=== PATIENT | female | born 1970 | race Native Hawaiian/Other Pacific Islander ===

== ENCOUNTER → 2020-08-22 11:04 | Outpatient (BNVA) | payer OTHER, SELFPAY | PROVIDERS: PCP Internal Medicine; Referring Provider Internal Medicine; Visit Provider Orthopaedic Surgery | DX: M79.673 Pain in unspecified foot (principal) | CPT/HCPCS: 99212 ==

== ENCOUNTER 2020-09-15 09:04 | Outpatient (REF) | payer OTHER, SELFPAY ==
--- NOTE | 2020-09-15 09:08 | EMG_ITS ---
Right median and ulnar motor and sensory studies were performed. Right radial sensory studies were performed and paraspinal muscles were tested. IMPRESSION: Mild right median neuropathy across carpal tunnel. MD SEEMA Triplett/ALFONSO / [id number]
== END 2020-09-15 09:05 | disposition home or self-care (01) ==
LOC: HO.NEURO 09:04
PROVIDERS: Visit Provider Internal Medicine
DX: R20.0 Anesthesia of skin (principal)
CPT/HCPCS: 95860; 95886; 95909; 95910

== ENCOUNTER → 2020-11-11 10:20 | Outpatient (BNV) | payer OTHER, SELFPAY | PROVIDERS: PCP Internal Medicine; Visit Provider Internal Medicine Medical Oncology | DX: D64.9 Anemia, unspecified (principal) | CPT/HCPCS: 99213; 99214 ==

== ENCOUNTER → 2021-02-09 10:16 | Outpatient (BNVA) | payer OTHER, SELFPAY | PROVIDERS: PCP Internal Medicine; Referring Provider Internal Medicine; Visit Provider Internal Medicine Cardiovascular Disease | DX: R06.02 Shortness of breath (principal); I25.10 Atherosclerotic heart disease of native coronary artery without angina pectoris; I10 Essential (primary) hypertension; E78.2 Mixed hyperlipidemia | CPT/HCPCS: 93005; 99212 ==

== ENCOUNTER → 2021-02-20 10:32 | Outpatient (REF) | payer OTHER, SELFPAY ==
--- NOTE | 2021-02-20 10:35 | CA_ITS ---
Transthoracic Echocardiogram Patient (Last, First, Middle): Barbara Murillo, Gender: Female Date of : 1970 Age: 51 Procedure Date: 02/20/2021 Procedure Type: Transthoracic Echocardiogram Location: OP Height: 154.94 cm Weight: 83.01 kg BSA: 1.82 m2 Heart Rate: bpm BP: 112 / 54 mmHg Sawmill Hand: BRITTNEE Kinney MD: Deshawn Aaron MD Shut Off Worker: Deshawn Aaron MD Symptoms: R06.02 - Shortness of breath Study Quality: Good ECG Rhythm: Sinus Conclusions: - 1. Low normal LV systolic function with normal filling pattern with wall motion abnormality in RCA territory 2. Normal cardiac valvular Doppler 3. Normal RV systolic pressure 4. No pericardial effusion Findings Left Ventricle Normal left ventricular cavity size. There is normal left ventricular wall thickness. The left ventricular systolic function is low normal. The visually estimated ejection fraction is between 50-55%. There is evidence of regional wall motion abnormalities. Spectral Doppler is indicative of a normal filling pattern. Wall Motion Rest Echo Findings The inferoseptal wall and mid inferior segment are hypokinetic. The basal inferior segment is akinetic. All other scored wall segments showed normal motion. Right Ventricle Normal right ventricular cavity size and systolic function. Atria The left atrium is likely dilated. There is no evidence of interatrial shunt. The right atrium is normal in size. Aortic Valve Normal aortic valve structure and function. There is no aortic valve stenosis. There is no aortic valve regurgitation. Mitral Valve There is mild anterior mitral leaflet thickening. There is mild mitral annular calcification. There is no mitral valve regurgitation. There is no mitral valve stenosis. Pulmonic Valve The pulmonic valve was not well visualized. Tricuspid Valve Likely normal tricuspid valve structure and function. There is trace tricuspid valve regurgitation. The right ventricular systolic pressure is normal. Normal right atrial pressure. There is no evidence of pulmonary hypertension. Great Vessels All visible segments of the aorta are normal in size. The pulmonary artery was not well visualized. Venous The inferior vena cava is normal in size and collapses greater than 50% with inspiration. Pericardium/Pleural There is no evidence of pericardial effusion. Prior Study Comparison Changes noted compared to prior study dated: 02/17/2020. LV systolic function is reduced Measurements 2D Linear Measurements RVIDd: 2.93 RVIDd Index: 1.61 IVSd: 1.05 0.6-0.9/0.6-1.0 cm LVIDd: 4.80 3.9-5.3/4.2-5.9 cm LVIDd Index: 2.64 2.4-3.2/2.2-3.1 cm/m2 LVIDs: 3.57 2.0-3.6 cm LVPWd: 1.20 0.7-1.1 cm Ao Root: 2.60 2.1-3.5 cm LA Diam: 3.70 2.7-3.8/3.0-4.0 cm LAIDs Index: 2.03 1.5-2.3 cm/m2 LV Mass: 249.40 67-162/88-224 g LV Mass Index: 137.03 43-95/49-115 g/m2 LVOT Diam: 2.00 3.0+(-)1.3 cm 2D Systolic Function EF 4C: 51.30 >55% EF 2C: 44.90 >55% EF BiP: 49.40 >55% Mitral Valve MV Pk E: 0.74 MV PK A: 0.49 MV Decel Time: 160.00 E/A: 1.50 E'Lateral: 7.62 E'Medial: 8.16 E/E' Med: 9.00 E/E' Lat: 9.70 Aortic Valve AoV Pk Iker: 1.54 AoV Mn Iker: 1.02 AoV VTI: 0.31 AoV Pk Grad: 9.00 Aov Mn Grad: 5.00 MELANI Cont.VTI: 1.89 LVOT LVOT Pk Iker: 0.94 LVOT Mn Iker: 0.71 LVOT VTI: 0.19 LVOT Pk Grad: 4.00 LVOT Mn Grad: 2.00 LVOT Diam: 2.00 LVOT Area: 3.14 Diastolic Function MV Pk E: 0.74 MV Pk A: 0.49 E/A: 1.50 E'Medial: 8.16 E/E' Med: 9.00 E' Laterial: 7.62 E/E' Lat: 9.70 Tricuspid Valve TR Pk Iker: 1.94 TR Pk Grad: 15.00 RA Press: 3.00 RVSP: 18.00 Great Vessels Aorta Ao Root-2D: 2.60 2.0-3.7 cm Ao Asc: 2.90 2.1-3.4 cm Ao Arch: 2.90 Updated in Other Vendor System with Status of Final Deshawn Aaron MD electronically signed on 02/20/2021 4:06:17 PM with status of Final
== END ==
LOC: HO.CARD 10:32
PROVIDERS: PCP Internal Medicine; Visit Provider Internal Medicine Cardiovascular Disease
DX: R06.02 Shortness of breath (principal)
CPT/HCPCS: 93306

== ENCOUNTER 2021-03-03 13:57 | Outpatient (REF) | payer OTHER, SELFPAY ==
[2021-03-04 12:47] LABS: BV Int Neg Control Negative (Negative); BV Int Pos Control Positive (Positive)
== END 2021-03-03 13:58 | disposition home or self-care (01) ==
LOC: HO.LAB 13:57
PROVIDERS: Visit Provider Obstetrics & Gynecology
DX: Z01.419 Encounter for gynecological examination (general) (routine) without abnormal findings (principal); L29.2 Pruritus vulvae
CPT/HCPCS: 87480; 87510; 87660

== ENCOUNTER → 2021-03-14 10:10 | Outpatient (REF) | payer OTHER, SELFPAY ==
--- NOTE | ~2021-03-14 | NM_ITS ---
Lexiscan Myocardial perfusion study Indication: Chest pain, shortness of breath, assess for coronary disease and ischemia Technique: The patient was brought in for a Lexiscan perfusion study on 03/13/2021 and was injected 0.4 mg of Lexiscan intravenously. Within a minute of this injection 30 mCi of sestamibi was given intravenously. Images were obtained using the SPECT gamma camera interlaced with the gating device. Images were obtained in supine position. Resting perfusion study was performed on 03/14/2021. Patient was administered 30 mCi of sestamibi intravenously at rest. Images were then obtained in supine position. Total DLP 132mGy-cm. Images were processed with the software and compared side to side in short axis, horizontal long axis and vertical long axis views. Findings: Raw acquisition was reviewed. The stress perfusion study showed moderate to severely diminished tracer uptake along most of the anterior wall; basal septum. With CT attenuation correction, there is partial improvement. Hence some of this could be from soft tissue attenuation. The gated study shows normal LV systolic function with calculated LVEF of 55%. LV cavity is normal in size. The gated study shows normal wall thickening and contraction of segments. Resting study shows no significant perfusion abnormality. With CT attenuation correction, there is slightly reduced uptake towards the apex and immediate adjacent areas. Gating at rest reveals normal wall motion with ejection fraction at 50%. The findings are consistent with reversible defect along most of the anterior wall and the basal septum with partial improvement with CT attenuation correction. NM/NM adelso perf SPECT rest & str Impression: 1. Myocardial perfusion imaging study shows ischemia with components of soft tissue attenuation in the LAD territory. 2. Gated LVEF is 55% during stress and 50% during rest. 3. Transient ischemic dilatation not present. EKG component of the test reported separately.
--- NOTE | 2021-03-14 10:14 | CA_ITS ---
Acquisition Time: 2021-03-14 10:21:00 Total Exercise Time: 00:02:00 Test Indications: CHEST PAIN, SOB Medications: Protocol: LEXISCAN Max HR: 093 BPM 55% of Pred: 168 BPM Max BP: 116/060 mmHG Max Work Load: 1.0 METS Pharmacological stress test with lexiscan injection, while sitting and kicking her legs, without anginal symptoms, without arrythmia, with normotensive response to injection, with nondiagnostic EKG for ischemia. In recovery she reported lightheadedness, chest tightness that was treated with Aminophylline 75mg IVP and 6oz caffinated soda with resolution of symptoms. Nuclear images pending. Test reviewed with Dr Aaron. Referred By: Deshawn Aaron Overread By: TERENCE TALAMANTES
== END ==
LOC: HO.CARD 10:10
PROVIDERS: PCP Internal Medicine; Visit Provider Internal Medicine Cardiovascular Disease
DX: R06.02 Shortness of breath (principal)
CPT/HCPCS: 78452; 93017; A9500; J0280; J2785

== ENCOUNTER → 2021-03-22 10:52 | Outpatient (BNVA) | payer OTHER, SELFPAY | PROVIDERS: PCP Internal Medicine; Visit Provider Internal Medicine Cardiovascular Disease | DX: R06.02 Shortness of breath (principal); I25.10 Atherosclerotic heart disease of native coronary artery without angina pectoris | CPT/HCPCS: Q3014 ==

== ENCOUNTER 2021-04-03 09:55 | Outpatient (REF) | payer OTHER, SELFPAY ==
[2021-04-03 10:51] LABS: MANUAL DIFF FLAG NO
[2021-04-03 11:13] LABS: Basophils Percent Auto 0.5 % (0-2); Eosinophils Absolute Auto 0.3 X10*3/uL (0.0-0.4); Eosinophils Percent Auto 4.9 % (0-4); Hematocrit 38.6 % (37-47); Hemoglobin 11.7 g/dl (12.0-16.0); Imm Gran Abs Auto 0.01 X10*3/uL (0.00-0.03); Imm Gran Pct Auto 0.2 % (0.0-0.4); Lymphocytes Absolute Auto 1.8 X10*3/uL (1.2-4.9); Lymphocytes Percent Auto 31.5 % (20-40); Mean Corpuscular HGB Conc 30.3 g/dl (31.0-35.0); Mean Corpuscular Hemoglobin 25.9 pg (27.0-33.0); Mean Corpuscular Volume 85.4 fL (80-98); Mean Platelet Volume 10.1 fL (9.4-12.3); Monocytes Absolute Auto 0.5 X10*3/uL (0.1-1.2); Monocytes Percent Auto 8.3 % (2-11); Neutrophils Percent Auto 54.6 % (45-73); Platelet Count 272 X10*3/uL (160-400); Red Blood Count 4.52 X10*6/uL (4.20-5.50); Red Cell Distribution Width 14.6 % (11.0-16.0); White Blood Count 5.6 X10*3/uL (4.8-10.8)
[2021-04-03 11:22] LABS: Prothrombin Time 11.1 SEC (9.9-13.0)
[2021-04-03 11:23] LABS: Alanine Aminotransferase 22 U/L (0-31); Alkaline Phosphatase 120 U/L (39-117); Anion Gap 10 (12-20); Aspartate Amino Transferase 19 U/L (5-31); Bilirubin Total 0.5 mg/dL (0.0-1.0); Blood Urea Nitrogen 14 mg/dL (9-16); Calcium 9.2 mg/dL (8.4-10.2); Carbon Dioxide 26 mmol/L (22-29); Chloride 108 mmol/L (96-108); Cholesterol 160 mg/dL; Estimated Glomerular Filt Rate > 60; Glucose Fasting 145 mg/dL (60-99); HDL Cholesterol 47 mg/dL; LDL Cholesterol Calculated 52 mg/dl; Potassium 4.4 mmol/L (3.3-5.1); Sodium 140 mmol/L (135-145); Total Protein 7.3 g/dL (6.5-8.0); Triglycerides 305 mg/dL
[2021-04-03 11:51] LABS: Folate 18.7 ng/mL (> or = 4.0); Vitamin B12 747 pg/mL (200-900)
[2021-04-07 13:11] LABS: Vitamin D 25-OH, D2 <4 ng/mL; Vitamin D 25-OH, D3 29 ng/mL; Vitamin D 25-OH, Total 29 ng/mL (30-100)
== END 2021-04-03 09:56 | disposition home or self-care (01) ==
LOC: HO.LAB 09:55
PROVIDERS: Absent Provider Internal Medicine; PCP Internal Medicine; Visit Provider Internal Medicine Cardiovascular Disease
DX: I10 Essential (primary) hypertension (principal); D51.0 Vitamin B12 deficiency anemia due to intrinsic factor deficiency; D50.9 Iron deficiency anemia, unspecified; R53.83 Other fatigue; I25.10 Atherosclerotic heart disease of native coronary artery without angina pectoris; R06.02 Shortness of breath
CPT/HCPCS: 36415; 80048; 80053; 80061; 82306; 82607; 82746; 85025; 85610

== ENCOUNTER → 2021-04-20 12:55 | Outpatient (BNVA) | payer OTHER, SELFPAY | PROVIDERS: PCP Internal Medicine; Referring Provider Internal Medicine; Visit Provider Nurse Practitioner Family | DX: I25.10 Atherosclerotic heart disease of native coronary artery without angina pectoris (principal); I10 Essential (primary) hypertension; E78.5 Hyperlipidemia, unspecified; R06.02 Shortness of breath; Z98.890 Other specified postprocedural states | CPT/HCPCS: 99212 ==

== ENCOUNTER 2021-05-25 12:42 | Outpatient (REF) | payer OTHER, SELFPAY ==
--- NOTE | ~2021-05-25 | MM_ITS ---
EXAMINATION: MM SCREENING DIGITAL BREAST TOMOSYNTHESIS, BILATERAL CLINICAL INFORMATION: Screening. Asymptomatic. Family history breast cancer, sister. The lifetime risk of breast cancer based on the Tyrer-Cuzick Model is 20.4%. COMPARISON: Mammography: 01/05/2019, 12/26/2017, 08/26/2017 TECHNIQUE: Digital breast tomosynthesis is performed in both the craniocaudal and mediolateral oblique views along with computer-aided detection (CAD). Synthesized 2D images are generated from the tomosynthesis. FINDINGS: There are scattered areas of fibroglandular density (ACR BI-RADS breast composition Category b). Parenchymal pattern is similar to prior study. Small nodular density posterior upper outer right breast is stable. There is no developing density or interval architectural abnormality. No abnormal calcifications. The axilla and skin contours are unremarkable. MM/MM tomosynthesis screening BI IMPRESSION: No significant changes from prior exam. ASSESSMENT: BI-RADS 2: Benign RECOMMENDATION: 1. Routine annual mammography screening. 2.. The lifetime risk of breast cancer based on the Tyrer-Cuzick Model is 20.4%. Additional annual adjunct screening with breast MRI may be of benefit in women with a risk score of 20% or greater. This patient's information was entered into a reminder system with a target due date for their next mammogram.
== END 2021-05-25 12:43 | disposition home or self-care (01) ==
LOC: HO.MAMMO 12:42
PROVIDERS: PCP Internal Medicine; Visit Provider Obstetrics & Gynecology
DX: Z12.31 Encounter for screening mammogram for malignant neoplasm of breast (principal)
CPT/HCPCS: 77063; 77067

== ENCOUNTER 2021-05-30 12:48 | Outpatient (REF) | payer OTHER, SELFPAY | END 2021-05-30 12:49 | disposition home or self-care (01) | LOC: HO.LAB 12:48 | PROVIDERS: PCP Internal Medicine; Visit Provider Obstetrics & Gynecology | DX: N76.6 Ulceration of vulva (principal); Z91.89 Other specified personal risk factors, not elsewhere classified | CPT/HCPCS: 87255; 99212 ==

== ENCOUNTER 2021-06-19 12:20 | Outpatient (REF) | payer OTHER, SELFPAY ==
[2021-06-19 12:44] LABS: MANUAL DIFF FLAG NO
[2021-06-19 13:23] LABS: Basophils Percent Auto 0.6 % (0-2); Eosinophils Absolute Auto 0.2 X10*3/uL (0.0-0.4); Eosinophils Percent Auto 4.4 % (0-4); Hematocrit 37.4 % (37-47); Hemoglobin 11.8 g/dl (12.0-16.0); Imm Gran Abs Auto 0.01 X10*3/uL (0.00-0.03); Imm Gran Pct Auto 0.2 % (0.0-0.4); Lymphocytes Absolute Auto 2.4 X10*3/uL (1.2-4.9); Lymphocytes Percent Auto 45.5 % (20-40); Mean Corpuscular HGB Conc 31.6 g/dl (31.0-35.0); Mean Corpuscular Hemoglobin 26.4 pg (27.0-33.0); Mean Corpuscular Volume 83.7 fL (80-98); Mean Platelet Volume 9.9 fL (9.4-12.3); Monocytes Absolute Auto 0.4 X10*3/uL (0.1-1.2); Neutrophils Absolute Auto 2.2 X10*3/uL (2.0-8.3); Neutrophils Percent Auto 42.3 % (45-73); Platelet Count 279 X10*3/uL (160-400); Red Blood Count 4.47 X10*6/uL (4.20-5.50); Red Cell Distribution Width 14.8 % (11.0-16.0); White Blood Count 5.3 X10*3/uL (4.8-10.8)
[2021-06-19 13:48] LABS: Alanine Aminotransferase 21 U/L (0-31); Albumin Level 4.2 g/dL (3.5-5.0); Alkaline Phosphatase 143 U/L (39-117); Anion Gap 11 (12-20); Aspartate Amino Transferase 18 U/L (5-31); Bilirubin Total 0.3 mg/dL (0.0-1.0); Blood Urea Nitrogen 12 mg/dL (9-16); Calcium 9.1 mg/dL (8.4-10.2); Carbon Dioxide 25 mmol/L (22-29); Chloride 110 mmol/L (96-108); Cholesterol 162 mg/dL; Estimated Glomerular Filt Rate > 60; Glucose Fasting 104 mg/dL (60-99); HDL Cholesterol 48 mg/dL; Iron 66 mcg/dL (30-160); LDL Cholesterol Calculated 61 mg/dl; Percent Iron Saturation 17 % (15-50); Potassium 4.4 mmol/L (3.3-5.1); Sodium 142 mmol/L (135-145); Total Iron Binding Capacity 382 mcg/dL (228-428); Total Protein 7.5 g/dL (6.5-8.0); Triglycerides 267 mg/dL; Unsaturated Iron Binding 316 ug/dL
[2021-06-19 14:08] LABS: Ferritin 10 ng/mL (10-250)
[2021-06-19 14:15] LABS: Folate 17.9 ng/mL (> or = 4.0); Vitamin B12 631 pg/mL (200-900)
[2021-06-19 14:49] LABS: Creatinine Urine 68.71 mg/dL; Microalbumin Urine < 5.0 mg/L
[2021-06-23 14:25] LABS: Vitamin D 25-OH, D2 <4 ng/mL; Vitamin D 25-OH, D3 32 ng/mL; Vitamin D 25-OH, Total 32 ng/mL (30-100)
== END 2021-06-19 12:21 | disposition home or self-care (01) ==
LOC: HO.LAB 12:20
PROVIDERS: Internal Medicine Medical Oncology; PCP Internal Medicine; Visit Provider Internal Medicine
DX: D50.9 Iron deficiency anemia, unspecified (principal); E78.5 Hyperlipidemia, unspecified; I10 Essential (primary) hypertension; G43.909 Migraine, unspecified, not intractable, without status migrainosus; D51.0 Vitamin B12 deficiency anemia due to intrinsic factor deficiency; E55.9 Vitamin D deficiency, unspecified; E11.9 Type 2 diabetes mellitus without complications
CPT/HCPCS: 36415; 80053; 80061; 82043; 82306; 82607; 82728; 82746; 83540; 85025; 85027

== ENCOUNTER 2021-06-20 09:41 | Outpatient (REF) | payer OTHER, SELFPAY ==
--- NOTE | ~2021-06-20 | MR_ITS ---
EXAMINATION: MR BREAST WITHOUT AND WITH CONTRAST, BILATERAL CLINICAL INFORMATION: High-risk screening, family history of breast cancer (sister at age 58) COMPARISON: Bilateral mammogram 05/25/2021 TECHNIQUE: Imaging was performed with a dedicated breast coil. Prior to the administration of contrast, bilateral axial T1 and bilateral axial T2 weighted sequences were obtained. After the uneventful administration of?8.5 mL of Gadavist, dynamic contrast-enhanced VIBRANT series through the breasts in the axial plane were performed. Subtracted images were performed and reviewed. A delayed sagittal sequence through both breasts was acquired. Additionally, CAD post-processing, including maximum intensity projections, 3-D reconstructions and kinetic analysis, were performed an independent workstation and reviewed by the interpreting radiologist is a portion of this exam. FINDINGS: The patient's fibroglandular tissue demonstrates minimal background enhancement. LEFT BREAST: No suspicious masslike or non-masslike enhancement. No abnormal skin thickening or nipple retraction. No abnormal architectural distortion. Review of the T2 weighted images demonstrates no fibrocystic changes or dilated ducts. Review of kinetic images reveals no additional findings. RIGHT BREAST: No suspicious masslike or non-masslike enhancement. No abnormal skin thickening or nipple retraction. No abnormal architectural distortion. Review of the T2 weighted images demonstrates no fibrocystic changes or dilated ducts. Review of kinetic images reveals no additional findings. There is no suspicious internal mammary chain or axillary adenopathy. Limited views of the chest and abdomen are unremarkable. MR/MR breast BI wo/w con IMPRESSION: No MR specific evidence of malignancy. ASSESSMENT: LEFT BREAST: BI-RADS 1-Negative RIGHT BREAST: BI-RADS 1-Negative RECOMMENDATIONS: Recommend yearly screening mammogram in May 2022 and repeat MRI as clinically indicated.
== END 2021-06-20 09:42 | disposition home or self-care (01) ==
LOC: HO.MRI 09:41
PROVIDERS: PCP Internal Medicine; Visit Provider Obstetrics & Gynecology
DX: Z12.39 Encounter for other screening for malignant neoplasm of breast (principal); Z91.89 Other specified personal risk factors, not elsewhere classified; Z80.3 Family history of malignant neoplasm of breast
CPT/HCPCS: 77049; A9585

== ENCOUNTER 2021-06-21 10:51 | Outpatient (REF) | payer OTHER, SELFPAY | END 2021-06-21 10:52 | disposition home or self-care (01) | LOC: HO.LAB 10:51 | PROVIDERS: PCP Internal Medicine; Visit Provider Obstetrics & Gynecology | DX: N76.6 Ulceration of vulva (principal) | CPT/HCPCS: 56605; 88305; 88312; 99212 ==

== ENCOUNTER 2021-07-17 08:17 | Outpatient (REF) | payer OTHER, SELFPAY | END 2021-07-17 08:18 | disposition home or self-care (01) | LOC: HO.HOSX 08:17 | PROVIDERS: Visit Provider Orthopaedic Surgery | DX: Z13.89 Encounter for screening for other disorder (principal) ==

== ENCOUNTER 2021-07-17 11:07 | Outpatient (REF) | payer OTHER, SELFPAY | END 2021-07-17 11:08 | disposition home or self-care (01) | LOC: HO.LAB 11:07 | PROVIDERS: Visit Provider Internal Medicine | DX: Z20.822 Contact with and (suspected) exposure to COVID-19 (principal) | CPT/HCPCS: C9803; U0003; U0005 ==

== ENCOUNTER → 2021-07-19 10:39 | Outpatient (BNVA) | payer OTHER, SELFPAY | PROVIDERS: Visit Provider Obstetrics & Gynecology | DX: N76.6 Ulceration of vulva (principal) | CPT/HCPCS: 99212 ==

== ENCOUNTER 2021-08-01 08:57 | Outpatient (REF) | payer OTHER, SELFPAY ==
--- NOTE | ~2021-08-01 | XR_ITS ---
EXAMINATION: XR HAND, LEFT CLINICAL INFORMATION: Pain in left hand. COMPARISON: None TECHNIQUE: PA, lateral, and oblique views of the left hand. FINDINGS: The bones and soft tissues are normal. No fracture. Alignment is anatomic. Joint spaces are maintained. No erosions or soft tissue calcifications. XR/XR hand LT min 3V IMPRESSION: Normal left hand.
== END 2021-08-01 08:58 | disposition home or self-care (01) ==
LOC: HO.HOSX 08:57
PROVIDERS: Visit Provider Orthopaedic Surgery
DX: M65.312 Trigger thumb, left thumb (principal); M79.642 Pain in left hand; R20.0 Anesthesia of skin; R20.2 Paresthesia of skin
CPT/HCPCS: 73130; 99202

== ENCOUNTER 2021-08-24 07:47 | Day surgery (SDC) | payer OTHER, SELFPAY ==
[2021-08-24 08:10] VITALS: PULSE 83; RESP 16; TEMP 37.2; O2SAT 96; BMI 33.5
[2021-08-24 09:50] VITALS: BP 128/68; PULSE 82; RESP 18; TEMP 37.4; O2SAT 97
--- NOTE | 2021-08-24 10:13 | MHC.SHP ---
Pre-Procedural Eval Section A Date of Service: 08/24/21 The patient is an INPATIENT: No Changes since office visit: No Cold of Flu in the past 2 weeks, No New Medical Problems, No Changes in Medication and No Patient answered all questions The History & Physical has been completed within 30 days and I have reviewed it.: Yes Section B Chief Complaint: trigger thumb Allergies: Allergies Allergy/AdvReac Type Severity Reaction Status Date / Time apple [APPLES] Allergy Intermediate TONGUE Verified 06/07/21 08:27 SWELLS AND TURNS PURPLE shellfish derived Allergy Intermediate LOBSTER- Verified 06/07/21 08:27 UNKNOWN coconut [COCONUT] Allergy Mild NAUSEA AND Verified 06/07/21 08:27 STOMACH SWELLS Plan I have reviewed the history and physical and performed a pertinent physical examination on my patient. No changes have occurred unless specified.
--- NOTE | 2021-08-24 10:13 | W.PM.OPN ---
Operative Note Operative Note Date of Service: 08/24/21 Narrative: Operative Note Preop diagnosis: 1. left thumb Trigger finger Postop diagnosis: 1. left thumb Trigger finger Procedure: 1. left thumb A1 ishan release Surgeon: Amina Tidwell MD Anesthesia: local block using 1% lidocaine with epinephrine Findings: No locking or catching after A1 ishan release EBL: Less than 5 mL Tourniquet time: None Specimens: None Complications: None Disposition: Brought to recovery room in stable condition Plan: Follow-up for 7-10 days for wound check and suture removal Indications: The patient is 51 years old, with a left thumb trigger finger that has been unresponsive to nonoperative management. The risks and benefits of operative treatment including but not limited to risk of damage to blood vessels, nerves, tendons, infection, persistent pain, persistent symptoms, recurrence or possible need for additional surgery were discussed with the patient and the patient wishes to proceed with surgery. Procedure: Once consent was obtained a local block was performed in the preop area using a combination of 1% lidocaine with epinephrine. The patient was then brought back to the operating suite and placed on the operative table in supine position. A tourniquet was applied to the proximal aspect of the left upper extremity and the limb was prepped and draped in a standard surgical fashion. Once assured that we had a good block, a 1.5 cm oblique incision was made centered over the A1 ishan of the left thumb . The incision was made through the skin to the subcutaneous tissues using a #15 blade. Careful dissection was made down to the level of the A1 ishan using tenotomy scissors, with care being taken to protect the nearby neurovascular structures. A longitudinal incision was made in the A1 ishan 1st using a #15 blade, then using tenotomy scissors under direct visualization. The A1 ishan was noted to be thickened. Following our A1 ishan release, we no longer saw any locking or catching of the digit with flexion and extension. Once satisfied with our A1 ishan release the wound was copiously irrigated with normal saline and hemostasis was obtained with a brief period of local pressure. The skin edges were reapproximated with some 5.0 nylon suture material and a sterile dressing was applied. The patient appears to have tolerated the procedure well and with no complications. All digits were well vascularized at the conclusion of the case.
== END 2021-08-24 10:19 | disposition home or self-care (01) ==
PROVIDERS: PCP Internal Medicine; Visit Provider Orthopaedic Surgery
PROC: (CPT 26055; principal; 2021-08-24 09:10)
DX: M65.312 Trigger thumb, left thumb (principal); M79.642 Pain in left hand; M25.522 Pain in left elbow; R20.0 Anesthesia of skin; I25.10 Atherosclerotic heart disease of native coronary artery without angina pectoris; Z98.61 Coronary angioplasty status; I10 Essential (primary) hypertension; E11.9 Type 2 diabetes mellitus without complications; Z79.82 Long term (current) use of aspirin; Z87.891 Personal history of nicotine dependence
CPT/HCPCS: 26055

== ENCOUNTER → 2021-09-05 12:50 | Outpatient (BNVA) | payer OTHER, SELFPAY | PROVIDERS: PCP Internal Medicine; Visit Provider Orthopaedic Surgery | DX: M65.312 Trigger thumb, left thumb (principal); R20.0 Anesthesia of skin; R20.2 Paresthesia of skin | CPT/HCPCS: 99212 ==

== ENCOUNTER 2021-09-13 10:09 | Outpatient (REF) | payer OTHER, SELFPAY ==
--- NOTE | 2021-09-13 10:11 | EMG_ITS ---
This is a 51-year-old woman with a long history of bilateral hand numbness. PHYSICAL EXAMINATION: On examination, she is alert and oriented with normal intellectual functions. Her cranial nerves II through XII are normal. Muscle tone and strength are normal in all 4 extremities. No Tinel or Phalen sign. IMPRESSION: Carpal tunnel syndrome. Nerve conduction EMG study: Early carpal tunnel syndrome bilaterally. Normal EMG of the left C5-T1 innervated muscles. MD ADRIAN Cohen/ALFONSO / [id number]
== END 2021-09-13 10:10 | disposition home or self-care (01) ==
LOC: HO.NEURO 10:09
PROVIDERS: Visit Provider Orthopaedic Surgery
DX: R20.0 Anesthesia of skin (principal); R20.2 Paresthesia of skin; D50.9 Iron deficiency anemia, unspecified
CPT/HCPCS: 95885; 95913

== ENCOUNTER → 2021-10-17 09:36 | Outpatient (BNVA) | payer OTHER, SELFPAY | PROVIDERS: PCP Internal Medicine; Visit Provider Orthopaedic Surgery | DX: Z47.89 Encounter for other orthopedic aftercare (principal); G56.03 Carpal tunnel syndrome, bilateral upper limbs | CPT/HCPCS: Q3014 ==

== ENCOUNTER → 2021-10-31 13:30 | Outpatient (BNVA) | payer OTHER, SELFPAY | PROVIDERS: PCP Internal Medicine; Referring Provider Internal Medicine; Visit Provider Internal Medicine Cardiovascular Disease | DX: I25.118 Atherosclerotic heart disease of native coronary artery with other forms of angina pectoris (principal); I10 Essential (primary) hypertension; Z79.899 Other long term (current) drug therapy | CPT/HCPCS: 99212 ==

== ENCOUNTER 2021-12-14 06:23 | Day surgery (SDC) | payer OTHER, SELFPAY ==
[2021-12-14 07:01] VITALS: BP 113/64; PULSE 69; RESP 17; TEMP 36.2; O2SAT 96; BMI 36.3
[2021-12-14 07:59] VITALS: BMI 36.3
--- NOTE | 2021-12-14 08:29 | MHC.SHP ---
Pre-Procedural Eval Section A Date of Service: 12/14/21 The patient is an INPATIENT: No Changes since office visit: No Cold of Flu in the past 2 weeks, No New Medical Problems, No Changes in Medication and No Patient answered all questions The History & Physical has been completed within 30 days and I have reviewed it.: Yes Section B Chief Complaint: carpal tunnel Allergies: Allergies Allergy/AdvReac Type Severity Reaction Status Date / Time apple [APPLES] Allergy Intermediate TONGUE Verified 10/24/21 14:24 SWELLS AND TURNS PURPLE shellfish derived Allergy Intermediate LOBSTER- Verified 10/24/21 14:24 UNKNOWN coconut [COCONUT] Allergy Mild NAUSEA AND Verified 10/24/21 14:24 STOMACH SWELLS Plan I have reviewed the history and physical and performed a pertinent physical examination on my patient. No changes have occurred unless specified.
--- NOTE | 2021-12-14 08:29 | W.PM.OPN ---
Operative Note Operative Note Date of Service: 12/14/21 Narrative: Preop diagnosis: 1. Left Carpal tunnel syndrome Postop diagnosis: same Procedure: 1. Left Carpal tunnel release Surgeon: Amina Tidwell MD Anesthesia: local block using 1% lidocaine with epinephrine Findings: Thickened transverse carpal ligament. The motor branch of the median nerve was noted to be coming through the transverse carpal ligament and then over the top of the ligament heading towards the thenar mass. It was protected during the case. EBL: Less than 5 mL Specimens: None Complications: None Disposition: Brought to recovery room in stable condition Plan: Follow-up for 10-14 days for wound check and suture removal Indications: The patient is 51 years old, with left carpal tunnel syndrome that has been unresponsive to nonoperative management. The risks and benefits of operative treatment including but not limited to risk of damage to blood vessels, nerves, tendons, infection, persistent pain, persistent symptoms, or possible need for additional surgery were discussed with the patient and the patient wishes to proceed with surgery. Procedure: Once consent was obtained a local block was performed using a combination of 1% lidocaine with epinephrine. The patient was then brought back to the operating suite and placed on the operative table in supine position. A tourniquet was applied to the proximal aspect of the left upper extremity and the limb was prepped and draped in a standard surgical fashion. Once assured that we had a good block, a 1.5 cm longitudinal incision was made centered over the carpal tunnel. The incision was made through the skin to the subcutaneous tissues using a #15 blade. Dissection was made down to the level of the transverse carpal ligament with care being taken to protect the palmar cutaneous nerve. Once the transverse carpal ligament was clearly visualized, a longitudinal incision was made in the transverse carpal ligament 1st using a #15 blade, then using tenotomy scissors under direct visualization. The motor branch of the median nerve was noted to pass through the transverse carpal ligament and then lie on top of the ligament as it headed radially towards the thenar mass. It was carefully protected as we incised the transverse carpal ligament in this area. Once satisfied with our carpal tunnel release the wound was copiously irrigated with normal saline and hemostasis was obtained with a brief period of local pressure. The skin edges were reapproximated with some 5.0 nylon suture material and a sterile dressing was applied. The patient appears to have tolerated the procedure well and with no complications. All digits were well vascularized at the conclusion of the case.
[2021-12-14 09:06] VITALS: BP 114/65; PULSE 71; RESP 18; TEMP 36.6; O2SAT 97
== END 2021-12-14 09:10 | disposition home or self-care (01) ==
PROVIDERS: PCP Internal Medicine; Visit Provider Orthopaedic Surgery
PROC: (CPT 64721; principal; 2021-12-14 08:10)
DX: G56.02 Carpal tunnel syndrome, left upper limb (principal); I10 Essential (primary) hypertension; I25.118 Atherosclerotic heart disease of native coronary artery with other forms of angina pectoris; Z98.61 Coronary angioplasty status; E78.5 Hyperlipidemia, unspecified; E11.9 Type 2 diabetes mellitus without complications; D50.9 Iron deficiency anemia, unspecified; F33.2 Major depressive disorder, recurrent severe without psychotic features; Z79.899 Other long term (current) drug therapy; Z79.82 Long term (current) use of aspirin; Z87.891 Personal history of nicotine dependence
CPT/HCPCS: 64721; J0171

== ENCOUNTER → 2021-12-27 09:56 | Outpatient (BNVA) | payer OTHER, SELFPAY | PROVIDERS: Visit Provider Orthopaedic Surgery | DX: Z47.89 Encounter for other orthopedic aftercare (principal); G56.01 Carpal tunnel syndrome, right upper limb; Z48.811 Encounter for surgical aftercare following surgery on the nervous system | CPT/HCPCS: 99212 ==

== ENCOUNTER 2022-01-11 09:27 | Outpatient (REF) | payer OTHER, SELFPAY ==
--- NOTE | ~2022-01-11 | XR_ITS ---
EXAMINATION: XR CHEST CLINICAL INFORMATION: Cough. COMPARISON: Chest 01/26/2020 TECHNIQUE: 2 views of the chest were obtained. FINDINGS: No significant abnormality is noted involving the heart, lungs, mediastinum, bony thorax or soft tissues. XR/XR chest 2V IMPRESSION: Unremarkable chest exam.
--- NOTE | 2022-01-11 09:35 | ECG_ITS ---
Test Reason : CHEST PAIN Blood Pressure : / mmHG Vent. Rate : 076 BPM Atrial Rate : 076 BPM P-R Int : 134 ms QRS Dur : 086 ms QT Int : 400 ms P-R-T Axes : 057 000 -06 degrees QTc Int : 450 ms Normal sinus rhythm Nonspecific ST and T wave abnormality Abnormal ECG When compared with ECG of 27-OCT-2018 12:49, Nonspecific T wave abnormality has replaced inverted T waves in Anterior leads Referred By: Jairo Morales Electronically Signed By:RANDY AKHTAR
[2022-01-11 10:23] LABS: Influenza A PCR NEGATIVE (Negative); Influenza B PCR NEGATIVE (Negative); Resp Syncy Virus RNA Qual PCR NEGATIVE (Negative); SARS COV2 PCR INHOUSE NEGATIVE (Negative)
== END 2022-01-11 09:28 | disposition home or self-care (01) ==
LOC: HO.XRAY 09:27
PROVIDERS: PCP Internal Medicine; Visit Provider Nurse Practitioner Family
DX: Z20.822 Contact with and (suspected) exposure to COVID-19 (principal); R07.89 Other chest pain; R09.89 Other specified symptoms and signs involving the circulatory and respiratory systems; R05.8 Other specified cough; R07.9 Chest pain, unspecified
CPT/HCPCS: 0241U; 71046; 93005

== ENCOUNTER → 2022-04-04 13:48 | Outpatient (BNVA) | payer OTHER, SELFPAY | PROVIDERS: PCP Internal Medicine; Visit Provider Advanced Practice Midwife | DX: R51.9 Headache, unspecified (principal); Z91.89 Other specified personal risk factors, not elsewhere classified | CPT/HCPCS: 99212 ==

== ENCOUNTER 2022-04-18 09:36 | Outpatient (REF) | payer OTHER, SELFPAY ==
[2022-04-18 09:46] LABS: MANUAL DIFF FLAG NO
[2022-04-18 10:15] LABS: Basophils Percent Auto 0.6 % (0-2); Eosinophils Absolute Auto 0.3 X10*3/uL (0.0-0.4); Hematocrit 40.5 % (37.0-47.0); Hemoglobin 12.6 g/dl (12.0-16.0); Imm Gran Abs Auto 0.01 X10*3/uL (0.00-0.03); Imm Gran Pct Auto 0.1 % (0.0-0.4); Lymphocytes Absolute Auto 2.5 X10*3/uL (1.2-4.9); Lymphocytes Percent Auto 34.8 % (20-40); Mean Corpuscular HGB Conc 31.1 g/dl (31.0-35.0); Mean Corpuscular Hemoglobin 26.7 pg (27.0-33.0); Mean Corpuscular Volume 85.8 fL (80.0-98.0); Mean Platelet Volume 10.3 fL (9.4-12.3); Monocytes Absolute Auto 0.6 X10*3/uL (0.1-1.2); Monocytes Percent Auto 8.7 % (2-11); Neutrophils Absolute Auto 3.7 x10*3/uL (2.0-8.3); Neutrophils Percent Auto 51.8 % (45-73); Platelet Count 306 X10*3/uL (160-400); Red Blood Count 4.72 X10*6/uL (4.20-5.50); White Blood Count 7.2 X10*3/uL (4.8-10.8)
[2022-04-18 11:22] LABS: Folate 15.2 ng/mL (> or = 4.0); Vitamin B12 718 pg/mL (200-900)
[2022-04-18 14:09] LABS: Alanine Aminotransferase 19 U/L (0-31); Albumin Level 4.3 g/dL (3.5-5.0); Alkaline Phosphatase 134 U/L (39-117); Anion Gap 14 (12-20); Aspartate Amino Transferase 19 U/L (5-31); Bilirubin Total 0.5 mg/dL (0.0-1.0); Blood Urea Nitrogen 16 mg/dL (9-16); Calcium 9.1 mg/dL (8.4-10.2); Carbon Dioxide 24 mmol/L (22-29); Chloride 110 mmol/L (96-108); Cholesterol 155 mg/dL; Estimated Glomerular Filt Rate 51; Glucose Fasting 111 mg/dL (60-99); HDL Cholesterol 48 mg/dL; Iron 63 mcg/dL (30-160); LDL Cholesterol Calculated 61 mg/dl; Percent Iron Saturation 17 % (15-50); Potassium 4.7 mmol/L (3.3-5.1); Sodium 143 mmol/L (135-145); Total Iron Binding Capacity 381 mcg/dL (228-428); Total Protein 7.7 g/dL (6.5-8.0); Triglycerides 233 mg/dL; Unsaturated Iron Binding 318 ug/dL
== END 2022-04-18 09:37 | disposition home or self-care (01) ==
LOC: HO.LAB 09:36
PROVIDERS: PCP Internal Medicine; Visit Provider Internal Medicine
DX: D64.9 Anemia, unspecified (principal); D51.0 Vitamin B12 deficiency anemia due to intrinsic factor deficiency; E78.2 Mixed hyperlipidemia
CPT/HCPCS: 36415; 80053; 80061; 82607; 82746; 83540; 85025

== ENCOUNTER 2022-04-19 08:50 | Outpatient (REF) | payer OTHER, SELFPAY ==
[2022-04-19 09:21] LABS: COVID-19 Test Negative (Negative); IDNOW Serial# 16C4AD1C
== END 2022-04-19 08:51 | disposition home or self-care (01) ==
LOC: HO.LAB 08:50
PROVIDERS: Visit Provider Internal Medicine
DX: Z20.822 Contact with and (suspected) exposure to COVID-19 (principal)
CPT/HCPCS: 87635; C9803

== ENCOUNTER 2022-04-19 12:48 | Outpatient (REF) | payer OTHER, SELFPAY ==
--- NOTE | ~2022-04-19 | MM_ITS ---
EXAMINATION: MM DIAGNOSTIC DIGITAL BREAST TOMOSYNTHESIS, BILATERAL US DIAGNOSTIC ULTRASOUND BREAST, RIGHT CLINICAL INFORMATION: Recent palpable fullness noted by patient right axilla. Airway history breast cancer, sister. The lifetime risk of breast cancer based on the Tyrer-Cuzick Model is 13%. COMPARISON: Mammography: 05/25/2021, 01/05/2019, 12/26/2017; bilateral breast MRI 06/20/2021. TECHNIQUE: Digital breast tomosynthesis is performed in both the craniocaudal and mediolateral oblique views along with computer-aided detection (CAD). Synthesized 2D images are generated from the tomosynthesis. Additional exaggerated right CC and left MLO views are provided. Ultrasound right upper outer breast and axillary is performed targeted to the areas of recent clinical concern. Grayscale imaging and color Doppler are performed without and with harmonics. FINDINGS: There are scattered areas of fibroglandular density (ACR BI-RADS breast composition Category b). Parenchymal pattern is similar to prior exams and there is no developing density or interval mass or architectural abnormality. The axilla are unremarkable. No adenopathy. There is no skin thickening or coarsening of the James's ligaments. No significant changes from prior studies. Ultrasound demonstrates no cystic or solid mass or architectural abnormality. No lymphadenopathy. No skin thickening or edema tracking in soft tissue planes. Results are discussed with the patient at time of visit. MM/MM tomosynthesis diagnostic BI IMPRESSION: -No mammographic evidence of malignancy or inflammatory changes. -Unremarkable right breast and axillary ultrasound. ASSESSMENT: BI-RADS 1: Negative RECOMMENDATION: 1. Patient should be managed based on the clinical impression. If clinically indicated, further evaluation may be considered with surgical consult. Decision to proceed with biopsy should be based on clinical grounds and degree of clinical concern. 2. Otherwise, routine annual screening mammography. This patient's information was entered into a reminder system with a target due date for their next mammogram.
== END 2022-04-19 12:49 | disposition home or self-care (01) ==
LOC: HO.MAMMO 12:48
PROVIDERS: PCP Internal Medicine; Visit Provider Internal Medicine
DX: N63.31 Unspecified lump in axillary tail of the right breast (principal)
CPT/HCPCS: 76642; 77062; 77066

== ENCOUNTER 2022-04-20 12:51 | Emergency (ER) | payer OTHER, SELFPAY ==
--- NOTE | 2022-04-20 | ECG_ITS ---
Test Reason : sob Blood Pressure : / mmHG Vent. Rate : 092 BPM Atrial Rate : 092 BPM P-R Int : 142 ms QRS Dur : 080 ms QT Int : 382 ms P-R-T Axes : 047 -14 -33 degrees QTc Int : 472 ms Normal sinus rhythm Nonspecific ST and T wave abnormality Prolonged QT Abnormal ECG When compared with ECG of 11-JAN-2022 09:37, Nonspecific T wave abnormality, worse in Inferior leads Referred By: Generic ED Physician Electronically Signed By:JULTIO IBRAHIM MD
--- NOTE | ~2022-04-20 | XR_ITS ---
EXAMINATION: XR CHEST CLINICAL INFORMATION: Productive cough, wheezing. COMPARISON: 01/11/2022 chest radiographs. TECHNIQUE: 2 views of the chest were obtained. FINDINGS: No significant abnormality is noted involving the heart, lungs, mediastinum, bony thorax or soft tissues. XR/XR chest 2V IMPRESSION: No acute cardiopulmonary process.
[2022-04-20 12:55] VITALS: BP 137/96; PULSE 109; RESP 18; TEMP 36.6; O2SAT 97; BMI 32.6
[2022-04-20 13:26] LABS: COVID-19 Test Negative (Negative)
--- NOTE | 2022-04-20 13:45 | ED_ITS ---
HPI - Asthma General Chief Complaint: Upper Respiratory Symptoms Stated Complaint: SOB/chest tightness Time Seen by Provider: 04/20/22 13:14 Source: patient Mode of arrival: ambulatory Limitations: language barrier (Botswanan-speaking) History of Present Illness HPI Narrative: 52-year-old female with a past medical history of asthma currently using albuterol inhaler, diabetes, hypertension, hyperlipidemia, coronary artery disease, anemia, migraine headaches, GERD, depression with anxiety who is presenting to the ED with complaints of generalized fatigue, malaise, body aches, productive cough, chest tightness, wheezing, shortness of breath and rib cage pain for the past few days worse today. Reports that she had some vomiting yesterday. She was seen at drive-through and had a COVID test which was negative. She went home and has been using her albuterol inhaler although no symptomatic relief. She denies any measured fevers, dizziness, headaches, neck pain/stiffness, trouble swallowing, dyspnea exertion, orthopnea, palpitations, chest pain, paresthesias, jaw pain, nausea/vomiting, diarrhea, abdominal pain, lower extremity edema or calf tenderness, recent travel or sick contacts that she is aware of or any other symptoms complaints or concerns at this time. MD complaint: asthma attack , shortness of breath and wheezing Onset (ago): day(s) (Past few days worse today) Severity: moderate and worse than usual Context: none known Associated symptoms: productive cough Treatments Prior to Arrival: inhaled bronchodilator Related Data Current Asthma Therapy: inhaled bronchodilator Home Medications Medication Instructions Recorded Confirmed bupropion HCl 150 mg 24 hr tablet, 150 mg PO QAM 06/21/20 04/04/22 extended release ferrous sulfate 325 mg (65 mg 325 mg PO BID 06/21/20 04/04/22 iron) tablet fluoxetine 40 mg capsule 40 mg PO DAILY 06/21/20 04/04/22 lorazepam 0.5 mg tablet 0.5 mg PO BID 06/21/20 04/04/22 pantoprazole 40 mg tablet,delayed 40 mg PO DAILY 06/21/20 04/04/22 release hearing aid accessory #8 ea 06/29/20 04/04/22 fluoxetine 20 mg capsule 20 mg PO DAILY 04/20/21 04/04/22 melatonin 5 mg tablet 5 mg PO BEDTIME PRN Insomnia 08/05/21 07/20/22 amitriptyline 25 mg tablet 25 mg PO BEDTIME 10/31/21 04/04/22 buspirone 5 mg tablet 5 mg PO DAILY 10/31/21 04/04/22 topiramate 50 mg tablet 50 mg PO BID 01/11/22 04/04/22 mecobalamin (vitamin B12) 10,000 mcg IM 04/04/22 04/04/22 mcg solution for injection Previous Rx's Medication Instructions Recorded docusate sodium 100 mg capsule 100 mg PO BID 30 days #60 caps 06/29/20 (DOK) nitroglycerin 0.4 mg sublingual 0.4 mg sublingual Q5M PRN Chest 06/29/20 tablet Pain 30 days #30 tabs ascorbic acid (vitamin C) 500 mg 500 mg PO BID 90 days #180 tabs 11/10/20 tablet (Vitamin C) adult diapers pull-up #50 ea 12/26/20 icosapent ethyl 1 gram capsule 2 g PO BID 30 days #120 caps 02/09/21 (Vascepa) blood sugar diagnostic (FreeStyle #100 ea 06/07/21 Test strips) blood-glucose meter (FreeStyle #1 ea 06/07/21 Lite Meter kit) lancets 28 gauge (FreeStyle #100 ea 06/07/21 Lancets) metoprolol tartrate 50 mg tablet 50 mg PO BID 90 days #180 tabs 06/28/21 atorvastatin 80 mg tablet 80 mg PO DAILY 90 days #90 tabs 08/24/21 aspirin 81 mg tablet,delayed 81 mg PO DAILY 90 days #90 tabs 08/27/21 release ezetimibe 10 mg tablet (Zetia) 10 mg PO DAILY #90 tabs 11/13/21 amlodipine 5 mg tablet 5 mg PO DAILY #90 tabs 11/20/21 albuterol sulfate 90 mcg/actuation 2 puff PO Q6H PRN for wheezing 03/08/22 aerosol inhaler #8.5 grams albuterol sulfate 0.63 mg/3 mL 0.63 mg (3 mL) inhalation QID PRN 04/20/22 solution for nebulization shortness of breath or wheezing #75 mL albuterol sulfate 90 mcg/actuation 1 inh inhalation QID PRN shortness 04/20/22 aerosol inhaler of breath or wheezing #8.5 grams azithromycin 250 mg tablet See Rx Instructions PO .COMPLEX #6 04/20/22 tabs codeine 10 mg-guaifenesin 100 mg/5 5 ml PO Q6H PRN cold symptoms #120 04/20/22 mL oral liquid (Guaifenesin AC) mL prednisone 20 mg tablet 40 mg PO DAILY rash 5 days #10 tabs 04/20/22 Allergies Allergy/AdvReac Type Severity Reaction Status Date / Time apple [APPLES] Allergy Intermediate TONGUE Verified 04/20/22 12:54 SWELLS AND TURNS PURPLE shellfish derived Allergy Intermediate LOBSTER- Verified 04/20/22 12:54 UNKNOWN coconut [COCONUT] Allergy Mild NAUSEA AND Verified 04/20/22 12:54 STOMACH SWELLS Review of Systems Review of Systems: Constitutional : denies med noncompliance, no history of PE or DVT, denies recent travel, No Fever, + Chills ENT/Mouth : No Hoarseness, No sore throat, No Rhinorrhea, No Nasal congestion, No Sinus Pressure, No Ear Pain, No stridor, Eyes: No Redness, No Discharge, No Vision Changes Cardiovascular : No Chest Pain, + SOB, No Dyspnea on Exertion, No Edema, no pleurisy, Respiratory : + Cough, + wheezing/chest tightness, + Sputum, no stridor, no hemoptysis, Gastrointestinal : No Nausea, No Vomiting, No Diarrhea, No abdominal Pain Genitourinary : No Dysuria, No Hematuria Musculoskeletal : No joint pain/swelling, + Myalgias Extremities: no extremity swelling /pain Skin : No rash, no itching, no swelling Neuro : No Weakness, No Numbness, No Headache, No Dizziness, No Paresthesias Psych : No anxiety, depression Heme/Lymph: No Bruising, No Bleeding Endocrine : No Polyuria, No Polydipsia Yes all other systems are reviewed and are negative [facility] Past Medical History Attestation statement: The following information was validated with the patient. Source: old records reviewed and nursing notes reviewed Medical History CAD (coronary artery disease) Chest pain Constipation Depression with anxiety Diabetes mellitus Essential hypertension GERD (gastroesophageal reflux disease) Iron deficiency anemia Leg numbness Lichen sclerosus Memory loss Migraines Mixed hyperlipidemia Pernicious anemia Severe major depression without psychotic features Skin lesion Tiredness Urge urinary incontinence Surgical History History of carpal tunnel surgery of left wrist History of hysteroscopy History of skin cancer History of surgery History of tubal ligation Stented coronary artery Family History Family History Father Hypertension Mother Diabetes Stroke Sister Bone cancer Son Christine syndrome Daughter No problems noted. Brother No problems noted. Brother No problems noted. Sister Breast cancer Social History Social History Household Members: Children Housing: Apartment Are you a primary healthcare architect to a significant other at home: No Do you presently have visiting nurse or other home services: No Alcohol intake: current Alcohol intake frequency: holidays/special occasions only Alcohol type: wine Patient Tobacco Use Status: Former Tobacco user Tobacco use type: Cigarette e-Cigarette/Vaping Use: Never Used Second Hand Smoke Exposure: No Advance Directives: No Advance Directives Information Provided: No service: No Current occupational status: unemployed Cognitive needs: No Hearing needs: No Vision needs: Yes Physical Exam Vital Signs: Vital Signs: Last Vital Signs Temp 97.9 F 04/20/22 12:55 Pulse 80 04/20/22 14:06 Resp 14 04/20/22 14:06 BP 137/96 H 04/20/22 12:55 Pulse Ox 97 04/20/22 12:55 O2 Del Method 04/20/22 12:55 BMI result Body Mass Index 32.6 vital signs have been reviewed Blood pressure normal. Heart rate normal. Respiration normal. Oxygen saturation normal. Appearance: Alert. Oriented X3. In mild respiratory distress no other acute distress noted. Head: Normal external exam. Normocephalic. Atraumatic. Eyes: PERRLA. EOMI. Conjunctiva and sclera normal. Eyelids normal. ENT: EAC normal. TM's Normal. Pharynx normal. Uvula midline. Moist mucous membranes. No trismus noted. No drooling noted. No muffled voice noted. No stridor noted. Patient tolerating secretions well. Neck: Normal inspection. Neck supple. FROM. No adenopathy. Thyroid Normal. No meningeal signs. No neck mass noted. CVS: Normal heart rate and rhythm. Heart sound normal. Pulses normal throughout. No murmurs/rales/gallops. Respiratory: In mild respiratory distress with decreased breath sounds and inspiratory and expiratory wheezing throughout. No rales/rhonchi noted. No accessory muscle use is noted. No tracheal tugging or abdominal retractions noted. Normal chest excursions noted. Abdomen: Soft and nontender. Bowel sounds normal in all 4 quadrants. No distention noted. No organomegaly noted. No visible injury noted. Back: No CVA tenderness. Full range of motion noted. No rashes/lesion/induration/fluctuance or signs of infection noted. Skin: Skin warm and dry. Normal skin color. Normal skin turgor. No rashes/lesions/lacerations noted. Extremities: No lower extremity edema. No calf tenderness noted. Extremities exhibit normal range of motion. Extremities nontender. Neuro: Oriented X 3. No motor deficit. No sensory deficit. Reflexes normal. Normal steady gait. No focal neuro deficits noted. Vascular: + radial pulses/+ 2 distal pedal pulses/+2 dorsalis pedis b/l. Normal cap refill. No cyanosis noted to upper extremity nails and lower extremity toes nails. Course Course Course Narrative: 13:45pm - 52-year-old female with a past medical history of asthma currently using albuterol inhaler, diabetes, hypertension, hyperlipidemia, coronary artery disease, anemia, migraine headaches, GERD, depression with anxiety who is presenting to the ED with complaints of generalized fatigue, malaise, body aches, productive cough, chest tightness, wheezing, shortness of breath and rib cage pain for the past few days worse today. Reports that she had some vomiting yesterday. She was seen at drive-through and had a COVID test which was negative. She went home and has been using her albuterol inhaler although no symptomatic relief. Patient negative for COVID. Will obtain labs, chest x-ray. Provider hour long breathing treatment, 125 mg of IV Solu-Medrol and 10 ml Robitussin with codeine and re-evaluate. Reevaluation(s) Reevaluation #1: - labs reviewed and patient's alkaline phosphate 130. Otherwise all other labs are within normal limits. - chest x-ray negative. Patient reports she feels much better. Therefore at this time will DC home with symptomatic treatment instructions return if any new or worsening symptoms follow up with primary care provider. Patient understands agrees with this plan Time: 14:35 [facility] - Asthma Medical Records Attestation: I reviewed the patient's medical records. Lab Data Attestation: I reviewed the patient's lab results. Result diagrams: 04/20/22 14:01 04/20/22 14:01 Labs: Lab Results 04/20/22 04/20/22 04/20/22 Range/Units 13:02 14:01 14:01 WBC 7.0 (4.8-10.8) X10*3/uL RBC 4.70 (4.20-5.50) X10*6/uL Hgb 12.4 (12.0-16.0) g/dl Hct 39.6 (37.0-47.0) % MCV 84.3 (80.0-98.0) fL MCH 26.4 L (27.0-33.0) pg MCHC 31.3 (31.0-35.0) g/dl RDW 15.1 (11.0-16.0) % Plt Count 271 (160-400) X10*3/uL MPV 9.6 (9.4-12.3) fL Immature Gran % (Auto) 0.3 (0.0-0.4) % Neut % (Auto) 56.0 (45-73) % Lymph % (Auto) 32.3 (20-40) % Mcnairy % (Auto) 7.6 (2-11) % Eos % (Auto) 3.4 (0-4) % Baso % (Auto) 0.4 (0-2) % Lymph # (Auto) 2.3 (1.2-4.9) X10*3/uL Mcnairy # (Auto) 0.5 (0.1-1.2) X10*3/uL Eos # (Auto) 0.2 (0.0-0.4) X10*3/uL Baso # (Auto) 0.0 (0.0-0.2) X10*3/uL Abs Immat Gran (auto) 0.02 (0.00-0.03) X10*3/uL Absolute Neuts (auto) 3.9 (2.0-8.3) x10*3/uL Absolute Nucleated RBC 0.000 (0.0-0.012) X10*3/uL Nucleated RBC % (auto) 0.0 (0.0-0.2) /100WBC Sodium 143 (135-145) mmol/L Potassium 4.0 (3.3-5.1) mmol/L Chloride 108 (96-108) mmol/L Carbon Dioxide 26 (22-29) mmol/L Anion Gap 13 (12-20) BUN 10 (9-16) mg/dL Creatinine 1.03 (0.5-1.4) mg/dL Estim Creat Clear Calc 59.8 Estimated GFR 56 Random Glucose 105 (60-115) mg/dL Calcium 9.3 (8.4-10.2) mg/dL Magnesium 2.0 (1.6-2.6) mg/dL Total Bilirubin 0.6 (0.0-1.0) mg/dL AST 19 (5-31) U/L ALT 20 (0-31) U/L Alkaline Phosphatase 130 H (39-117) U/L Total Protein 7.9 (6.5-8.0) g/dL Albumin 4.4 (3.5-5.0) g/dL COVID-19 (MIREYA) Negative (Negative) COVID-19 Clin Com See Note Imaging Data Chest x-ray: Attestation: I personally reviewed and interpreted this imaging study as follows: Radiologist's impression: FINDINGS: No significant abnormality is noted involving the heart, lungs, mediastinum, bony thorax or soft tissues. XR/XR chest 2V IMPRESSION: No acute cardiopulmonary process. Critical Care Time Critical Care Time Critical Care Time: Yes Total Critical Care Time: 60 Attestation: I personally attest to this time spent taking care of the patient Discharge Plan Discharge Clinical Impression: Acute asthmatic bronchitis, Acute bronchitis with bronchospasm Patient Disposition: Home, Self-Care Instructions: Asthma (ED), Acute Bronchitis (ED), Bronchospasm (ED) Prescriptions: New albuterol sulfate 0.63 mg/3 mL solution for nebulization 0.63 mg inhalation QID PRN (Reason: shortness of breath or wheezing) Qty: 75 0RF azithromycin 250 mg tablet See Rx Instructions .ROUTE .COMPLEX Qty: 6 0RF Rx Instructions: take 500 mg today (day 1), then 250 mg for 4 days (days 2-5) codeine-guaifenesin [Guaifenesin AC] 10-100 mg/5 mL liquid 5 ml PO Q6H PRN (Reason: cold symptoms) Qty: 120 0RF albuterol sulfate 90 mcg/actuation HFA aerosol inhaler 1 inh inhalation QID PRN (Reason: shortness of breath or wheezing) Qty: 8.5 0RF prednisone 20 mg tablet 40 mg PO DAILY 5 Days Qty: 10 0RF No Action (DME) adult diapers pull-up large See Rx Instructions .Route .MEDSUPPLY Qty: 50 11RF Rx Instructions: As directed metoprolol tartrate 50 mg tablet 50 mg PO BID 90 Days Qty: 180 3RF atorvastatin 80 mg tablet 80 mg PO DAILY 90 Days Qty: 90 3RF aspirin 81 mg tablet,delayed release (DR/EC) 81 mg PO DAILY 90 Days Qty: 90 3RF ezetimibe [Zetia] 10 mg tablet 10 mg PO DAILY Qty: 90 3RF amlodipine 5 mg tablet 5 mg PO DAILY Qty: 90 3RF albuterol sulfate 90 mcg/actuation HFA aerosol inhaler 2 puff PO Q6H PRN (Reason: for wheezing) Qty: 8.5 2RF bupropion HCl 150 mg Tablet Extended Release 24 Hr 150 mg PO QAM fluoxetine 40 mg Capsule 40 mg PO DAILY Rx Instructions: 40mg + 20mg = 60 mg daily dose lorazepam 0.5 mg Tablet 0.5 mg PO BID pantoprazole 40 mg Tablet,Delayed Release (Dr/Ec) 40 mg PO DAILY ferrous sulfate 325 mg (65 mg iron) Tablet 325 mg PO BID (DME) hearing aid accessory Misc See Rx Instructions .ROUTE .MEDSUPPLY Qty: 8 Rx Instructions: As directed docusate sodium [DOK] 100 mg capsule 100 mg PO BID 30 Days Qty: 60 6RF nitroglycerin 0.4 mg tablet, sublingual 0.4 mg SUBLINGUAL Q5M PRN (Reason: Chest Pain) 30 Days Qty: 30 3RF ascorbic acid (vitamin C) [Vitamin C] 500 mg tablet 500 mg PO BID 90 Days Qty: 180 3RF (DME) blood-glucose meter [FreeStyle Lite Meter] Kit See Rx Instructions .Route Qty: 1 0RF Rx Instructions: As directed (DME) lancets [FreeStyle Lancets] 28 gauge misc See Rx Instructions .Route Qty: 100 3RF Rx Instructions: Use 1 lancet once a day (DME) FreeStyle Test Strip See Rx Instructions .Route Qty: 100 3RF Rx Instructions: Use 1 test strips once a day topiramate 50 mg tablet 50 mg PO BID amitriptyline 25 mg tablet 25 mg PO BEDTIME buspirone 5 mg tablet 5 mg PO DAILY icosapent ethyl [Vascepa] 1 gram capsule 2 g PO BID 30 Days Qty: 120 3RF fluoxetine 20 mg capsule 20 mg PO DAILY Rx Instructions: 40mg + 20mg = 60 mg daily dose melatonin 5 mg tablet 5 mg PO BEDTIME PRN (Reason: Insomnia) mecobalamin (vitamin B12) 10,000 mcg recon soln IM Referrals: Julieth Mojica MD [Primary Care Provider] - 2 days Print Language: Botswanan
[2022-04-20 14:05] LABS: MANUAL DIFF FLAG NO
[2022-04-20 14:06] VITALS: PULSE 80; RESP 14
[2022-04-20 14:06] LABS: Basophils Percent Auto 0.4 % (0-2); Eosinophils Absolute Auto 0.2 X10*3/uL (0.0-0.4); Eosinophils Percent Auto 3.4 % (0-4); Hematocrit 39.6 % (37.0-47.0); Hemoglobin 12.4 g/dl (12.0-16.0); Imm Gran Abs Auto 0.02 X10*3/uL (0.00-0.03); Imm Gran Pct Auto 0.3 % (0.0-0.4); Lymphocytes Absolute Auto 2.3 X10*3/uL (1.2-4.9); Lymphocytes Percent Auto 32.3 % (20-40); Mean Corpuscular HGB Conc 31.3 g/dl (31.0-35.0); Mean Corpuscular Hemoglobin 26.4 pg (27.0-33.0); Mean Corpuscular Volume 84.3 fL (80.0-98.0); Mean Platelet Volume 9.6 fL (9.4-12.3); Monocytes Absolute Auto 0.5 X10*3/uL (0.1-1.2); Monocytes Percent Auto 7.6 % (2-11); Neutrophils Absolute Auto 3.9 x10*3/uL (2.0-8.3); Platelet Count 271 X10*3/uL (160-400); Red Cell Distribution Width 15.1 % (11.0-16.0)
[2022-04-20] MEDS: guaiFEN/Codeine SF 200/20/10ML 10 ML LIQUID PO (14:11)
[2022-04-20] MEDS: methylPREDNISolone Sod Succ 125 MG/2 ML VIAL IVPUSH (14:12)
[2022-04-20 14:31] LABS: Alanine Aminotransferase 20 U/L (0-31); Albumin Level 4.4 g/dL (3.5-5.0); Alkaline Phosphatase 130 U/L (39-117); Anion Gap 13 (12-20); Aspartate Amino Transferase 19 U/L (5-31); Bilirubin Total 0.6 mg/dL (0.0-1.0); Blood Urea Nitrogen 10 mg/dL (9-16); Calcium 9.3 mg/dL (8.4-10.2); Carbon Dioxide 26 mmol/L (22-29); Chloride 108 mmol/L (96-108); Creatinine Clr Calc Pharmacy 59.8; Estimated Glomerular Filt Rate 56; Glucose Random 105 mg/dL (60-115); Sodium 143 mmol/L (135-145); Total Protein 7.9 g/dL (6.5-8.0)
[2022-04-20 15:44] LABS: INTERNATIONAL NORM RATIO 1.1 (0.9-1.1); Prothrombin Time 12.1 SEC (10.0-13.1)
== END 2022-04-20 15:28 | disposition home or self-care (01) ==
PROVIDERS: Physician Assistant Medical; Emergency Provider Emergency Medicine; PCP Internal Medicine
DX: J20.9 Acute bronchitis, unspecified (principal); R06.02 Shortness of breath; R05.9 Cough, unspecified; Z20.822 Contact with and (suspected) exposure to COVID-19; Z79.899 Other long term (current) drug therapy
CPT/HCPCS: 36415; 71046; 80053; 83735; 85025; 85610; 87635; 93005; 94640; 96374; 99284; J2930

== ENCOUNTER 2022-04-30 09:22 | Outpatient (REF) | payer OTHER, SELFPAY ==
--- NOTE | ~2022-04-30 | CT_ITS ---
EXAMINATION: CT HEAD WITHOUT CONTRAST CLINICAL INFORMATION: Mild caudate impairment COMPARISON: None TECHNIQUE: Contiguous axial imaging was performed from the skull base to vertex without intravenous administration of contrast. This CT examination was performed using dose optimization techniques as appropriate, variously including the following: *Automated exposure control *Adjustment of mA and/or kV according to patient size (this includes techniques or standardized protocols for targeted exams where dose is matched to indication/reason for exam; i.e. extremities or head) *Use of iterative reconstruction technique DLP: 207 mGy-cm FINDINGS: There is no evidence of acute intracranial hemorrhage or territorial infarction. No abnormal mass effect or midline shift is seen. Giles to white matter differentiation is well preserved. No extra-axial fluid collections are identified. The ventricles are normal in size. There is no abnormal attenuation within the brain parenchyma. The osseous structures and soft tissues are normal. The mastoid air cells and visualized portions of the paranasal sinuses are well aerated. CT/CT head/brain wo con IMPRESSION: No acute intracranial process seen.
== END 2022-04-30 09:23 | disposition home or self-care (01) ==
LOC: HO.CT 09:22
PROVIDERS: PCP Internal Medicine; Visit Provider Psychiatry & Neurology Neurology
DX: G31.84 Mild cognitive impairment of uncertain or unknown etiology (principal)
CPT/HCPCS: 70450

== ENCOUNTER → 2022-05-04 10:59 | Outpatient (BNVA) | payer OTHER, SELFPAY | PROVIDERS: PCP Internal Medicine; Visit Provider Orthopaedic Surgery | DX: M25.562 Pain in left knee (principal) | CPT/HCPCS: 20610; 99212; J1100 ==

== ENCOUNTER 2022-06-28 11:00 | Outpatient (RCR) | payer OTHER, SELFPAY ==
--- NOTE | 2022-05-29 12:55 | MHC.PT.EP ---
[place] Office [place] Office [place] Office [address] Daphnie Martin [address] [phone] F: [phone] F: [phone] F: [phone] F: [phone] Physical Therapy Plan of Care Date of Evaluation: Date of Surgery: NA Diagnosis: L KNEE PAIN Assessment: Pt IS 52 YO F REFERRED TO PT FROM [facility] (DR BRADY) WITH L KNEE PAIN. Pt REPORTS SURGERY IN PAST FOR L KNEE (DOES NOT REMEMBER WHAT KIND BUT IT WAS ARTHROSCOPIC) WITH RELIEF FROM PAIN AT THAT TIME. REPORTS RECENT INCREASE IN KNEE PAIN (POSSIBLY FROM INCREASE IN WORK OUT ACTIVITY FOR WT LOSS). HAD CORTISONE INJECTION WITH TEMP RELIEF AND WEARING KNEE SUPPORT WHICH HELPS. TROUBLE ON STAIRS REPORTED AND LAT TILT PATELLAE. ALSO NOTED TO HAVE MORE PROMINENT VL VS VMO WITH SLR. GOOD PT CANDIDATE TO ADDRESS THESE ISSUES Frequency and Duration: The patient will be seen 2X/WK X 4 WKS Short Term Goals: 1. INCREASED AWARENESS KNEE CARE 2. 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 I HEP WITH DC EX PLAN 2. IMPROVED LEFI ( AT SOC) 3. DECREASED L KNEE PAIN AT LEAST 50% WITH ADLS Treatment Plan: Modalities to reduce pain, spasms and effusion. Manual therapy to restore motion and function. Therapeutic exercise to improve strength and flexibility. Neuromuscular re-education for posture and balance. Therapeutic activities to return to functional activities of daily living. Electronically signed by: KARTHIK STEELE PT Please sign and return to therapist. Thank you for your referral.
--- NOTE | 2022-07-03 11:18 | MHC.PT.DC ---
[facility] [employer] [employer] [facility] [place] Office [place] Office [address] [phone] F: [phone] F: [phone] F: [phone] F: [phone] Physical Therapy Discharge Report Diagnosis: L KNEE PAIN Date of Surgery: NA Date of Evaluation: 05/29/22 Date of Discharge: 07/03/22 Treatments to Date: 7 Cancellations to Date: No Shows to Date: Discharge Status: Achieved Goals Improved Function Independent with HEP Discharge Summary: Pt was seen for PT from 05/29/22-06/28/22. Her last attended appointment was 06/28/22. Pt has made good progress since SOC. She consistently has had no pain throughout L knee. She does report she occasional feels like her knee will buckle but overall it has improved and she has improved strength and ROM throughout L knee since SOC. She has made good progress toward her STGs and LTGs. Pt is being D/C from skilled PT. Pt was provided printed, updated copy of HEP at D/C. Pt reports no further questions or concerns for PT at time of D/C. Electronically signed by: Gladis Augustin, PT, DPT Please sign and return to therapist. Thank you for your referral.
== END 2022-07-03 11:17 | disposition home or self-care (01) ==
LOC: HO.PT 11:00
PROVIDERS: Visit Provider Orthopaedic Surgery
DX: M25.562 Pain in left knee (principal)
CPT/HCPCS: 97110; 97112; 97161; 97530

== ENCOUNTER 2022-08-17 13:35 | Outpatient (REF) | payer OTHER, SELFPAY ==
--- NOTE | ~2022-08-17 | XR_ITS ---
EXAMINATION: XR ABDOMEN KUB CLINICAL INDICATION: Dorsalgia COMPARISON: None TECHNIQUE: AP view of the abdomen. FINDINGS: Nonobstructive bowel gas pattern. No free air, however evaluation is limited on this supine film. Osseous structures are unremarkable. No abnormal calcifications. Pelvic phleboliths are noted. XR/XR KUB IMPRESSION: Nonobstructive bowel gas pattern.
== END 2022-08-17 13:36 | disposition home or self-care (01) ==
LOC: HO.XRAY 13:35
PROVIDERS: PCP Internal Medicine; Visit Provider Internal Medicine
DX: M54.9 Dorsalgia, unspecified (principal)
CPT/HCPCS: 74018

== ENCOUNTER 2022-08-23 08:29 | Outpatient (REF) | payer OTHER, SELFPAY ==
[2022-08-23 09:35] LABS: Creatinine Urine 178.47 mg/dL; Microalbum/Creatinine Ratio Ur 6.7 ug/mg cr
[2022-08-23 09:55] LABS: Alanine Aminotransferase 22 U/L (0-31); Albumin Level 4.1 g/dL (3.5-5.0); Alkaline Phosphatase 140 U/L (39-117); Anion Gap 11 (12-20); Aspartate Amino Transferase 16 U/L (5-31); Bilirubin Total 0.4 mg/dL (0.0-1.0); Blood Urea Nitrogen 17 mg/dL (9-16); Calcium 9.2 mg/dL (8.4-10.2); Carbon Dioxide 25 mmol/L (22-29); Chloride 111 mmol/L (96-108); Cholesterol 171 mg/dL; Estimated Glomerular Filt Rate 59; Glucose Fasting 135 mg/dL (60-99); HDL Cholesterol 53 mg/dL; LDL Cholesterol Calculated 75 mg/dl; Potassium 4.7 mmol/L (3.3-5.1); Sodium 142 mmol/L (135-145); Total Protein 7.1 g/dL (6.5-8.0); Triglycerides 217 mg/dL; Vitamin D 25-OH Total 27.6 ng/mL (>30)
== END 2022-08-23 08:30 | disposition home or self-care (01) ==
LOC: HO.LAB 08:29
PROVIDERS: PCP Internal Medicine; Visit Provider Internal Medicine
DX: E11.65 Type 2 diabetes mellitus with hyperglycemia (principal); E78.5 Hyperlipidemia, unspecified; E55.9 Vitamin D deficiency, unspecified
CPT/HCPCS: 36415; 80053; 80061; 82043; 82306

== ENCOUNTER 2022-09-03 14:54 | Outpatient (REF) | payer OTHER, SELFPAY | END 2022-09-03 14:55 | disposition home or self-care (01) | LOC: HO.MRI 14:54 | PROVIDERS: Visit Provider Internal Medicine Medical Oncology | DX: Z12.39 Encounter for other screening for malignant neoplasm of breast (principal); Z91.89 Other specified personal risk factors, not elsewhere classified | CPT/HCPCS: 77049; A9585 ==

== ENCOUNTER 2022-09-06 12:00 | Outpatient (REF) | payer OTHER, SELFPAY | END 2022-09-06 12:01 | disposition home or self-care (01) | LOC: HO.MRI 12:00 | PROVIDERS: Visit Provider Internal Medicine Medical Oncology | DX: Z13.89 Encounter for screening for other disorder (principal) ==

== ENCOUNTER → 2022-09-24 11:56 | Outpatient (BNVA) | payer OTHER, SELFPAY | PROVIDERS: PCP Internal Medicine; Visit Provider Nurse Practitioner Family | DX: K21.9 Gastro-esophageal reflux disease without esophagitis (principal); R10.13 Epigastric pain; I25.10 Atherosclerotic heart disease of native coronary artery without angina pectoris; I10 Essential (primary) hypertension; I25.2 Old myocardial infarction; Z80.0 Family history of malignant neoplasm of digestive organs; Z98.890 Other specified postprocedural states; Z12.11 Encounter for screening for malignant neoplasm of colon | CPT/HCPCS: 99202 ==

== ENCOUNTER 2022-09-26 09:08 | Outpatient (REF) | payer OTHER, SELFPAY ==
[2022-09-27 01:35] LABS: CT PCR NOT DETECTED (Not Detect.); NG PCR NOT DETECTED (Not Detect.)
[2022-09-27 09:22] LABS: BV Int Neg Control Negative (Negative); BV Int Pos Control Positive (Positive)
[2022-10-01 21:34] LABS: HPV mRNA E6/E7 rflx Not Detected (Not Detected)
== END 2022-09-26 09:09 | disposition home or self-care (01) ==
LOC: HO.LNP 09:08
PROVIDERS: PCP Internal Medicine; Visit Provider Advanced Practice Midwife
DX: Z01.419 Encounter for gynecological examination (general) (routine) without abnormal findings (principal); Z11.51 Encounter for screening for human papillomavirus (HPV); B37.49 Other urogenital candidiasis; Z91.89 Other specified personal risk factors, not elsewhere classified; Z87.42 Personal history of other diseases of the female genital tract
CPT/HCPCS: 0353U; 87480; 87510; 87624; 87660; 88142

== ENCOUNTER → 2022-10-17 13:02 | Outpatient (BNVA) | payer OTHER, SELFPAY | PROVIDERS: Visit Provider Orthopaedic Surgery | DX: G56.03 Carpal tunnel syndrome, bilateral upper limbs (principal) | CPT/HCPCS: 99212 ==

== ENCOUNTER → 2022-11-01 10:04 | Outpatient (BNVA) | payer OTHER, SELFPAY | PROVIDERS: PCP Internal Medicine; Referring Provider Internal Medicine; Visit Provider Internal Medicine Cardiovascular Disease | DX: Z01.810 Encounter for preprocedural cardiovascular examination (principal); I25.118 Atherosclerotic heart disease of native coronary artery with other forms of angina pectoris; R94.31 Abnormal electrocardiogram [ECG] [EKG] | CPT/HCPCS: 93005; 99212 ==

== ENCOUNTER 2022-11-20 14:55 | Outpatient (REF) | payer OTHER, SELFPAY ==
[2022-11-20 15:46] LABS: Influenza A PCR NEGATIVE (Negative); Influenza B PCR NEGATIVE (Negative); Resp Syncy Virus RNA Qual PCR NEGATIVE (Negative); SARS COV2 PCR INHOUSE NEGATIVE (Negative)
== END 2022-11-20 14:56 | disposition home or self-care (01) ==
LOC: HO.LNP 14:55
PROVIDERS: Visit Provider Physician Assistant
DX: Z20.822 Contact with and (suspected) exposure to COVID-19 (principal); B34.9 Viral infection, unspecified
CPT/HCPCS: 0241U

== ENCOUNTER 2022-11-26 07:05 | Day surgery (SDC) | payer OTHER, SELFPAY ==
[2022-11-26 07:21] VITALS: BP 120/71; PULSE 81; RESP 15; TEMP 36.6; O2SAT 96; BMI 34.5
--- NOTE | 2022-11-26 08:07 | MHC.SHP ---
Pre-Procedural Eval Section A Date of Service: 11/26/22 The patient is an INPATIENT: No Changes since office visit: No Cold of Flu in the past 2 weeks, No New Medical Problems, No Changes in Medication and No Patient answered all questions The History & Physical has been completed within 30 days and I have reviewed it.: Yes Section B Chief Complaint: Carpal tunnel syndrome, right upper limb Allergies: Allergies Allergy/AdvReac Type Severity Reaction Status Date / Time apple [APPLES] Allergy Intermediate TONGUE Verified 11/20/22 12:10 SWELLS AND TURNS PURPLE shellfish derived Allergy Intermediate LOBSTER- Verified 11/20/22 12:10 UNKNOWN coconut [COCONUT] Allergy Mild NAUSEA AND Verified 11/20/22 12:10 STOMACH SWELLS Plan I have reviewed the history and physical and performed a pertinent physical examination on my patient. No changes have occurred unless specified. Time Spent With Patient Time: Total time managing care of this patient today ____ minutes.
--- NOTE | 2022-11-26 08:08 | W.PM.OPN ---
Operative Note Operative Note Date of Service: 11/26/22 Narrative: Preop diagnosis: 1. Right Carpal tunnel syndrome Postop diagnosis: same Procedure: 1. Right Carpal tunnel release Surgeon: Amina Tidwell MD Anesthesia: local block using 1% lidocaine with epinephrine Findings: Thickened transverse carpal ligament. EBL: Less than 5 mL Specimens: None Complications: None Disposition: Brought to recovery room in stable condition Plan: Follow-up for 10-14 days for wound check and suture removal Indications: The patient is 52 years old, with right carpal tunnel syndrome that has been unresponsive to nonoperative management. The risks and benefits of operative treatment including but not limited to risk of damage to blood vessels, nerves, tendons, infection, persistent pain, persistent symptoms, or possible need for additional surgery were discussed with the patient and the patient wishes to proceed with surgery. Procedure: Once consent was obtained a local block was performed using a combination of 1% lidocaine with epinephrine. The patient was then brought back to the operating suite and placed on the operative table in supine position. The right upper extremity was prepped and draped in a standard surgical fashion. Once assured that we had a good block, a 2.0 cm longitudinal incision was made centered over the carpal tunnel. The incision was made through the skin to the subcutaneous tissues using a #15 blade. Dissection was made down to the level of the transverse carpal ligament with care being taken to protect the palmar cutaneous nerve. Once the transverse carpal ligament was clearly visualized, a longitudinal incision was made in the transverse carpal ligament 1st using a #15 blade, then using tenotomy scissors under direct visualization. Care was taken to look for and protect the motor branch of the median nerve when seen in this area. Unlike her opposite hand, the motor branch was not seen passing through the transverse carpal ligament. Once satisfied with our carpal tunnel release the wound was copiously irrigated with normal saline and hemostasis was obtained with a brief period of local pressure. The skin edges were reapproximated with some 5.0 nylon suture material and a sterile dressing was applied. The patient appears to have tolerated the procedure well and with no complications. All digits were well vascularized at the conclusion of the case.
[2022-11-26 09:55] VITALS: BP 123/76; PULSE 75; RESP 18; O2SAT 98
== END 2022-11-26 09:56 | disposition home or self-care (01) ==
PROVIDERS: PCP Internal Medicine; Visit Provider Orthopaedic Surgery
PROC: (CPT 64721; principal; 2022-11-26 08:20)
DX: G56.01 Carpal tunnel syndrome, right upper limb (principal); R20.0 Anesthesia of skin; E11.9 Type 2 diabetes mellitus without complications; I25.10 Atherosclerotic heart disease of native coronary artery without angina pectoris; I10 Essential (primary) hypertension; I25.2 Old myocardial infarction; Z95.5 Presence of coronary angioplasty implant and graft; K21.9 Gastro-esophageal reflux disease without esophagitis; D50.9 Iron deficiency anemia, unspecified; D51.0 Vitamin B12 deficiency anemia due to intrinsic factor deficiency; E78.5 Hyperlipidemia, unspecified; F33.2 Major depressive disorder, recurrent severe without psychotic features; R41.3 Other amnesia; Z87.891 Personal history of nicotine dependence
CPT/HCPCS: 64721; J0171

== ENCOUNTER → 2022-12-11 09:02 | Outpatient (BNVA) | payer OTHER, SELFPAY | PROVIDERS: PCP Internal Medicine; Visit Provider Orthopaedic Surgery ==

== ENCOUNTER → 2023-03-22 10:36 | Outpatient (BNVA) | payer OTHER, SELFPAY | PROVIDERS: PCP Internal Medicine; Visit Provider Nurse Practitioner Family ==

== ENCOUNTER 2023-04-22 10:34 | Outpatient (REF) | payer OTHER, SELFPAY ==
--- NOTE | ~2023-04-22 | MM_ITS ---
EXAMINATION: MM SCREENING DIGITAL BREAST TOMOSYNTHESIS, BILATERAL CLINICAL INFORMATION: Screening. Asymptomatic. The lifetime risk of breast cancer based on the Tyrer-Cuzick Model is 14.7%. COMPARISON: Mammography: This study is compared with prior exams dating back to 2019. TECHNIQUE: Digital breast tomosynthesis is performed in both the craniocaudal and mediolateral oblique views along with computer-aided detection (CAD). Synthesized 2D images are generated from the tomosynthesis. FINDINGS: There are scattered areas of fibroglandular density (ACR BI-RADS breast composition Category b). There are no significant masses, abnormal calcifications, or other abnormalities. MM/MM tomosynthesis screening BI IMPRESSION: No mammographic evidence of malignancy. ASSESSMENT: BI-RADS BI-RADS 1 - Negative RECOMMENDATION: Routine annual mammography screening. 1 year F/U This examination should not preclude the clinical evaluation of a suspicious palpable abnormality. This patient's information was entered into a reminder system with a target due date for their next mammogram.
== END 2023-04-22 10:35 | disposition home or self-care (01) ==
LOC: HO.MAMMO 10:34
PROVIDERS: PCP Internal Medicine; Visit Provider Internal Medicine Medical Oncology
DX: Z12.31 Encounter for screening mammogram for malignant neoplasm of breast (principal)
CPT/HCPCS: 77063; 77067

== ENCOUNTER → 2023-04-22 10:45 | Outpatient (BNV) | payer OTHER, SELFPAY | PROVIDERS: PCP Internal Medicine; Visit Provider Radiology Diagnostic Radiology | DX: Z12.31 Encounter for screening mammogram for malignant neoplasm of breast (principal) | CPT/HCPCS: 77063; 77067 ==

== ENCOUNTER 2023-04-22 14:26 | Emergency (ER) | payer OTHER, SELFPAY ==
--- NOTE | ~2023-04-22 | CT_ITS ---
EXAMINATION: CT ABDOMEN AND PELVIS WITH CONTRAST CLINICAL INFORMATION: Abdominal pain. COMPARISON: None available. TECHNIQUE: Multidetector volumetric images were obtained from the superior aspect of the liver through the pubic symphysis following administration 85 mL of Omnipaque 350 intravenous contrast. Sagittal and coronal reformatted images were obtained on the technologist's workstation. Oral contrast: No This CT examination was performed using dose optimization techniques as appropriate, variously including the following: *Automated exposure control *Adjustment of mA and/or kV according to patient size (this includes techniques or standardized protocols for targeted exams where dose is matched to indication/reason for exam; i.e. extremities or head) *Use of iterative reconstruction technique DLP: 555 mGy-cm FINDINGS: LUNG BASES: The visualized lung bases are unremarkable. LIVER, GALLBLADDER, AND BILIARY TREE: The liver is normal in size, shape, and attenuation. No focal hepatic lesion or biliary ductal dilatation is present. The gallbladder is unremarkable with no evidence of radiopaque gallstones, gallbladder wall thickening, or obvious pericholecystic inflammatory changes. PANCREAS: Unremarkable. SPLEEN: Unremarkable. ADRENAL GLANDS: Unremarkable. KIDNEYS AND URETERS: The kidneys are normal in size, shape, and attenuation. No hydronephrosis, hydroureter, or calculi seen. No perinephric stranding. BLADDER: Unremarkable. GASTROINTESTINAL TRACT: The small and large bowel are unremarkable. The appendix is unremarkable. ABDOMINAL WALL: No significant hernia is appreciated. LYMPH NODES: Normal. VASCULAR: Unremarkable. PELVIC VISCERA: Unremarkable. OSSEOUS STRUCTURES: Unremarkable. CT/CT abdomen pelvis w IV con IMPRESSION: No significant abnormality. Fleischner guidelines were followed.
[2023-04-22 15:12] VITALS: BP 138/90; PULSE 102; RESP 16; TEMP 36.1; O2SAT 99; BMI 34.8
--- NOTE | 2023-04-22 15:13 | ED.GENADULT ---
HPI - General Adult General Chief complaint: Nausea/Vomiting/Diarrhea Stated complaint: Diarrhea x4 days/Dizziness Time Seen by Provider: 04/22/23 22:21 Source: patient Mode of arrival: ambulatory Limitations: no limitations History of Present Illness HPI narrative: 53 yo female with hx of HTN, depression, diabetes on metformin, NE s/p 3 stents who reports 4 days of loose stools up to 6 per day with nausea reports all watery stools. Her pain is in LUQ. She states every time she eats she has a loose stool. She denies fevers, bloody stools, travel, antibiotic use, sick contacts. She does not work around sick individuals. She has no hx of colitis. MD complaint: diarrhea, nausea, LUQ abdominal pain Onset (ago): day(s) (4) Location: abdomen Radiation: non-radiation Severity: moderate Quality: aching Pain Consistency: intermittent Relieving factors: none Exacerbating factors: eating Associated symptoms: nausea/vomiting Treatments prior to arrival: none Related Data Home Medications Medication Instructions Recorded Confirmed bupropion HCl 150 mg 24 hr tablet, 150 mg PO QAM 06/21/20 02/18/23 extended release fluoxetine 40 mg capsule 40 mg PO DAILY 06/21/20 02/18/23 lorazepam 0.5 mg tablet 0.5 mg PO BID 06/21/20 02/18/23 hearing aid accessory #8 ea 06/29/20 02/18/23 fluoxetine 20 mg capsule 20 mg PO DAILY 04/20/21 02/18/23 melatonin 5 mg tablet 5 mg PO BEDTIME PRN Insomnia 04/20/21 02/18/23 amitriptyline 25 mg tablet 25 mg PO BEDTIME 10/31/21 02/18/23 buspirone 5 mg tablet 5 mg PO DAILY 10/31/21 02/18/23 topiramate 50 mg tablet 50 mg PO BID 01/11/22 02/18/23 mecobalamin (vitamin B12) 10,000 10,000 mcg IM DAILY 04/04/22 02/18/23 mcg solution for injection melatonin 10 mg-lemon balm leaf 10 tab PO DAILY 09/26/22 02/18/23 extract 1 mg tablet Previous Rx's Medication Instructions Recorded docusate sodium 100 mg capsule 100 mg PO BID 30 days #60 caps 06/29/20 (DOK) nitroglycerin 0.4 mg sublingual 0.4 mg sublingual Q5M PRN Chest 06/29/20 tablet Pain 30 days #30 tabs icosapent ethyl 1 gram capsule 2 g PO BID 30 days #120 caps 02/09/21 (Vascepa) blood sugar diagnostic (FreeStyle #100 ea 06/07/21 Test strips) blood-glucose meter (FreeStyle #1 ea 06/07/21 Lite Meter kit) lancets 28 gauge (FreeStyle #100 ea 06/07/21 Lancets) albuterol sulfate 0.63 mg/3 mL 0.63 mg (3 mL) inhalation QID PRN 04/20/22 solution for nebulization shortness of breath or wheezing #75 mL albuterol sulfate 90 mcg/actuation 1 inh inhalation QID PRN shortness 06/26/22 aerosol inhaler of breath or wheezing #8.5 grams metoprolol tartrate 50 mg tablet 50 mg PO BID #180 tabs 07/04/22 nebulizers ([employer] Go Nebulizer) #1 ea 07/25/22 ascorbic acid (vitamin C) 500 mg 500 mg PO BID 90 days #180 tabs 08/06/22 tablet (Vitamin C) ferrous sulfate 325 mg (65 mg 325 mg PO BID #60 tabs 08/06/22 iron) tablet (iron) aspirin 81 mg tablet,delayed 81 mg PO DAILY 90 days #90 tabs 08/30/22 release atorvastatin 80 mg tablet 80 mg PO DAILY #90 tabs 08/31/22 miconazole nitrate 2 % vaginal 1 appful vaginal BEDTIME 7 days 09/26/22 cream (Miconazole-7) #45 grams ezetimibe 10 mg tablet (Zetia) 10 mg PO DAILY #90 tabs 11/23/22 amlodipine 5 mg tablet 5 mg PO DAILY #90 tabs 11/25/22 metformin 500 mg tablet 500 mg PO BID 90 days #180 tabs 02/18/23 Shower Chair #1 ea 02/19/23 incontinence pads #240 ea 03/13/23 wipes #100 ea 03/13/23 bisacodyl 5 mg tablet,delayed 10 mg PO ONCE 1 day #2 tabs 03/22/23 release (Dulcolax (bisacodyl)) pantoprazole 40 mg tablet,delayed 40 mg PO DAILY #30 tabs 03/22/23 release polyethylene glycol 3350 17 238 g PO ONCE #238 grams 03/22/23 gram/dose oral powder (Miralax) blood pressure monitor #1 ea 04/10/23 disposable gloves (Biobrane Gloves #200 ea 04/10/23 Medium) handheld shower #1 ea 04/10/23 ondansetron 4 mg disintegrating 4 mg PO Q8H PRN nausea and 04/23/23 tablet vomiting #20 tabs Allergies Allergy/AdvReac Type Severity Reaction Status Date / Time apple [APPLES] Allergy Intermediate TONGUE Verified 04/22/23 15:15 SWELLS AND TURNS PURPLE shellfish derived Allergy Intermediate LOBSTER- Verified 04/22/23 15:15 UNKNOWN coconut [COCONUT] Allergy Mild NAUSEA AND Verified 04/22/23 15:15 STOMACH SWELLS Review of Systems Review of Systems: Constitutional : No Weight loss, No Fever, No Chills Cardiovascular : No Chest Pain, No SOB, NoEdema Respiratory : No Cough, No Sputum, No Wheezing Gastrointestinal : Positive Nausea, no Vomiting, positive Diarrhea, positive abdominal Pain, No Hematochezia, No Melena Genitourinary : No Dysuria, No Urinary Frequency, No Hematuria, No Urgency Musculoskeletal : No joint pain, No Myalgias, No Joint Swelling Skin : No Skin Lesions, No rash Neuro : No Weakness, No Numbness, No Dizziness, No Headache Psych : No Anxiety/Panic, No Depression All other systems reviewed and are negative. [facility] Past Medical History Attestation statement: The following information was validated with the patient. Medical History Anterior knee pain At high risk for breast cancer CAD (coronary artery disease) Lorrie infection of genital region Chest pain Chest pain Chest tightness Constipation Costovertebral angle tenderness Depression with anxiety Diabetes mellitus Encounter for gynecological examination with Papanicolaou smear of cervix Essential hypertension Genital labial ulcer GERD (gastroesophageal reflux disease) Headache Hx of abnormal cervical Pap smear Iron deficiency anemia Leg numbness Lichen sclerosus Memory loss Migraines Mixed hyperlipidemia Myocardial infarction Numbness and tingling in both hands Pernicious anemia Physical exam Right foot pain Screen for sexually transmitted diseases Severe major depression without psychotic features Skin lesion SOB (shortness of breath) on exertion Tiredness Upper respiratory symptom Urge urinary incontinence Surgical History History of carpal tunnel surgery History of carpal tunnel surgery of left wrist History of hysteroscopy History of skin cancer History of surgery History of tubal ligation Stented coronary artery Family History Family History Father Hypertension Mother Diabetes Stroke Sister Bone cancer Son Christine syndrome Daughter No problems noted. Brother No problems noted. Brother No problems noted. Sister Breast cancer Social History Social History Household Members: Children Housing: Apartment Are you a primary healthcare social worker to a significant other at home: No Do you presently have visiting nurse or other home services: No Alcohol intake: never Patient Tobacco Use Status: Former Tobacco user Tobacco use type: Cigarette Smoked in Last 30 Days: No e-Cigarette/Vaping Use: Never Used Second Hand Smoke Exposure: No Use of substances other than those prescribed or required for medical reasons: No Advance Directives: No Advance Directives Information Provided: No Patient : No service: No Current occupational status: unemployed Current occupation: right hand Cognitive needs: No Hearing needs: No Vision needs: Yes Physical Exam ED Vital Signs: Vital Signs - 24 hr 04/22/23 15:12 04/22/23 22:36 04/22/23 23:07 Temperature 97 F 98.4 F Pulse Rate 102 H 110 H Respiratory Rate 16 18 16 Blood Pressure 138/90 H 134/101 H Pulse Oximetry 99 98 Oxygen Delivery Method Room Air Room Air 04/22/23 23:28 04/23/23 00:47 Temperature 98.4 F Pulse Rate 107 H 87 Respiratory Rate 18 18 Blood Pressure 135/82 140/85 H Pulse Oximetry 97 98 Oxygen Delivery Method Room Air Room Air BMI result Body Mass Index 34.8 Appearance: Alert. Oriented X3. No acute distress. Eyes: Pupils equal, round and reactive to light. ENT: Pharynx normal. Neck: Normal inspection. Neck supple. CVS: Normal heart rate and rhythm. Pulses normal. Respiratory: No respiratory distress. Breath sounds normal. Abdomen: Soft and mild LUQ ttp no rebound Skin: Skin warm and dry. Normal skin color. Normal skin turgor. Extremities: No lower extremity edema. No calf ttp Neuro: Oriented X 3. No motor deficit. No sensory deficit. Course Course Course Narrative: RME performed by Edita Bailey PA-C. Patient is a 53 year old assigned female at presenting to the emergency department with 4 days of diarrhea. Labs and swabs ordered. Patient placed back in the waiting room pending room availability and results. Medications Administered Discontinued Medications Generic Name Dose Route Start Last Admin Trade Name Robinson PRN Reason Stop Dose Admin Lactated Ringer's 1,000 mls @ 999 mls/hr 04/22/23 23:00 04/22/23 23:24 Lr IV 04/23/23 00:00 999 mls/hr .Q1H1M KAREY Administration Iohexol 85 ml 04/22/23 23:40 04/22/23 23:40 Iohexol 350 Mg/Ml 100 Ml Infus..Btl IV 04/22/23 23:41 85 ml ONCE ONE Administration Morphine Sulfate 4 mg 04/22/23 22:58 04/22/23 23:07 Morphine Sulfate 4 Mg/Ml Cartridge IVPUSH 04/22/23 22:59 4 mg ONCE ONE Administration Protocol Ondansetron HCl 4 mg 04/22/23 22:58 04/22/23 23:06 Ondansetron Hcl 4 Mg/2 Ml Vial IVPUSH 04/22/23 22:59 4 mg ONCE ONE Administration Medical Decision Making Medical Decision Making [facility] Narrative: 53 yo female with hx of HTN, depression, diabetes on metformin, NE s/p 3 stents who reports 4 days of loose stools and nausea/LUQ pain. NO sick contacts, travel, antibiotic use. She has ttp in LUQ denies risk factors for colitis or c diff will obtain basic labs, CT scan for possible colitis, stool studies - EKG though not typical for her ACS. IVF and IV morphine for pain. Differential Diagnosis Differential Diagnoses: The differential diagnosis associated with the presentation includes colitis, viral syndrome, diverticulitis, infectious diarrhea Admission/Observation Consideration of admission/observation: Escalation of care including admission/observation considered labs stable, VS stable, not toxic stable for DC CT scan negative Lab Data [facility] Lab Attestation statement: I reviewed the patient's lab results. 04/22/23 15:19 04/22/23 15:19 Labs: Lab Results 04/22/23 04/22/23 04/22/23 Range/Units 15:19 15:19 15:19 WBC 8.8 (4.8-10.8) X10*3/uL RBC 5.27 (4.20-5.50) X10*6/uL Hgb 14.0 (12.0-16.0) g/dl Hct 43.9 (37.0-47.0) % MCV 83.3 (80.0-98.0) fL MCH 26.6 L (27.0-33.0) pg MCHC 31.9 (31.0-35.0) g/dl RDW 13.8 (11.0-16.0) % Plt Count 313 (160-400) X10*3/uL MPV 9.7 (9.4-12.3) fL Immature Gran % (Auto) 0.2 (0.0-0.4) % Neut % (Auto) 53.9 (45-73) % Lymph % (Auto) 35.2 (20-40) % Wallace % (Auto) 6.6 (2-11) % Eos % (Auto) 3.5 (0-4) % Baso % (Auto) 0.6 (0-2) % Lymph # (Auto) 3.1 (1.2-4.9) X10*3/uL Wallace # (Auto) 0.6 (0.1-1.2) X10*3/uL Eos # (Auto) 0.3 (0.0-0.4) X10*3/uL Baso # (Auto) 0.1 (0.0-0.2) X10*3/uL Abs Immat Gran (auto) 0.02 (0.00-0.03) X10*3/uL Absolute Neuts (auto) 4.7 (2.0-8.3) x10*3/uL Absolute Nucleated RBC 0.000 (0.0-0.012) X10*3/uL Nucleated RBC % (auto) 0.0 (0.0-0.2) /100WBC Sodium 137 (135-145) mmol/L Potassium 3.9 (3.3-5.1) mmol/L Chloride 105 (96-108) mmol/L Carbon Dioxide 23 (22-29) mmol/L Anion Gap 13 (12-20) BUN 14 (9-16) mg/dL Creatinine 0.93 (0.5-1.4) mg/dL Estim Creat Clear Calc 67.7 Estimated GFR > 60 Random Glucose 159 H (60-115) mg/dL Calcium 10.0 D (8.4-10.2) mg/dL Magnesium 1.8 (1.6-2.6) mg/dL Total Bilirubin 0.4 (0.0-1.0) mg/dL AST 92 H (5-31) U/L ALT 57 H (0-31) U/L Alkaline Phosphatase 150 H (39-117) U/L Total Protein 8.2 H (6.5-8.0) g/dL Albumin 4.3 (3.5-5.0) g/dL Lipase 27 (8-78) U/L Urine Color Urine Appearance Urine pH (5.0-9.0) Ur Specific [place] (1.005-1.025) Urine Protein (Neg-Trace) mg/dL Urine Glucose (UA) (Negative) mg/dL Urine Ketones (Negative) mg/dL Urine Blood (Negative) Urine Nitrite (Negative) Ur Leukocyte Esterase (Negative) Urine RBC (0-2) /HPF Urine WBC (0-5) /HPF Ur Squamous Epith Cells (0-2) /HPF Urine Bacteria (None Seen) Hyaline Casts (0-2) /LPF COVID-19 (MIREYA) Negative (Negative) COVID-19 Clin Com See Note 04/23/23 Range/Units 00:46 WBC (4.8-10.8) X10*3/uL RBC (4.20-5.50) X10*6/uL Hgb (12.0-16.0) g/dl Hct (37.0-47.0) % MCV (80.0-98.0) fL MCH (27.0-33.0) pg MCHC (31.0-35.0) g/dl RDW (11.0-16.0) % Plt Count (160-400) X10*3/uL MPV (9.4-12.3) fL Immature Gran % (Auto) (0.0-0.4) % Neut % (Auto) (45-73) % Lymph % (Auto) (20-40) % Wallace % (Auto) (2-11) % Eos % (Auto) (0-4) % Baso % (Auto) (0-2) % Lymph # (Auto) (1.2-4.9) X10*3/uL Wallace # (Auto) (0.1-1.2) X10*3/uL Eos # (Auto) (0.0-0.4) X10*3/uL Baso # (Auto) (0.0-0.2) X10*3/uL Abs Immat Gran (auto) (0.00-0.03) X10*3/uL Absolute Neuts (auto) (2.0-8.3) x10*3/uL Absolute Nucleated RBC (0.0-0.012) X10*3/uL Nucleated RBC % (auto) (0.0-0.2) /100WBC Sodium (135-145) mmol/L Potassium (3.3-5.1) mmol/L Chloride (96-108) mmol/L Carbon Dioxide (22-29) mmol/L Anion Gap (12-20) BUN (9-16) mg/dL Creatinine (0.5-1.4) mg/dL Estim Creat Clear Calc Estimated GFR Random Glucose (60-115) mg/dL Calcium (8.4-10.2) mg/dL Magnesium (1.6-2.6) mg/dL Total Bilirubin (0.0-1.0) mg/dL AST (5-31) U/L ALT (0-31) U/L Alkaline Phosphatase (39-117) U/L Total Protein (6.5-8.0) g/dL Albumin (3.5-5.0) g/dL Lipase (8-78) U/L Urine Color Yellow Urine Appearance Clear Urine pH 5.5 (5.0-9.0) Ur Specific [place] >= 1.030 H (1.005-1.025) Urine Protein Negative (Neg-Trace) mg/dL Urine Glucose (UA) Negative (Negative) mg/dL Urine Ketones Negative (Negative) mg/dL Urine Blood Negative (Negative) Urine Nitrite Negative (Negative) Ur Leukocyte Esterase Small (1+) H (Negative) Urine RBC 0-2 (0-2) /HPF Urine WBC 0-5 (0-5) /HPF Ur Squamous Epith Cells 6-10 (0-2) /HPF Urine Bacteria Trace (None Seen) Hyaline Casts 0-2 (0-2) /LPF COVID-19 (MIREYA) (Negative) COVID-19 Clin Com Independent Interpretation I performed an independent interpretation of an: EKG and CT Scan (no acute findings) Interpretation: Rate: 108 Rhythm: sinus tachycardia [place]: left Normal P waves. Normal JANINA. Normal QRS complex. ST T wave : nonspecific inf leads and lateral leads no RAHUL qTC: normal prior studies: no acute ischemia unchange from priors The study has been interpreted contemporaneously by me. . Radiology Impression Discussion of test interpretation with radiology: I have reviewed the radiologist's reading. External Record Review External record reviewed: Prior outpatient labs Prescription Management I considered prescription management with: Other (zofran) Discharge Plan Discharge Clinical Impression: Diarrhea, Abdominal pain Patient Disposition: Home, Self-Care Instructions: Acute Diarrhea (ED), Abdominal Pain (ED) Additional Instructions: YOUR LIVER ENZYMES WERE MILDLY ELEVATED RECHECK IN 2 DAYS WITH YOUR DOCTOR. AVOID ALCOHOL AND TYLENOL return for worsening pain, fevers, vomiting, bloody stools or any other concerns. get stool sample to doctor if this continues. advance diet slowly over 48 hours as tolerated - avoid dairy for a few days. Prescriptions: New ondansetron 4 mg tablet,disintegrating 4 mg PO Q8H PRN (Reason: nausea and vomiting) Qty: 20 0RF No Action albuterol sulfate 90 mcg/actuation HFA aerosol inhaler 1 inh inhalation QID PRN (Reason: shortness of breath or wheezing) Qty: 8.5 0RF metoprolol tartrate 50 mg tablet 50 mg PO BID Qty: 180 2RF aspirin 81 mg tablet,delayed release (DR/EC) 81 mg PO DAILY 90 Days Qty: 90 3RF atorvastatin 80 mg tablet 80 mg PO DAILY Qty: 90 3RF ezetimibe [Zetia] 10 mg tablet 10 mg PO DAILY Qty: 90 3RF amlodipine 5 mg tablet 5 mg PO DAILY Qty: 90 3RF (DME) Shower Chair Misc See Rx Instructions .Route Qty: 1 0RF Rx Instructions: As directed (DME) incontinence pads See Rx Instructions .Route .MEDSUPPLY Qty: 240 11RF Rx Instructions: As directed (DME) wipes See Rx Instructions .Route .MEDSUPPLY Qty: 100 11RF Rx Instructions: As directed pantoprazole 40 mg tablet,delayed release (DR/EC) 40 mg PO DAILY Qty: 30 2RF (DME) handheld shower See Rx Instructions .Route .MEDSUPPLY Qty: 1 0RF Rx Instructions: As directed (DME) blood pressure monitor Kit See Rx Instructions .Route Qty: 1 0RF Rx Instructions: As directed (DME) disposable gloves [Biobrane Gloves Medium] [facility] [place] See Rx Instructions .Route Qty: 200 11RF Rx Instructions: Use prn bupropion HCl 150 mg Tablet Extended Release 24 Hr 150 mg PO QAM fluoxetine 40 mg Capsule 40 mg PO DAILY Rx Instructions: 40mg + 20mg = 60 mg daily dose lorazepam 0.5 mg Tablet 0.5 mg PO BID ascorbic acid (vitamin C) [Vitamin C] 500 mg tablet 500 mg PO BID 90 Days Qty: 180 3RF ferrous sulfate [iron] 325 mg (65 mg iron) Tablet 325 mg PO BID Qty: 60 6RF albuterol sulfate 0.63 mg/3 mL solution for nebulization 0.63 mg inhalation QID PRN (Reason: shortness of breath or wheezing) Qty: 75 0RF (DME) hearing aid accessory [facility] [place] See Rx Instructions .ROUTE .MEDSUPPLY Qty: 8 Rx Instructions: As directed docusate sodium [DOK] 100 mg capsule 100 mg PO BID 30 Days Qty: 60 6RF nitroglycerin 0.4 mg tablet, sublingual 0.4 mg SUBLINGUAL Q5M PRN (Reason: Chest Pain) 30 Days Qty: 30 3RF (DME) blood-glucose meter [FreeStyle Lite Meter] Kit See Rx Instructions .Route Qty: 1 0RF Rx Instructions: As directed (DME) lancets [FreeStyle Lancets] 28 gauge [facility] [place] See Rx Instructions .Route Qty: 100 3RF Rx Instructions: Use 1 lancet once a day (DME) FreeStyle Test Strip See Rx Instructions .Route Qty: 100 3RF Rx Instructions: Use 1 test strips once a day metformin 500 mg tablet 500 mg PO BID 90 Days Qty: 180 1RF topiramate 50 mg tablet 50 mg PO BID (DME) nebulizers [[employer] Go Nebulizer] Mis See Rx Instructions .Route Qty: 1 0RF Rx Instructions: As directed amitriptyline 25 mg tablet 25 mg PO BEDTIME buspirone 5 mg tablet 5 mg PO DAILY icosapent ethyl [Vascepa] 1 gram capsule 2 g PO BID 30 Days Qty: 120 3RF fluoxetine 20 mg capsule 20 mg PO DAILY Rx Instructions: 40mg + 20mg = 60 mg daily dose melatonin 5 mg tablet 5 mg PO BEDTIME PRN (Reason: Insomnia) melatonin-lemon balm leaf extr 10-1 mg tablet 10 tab PO DAILY miconazole nitrate [Miconazole-7] 2 % cream 1 appful vaginal BEDTIME 7 Days Qty: 45 3RF mecobalamin (vitamin B12) 10,000 mcg recon soln 10,000 mcg IM DAILY polyethylene glycol 3350 [Miralax] 17 gram/dose powder 238 g PO ONCE Qty: 238 0RF Rx Instructions: As directed by gastroenterology department at [facility] bisacodyl [Dulcolax (bisacodyl)] 5 mg tablet,delayed release (DR/EC) 10 mg PO ONCE 1 Days Qty: 2 0RF Rx Instructions: take 2 tabs at noon the day before your colonoscopy Interventions: ED Discharge Assessment Last Done: 04/23/23 02:53 Discharge Date/Time: 04/23/23 02:54
--- NOTE | 2023-04-22 15:21 | MHC.EDTECH ---
Labs collected and sent
[2023-04-22 15:25] LABS: MANUAL DIFF FLAG NO
[2023-04-22 15:26] LABS: Basophils Absolute Auto 0.1 X10*3/uL (0.0-0.2); Basophils Percent Auto 0.6 % (0-2); Eosinophils Absolute Auto 0.3 X10*3/uL (0.0-0.4); Eosinophils Percent Auto 3.5 % (0-4); Hematocrit 43.9 % (37.0-47.0); Imm Gran Abs Auto 0.02 X10*3/uL (0.00-0.03); Imm Gran Pct Auto 0.2 % (0.0-0.4); Lymphocytes Absolute Auto 3.1 X10*3/uL (1.2-4.9); Lymphocytes Percent Auto 35.2 % (20-40); Mean Corpuscular HGB Conc 31.9 g/dl (31.0-35.0); Mean Corpuscular Hemoglobin 26.6 pg (27.0-33.0); Mean Corpuscular Volume 83.3 fL (80.0-98.0); Mean Platelet Volume 9.7 fL (9.4-12.3); Monocytes Absolute Auto 0.6 X10*3/uL (0.1-1.2); Monocytes Percent Auto 6.6 % (2-11); Neutrophils Absolute Auto 4.7 x10*3/uL (2.0-8.3); Neutrophils Percent Auto 53.9 % (45-73); Platelet Count 313 X10*3/uL (160-400); Red Blood Count 5.27 X10*6/uL (4.20-5.50); Red Cell Distribution Width 13.8 % (11.0-16.0); White Blood Count 8.8 X10*3/uL (4.8-10.8)
[2023-04-22 15:46] LABS: COVID-19 Test Negative (Negative); IDNOW Serial# 6674DD1D
[2023-04-22 15:57] LABS: Alanine Aminotransferase 57 U/L (0-31); Albumin Level 4.3 g/dL (3.5-5.0); Alkaline Phosphatase 150 U/L (39-117); Anion Gap 13 (12-20); Aspartate Amino Transferase 92 U/L (5-31); Bilirubin Total 0.4 mg/dL (0.0-1.0); Blood Urea Nitrogen 14 mg/dL (9-16); Carbon Dioxide 23 mmol/L (22-29); Chloride 105 mmol/L (96-108); Creatinine Clr Calc Pharmacy 67.7; Estimated Glomerular Filt Rate > 60; Glucose Random 159 mg/dL (60-115); Magnesium 1.8 mg/dL (1.6-2.6); Potassium 3.9 mmol/L (3.3-5.1); Sodium 137 mmol/L (135-145); Total Protein 8.2 g/dL (6.5-8.0)
[2023-04-22 22:36] VITALS: BP 134/101; PULSE 110; RESP 18; TEMP 36.9; O2SAT 98
--- NOTE | 2023-04-22 23:01 | ECG_ITS ---
Test Reason : ABD PAIN Blood Pressure : / mmHG Vent. Rate : 108 BPM Atrial Rate : 108 BPM P-R Int : 170 ms QRS Dur : 088 ms QT Int : 370 ms P-R-T Axes : 057 -29 015 degrees QTc Int : 495 ms Sinus tachycardia Nonspecific ST abnormality Abnormal ECG When compared with ECG of 20-APR-2022 12:57, Nonspecific T wave abnormality, improved in Inferior leads Nonspecific T wave abnormality no longer evident in Anterolateral leads Referred By: Gillian Browne Electronically Signed By:Kalpesh Anderson
[2023-04-22] MEDS: ondansetron HCL 4 MG/2 ML VIAL IVPUSH (23:06)
[2023-04-22 23:07] VITALS: RESP 16
[2023-04-22] MEDS: Morphine Sulfate 4 MG/ML CARTRIDGE IVPUSH (23:07)
[2023-04-22] MEDS: Lactated Ringers 1,000 ML 999 ML IV (23:24)
[2023-04-22 23:27] LABS: Lipase 27 U/L (8-78)
[2023-04-22 23:28] VITALS: BP 135/82; PULSE 107; RESP 18; TEMP 36.9; O2SAT 97
[2023-04-22] MEDS: iohexoL 350 MG/ML 100 ML INFUS..BTL 85 ML IV (23:40)
[2023-04-23 00:47] VITALS: BP 140/85; PULSE 87; RESP 18; O2SAT 98
[2023-04-23 00:53] LABS: Appearance Urine Clear; Color Urine Yellow; Glucose Urine UA Negative (Negative); Leukocyte Esterase Urine Small (1+) (Negative); Nitrite Urine Negative (Negative); PH 5.5 (5.0-9.0); Specific Gravity - Urine >= 1.030 (1.005-1.025); UMIC TRIGGER UACC YES; Urine Blood Negative (Negative); Urine Ketones Negative (Negative); Urine Protein Negative (Neg-Trace)
[2023-04-23 01:05] LABS: Bacteria Urine Trace (None Seen); Hyaline Casts Urine 0-2 /LPF (0-2); RBC Urine 0-2 /HPF (0-2); UACC Culture Trigger YES; WBC Urine 0-5 /HPF (0-5)
== END 2023-04-23 02:54 | disposition home or self-care (01) ==
PROVIDERS: Physician Assistant Medical; Emergency Provider Emergency Medicine; PCP Internal Medicine
DX: R19.7 Diarrhea, unspecified (principal); R10.12 Left upper quadrant pain; Z20.822 Contact with and (suspected) exposure to COVID-19; R00.0 Tachycardia, unspecified; E11.9 Type 2 diabetes mellitus without complications; I10 Essential (primary) hypertension; E78.2 Mixed hyperlipidemia; Z79.84 Long term (current) use of oral hypoglycemic drugs; Z79.899 Other long term (current) drug therapy
CPT/HCPCS: 74177; 80053; 81001; 83690; 83735; 85025; 87086; 87147; 87635; 93005; 96374; 96375; 99285; J2270; J2405; Q9967

== ENCOUNTER → 2023-04-22 23:01 | Outpatient (BNV) | payer OTHER, SELFPAY | PROVIDERS: Emergency Provider Emergency Medicine; PCP Internal Medicine; Visit Provider Internal Medicine Cardiovascular Disease | DX: R00.0 Tachycardia, unspecified (principal) | CPT/HCPCS: 93010 ==

== ENCOUNTER 2023-05-22 09:18 | Day surgery (SDC) | payer OTHER, SELFPAY ==
--- NOTE | 2023-05-21 09:55 | HO.ANESPROP2 ---
HPI - Anesthesia Eval Consult details Narrative: 53yo F for Upper Endoscopy and Colonoscopy Cardiac optimized (10/2022) CAD with Hx HI PMFSH Active Problems Active Problems: All Active Problems (Updated 04/24/23 @ 00:04 by Mariano Lanier) Memory loss (Acute) Myocardial infarction (Acute) Lichen sclerosus (Acute) Lumbar degenerative disc disease (Acute) Essential hypertension (Acute) Mild major depression (Acute) Anemia (Acute) S/P cardiac cath (Acute) Trigger finger of left thumb (Acute) Carpal tunnel syndrome of right wrist (Acute) Carpal tunnel syndrome of left wrist (Acute) Asthma (Acute) Diabetes mellitus (Acute) Skin lesion (Acute) Mixed hyperlipidemia (Acute) Urge urinary incontinence (Acute) Chest pain (Acute) Constipation (Acute) Tiredness (Acute) Leg numbness (Acute) Migraines (Acute) GERD (gastroesophageal reflux disease) (Acute) Essential hypertension (Acute) Depression with anxiety (Acute) Iron deficiency anemia (Acute) Pernicious anemia (Acute) CAD (coronary artery disease) (Acute) Past Medical History Medical History Anterior knee pain At high risk for breast cancer CAD (coronary artery disease) Lorrie infection of genital region Chest pain Chest pain Chest tightness Constipation Costovertebral angle tenderness Depression with anxiety Diabetes mellitus Encounter for gynecological examination with Papanicolaou smear of cervix Essential hypertension Genital labial ulcer GERD (gastroesophageal reflux disease) Headache Hx of abnormal cervical Pap smear Iron deficiency anemia Leg numbness Lichen sclerosus Memory loss Migraines Mixed hyperlipidemia Myocardial infarction Numbness and tingling in both hands Pernicious anemia Physical exam Right foot pain Screen for sexually transmitted diseases Severe major depression without psychotic features Skin lesion SOB (shortness of breath) on exertion Tiredness Upper respiratory symptom Urge urinary incontinence Family History Family History Father Hypertension Mother Diabetes Stroke Sister Bone cancer Son Christine syndrome Daughter No problems noted. Brother No problems noted. Brother No problems noted. Sister Breast cancer Surgical History Surgical History History of carpal tunnel surgery History of carpal tunnel surgery of left wrist History of hysteroscopy History of skin cancer History of surgery History of tubal ligation Stented coronary artery Social History Social History Household Members: Children Housing: Apartment Are you a primary critical care unit nurse to a significant other at home: No Do you presently have visiting nurse or other home services: No Alcohol intake: never Patient Tobacco Use Status: Former Tobacco user Tobacco use type: Cigarette e-Cigarette/Vaping Use: Never Used Second Hand Smoke Exposure: No service: No Current occupational status: unemployed Current occupation: right hand Cognitive needs: No Hearing needs: No Vision needs: Yes Meds Allergies Allergy/AdvReac Type Severity Reaction Status Date / Time apple [APPLES] Allergy Intermediate TONGUE Verified 04/22/23 15:15 SWELLS AND TURNS PURPLE shellfish derived Allergy Intermediate LOBSTER- Verified 04/22/23 15:15 UNKNOWN coconut [COCONUT] Allergy Mild NAUSEA AND Verified 04/22/23 15:15 STOMACH SWELLS Home Medications Medication Instructions Recorded Confirmed Last Taken Type bupropion HCl 150 mg 24 hr tablet, 150 mg PO QAM 06/21/20 02/18/23 Unknown History extended release fluoxetine 40 mg capsule 40 mg PO DAILY 06/21/20 02/18/23 Unknown History lorazepam 0.5 mg tablet 0.5 mg PO BID 06/21/20 02/18/23 Unknown History hearing aid accessory #8 ea 06/29/20 02/18/23 Unknown History fluoxetine 20 mg capsule 20 mg PO DAILY 04/20/21 02/18/23 Unknown History melatonin 5 mg tablet 5 mg PO BEDTIME PRN Insomnia 04/20/21 02/18/23 Unknown History amitriptyline 25 mg tablet 25 mg PO BEDTIME 10/31/21 02/18/23 Unknown History buspirone 5 mg tablet 5 mg PO DAILY 10/31/21 02/18/23 Unknown History topiramate 50 mg tablet 50 mg PO BID 01/11/22 02/18/23 Unknown History mecobalamin (vitamin B12) 10,000 10,000 mcg IM DAILY 04/04/22 02/18/23 Unknown History mcg solution for injection melatonin 10 mg-lemon balm leaf 10 tab PO DAILY 09/26/22 02/18/23 Unknown History extract 1 mg tablet Exam Exam Date and Time: May 21, 2023 0955 Narrative Narrative: EKG 04/2023 Vent. Rate : 108 BPM ? ? Atrial Rate : 108 BPM ?? P-R Int : 170 ms? QRS Dur : 088 ms ? ? QT Int : 370 ms ? ? ? P-R-T Axes : 057 -29 015 degrees ?? QTc Int : 495 ms ? Sinus tachycardia Nonspecific ST abnormality Abnormal ECG When compared with ECG of 20-APR-2022 12:57, Nonspecific T wave abnormality, improved in Inferior leads Nonspecific T wave abnormality no longer evident in Anterolateral leads Cardiac catheterization 04/06/21 LM normal, LAD mild irreg, stent mid patent, LCx mild irreg, stent mid patent, RCA mild irreg, Stent R PDA prox patent Assessment and Plan Assessment Anesthesia Assessment: Chart Reviewed
--- NOTE | 2023-05-22 09:35 | HO.ANESPROP2 ---
[facility] Active Problems Active Problems: All Active Problems (Updated 04/24/23 @ 00:04 by Mariano Lanier) Memory loss (Acute) Myocardial infarction (Acute) Lichen sclerosus (Acute) Lumbar degenerative disc disease (Acute) Essential hypertension (Acute) Mild major depression (Acute) Anemia (Acute) S/P cardiac cath (Acute) Trigger finger of left thumb (Acute) Carpal tunnel syndrome of right wrist (Acute) Carpal tunnel syndrome of left wrist (Acute) Asthma (Acute) Diabetes mellitus (Acute) Skin lesion (Acute) Mixed hyperlipidemia (Acute) Urge urinary incontinence (Acute) Chest pain (Acute) Constipation (Acute) Tiredness (Acute) Leg numbness (Acute) Migraines (Acute) GERD (gastroesophageal reflux disease) (Acute) Essential hypertension (Acute) Depression with anxiety (Acute) Iron deficiency anemia (Acute) Pernicious anemia (Acute) CAD (coronary artery disease) (Acute) Past Medical History Medical History Anterior knee pain At high risk for breast cancer CAD (coronary artery disease) Lorrie infection of genital region Chest pain Chest pain Chest tightness Constipation Costovertebral angle tenderness Depression with anxiety Diabetes mellitus Encounter for gynecological examination with Papanicolaou smear of cervix Essential hypertension Genital labial ulcer GERD (gastroesophageal reflux disease) Headache Hx of abnormal cervical Pap smear Iron deficiency anemia Leg numbness Lichen sclerosus Memory loss Migraines Mixed hyperlipidemia Myocardial infarction Numbness and tingling in both hands Pernicious anemia Physical exam Right foot pain Screen for sexually transmitted diseases Severe major depression without psychotic features Skin lesion SOB (shortness of breath) on exertion Tiredness Upper respiratory symptom Urge urinary incontinence Family History Family History Father Hypertension Mother Diabetes Stroke Sister Bone cancer Son Christine syndrome Daughter No problems noted. Brother No problems noted. Brother No problems noted. Sister Breast cancer Family history of problems with anesthesia: No Surgical History Surgical History History of carpal tunnel surgery History of carpal tunnel surgery of left wrist History of hysteroscopy History of skin cancer History of surgery History of tubal ligation Stented coronary artery History of Problems with Anesthesia: No Social History Social History Household Members: Children Housing: Apartment Are you a primary point of care technician to a significant other at home: No Do you presently have visiting nurse or other home services: No Alcohol intake: never Patient Tobacco Use Status: Former Tobacco user Tobacco use type: Cigarette e-Cigarette/Vaping Use: Never Used Second Hand Smoke Exposure: No Advance Directives: No Advance Directives Information Provided: Yes service: No Current occupational status: unemployed Current occupation: right hand Cognitive needs: No Hearing needs: No Vision needs: Yes Meds Allergies Allergy/AdvReac Type Severity Reaction Status Date / Time apple [APPLES] Allergy Intermediate TONGUE Verified 04/22/23 15:15 SWELLS AND TURNS PURPLE shellfish derived Allergy Intermediate LOBSTER- Verified 04/22/23 15:15 UNKNOWN coconut [COCONUT] Allergy Mild NAUSEA AND Verified 04/22/23 15:15 STOMACH SWELLS Active Medications: Current Medications Lactated Ringer's (Lr) 1,000 mls @ 100 mls/hr IVCONT .Q10H [facility] Home Medications Medication Instructions Recorded Confirmed Last Taken Type bupropion HCl 150 mg 24 hr tablet, 150 mg PO QAM 06/21/20 02/18/23 Unknown History extended release fluoxetine 40 mg capsule 40 mg PO DAILY 06/21/20 02/18/23 Unknown History lorazepam 0.5 mg tablet 0.5 mg PO BID 06/21/20 02/18/23 Unknown History hearing aid accessory #8 ea 06/29/20 02/18/23 Unknown History fluoxetine 20 mg capsule 20 mg PO DAILY 04/20/21 02/18/23 Unknown History melatonin 5 mg tablet 5 mg PO BEDTIME PRN Insomnia 04/20/21 02/18/23 Unknown History amitriptyline 25 mg tablet 25 mg PO BEDTIME 10/31/21 02/18/23 Unknown History buspirone 5 mg tablet 5 mg PO DAILY 10/31/21 02/18/23 Unknown History topiramate 50 mg tablet 50 mg PO BID 01/11/22 02/18/23 Unknown History mecobalamin (vitamin B12) 10,000 10,000 mcg IM DAILY 04/04/22 02/18/23 Unknown History mcg solution for injection melatonin 10 mg-lemon balm leaf 10 tab PO DAILY 09/26/22 02/18/23 Unknown History extract 1 mg tablet Exam Exam Date and Time: May 22, 2023 [id number] Airway Mallampati Class: II TM Dist: >3cm Neck ROM: Full Assessment and Plan Assessment Anesthesia Assessment: Anesthesia Plan Discussed and Chart Reviewed Final Anesthetic Review Family History of Problems with Anesthesia: No History of Problems with Anesthesia: No NPO: Yes ASA Class: III Final Preanesthetic Review: No Changes in Pt Med Stat, Meds/Allgs Chart Reviewed, Consent Obtained/Reviewed and Anes Risks/Benef Reviewed Patient Risk: Intermediate Procedure Risk: Low Anesthetic Plan Anesthetic Plan: MAC: Disposition: Standard PACU
--- NOTE | 2023-05-22 09:43 | MHC.SHP ---
Pre-Procedural Eval Section A Date of Service: 05/22/23 Section B Chief Complaint: Gastro-esophageal reflux disease w/out, screening Relevant Family History (Specify if Yes): No Relevant Social History: None Present Medications: see Short Stay Collaborative assessment Medical History: Significant History (CAD (coronary artery disease) Chest pain Constipation Depression with anxiety Diabetes mellitus Essential hypertension GERD (gastroesophageal reflux disease) Iron deficiency anemia Leg numbness Lichen sclerosus Memory loss Migraines Mixed hyperlipidemia Myocardial infarction Pernicious anemia Severe) History of Previous Operations: Relevant previous surgery/procedure and date(s) (History of carpal tunnel surgery History of carpal tunnel surgery of left wrist History of hysteroscopy History of skin cancer History of surgery History of tubal ligation Stented coronary artery) Allergies: Allergies Allergy/AdvReac Type Severity Reaction Status Date / Time apple [APPLES] Allergy Intermediate TONGUE Verified 04/22/23 15:15 SWELLS AND TURNS PURPLE shellfish derived Allergy Intermediate LOBSTER- Verified 04/22/23 15:15 UNKNOWN coconut [COCONUT] Allergy Mild NAUSEA AND Verified 04/22/23 15:15 STOMACH SWELLS Review of Systems Sugical H&P ROS: Negative: Constitution, Cardiovascular, Respiratory, Neurological, Psychiatric, Hem-Onc, Allergic/Immunologic, Gastrointestinal, Genitourinary, Musculoskeletal, Integumentary, Endocrine and Eyes/Ears/Nose/Throat Exam Surgical H&P Exam: Normal: HEENT, Normal: Heart, Normal: Lungs, Normal: Extremities, Normal: Abdomen, Normal: Skin and Normal: Neurological Plan Diagnosis/Plan: Unchanged I have reviewed the history and physical and performed a pertinent physical examination on my patient. No changes have occurred unless specified. Time Spent With Patient Time: Total time managing care of this patient today ____ minutes.
[2023-05-22 09:44] VITALS: BP 119/82; PULSE 108; RESP 20; TEMP 35; O2SAT 95; BMI 34.8
[2023-05-22 09:46] LABS: Glucose, Whole Blood 177 mg/dL (60-115)
--- NOTE | 2023-05-22 09:46 | W.PM.OPN ---
Operative Note Operative Note Date of Service: 05/22/23 Narrative: Operative Information Procedure Description: EGD, Colonoscopy Indication: GERD, screening Anesthesia: MAC FLEXIBLE TRANSORAL UPPER GASTROINTESTINAL ENDOSCOPY AND COLONOSCOPY PROCEDURE NOTE UPPER ENDOSCOPY Consent: Indications for the procedure and potential complications of bleeding, perforation, reaction to medications and missed diagnosis were discussed with the patient and informed consent was obtained. Instrument: Olympus GIF H 190 J mid size upper endoscope Monitoring: Vital signs and clinical assessment, continuous EKG monitoring, Pulse oximetry, Carbon Dioxide monitoring and blood pressure monitoring were done throughout the procedure. Procedure: The patient was placed in the left lateral decubitis position and pre-procedure medications were administered and a bite block was placed. The endoscope was inserted into the mouth and advanced under direct vision to the third part of duodenum. A careful inspection was made as the upper endoscope was withdrawn including a retroflexed examination of the proximal stomach; Findings and interventions are described below. Findings: Larynx:normal Esophagus: GE junction at 30 cm, diaphragm hiatus at 34 cm, consistent with 4 cm sliding hiatal hernia, irregular mucosa, bx taken to r/o barretts also bx from distal esophagus --non obstrcutive schatzki ring noted Stomach: Patchy erythema. Biopsies were obtained. Grade 2 flap valve on retroflexed examination of the cardia. Duodenum: Normal bulb and descending duodenum, Intervention: Biopsies as noted above COLONOSCOPY Instrument: Olympus variable stiffness pediatric scope 190L Colonoscopy Monitoring: Vital signs and clinical assessment, continuous EKG monitoring, Pulse oximetry, Carbon Dioxide monitoring and blood pressure monitoring were done throughout the procedure. Colon withdrawal time was 8 minutes. Procedure: The patient was placed in the left lateral decubitis position and pre-procedure medications were administered. After a digital rectal examination of the ano-rectum, the video colonoscope was inserted into the rectum and advanced through the colon to the cecum/TI. The colonoscope was slowly withdrawn in a retrograde panoramic fashion and the colon mucosa was carefully examined including a retroflexed view of the rectum. Findings and interventions are described below. Procedure Difficulty:moderate, pressure applied Findings: Terminal Ileum-not intubated Cecum:normal right sided retroflexion, normal Ascending Colon: normal Transverse Colon -normal Descending Colon:normal Sigmoid Colon: moderate diverticulosis Rectum: Retroflexion with small internal hemorrhoids, grade I Anorectum - normal Colon preparation: Harper Bowel Preparation Scale Right colon; 2 Transverse colon: 3 Left colon; 3 (0 = Unprepared colon segment with mucosa not seen due to solid stool that cannot be cleared. 1 = Portion of mucosa of the colon segment seen, but other areas of the colon segment not well seen due to staining, residual stool and/or opaque liquid. 2 = Minor amount of residual staining, small fragments of stool and/or opaque liquid, but mucosa of colon segment seen well. 3 = Entire mucosa of colon segment seen well with no residual staining, small fragments of stool or opaque liquid) Impression and Post Procedure Diagnosis: Endoscopy Findings: hiatal hernia schatzki ring gastritis Colonoscopy Findings: internal hemorrhoids diverticular disease Plan: Await Pathology results Repeat Colonoscopy in 10 years or earlier if clinically indicated High fiber diet leaflet avoid straining at stool, epsom salts and sitz bath, anusol supps or cream Reflux precautions Above findings were reviewed with the patient and relevant handouts were provided if indicated.
[2023-05-22] MEDS: Lactated Ringers 1,000 ML 100 ML IVCONT (09:50)
[2023-05-22 10:38] VITALS: BP 98/67; PULSE 118; RESP 16; TEMP 36.8; O2SAT 94
[2023-05-22 10:53] VITALS: BP 107/72; PULSE 108; RESP 18; TEMP 37.3; O2SAT 94
== END 2023-05-22 11:21 | disposition home or self-care (01) ==
PROVIDERS: PCP Internal Medicine; Visit Provider Internal Medicine Gastroenterology
PROC: (CPT 43239; principal; 2023-05-22 11:00)
DX: Z12.11 Encounter for screening for malignant neoplasm of colon (principal); Z80.0 Family history of malignant neoplasm of digestive organs; K57.30 Diverticulosis of large intestine without perforation or abscess without bleeding; K64.0 First degree hemorrhoids; K21.9 Gastro-esophageal reflux disease without esophagitis; K22.2 Esophageal obstruction; K29.50 Unspecified chronic gastritis without bleeding; K20.90 Esophagitis, unspecified without bleeding; K44.9 Diaphragmatic hernia without obstruction or gangrene; I25.10 Atherosclerotic heart disease of native coronary artery without angina pectoris; I25.2 Old myocardial infarction; Z95.5 Presence of coronary angioplasty implant and graft; I10 Essential (primary) hypertension; E11.9 Type 2 diabetes mellitus without complications; D50.9 Iron deficiency anemia, unspecified; R06.02 Shortness of breath; N39.41 Urge incontinence; F41.8 Other specified anxiety disorders; Z79.899 Other long term (current) drug therapy; Z79.82 Long term (current) use of aspirin; Z87.891 Personal history of nicotine dependence
CPT/HCPCS: 43239; G0105; 82947; 88305; 88342

== ENCOUNTER → 2023-05-22 09:18 | Outpatient (BNV) | payer OTHER, SELFPAY | PROVIDERS: PCP Internal Medicine; Visit Provider Internal Medicine Gastroenterology | DX: Z12.11 Encounter for screening for malignant neoplasm of colon (principal); K44.9 Diaphragmatic hernia without obstruction or gangrene; K29.70 Gastritis, unspecified, without bleeding; K22.2 Esophageal obstruction; K57.30 Diverticulosis of large intestine without perforation or abscess without bleeding; K64.9 Unspecified hemorrhoids | CPT/HCPCS: 43239; 45378 ==

== ENCOUNTER 2023-06-07 09:52 | Outpatient (AMB) | payer OTHER, SELFPAY ==
--- NOTE | 2023-06-07 09:54 | A.OFFVIS_ITS ---
Intake Vital Signs 06/07/23 09:56 Height 5 ft 1 in Weight 187 lb 6.287 oz BMI 35.4 BP 119/74 Blood Pressure Location Lt brachial Position Sitting Pulse 88 Intake Visit Reasons: S/P Double; Dr. Bentley Intake Note: Barbara presents in the office as a follow up EGD and COLO. CC: She states that she has been having heartburn that seems to be worse. Everything she eats she feels like she is going to vomit it all comes up. At first she was having diarrhea but now she is having constipation. 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 Bentley HPI Details LAST VISIT: Screen for colon cancer Patient denies any GI, cardiac or respiratory symptoms.? Cleared by produce field merchandiser to go had with the procedure. Denies any issues with anesthesia in the past.? Denies any history of sleep apnea.? No history infectious diseases in the past or present.? Patient is on low-dose aspirin.? Patient denies melena, hematochezia, unintentional weight loss or ribbon like stools.? Discussed at length the pre-procedure,? prep, diet & medications as well as what to expect prior, during and after the procedure.?? Stressed the importance of good bowel prep. ?Recommended the use of Vaseline or Calmoseptine OTC & baby wipes with bowel movements to promote comfort.? ?Patient verbalizes understanding and agrees to plan of care.? She was given the opportunity to ask questions and all questions answered.? We will see her after the procedure.? COLONOSCOPY AND UPPER ENDOSCOPY Findings: Larynx:normal Esophagus: GE junction at 30 cm, diaphragm hiatus at 34 cm, consistent with 4 cm sliding hiatal hernia, irregular mucosa, bx taken to r/o barretts also bx from distal esophagus --non obstrcutive schatzki ring noted Stomach: Patchy erythema. Biopsies were obtained. Grade 2 flap valve on retroflexed examination of the cardia. Duodenum: Normal bulb and descending duodenum, Intervention: Biopsies as noted above Findings: Terminal Ileum-not intubated Cecum:normal right sided retroflexion, normal Ascending Colon: normal Transverse Colon -normal Descending Colon:normal Sigmoid Colon: moderate diverticulosis Rectum: Retroflexion with small internal hemorrhoids, grade I Anorectum - normal Colon preparation: Early Bowel Preparation Scale Right colon; 2 Transverse colon: 3 Left colon; 3 (0 = Unprepared colon segment with mucos a not seen due to solid stool that cannot be cleared. 1 = Portion of mucosa of the colon segme nt seen, but other areas of the colon segment not well seen due to staining, residual stool and/or opaque liquid. 2 = Minor amount of residual staining, s mall fragments of stool and/or opaque liquid, but mucosa of colon segment seen well. 3 = Entire mucosa of colon segment seen well with no residual staining, small fragments of stool or opaque liquid) Impression and Post Procedure Diagnosis: Endoscopy Findings: hiatal hernia schatzki ring gastritis Colonoscopy Findings: internal hemorrhoids diverticular disease PATHOLOGY RESULTS: Diagnosis A. Stomach, biopsy: Antral-type and oxyntic mucosa with moderate chronic inactive inflammation; no Helicobacter organisms seen. B. GE junction, biopsy: - Small focus of esophageal glands withi n normal limits; no gastric epithelium identified; negative for intestinal metaplasia. - Squamous mucosa within normal limits. C. Esophagus, distal, biopsy: Squamous epithelium within normal limits; no inflammation seen. TODAY'S VISIT Patient is here today for follow-up and discussed upper endoscopy and colonoscopy results. Patient ill effects from the prep, anesthesia or procedure itself. Patient reports that she is taking pantoprazole in the morning and she continues to severe acid reflux. Patient reports acid reflux worse at night time. Patient reports that her last meal is around 18:00 and she does not go to bed till 9-10 p.m. and she continues to have dyspepsia at night time. Patient reports that she is constipated now. No longer gets diarrhea. Patient denies dyspepsia, dysphagia or odynophagia. Patient denies melena, hematochezia, unintentional weight loss or ribbon like stools. Colonoscopy results discussed with patient. Patient had no polyps. Small sliding hiatal hernia found, gastritis, nonobstructing Schatzki ring found. Patient was found to have diverticulosis in sigmoid colon and small internal hemorrhoids [facility] Medical History (Updated 06/13/23 @ 10:39 by Julieth De León MD) Physical exam Right foot pain Myocardial infarction Chest pain Lorrie infection of genital region Screen for sexually transmitted diseases Hx of abnormal cervical Pap smear Encounter for gynecological examination with Papanicolaou smear of cervix Costovertebral angle tenderness Anterior knee pain Headache Memory loss Chest tightness Upper respiratory symptom Numbness and tingling in both hands Severe major depression without psychotic features Diabetes mellitus Skin lesion Genital labial ulcer At high risk for breast cancer Lichen sclerosus SOB (shortness of breath) on exertion Mixed hyperlipidemia Urge urinary incontinence Chest pain Constipation Tiredness Leg numbness Migraines GERD (gastroesophageal reflux disease) Essential hypertension Depression with anxiety Iron deficiency anemia Pernicious anemia CAD (coronary artery disease) Surgical History Hx of colonoscopy History of esophagogastroduodenoscopy (EGD) History of carpal tunnel surgery History of carpal tunnel surgery of left wrist Stented coronary artery History of surgery History of skin cancer History of hysteroscopy History of tubal ligation Family History Father Hypertension Mother Diabetes Stroke Sister Bone cancer Son Christine syndrome Daughter No problems noted. Brother No problems noted. Brother No problems noted. Sister Breast cancer Social History Household Members: Children Housing: Apartment Are you a primary cattle care worker to a significant other at home: No Do you presently have visiting nurse or other home services: No Alcohol intake: never Patient Tobacco Use Status: Former Tobacco user Tobacco use type: Cigarette e-Cigarette/Vaping Use: Never Used Second Hand Smoke Exposure: No service: No Current occupational status: unemployed Current occupation: right hand Cognitive needs: No Hearing needs: No Vision needs: Yes Female Reproductive History Menstrual Age of Menarche: 8 Review of Systems Const Denies weight gain and Denies weight loss ENT Reports no additional complaints, Denies dysphagia and Denies odynophagia Card Reports no additional complaints Resp Reports no additional complaints GI Denies abdominal pain, Denies belching, Denies melena, Denies bloating, Denies change in bowel habits, Reports constipation, Denies dysphagia, Denies excessive flatus, Reports dyspepsia, Reports heartburn, Denies diarrhea, Denies loose stools, Denies nausea, Denies odynophagia and Denies vomiting Reports no additional complaints Musc Reports no additional complaints Neuro Reports no additional complaints Psych Reports no additional complaints Endo Reports no additional complaints Physical Exam Vital Signs: Last Vital Signs Pulse 88 06/07/23 09:56 BP 119/74 06/07/23 09:56 BMI result Body Mass Index 35.4 Const General: healthy appearing, no acute distress and well developed Nutritional Appearance: obese Orientation/consciousness: patient oriented x3 HEENT Head: Yes normal to inspection, Yes normocephalic and Yes atraumatic Face and sinus: Yes normal facial exam Mouth: Normal oral and palatal mucosa present Throat: Yes posterior oropharynx normal, Yes tonsils normal and Yes uvula midline Eyes General: appearance normal, both eyes and all related structures Neck Neck: Yes normal visual inspection, Yes full ROM and Yes trachea midline Thyroid: Thyroid normal Resp Effort & Inspection: normal respiratory effort, able to speak in complete sentences, no tracheal deviation and symmetric chest movement Auscultation: clear to auscultation bilaterally Cardio Rate: regular rate Heart sounds: S1 normal heart sound present and S2 normal heart sound present GI Inspection: Yes normal to inspection, No distended and Yes obesity Palpation (GI): Soft to palpation, not firm, nontender and No hepatosplenomegaly present Auscultation: normal bowel sounds General: Yes no CVA tenderness Back/Spine/Pelvis Back: no CVA tenderness Skin General skin exam: elasticity normal, turgor normal and dry skin Neuro General: patient oriented x3 Psych Appearance: grossly normal Mental Status: mental status grossly normal Speech and movement: Normal speech and movement present Assessment & Plan Assessment & Plan (1) GERD (gastroesophageal reflux disease): Code(s): K21.9 - Gastro-esophageal reflux disease without esophagitis Qualifiers: Esophagitis presence: esophagitis presence not specified Qualified Code(s): K21.9 - Gastro-esophageal reflux disease without esophagitis Plan: Continue pantoprazole every morning half an hour before breakfast. I will add sucralfate at bedtime. Patient was encouraged to avoid dietary triggers and late night snacking. Staying upright for minimum 3 hours after meals discussed with patient. (2) Hiatal hernia: Code(s): K44.9 - Diaphragmatic hernia without obstruction or gangrene Plan: Patient reports epigastric discomfort especially at nighttime when lying down. I will send her for barium swallow. Patient might need to be referred to general surgery (3) Constipation: Code(s): K59.00 - Constipation, unspecified Qualifiers: Constipation type: slow transit constipation Qualified Code(s): K59.01 - Slow transit constipation Plan: Patient reports that after colonoscopy she became more constipated. Patient was encouraged to take MiraLax in the morning and Senokot at bedtime. Patient was also encouraged to increase fluid intake and activity to promote better bowel motility (4) Diverticulosis: Code(s): K57.90 - Diverticulosis of intestine, part unspecified, without perforation or abscess without bleeding Plan: Moderate diverticulosis found on colonoscopy. Patient was encouraged to take probiotic [id number]. Patient will take MiraLax and Senokot to help her move her bowels better. Discussed with her high-fiber diet. (5) Status post colonoscopy: Code(s): Z98.890 - Other specified postprocedural states Plan: Patient denies any ill effects from the prep, anesthesia or procedure itself. Diverticulosis and hemorrhoids found on colonoscopy. No polyps. Colorectal screening will be repeated in 10 years, sooner if clinically necessary. Patient will see me in 6 months, sooner on as needed basis. Patient is agreeable to this plan and verbalizes understanding of instructions. She was given the opportunity to ask questions and all questions answered. Thank you for allowing me to participate in her care Orders: Orders [place] barium swallow 06/07/23 K21.9 - Gastro-esophageal reflux disease without esophagitis, K44.9 - Diaphragmatic hernia without obstruction or gangrene Medications: New sucralfate 10 mL PO BEDTIME 400 mL 3RF K21.9 - Gastro-esophageal reflux disease without esophagitis sennosides (Natural Senna Laxative) 17.2 mg (2 x 8.6 mg) PO BEDTIME 60 tabs 3RF constipation K59.00 - Constipation, unspecified Coding Level of Care Code Est Pt Level 4 (33883) Diagnoses Gastroesophageal reflux disease, unspecified whether esophagitis present K21.9 Esophagitis presence: esophagitis presence not specified Hiatal hernia K44.9 Slow transit constipation K59.01 Constipation type: slow transit constipation Diverticulosis K57.90 Status post colonoscopy Z98.890 Time Spent (min) 35 Comment 20 minutes spent with patient and additional 15 minutes spent reviewing her records
[2023-06-07 09:56] VITALS: BP 119/74; PULSE 88; BMI 35.4
== END 2023-06-07 10:35 | disposition home or self-care (01) ==
PROVIDERS: PCP Internal Medicine; Visit Provider Nurse Practitioner Family
DX: K21.9 Gastro-esophageal reflux disease without esophagitis (principal); K44.9 Diaphragmatic hernia without obstruction or gangrene; K59.01 Slow transit constipation; K57.90 Diverticulosis of intestine, part unspecified, without perforation or abscess without bleeding; Z98.890 Other specified postprocedural states
CPT/HCPCS: 99214

== ENCOUNTER → 2023-06-07 09:52 | Outpatient (BNVA) | payer OTHER, SELFPAY | PROVIDERS: PCP Internal Medicine; Visit Provider Nurse Practitioner Family | DX: K57.30 Diverticulosis of large intestine without perforation or abscess without bleeding (principal); K64.8 Other hemorrhoids; K44.9 Diaphragmatic hernia without obstruction or gangrene; K22.2 Esophageal obstruction; K29.70 Gastritis, unspecified, without bleeding; K21.9 Gastro-esophageal reflux disease without esophagitis; K59.01 Slow transit constipation; Z98.890 Other specified postprocedural states; Z79.899 Other long term (current) drug therapy | CPT/HCPCS: 99212 ==

== ENCOUNTER 2023-06-12 14:53 | Outpatient (AMB) | payer OTHER, SELFPAY ==
[2023-06-12 14:57] VITALS: BMI 35.3
--- NOTE | 2023-06-12 14:57 | A.OFFVIS_ITS ---
Intake Vital Signs 06/12/23 14:57 Height 5 ft 1 in Weight 187 lb BMI 35.3 Intake Visit Reasons: New Problem rt thumb Intake Note: Barbara 52 yr old right hand dominant female presents today for her right thumb locking, states her thumb has been locking for the last couple of months and is feeling the same way her left thumb felt prior to her ishan release 08/[address] Tidwell. Patient is S/P Right hand CTR 11/26/22 [place]. States she would like to discuss surgery. Allergies apple [APPLES] Allergy (Intermediate, Verified 06/12/23 15:03) TONGUE SWELLS AND TURNS PURPLE shellfish derived Allergy (Intermediate, Verified 06/12/23 15:03) LOBSTER- UNKNOWN coconut [COCONUT] Allergy (Mild, Verified 06/12/23 15:03) NAUSEA AND STOMACH SWELLS HPI New Problem rt thumb HPI Details Barbara is a 53 year old right hand dominant Welsh speaking woman who presents with a new complaint of a right trigger thumb. She complains of painful locking and catching of her right thumb. She says this feels similar to her left thumb did prior to her trigger release. In regards to her sensation, she says she has normal sensation in all digits of her right hand, and the thumb and index finger of her left hand. She does report new numbness in her left middle, ring, and small fingers She has a hx of: left trigger thumb release, DOS: 08/24/21, left carpal tunnel release, DOS: 12/14/21, and right carpal tunnel release, DOS: 11/26/22 all with good results [facility] Medical History (Updated 06/12/23 @ 15:25 by Michael Rubin) Right foot pain Myocardial infarction Chest pain Lorrie infection of genital region Screen for sexually transmitted diseases Hx of abnormal cervical Pap smear Encounter for gynecological examination with Papanicolaou smear of cervix Costovertebral angle tenderness Physical exam Anterior knee pain Headache Memory loss Chest tightness Upper respiratory symptom Numbness and tingling in both hands Severe major depression without psychotic features Diabetes mellitus Skin lesion Genital labial ulcer At high risk for breast cancer Lichen sclerosus SOB (shortness of breath) on exertion Mixed hyperlipidemia Urge urinary incontinence Chest pain Constipation Tiredness Leg numbness Migraines GERD (gastroesophageal reflux disease) Essential hypertension Depression with anxiety Iron deficiency anemia Pernicious anemia CAD (coronary artery disease) Surgical History (Updated 06/07/23 @ 09:58 by STEVE Garcia) Hx of colonoscopy History of esophagogastroduodenoscopy (EGD) History of carpal tunnel surgery History of carpal tunnel surgery of left wrist Stented coronary artery History of surgery History of skin cancer History of hysteroscopy History of tubal ligation Family History Father Hypertension Mother Diabetes Stroke Sister Bone cancer Son Christine syndrome Daughter No problems noted. Brother No problems noted. Brother No problems noted. Sister Breast cancer Social History Household Members: Children Housing: Apartment Are you a primary career technical supervisor to a significant other at home: No Do you presently have visiting nurse or other home services: No Alcohol intake: never Patient Tobacco Use Status: Former Tobacco user Tobacco use type: Cigarette e-Cigarette/Vaping Use: Never Used Second Hand Smoke Exposure: No service: No Current occupational status: unemployed Current occupation: right hand Cognitive needs: No Hearing needs: No Vision needs: Yes Female Reproductive History Menstrual Age of Menarche: 8 Review of Systems Const All systems reviewed & are unremarkable except as noted in HPI and below Physical Exam Vital Signs: BMI result Body Mass Index 35.3 Const General: no acute distress and alert Orientation/consciousness: patient oriented x3 Neuro General: patient oriented x3 Extrem Other: Evaluation of Right Upper Extremity: The patient is alert, oriented, and in no acute distress Neuro: Median, Ulnar, Radial nerves motor and sensory intact and sensation is normal to the tips of all digits of the right hand Normal sensation to the thumb and index finger of the left hand Numbness in the middle, ring, and small fingers of the left hand Vascular: Cap refill brisk ROM: She can make a fist and extend all her digits Visible and palpable locking and catching of the thumb Tender over the a1 ishan of the thumb Psych Appearance: grossly normal Affect: normal affect Attitude: cooperative Assessment & Plan Assessment & Plan (1) Carpal tunnel syndrome of left wrist: Code(s): G56.02 - Carpal tunnel syndrome, left upper limb (2) Carpal tunnel syndrome of right wrist: Code(s): G56.01 - Carpal tunnel syndrome, right upper limb (3) Trigger thumb, right thumb: Code(s): M65.311 - Trigger thumb, right thumb (4) Numbness and tingling in left hand: Code(s): R20.0 - Anesthesia of skin; R20.2 - Paresthesia of skin Plan Assessment & Plan: 1. Right trigger thumb I educated her about this condition I discussed operative and non-operative treatment options The patient would like to proceed with surgery The risks and benefits of operative treatment were discussed with the patient and the patient wishes to proceed with surgery. These risks include, but are not limited to risk of damage to blood vessels, nerves, tendons, infection, recurrence, incomplete relief of preoperative symptoms, persistent pain, possible need for further surgery and the risks associated with regional blocks and anesthesia. The plan is to take the patient to the operating room sometime in the next few weeks for the following procedures: 1. Right trigger thumb release, under local All of the preoperative paperwork including the consent was filled out today. All the patient's questions were answered. The patient understands that they will be contacted by our military science teacher soon to schedule this procedure She denies Diabetes, blood thinners, asthma, heart, lung, kidney issues 2. Left hand numbness In the middle, ring, and small fingers I ordered a NCS to assess for ulnar neuropathy She will follow up when completed for review 3. Right Carpal tunnel syndrome, S/P release DOS: 11/26/22 With good resolution of her symptoms 4. Left Carpal Tunnel syndrome, S/P release DOS 12/14/21 With good resolution of her symptoms 5. Left trigger thumb, S/P release DOS: 08/24/21 Resolved Scribed for Amina Tidwell MD by Michael Rubin, biomedical equipment support specialist, on 06/12/23 at 3:25 PM, EST. Orders: Orders NE nerve conduction velocity Today R20.0 - Anesthesia of skin, R20.2 - Paresthesia of skin Coding Level of Care Code Est Pt Level 4 (71779) Diagnoses Carpal tunnel syndrome of left wrist G56.02 Carpal tunnel syndrome of right wrist G56.01 Trigger thumb, right thumb M65.311 Numbness and tingling in left hand R20.0; R20.2
== END 2023-06-12 15:31 | disposition home or self-care (01) ==
PROVIDERS: PCP Internal Medicine; Visit Provider Orthopaedic Surgery
DX: G56.02 Carpal tunnel syndrome, left upper limb (principal); G56.01 Carpal tunnel syndrome, right upper limb; M65.311 Trigger thumb, right thumb; R20.0 Anesthesia of skin; R20.2 Paresthesia of skin
CPT/HCPCS: 99214

== ENCOUNTER → 2023-06-12 14:53 | Outpatient (BNVA) | payer OTHER, SELFPAY | PROVIDERS: PCP Internal Medicine; Visit Provider Orthopaedic Surgery | DX: M65.311 Trigger thumb, right thumb (principal); G56.03 Carpal tunnel syndrome, bilateral upper limbs; R20.0 Anesthesia of skin; R20.2 Paresthesia of skin | CPT/HCPCS: 99212 ==

== ENCOUNTER 2023-06-13 09:34 | Outpatient (AMB) | payer OTHER, SELFPAY ==
--- NOTE | 2023-06-13 09:36 | A.OFFPC_ITS ---
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 Accompanied by: Self / Same As Patient Allergies apple [APPLES] Allergy (Intermediate, Verified 06/13/23 09:46) TONGUE SWELLS AND TURNS PURPLE shellfish derived Allergy (Intermediate, Verified 06/13/23 09:46) LOBSTER- UNKNOWN coconut [COCONUT] Allergy (Mild, Verified 06/13/23 09:46) NAUSEA AND STOMACH SWELLS Medication List - Last Reconciled 06/13/23 by Julieth De León MD albuterol sulfate 0.63 mg (3 mL) inhalation QID PRN albuterol sulfate 90 mcg/actuation 1 inh inhalation QID PRN amitriptyline 25 mg PO BEDTIME amlodipine 5 mg PO DAILY ascorbic acid (vitamin C) (Vitamin C) 500 mg PO BID 90 days aspirin 81 mg PO DAILY 90 days atorvastatin 80 mg PO DAILY blood pressure monitor As directed blood sugar diagnostic (FreeStyle Test strips) Use 1 test strips once a day blood-glucose meter (FreeStyle Lite Meter kit) As directed bupropion HCl 150 mg PO QAM buspirone 5 mg PO DAILY disposable gloves (Biobrane Gloves Medium) Use prn docusate sodium (DOK) 100 mg PO BID 30 days ezetimibe (Zetia) 10 mg PO DAILY ferrous sulfate (Iron (ferrous sulfate)) 325 mg PO BID fluoxetine 40 mg PO DAILY fluoxetine 20 mg PO DAILY [handheld shower As directed] hearing aid accessory As directed icosapent ethyl (Vascepa) 2 grams PO BID [incontinence pads As directed] lancets (FreeStyle Lancets) Use 1 lancet once a day lorazepam 0.5 mg PO BID mecobalamin (vitamin B12) 10,000 mcg IM DAILY melatonin-lemon balm leaf extr 10-1 mg 10 tabs PO DAILY metformin 500 mg PO BID 90 days metoprolol tartrate 50 mg PO BID nebulizers (Aeroneb Go Nebulizer) As directed nitroglycerin 0.4 mg sublingual Q5M PRN 30 days ondansetron 4 mg PO Q8H PRN pantoprazole 40 mg PO DAILY sennosides (Natural Senna Laxative) 17.2 mg (2 x 8.6 mg) PO BEDTIME Shower Chair As directed sucralfate 10 mL PO BEDTIME topiramate 50 mg PO BID [wipes As directed] Tobacco use date assessed: 10/16/22 Dental Screening Dental Screen Date: 06/13/23 Did you have a dental visit in the last 12 months?: Yes Did you have a dental problem in the last 6 months where you did not have access to dental care?: No Was dental information given to patient?: Patient has dentist HPI HPI Comments History of Present Illness Details This is a 53-year-old female with mild major depression and diabetes mellitus type 2 that comes for her physical exam. Depression stable with SSRIs. A1c is elevated and she is compliant with metformin. I will add Ozempic to lower her A1c. Colonoscopy was done April 2023. Mammogram was done 2022. Pap smear was done 2022. No chest pain or shortness of breath. Has left ear hearing loss and uses hearing aids and would like to follow with ENT. [facility] Medical History (Updated 06/13/23 @ 10:39 by Julieth De León MD) Physical exam Right foot pain Myocardial infarction Chest pain Lorrie infection of genital region Screen for sexually transmitted diseases Hx of abnormal cervical Pap smear Encounter for gynecological examination with Papanicolaou smear of cervix Costovertebral angle tenderness Anterior knee pain Headache Memory loss Chest tightness Upper respiratory symptom Numbness and tingling in both hands Severe major depression without psychotic features Diabetes mellitus Skin lesion Genital labial ulcer At high risk for breast cancer Lichen sclerosus SOB (shortness of breath) on exertion Mixed hyperlipidemia Urge urinary incontinence Chest pain Constipation Tiredness Leg numbness Migraines GERD (gastroesophageal reflux disease) Essential hypertension Depression with anxiety Iron deficiency anemia Pernicious anemia CAD (coronary artery disease) Surgical History Hx of colonoscopy History of esophagogastroduodenoscopy (EGD) History of carpal tunnel surgery History of carpal tunnel surgery of left wrist Stented coronary artery History of surgery History of skin cancer History of hysteroscopy History of tubal ligation Family History Father Hypertension Mother Diabetes Stroke Sister Bone cancer Son Christine syndrome Daughter No problems noted. Brother No problems noted. Brother No problems noted. Sister Breast cancer Social History Household Members: Children Housing: Apartment Are you a primary primary care provider to a significant other at home: No Do you presently have visiting nurse or other home services: No Alcohol intake: never Patient Tobacco Use Status: Former Tobacco user Tobacco use type: Cigarette e-Cigarette/Vaping Use: Never Used Second Hand Smoke Exposure: No service: No Current occupational status: unemployed Current occupation: right hand Cognitive needs: No Hearing needs: No Vision needs: Yes Female Reproductive History Menstrual Age of Menarche: 8 Questionnaire Thrive Questionnaire Date Thrive assessed: 10/16/22 AUDIT C Alcohol Use Questionnaire (AUDIT-C) 1. How often do you have a drink containing alcohol?: Never Total Score: 0 ROXY-7 AMB Questionnaire ROXY-7 Date ROXY - 7 assessed: 06/13/23 Feeling nervous, anxious, or on edge: 1 = Several days Not being able to stop or control worryin = Several days Worrying too much about different things: 1 = Several days Trouble relaxin = Not at all Being so restless that it is hard to sit still: 0 = Not at all Becoming easily annoyed or irritable: 1 = Several days Feeling afraid as if something awful might happen: 0 = Not at all Total ROXY-7 score (0-4 normal; 5-9 mild; 10-14 moderate; 15-21 severe): 4 Source: Developed by Drs. Josh Frederick, Shannen Peck, El Guerrero and colleagues, with an educational lilliam from [employer]. ROXY-7 Assessment Billing ROXY-7 Assessment Tool: ROXY-7 Assessment 03313 Review of Systems Const All systems reviewed & are unremarkable except as noted in HPI and below Eyes Reports no additional complaints, Denies change in vision and Denies other visual disturbances Card Denies chest pain at rest, Denies chest pain with activity, Denies edema, Denies irregular heart rhythm, Denies claudication, Denies dyspnea, Denies dyspnea on exertion, Denies orthopnea, Denies paroxysmal nocturnal dyspnea and Denies slow heart rate Resp Denies cough, Denies dyspnea and Denies dyspnea on exertion GI Denies abdominal pain, Denies change in bowel habits, Denies excessive flatus, Denies nausea and Denies vomiting Denies urinary incontinence, Denies urinary hesitancy and Denies urinary urgency Musc Denies abnormal gait, Denies atrophy, Denies deformity and Denies limited range of motion Skin/Breast Denies bleeding lesions, Denies changing lesions and Denies rash Neuro Denies abnormal gait and Denies lack of coordination Physical exam (Primary Care) Vital Signs: Last Vital Signs BP 120/82 06/13/23 09:38 BMI result Body Mass Index 34.8 Tobacco/Smoking Status: Tobacco use Status Tobacco use date assessed 10/16/22 06/13/23 09:40 Patient Tobacco Use Status Former Tobacco user 06/13/23 09:40 Tobacco use type Cigarette 06/13/23 09:40 e-Cigarette/Vaping Use Never Used 06/13/23 09:40 Thrive Assessment: Date of Thrive Assessment Date Thrive assessed 10/16/22 06/13/23 09:40 Const Orientation/consciousness: patient oriented x3 HENOH Head: Yes normal to inspection, Yes normocephalic and Yes atraumatic Ears: external ears normal Eyes General: appearance normal, both eyes and all related structures Eyelids: Yes eyelids normal Conjunctivae: conjunctivae normal Neck Neck: Yes normal visual inspection and Yes supple Resp Effort & Inspection: normal respiratory effort Auscultation: clear to auscultation bilaterally Cardio Jugular venous distension: no JVD Rate: regular rate Rhythm: regular rhythm Heart sounds: S1 normal heart sound present and S2 normal heart sound present GI Inspection: Yes normal to inspection Palpation (GI): Soft to palpation and nontender Auscultation: normal bowel sounds Skin General skin exam: no rashes or lesions noted Neuro General: patient oriented x3 and no focal motor deficits Extrem General: Yes full ROM Psych Appearance: grossly normal Results AMB Hemoglobin A1c AMB Hemoglobin A1c 8.1 % Last Edit by STEVE Turcois on 06/13/23 10:0 1 Results Reviewed Results Reviewed: Laboratory Last Values Hgb A1c (Clinic) 8.1 % (4.0-6.0) H 06/13/23 09:36 Assessment and Plan Assessment & Plan (1) Physical exam: Code(s): Z00.00 - Encounter for general adult medical examination without abnormal findings Plan: Repeat in a year (2) Diabetes mellitus: Code(s): E11.9 - Type 2 diabetes mellitus without complications Qualifiers: Diabetes mellitus type: type 2 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 Start Ozempic. A1c goal is equal or less than 7%. (3) Mild major depression: Code(s): F32.0 - Major depressive disorder, single episode, mild Plan: Continue SSRIs Orders: Orders AMB Hemoglobin A1c Today E11.9 - Type 2 diabetes mellitus without complications IRON PROFILE Today D64.9 - Anemia, unspecified Vitamin D 25-OH Total Today E55.9 - Vitamin D deficiency, unspecified Lipid Panel Today E78.5 - Hyperlipidemia, unspecified Complete Blood Count Auto Diff Today D64.9 - Anemia, unspecified Vitamin B12 and Folate Today E53.8 - Deficiency of other specified B group vitamins Microalbumin, Random (w Creat) Today E11.9 - Type 2 diabetes mellitus without complications Comprehensive [place]. Panel Fast Today E11.65 - Type 2 diabetes mellitus with hyperglycemia Referrals Medical Weight Management Referral E66.9 - Obesity, unspecified, Z68.34 - Body mass index [BMI] 34.0-34.9, adult Ear/Nose/Throat Referral H91.90 - Unspecified hearing loss, unspecified ear Medications: New semaglutide (Ozempic) for 4 weeks 0.25 mg (0.368 mL) subcut QWEEK 30 days 1.84 mL 0RF E11.65 - Type 2 diabetes mellitus with hyperglycemia Coding Level of Care Code Est Pt Prev Care 40-64y(97368) Diagnoses Physical exam Z00.00 Type 2 diabetes mellitus with hyperglycemia, without long-term current use of insulin E11.65 Diabetes mellitus type: type 2 Diabetes mellitus exterminator helper termite insulin use: without exterminator helper termite use Diabetes mellitus complication status: with hyperglycemia Mild major depression F32.0 Additional Codes ROXY-7 Assessment Billing - ROXY-7 Assessment Tool: ROXY-7 Assessment 21513 ([id number]) Time Spent (min) 35
[2023-06-13 09:38] VITALS: BP 120/82; BMI 34.8
== END 2023-06-13 09:58 | disposition home or self-care (01) ==
PROVIDERS: Visit Provider Internal Medicine
DX: Z00.00 Encounter for general adult medical examination without abnormal findings (principal); E11.65 Type 2 diabetes mellitus with hyperglycemia; F32.0 Major depressive disorder, single episode, mild; E11.9 Type 2 diabetes mellitus without complications
CPT/HCPCS: 83036; 99396

== ENCOUNTER 2023-06-13 09:36 | Outpatient (REF) | payer OTHER, SELFPAY | END 2023-06-13 09:37 | disposition home or self-care (01) | LOC: HO.LAB 09:36 | PROVIDERS: Visit Provider Internal Medicine | DX: Z13.89 Encounter for screening for other disorder (principal) ==

== ENCOUNTER 2023-08-27 10:02 | Outpatient (REF) | payer OTHER, SELFPAY ==
--- NOTE | ~2023-08-27 | FL_ITS ---
EXAMINATION: XR FLUOROSCOPY UPPER GI WITH AIR CLINICAL INFORMATION: Acid reflux COMPARISON: None TECHNIQUE: Fluoroscopic air contrast upper GI examination was performed utilizing standard techniques with thin and thick barium and effervescent granules. Numerous spot images were obtained. FINDINGS: Lateral cine images of the oropharynx and hypopharynx demonstrate normal swallow mechanism with normal epiglottic inversion and soft palate elevation. No tracheal penetration, glottic or subglottic aspiration identified. No nasopharyngeal reflux present. Hypopharyngeal structures appear normal without evidence of mass or diverticulum. There was no significant cricopharyngeal achalasia. Dual and single contrast images of the esophagus demonstrate normal caliber, and contour. There are transverse mucosal bands in the mid esophagus consistent with feline esophagus. No evidence of stricture, mass, or ulcerations identified. Nonpropulsive tertiary contractions are noted in the mid and distal esophagus consistent with esophageal dysmotility. A small type I hiatal hernia is present. Gastroesophageal reflux is seen up to the thoracic inlet Dual contrast and single contrast images of the stomach demonstrated normal contour and mucosal pattern without evidence of mass, ulceration, or other abnormality. Contrast freely passed into the gastric antrum and duodenal bulb without delay. Single and air-contrast images of the duodenal bulb demonstrate no abnormality. The duodenal sweep has a normal appearance, course, and mucosal fold appearance. The imaged proximal jejunum has a normal fold pattern and caliber. FLUOROSCOPY TIME: 3 minutes 2 seconds Number of Spot Images: 9 Number of Cine: 9 DOSE AREA PRODUCT: 1776 uGy-m2 (microgray-meter squared) FL/FL barium swallow IMPRESSION: 1. 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 2. Esophageal dysmotility, moderate. 3. Gastroesophageal reflux. 4. Small type I hiatal hernia. This procedure was performed by Darryl Bloom PA-C, and supervised by Dr. Llanos
== END 2023-08-27 10:03 | disposition home or self-care (01) ==
LOC: HO.XRAY 10:02
PROVIDERS: PCP Internal Medicine; Visit Provider Nurse Practitioner Family
DX: K21.9 Gastro-esophageal reflux disease without esophagitis (principal); K44.9 Diaphragmatic hernia without obstruction or gangrene
CPT/HCPCS: 74220

== ENCOUNTER → 2023-08-27 10:05 | Outpatient (BNV) | payer OTHER, SELFPAY | PROVIDERS: PCP Internal Medicine; Visit Provider Radiology Diagnostic Radiology | DX: K21.9 Gastro-esophageal reflux disease without esophagitis (principal) | CPT/HCPCS: 74246 ==

== ENCOUNTER 2023-10-15 11:01 | Outpatient (AMB) | payer OTHER, SELFPAY ==
--- NOTE | 2023-10-15 11:08 | A.OFFPC_ITS ---
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: No Accompanied by: Self / Same As Patient Allergies apple [APPLES] Allergy (Intermediate, Verified 10/15/23 11:33) TONGUE SWELLS AND TURNS PURPLE shellfish derived Allergy (Intermediate, Verified 10/15/23 11:33) LOBSTER- UNKNOWN coconut [COCONUT] Allergy (Mild, Verified 10/15/23 11:33) NAUSEA AND STOMACH SWELLS Medication List - Last Reconciled 10/15/23 by Julieth De León MD albuterol sulfate 0.63 mg (3 mL) inhalation QID PRN albuterol sulfate 90 mcg/actuation 1 inh inhalation QID PRN amitriptyline 25 mg PO BEDTIME amlodipine 5 mg PO DAILY ascorbic acid (vitamin C) (Vitamin C) 500 mg PO BID aspirin 81 mg PO DAILY 90 days atorvastatin 80 mg PO DAILY blood pressure monitor As directed blood sugar diagnostic (FreeStyle Test strips) Use 1 test strips once a day blood-glucose meter (FreeStyle Lite Meter kit) As directed bupropion HCl 150 mg PO QAM buspirone 5 mg PO DAILY disposable gloves (Biobrane Gloves Medium) Use prn docusate sodium (DOK) 100 mg PO BID 30 days ezetimibe (Zetia) 10 mg PO DAILY ferrous sulfate (Iron (ferrous sulfate)) 325 mg PO BID fluoxetine 40 mg PO DAILY fluoxetine 20 mg PO DAILY [handheld shower As directed] hearing aid accessory As directed icosapent ethyl (Vascepa) 2 grams PO BID [incontinence pads As directed] lancets (FreeStyle Lancets) Use 1 lancet once a day lorazepam 0.5 mg PO BID mecobalamin (vitamin B12) 10,000 mcg IM DAILY melatonin-lemon balm leaf extr 10-1 mg 10 tabs PO DAILY metoprolol tartrate 50 mg PO BID nebulizers (Aeroneb Go Nebulizer) As directed nitroglycerin 0.4 mg sublingual Q5M PRN 30 days ondansetron 4 mg PO Q8H PRN pantoprazole 40 mg PO DAILY semaglutide (Ozempic) 0.25 mg (0.368 mL) subcut QWEEK 30 days sennosides (Natural Senna Laxative) 17.2 mg (2 x 8.6 mg) PO BEDTIME Shower Chair As directed sucralfate 10 mL PO BEDTIME topiramate 50 mg PO BID [wipes As directed] Tobacco use date assessed: 10/15/23 Dental Screening Dental Screen Date: 10/15/23 Did you have a dental visit in the last 12 months?: Yes Did you have a dental problem in the last 6 months where you did not have access to dental care?: No Was dental information given to patient?: Patient has dentist HPI HPI Comments History of Present Illness Details This is a 53-year-old female with mild major depression, diabetes mellitus type 2, hypertension, mixed hyperlipidemia and chronic idiopathic constipation that comes today for follow-up on her conditions. Depression stable with bupropion. A1c within goal. Blood pressure stable. Lipid panel will be order and her LDL goal should be less than 70. Still constipated with senna and docusate and I will start her on lactulose. Was advised to have high- fiber diet. No chest pain or shortness of breath. [facility] Medical History Physical exam Right foot pain Myocardial infarction Chest pain [place]rie infection of genital region Screen for sexually transmitted diseases Hx of abnormal cervical Pap smear Encounter for gynecological examination with Papanicolaou smear of cervix Costovertebral angle tenderness Anterior knee pain Headache Memory loss Chest tightness Upper respiratory symptom Numbness and tingling in both hands Severe major depression without psychotic features Diabetes mellitus Skin lesion Genital labial ulcer At high risk for breast cancer Lichen sclerosus SOB (shortness of breath) on exertion Mixed hyperlipidemia Urge urinary incontinence Chest pain Constipation Tiredness Leg numbness Migraines GERD (gastroesophageal reflux disease) Essential hypertension Depression with anxiety Iron deficiency anemia Pernicious anemia CAD (coronary artery disease) Surgical History Hx of colonoscopy History of esophagogastroduodenoscopy (EGD) History of carpal tunnel surgery History of carpal tunnel surgery of left wrist Stented coronary artery History of surgery History of skin cancer History of hysteroscopy History of tubal ligation Family History Father Hypertension Mother Diabetes Stroke Sister Bone cancer Son Christine syndrome Daughter No problems noted. Brother No problems noted. Brother No problems noted. Sister Breast cancer Social History Household Members: Children Housing: Apartment Are you a primary day care center director to a significant other at home: No Do you presently have visiting nurse or other home services: No Alcohol intake: never Patient Tobacco Use Status: Former Tobacco user Tobacco use type: Cigarette e-Cigarette/Vaping Use: Never Used Second Hand Smoke Exposure: No service: No Current occupational status: unemployed Current occupation: right hand Cognitive needs: No Hearing needs: No Vision needs: Yes Female Reproductive History Menstrual Age of Menarche: 8 Questionnaire PHQ-9 Over the last 2 weeks, how often have you been bothered by any of the following problems? 1. Little interest or pleasure in doing things: more than half the days 2. Feeling down, depressed, or hopeless: more than half the days 3. Trouble falling or staying asleep, or sleeping too much: more than half the days 4. Feeling tired or having little energy: nearly every day 5. Poor appetite or overeating: several days 6. Feeling bad about yourself - or that you are a failure or have let yourself or your family down: not at all 7. Trouble concentrating on things, such as reading the newspaper or watching television: several days 8. Moving or speaking so slowly that other people could have noticed. Or the opposite - being so fidgety or restless that you have been moving around a lot more than usual: not at all 9. Thoughts that you would be better off or of hurting yourself in some way: not at all Total score: 11 Depression Screening Interpretation: Positive Depression Screening Follow-up: Existing condition and In treatment Depression Screening Done: Yes 92932 - PHQ-9 Billing: Yes Source: Developed by Drs. Josh Frederick, Shannen ePck, El Guerrero and colleagues, with an educational lilliam from [facility]. Thrive Questionnaire Date Thrive assessed: 10/15/23 I am a: Patient What is your living situation today?: I have a steady place to live Within the past 12 months, did the food you bought not last and you didn't have the money to get more?: Never true Within the past 12 months, did you worry whether your food would run out before you got money to buy more?: Never true Do you have trouble paying for medicines?: No Do you have trouble getting transportation to medical appointments?: No Do you have trouble paying your heating and electricity bill?: No Do you have trouble taking care of your child, family member or friend?: No Do you have trouble with day-to-day activities such as bathing, preparing meals, shopping, managing finances, etc.?: No Are you currently unemployed and looking for a job?: No Are you interested in more education?: No Please select the resources that you would like help with: None Currently or been in a relationship where the following occur: no concerns reported THRIVE Score: 0 AUDIT C Alcohol Use Questionnaire (AUDIT-C) 1. How often do you have a drink containing alcohol?: Monthly or less 2. How many drinks containing alcohol do you have on a typical day when you are drinking?: 1 or 2 3. How often do you have six or more drinks on one occasion?: Never Total Score: 1 Score Reviewed/Action Taken: No ROXY-7 AMB Questionnaire ROXY-7 Date ROXY - 7 assessed: 10/15/23 Feeling nervous, anxious, or on edge: 3 = Nearly every day Not being able to stop or control worryin = Several days Worrying too much about different things: 3 = Nearly every day Trouble relaxin = More than half the days Being so restless that it is hard to sit still: 0 = Not at all Becoming easily annoyed or irritable: 2 = More than half the days Feeling afraid as if something awful might happen: 2 = More than half the days Total ROXY-7 score (0-4 normal; 5-9 mild; 10-14 moderate; 15-21 severe): 13 Source: Developed by Drs. Josh Frederick, Shannen Peck, El Guerrero and colleagues, with an educational lilliam from [employer] [facility]. ROXY-7 Assessment Billing ROXY-7 Assessment Tool: ROXY-7 Assessment 73025 Review of Systems Const All systems reviewed & are unremarkable except as noted in HPI and below Eyes Reports no additional complaints, Denies change in vision and Denies other visual disturbances Card Denies chest pain at rest, Denies chest pain with activity, Denies edema, Denies irregular heart rhythm, Denies claudication, Denies dyspnea, Denies dyspnea on exertion, Denies orthopnea, Denies paroxysmal nocturnal dyspnea and Denies slow heart rate Resp Denies cough, Denies dyspnea and Denies dyspnea on exertion GI Denies abdominal pain, Denies change in bowel habits, Denies excessive flatus, Denies nausea and Denies vomiting Denies urinary incontinence, Denies urinary hesitancy and Denies urinary urgency Musc Denies abnormal gait, Denies atrophy, Denies deformity and Denies limited range of motion Skin/Breast Denies bleeding lesions, Denies changing lesions and Denies rash Neuro Denies abnormal gait, Denies behavioral changes and Denies lack of coordination Psych Denies behavioral changes Endo Denies cold intolerance Timo/Lymph Denies easy bleeding and Denies easy bruising Aller/Immun Denies urticaria Physical exam (Primary Care) Vital Signs: Last Vital Signs BP 110/70 10/15/23 11:09 BMI result Body Mass Index 32.0 Tobacco/Smoking Status: Tobacco use Status Tobacco use date assessed 10/15/23 10/15/23 11:22 Patient Tobacco Use Status Former Tobacco user 10/15/23 11:12 Tobacco use type Cigarette 10/15/23 11:12 e-Cigarette/Vaping Use Never Used 10/15/23 11:12 PHQ-9: PHQ-9 Score PHQ-9: Total score 11 10/15/23 11:37 Depression Screening Interpretation: Positive Depression Screening Follow-up: Existing condition and In treatment Thrive Assessment: Date of Thrive Assessment Date Thrive assessed 10/15/23 10/15/23 11:22 Currently or been in a relationship where the following occur: no concerns reported [facility] Head: Yes normal to inspection, Yes normocephalic and Yes atraumatic Ears: external ears normal General nose exam: Normal external nose present and No nasal discharge present Face and sinus: Yes sinuses nontender Mouth: lip normal Eyes General: appearance normal, both eyes and all related structures Eyelids: Yes eyelids normal Conjunctivae: conjunctivae normal Neck Neck: Yes normal visual inspection and Yes supple Resp Effort & Inspection: normal respiratory effort Auscultation: clear to auscultation bilaterally Cardio Jugular venous distension: no JVD Rate: regular rate Rhythm: regular rhythm Heart sounds: S1 normal heart sound present and S2 normal heart sound present Extrem General: Yes full ROM Psych Appearance: grossly normal Office Procedures Flu Questionnaire Does the patient have a severe egg allergy?: No Results AMB Hemoglobin A1c AMB Hemoglobin A1c 5.9 % Last Edit by STEVE Turcios on 10/15/23 11:2 3 Immunizations flu vacc [id number] 6mos up(PF) 60 mcg(15 mcgx4)/0.5 mL IM syringe Performing Provider: Julieth De León MD [facility] [place] [facility] Documented (not given) by: STEVE Turcios on 10/15/23 12:06 Reason Not Given: Patient Refused Results Reviewed Results Reviewed: Laboratory Last Values Hgb A1c (Clinic) 5.9 % (4.0-6.0) 10/15/23 11:08 Assessment and Plan Assessment & Plan (1) Mild major depression: Code(s): F32.0 - Major depressive disorder, single episode, mild Plan: Continue bupropion. (2) Essential hypertension: Code(s): I10 - Essential (primary) hypertension Plan: Continue lisinopril and amlodipine. Blood pressure goal is equal or less than 130/80. (3) Diabetes mellitus: Code(s): E11.9 - Type 2 diabetes mellitus without complications Qualifiers: Diabetes mellitus type: type 2 Diabetes mellitus retirement insulin use: without retirement use Diabetes mellitus complication status: with hyperglycemia Qualified Code(s): E11.65 - Type 2 diabetes mellitus with hyperglycemia Plan: Continue Ozempic. A1c goal is equal or less than 7%. (4) Mixed hyperlipidemia: Code(s): E78.2 - Mixed hyperlipidemia Plan: Continue zetia. LDL goal is less than 70. Continue Vascepa. (5) Chronic idiopathic constipation: Code(s): K59.04 - Chronic idiopathic constipation Plan: Discontinue senna and docusate. Start lactulose as needed. Orders: Orders AMB Hemoglobin A1c Today E11.9 - Type 2 diabetes mellitus without complications Lipid Panel Today E78.5 - Hyperlipidemia, unspecified Vitamin D 25-OH Total Today E55.9 - Vitamin D deficiency, unspecified Comprehensive [place]. Panel Fast Today E11.9 - Type 2 diabetes mellitus without complications Medications: New semaglutide (Ozempic) 0.5 mg (0.736 mL) subcut QWEEK 90 days 9.568 mL 1RF E11.9 - Type 2 diabetes mellitus without complications lactulose 10 grams (15 mL) PO BEDTIME 30 days PRN 450 mL 2RF constipation Discontinued docusate sodium (DOK) Discontinued Reason: Patient Completed Course 100 mg PO BID 30 days 60 caps 6RF K59.00 - Constipation, unspecified semaglutide (Ozempic) for 4 weeks Discontinued Reason: Patient Completed Course 0.25 mg (0.368 mL) subcut QWEEK 30 days 1.84 mL 0RF E11.65 - Type 2 diabetes mellitus with hyperglycemia sennosides (Natural Senna Laxative) Discontinued Reason: Patient Completed Course 17.2 mg (2 x 8.6 mg) PO BEDTIME 60 tabs 3RF constipation K59.00 - Constipation, unspecified Coding Level of Care Code Est Pt Level 4 (63050) Diagnoses Mild major depression F32.0 Essential hypertension I10 Type 2 diabetes mellitus with hyperglycemia, without long-term current use of insulin E11.65 Diabetes mellitus type: type 2 Diabetes mellitus retirement insulin use: without exterminator termite use Diabetes mellitus complication status: with hyperglycemia Mixed hyperlipidemia E78.2 Chronic idiopathic constipation K59.04 Additional Codes ROXY-7 Assessment Billing - ROXY-7 Assessment Tool: ROXY-7 Assessment 79045 ([id number]) Time Spent (min) 25
[2023-10-15 11:09] VITALS: BP 110/70; BMI 32.0
== END 2023-10-15 11:43 | disposition home or self-care (01) ==
PROVIDERS: PCP Internal Medicine; Visit Provider Internal Medicine
DX: E11.65 Type 2 diabetes mellitus with hyperglycemia (principal); F32.0 Major depressive disorder, single episode, mild; I10 Essential (primary) hypertension; E78.2 Mixed hyperlipidemia; K59.04 Chronic idiopathic constipation
CPT/HCPCS: 83036; 96127; 99214

== ENCOUNTER 2023-11-05 12:25 | Outpatient (AMB) | payer OTHER, SELFPAY ==
[2023-11-05 12:32] VITALS: BP 120/76; PULSE 85; BMI 31.4
--- NOTE | 2023-11-05 12:32 | A.OFFVIS_ITS ---
Intake Vital Signs 11/05/23 12:32 Height 5 ft 2 in Weight 171 lb 15.369 oz BMI 31.4 BP 120/76 Blood Pressure Location Lt brachial Position Sitting Pulse 85 Intake Visit Reasons: 1 YEAR FOLLOW UP Intake Note: 1 year follow-up with ekg c/o dizziness at times one day a week ago and for a moment 2 days ago Lopper Required: No Allergies apple [APPLES] Allergy (Intermediate, Verified 10/15/23 11:33) TONGUE SWELLS AND TURNS PURPLE shellfish derived Allergy (Intermediate, Verified 10/15/23 11:33) LOBSTER- UNKNOWN coconut [COCONUT] Allergy (Mild, Verified 10/15/23 11:33) NAUSEA AND STOMACH SWELLS Medication List - Last Reconciled 11/05/23 by Deshawn Aaron MD albuterol sulfate 0.63 mg (3 mL) inhalation QID PRN albuterol sulfate 90 mcg/actuation 1 inh inhalation QID PRN amitriptyline 25 mg PO BEDTIME amlodipine 5 mg PO DAILY ascorbic acid (vitamin C) (Vitamin C) 500 mg PO BID aspirin 81 mg PO DAILY 90 days atorvastatin 80 mg PO DAILY blood pressure monitor As directed blood sugar diagnostic (FreeStyle Test strips) Use 1 test strips once a day blood-glucose meter (FreeStyle Lite Meter kit) As directed bupropion HCl 150 mg PO QAM buspirone 5 mg PO DAILY disposable gloves (Biobrane Gloves Medium) Use prn ezetimibe (Zetia) 10 mg PO DAILY ferrous sulfate (Iron (ferrous sulfate)) 325 mg PO BID fluoxetine 40 mg PO DAILY fluoxetine 20 mg PO DAILY [handheld shower As directed] hearing aid accessory As directed icosapent ethyl (Vascepa) 2 grams PO BID [incontinence pads As directed] lactulose 10 grams (15 mL) PO BEDTIME PRN 30 days lancets (FreeStyle Lancets) Use 1 lancet once a day lorazepam 0.5 mg PO BID mecobalamin (vitamin B12) 10,000 mcg IM DAILY melatonin-lemon balm leaf extr 10-1 mg 10 tabs PO DAILY metoprolol tartrate 50 mg PO BID nebulizers (Aeroneb Go Nebulizer) As directed nitroglycerin 0.4 mg sublingual Q5M PRN 30 days ondansetron 4 mg PO Q8H PRN pantoprazole 40 mg PO DAILY semaglutide (Ozempic) 0.5 mg (0.736 mL) subcut QWEEK 90 days Shower Chair As directed sucralfate 10 mL PO BEDTIME topiramate 50 mg PO BID [wipes As directed] HPI HPI Comments History of Present Illness Details Barbara comes for follow-up. She said over the last week or 2 she has been getting dizzy usually when she is lying down or turning in bed. Not when she changes position quickly. She denies any associated symptoms of palpitations, lightheadedness, syncope. Denies any other cardiac symptoms. No exertional symptoms of chest pain or shortness of breath. She has been exercising regularly and participating healthy lifestyle. She says she has been losing weight. Her blood pressure has been well controlled. Her diabetes been well controlled as per her. No recent lipid panel. [facility] Medical History Physical exam Right foot pain Myocardial infarction Chest pain Lorrie infection of genital region Screen for sexually transmitted diseases Hx of abnormal cervical Pap smear Encounter for gynecological examination with Papanicolaou smear of cervix Costovertebral angle tenderness Anterior knee pain Headache Memory loss Chest tightness Upper respiratory symptom Numbness and tingling in both hands Severe major depression without psychotic features Diabetes mellitus Skin lesion Genital labial ulcer At high risk for breast cancer Lichen sclerosus SOB (shortness of breath) on exertion Mixed hyperlipidemia Urge urinary incontinence Chest pain Constipation Tiredness Leg numbness Migraines GERD (gastroesophageal reflux disease) Essential hypertension Depression with anxiety Iron deficiency anemia Pernicious anemia CAD (coronary artery disease) Surgical History Hx of colonoscopy History of esophagogastroduodenoscopy (EGD) History of carpal tunnel surgery History of carpal tunnel surgery of left wrist Stented coronary artery History of surgery History of skin cancer History of hysteroscopy History of tubal ligation Family History Father Hypertension Mother Diabetes Stroke Sister Bone cancer Son Christine syndrome Daughter No problems noted. Brother No problems noted. Brother No problems noted. Sister Breast cancer Social History Household Members: Children Housing: Apartment Are you a primary complex care nurse practitioner to a significant other at home: No Do you presently have visiting nurse or other home services: No Alcohol intake: never Patient Tobacco Use Status: Former Tobacco user Tobacco use type: Cigarette e-Cigarette/Vaping Use: Never Used Second Hand Smoke Exposure: No service: No Current occupational status: unemployed Current occupation: right hand Cognitive needs: No Hearing needs: No Vision needs: Yes Female Reproductive History Menstrual Age of Menarche: 8 Review of Systems Const Denies chills, Denies fatigue, Denies fever(s), Denies frequent falls, Denies weakness, Denies weight gain and Denies weight loss ENT Denies dizziness Card Denies chest pain, Denies leg edema, Denies lightheadedness, Denies palpitations, Denies dyspnea, Denies dyspnea on exertion, Denies orthopnea and Denies other (loss of consciousness) Resp Denies cough, Denies dyspnea and Denies dyspnea on exertion GI Denies hematochezia and Denies change in stool character Musc Denies abnormal gait, Denies muscle weakness, Denies numbness, Denies radiating pain into limb and Denies tingling Neuro Denies abnormal gait, Denies dizziness, Denies frequent falls, Denies numbness, Denies tingling and Denies weakness Endo Denies fatigue and Denies palpitations Physical Exam Vital Signs: Last Vital Signs Pulse 85 11/05/23 12:32 BP 120/76 11/05/23 12:32 BMI result Body Mass Index 31.4 Const General: cooperative, comfortable, no acute distress, alert and awake Nutritional Appearance: obese centrally obese Orientation/consciousness: patient oriented x3 Limitations: no limitations Neck Neck: Yes trachea midline, Yes supple and Yes no JVD Resp Effort & Inspection: normal respiratory effort Auscultation: clear to auscultation bilaterally Cardio Jugular venous distension: no JVD Palpation: normal PMI Rate: regular rate Rhythm: regular rhythm Heart sounds: S1 normal heart sound present and S2 normal heart sound present GI Inspection: Yes obesity Auscultation: normal bowel sounds Skin General skin exam: no rashes or lesions noted Neuro General: patient oriented x3 and no focal motor deficits Extrem General: Yes no clubbing, cyanosis or edema Psych Appearance: grossly normal Office Procedures EKG Details: EKG shows normal sinus rhythm with mildly prolonged QTC interval at 483 milliseconds with low-voltage QRS otherwise no significant abnormalities [id number], Complete Assessment & Plan Assessment & Plan (1) CAD (coronary artery disease): Code(s): I25.10 - Atherosclerotic heart disease of [place] coronary artery without angina pectoris Qualifiers: Associated angina: with stable angina Coronary Disease-Associated Artery/Lesion type: [place] artery [place] vs. transplanted heart: [place] heart Qualified Code(s): I25.118 - Atherosclerotic heart disease of [place] coronary artery with other forms of angina pectoris Plan: CAD status post multivessel PCI in the past last 1 about 5 years ago. Would suggest her to undergo myocardial perfusion imaging to assess for stent patency. This will be scheduled in near future. Management of coronary artery disease was discussed in details. Continue with aggressive risk factor modification. Continue lifelong aspirin therapy. Continue aggressive blood pressure control. See below. Advised lipid panel near future, continue current therapy. Target goal LDL closer to 60 mg/dL. Continue aggressive management diabetes goal hemoglobin A1c less than 7%. Encouraged to continue to participate in physical activity as tolerated. Advised to participate in weight loss program. She understands agrees. (2) Essential hypertension: Code(s): I10 - Essential (primary) hypertension Plan: Hypertension which is currently well optimized advised to monitor blood pressure at home maintain a log. Goal blood pressure less than 130/84. Low-salt diet was discussed. Continue heart healthy lifestyle with regular physical activity and weight loss program. Follow up in the clinic in 1 year's time, sooner p.r.n.. Thank you for allowing me to partake in the care Orders: Orders Lipid Panel Today I25.10 - Atherosclerotic heart disease of [place] coronary artery without angina pectoris, I25.118 - Atherosclerotic heart disease of [place] coronary artery with other forms of angina pectoris NM cardiolite stress test 2 Weeks I25.118 - Atherosclerotic heart disease of [place] coronary artery with other forms of angina pectoris, R07.9 - Chest pain, unspecified CA stress test Today I25.118 - Atherosclerotic heart disease of [place] coronary artery with other forms of angina pectoris Coding Level of Care Code Est Pt Level 4 (79295) Diagnoses Coronary artery disease of [place] artery of [place] heart with stable angina pectoris I25.118 Associated angina: with stable angina Coronary Disease-Associated Artery/Lesion type: [place] artery [place] vs. transplanted heart: [place] heart Essential hypertension I10 CPT Codes EKG - CPT: 26297-[id number], Complete ([id number])
== END 2023-11-05 12:51 | disposition home or self-care (01) ==
PROVIDERS: Visit Provider Internal Medicine Cardiovascular Disease
DX: I25.118 Atherosclerotic heart disease of native coronary artery with other forms of angina pectoris (principal); I10 Essential (primary) hypertension
CPT/HCPCS: 93010; 99214

== ENCOUNTER → 2023-11-05 12:25 | Outpatient (BNVA) | payer OTHER, SELFPAY | PROVIDERS: Visit Provider Internal Medicine Cardiovascular Disease | DX: I25.118 Atherosclerotic heart disease of native coronary artery with other forms of angina pectoris (principal); I10 Essential (primary) hypertension | CPT/HCPCS: 93005; 99212 ==

== ENCOUNTER 2023-11-13 11:19 | Outpatient (AMB) | payer OTHER, SELFPAY ==
[2023-11-13 12:00] VITALS: BMI 31.8
--- NOTE | 2023-11-13 12:00 | A.OFFVIS_ITS ---
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 Note: had pain 2 weeks ago in her lower abdomen and said she had clots and was spotting for 4 days and burning with urination hadn't had intercours in a year and resently did and then this happened Cotton Feeder Required: No Information Interpreted: non-clinical & clinical Neon Sign Installer: Neon Sign Installer Present (Aidyn) Allergies apple [APPLES] Allergy (Intermediate, Verified 11/13/23 12:04) TONGUE SWELLS AND TURNS PURPLE shellfish derived Allergy (Intermediate, Verified 11/13/23 12:04) LOBSTER- UNKNOWN coconut [COCONUT] Allergy (Mild, Verified 11/13/23 12:04) NAUSEA AND STOMACH SWELLS Medication List - Last Reconciled 11/13/23 by Beena Giang CNM albuterol sulfate 0.63 mg (3 mL) inhalation QID PRN albuterol sulfate 90 mcg/actuation 1 inh inhalation QID PRN amitriptyline 25 mg PO BEDTIME amlodipine 5 mg PO DAILY ascorbic acid (vitamin C) (Vitamin C) 500 mg PO BID aspirin 81 mg PO DAILY 90 days atorvastatin 80 mg PO DAILY blood pressure monitor As directed blood sugar diagnostic (FreeStyle Test strips) Use 1 test strips once a day blood-glucose meter (FreeStyle Lite Meter kit) As directed bupropion HCl 150 mg PO QAM buspirone 5 mg PO DAILY disposable gloves (Biobrane Gloves Medium) Use prn ezetimibe (Zetia) 10 mg PO DAILY ferrous sulfate (Iron (ferrous sulfate)) 325 mg PO BID fluoxetine 40 mg PO DAILY fluoxetine 20 mg PO DAILY [handheld shower As directed] hearing aid accessory As directed icosapent ethyl (Vascepa) 2 grams PO BID [incontinence pads As directed] lactulose 10 grams (15 mL) PO BEDTIME PRN 30 days lancets (FreeStyle Lancets) Use 1 lancet once a day lorazepam 0.5 mg PO BID mecobalamin (vitamin B12) 10,000 mcg IM DAILY melatonin-lemon balm leaf extr 10-1 mg 10 tabs PO DAILY metoprolol tartrate 50 mg PO BID nebulizers (Aeroneb Go Nebulizer) As directed nitroglycerin 0.4 mg sublingual Q5M PRN 30 days ondansetron 4 mg PO Q8H PRN pantoprazole 40 mg PO DAILY semaglutide (Ozempic) 0.5 mg (0.736 mL) subcut QWEEK 90 days Shower Chair As directed sucralfate 10 mL PO BEDTIME topiramate 50 mg PO BID [wipes As directed] Is last menstrual period known: No Post menopausal: Yes 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 This time she had very bad pain after it and she is was urinating frequently and had some tiny blood clots in her urine at the time she was on amoxicillin or ampicillin for a tooth infection so she had 5 more days of the antibiotic to take so she stayed on then the antibiotic and did not call anybody at the time and by the time the antibiotic was done she already was feeling better. She has an appointment coming up in a week or 2 for complete root canal and implant process. She says her diabetes is under much better control lately She has been a little bit itchy she does use panty liner. She says she just had her mammogram in July. [facility] Medical History (Updated 11/13/23 @ 12:58 by Beena Giang CNM) Lorrie infection of genital region Physical exam Right foot pain Myocardial infarction Chest pain Screen for sexually transmitted diseases Hx of abnormal cervical Pap smear Encounter for gynecological examination with Papanicolaou smear of cervix Costovertebral angle tenderness Anterior knee pain Headache Memory loss Chest tightness Upper respiratory symptom Numbness and tingling in both hands Severe major depression without psychotic features Diabetes mellitus Skin lesion Genital labial ulcer At high risk for breast cancer Lichen sclerosus SOB (shortness of breath) on exertion Mixed hyperlipidemia Urge urinary incontinence Chest pain Constipation Tiredness Leg numbness Migraines GERD (gastroesophageal reflux disease) Essential hypertension Depression with anxiety Iron deficiency anemia Pernicious anemia CAD (coronary artery disease) Surgical History Hx of colonoscopy History of esophagogastroduodenoscopy (EGD) History of carpal tunnel surgery History of carpal tunnel surgery of left wrist Stented coronary artery History of surgery History of skin cancer History of hysteroscopy History of tubal ligation Family History Father Hypertension Mother Diabetes Stroke Sister Bone cancer Son Christine syndrome Daughter No problems noted. Brother No problems noted. Brother No problems noted. Sister Breast cancer Social History Household Members: Children Housing: Apartment Are you a primary care clinician to a significant other at home: No Do you presently have visiting nurse or other home services: No Alcohol intake: never Patient Tobacco Use Status: Former Tobacco user Tobacco use type: Cigarette e-Cigarette/Vaping Use: Never Used Second Hand Smoke Exposure: No service: No Current occupational status: unemployed Current occupation: right hand Cognitive needs: No Hearing needs: No Vision needs: Yes Female Reproductive History Menstrual Age of Menarche: 8 control method: other (tubal ligation) Total pregnancies: 5 Full term: 4 Number of Living Children: 4 Ab spontaneous: 1 Date of last pap smear: 09/26/22 (negative) History of abnormal pap smear: Yes (2009 2006 2005 ASCUS, 2005 ROSA 1, 2004 LGSIL) Date of Mammogram: 04/22/23 (negative) Physical Exam Vital Signs: BMI result Body Mass Index 31.8 Const General: healthy appearing, comfortable, no acute distress, well developed and alert Nutritional Appearance: average body habitus Orientation/consciousness: patient oriented x3 Limitations: no limitations HEENT Head: Yes normocephalic Neck Neck: Yes normal visual inspection Chest Chest palpation & inspection: normal inspection of the chest Breast/axilla inspection: normal inspection of the breasts and normal inspection of the axillae Breast/axilla palpation: normal palpation of the breasts and normal palpation of the axillae Resp Effort & Inspection: normal respiratory effort GI Inspection: Yes normal to inspection, No Abdominal wall edema and No distended Palpation (GI): Soft to palpation and nontender General: Yes bladder normal to palpation External Female Exam: normal appearance of the urethra, lesion (From scratching.), laceration (Mucosal membrane completely white from moisture and there was a lesion from) and other (Approximating labia minora are completely white from moisture and non expos) Speculum Exam - Vagina: normal appearance of the vagina, normal palpation and normal vaginal discharge Speculum Exam - Cervix: normal appearance of the cervix, normal palpation and nontender Bimanual exam- vagina & uterus: normal bimanual exam, normal palpation, uterine size normal, bladder normal to palpation, consistency normal, normal palpation, uterine mobility normal, uterine shape normal, No Cervical tenderness present, non-tender and no cervical motion tenderness Bimanual Exam- Adnexa, other: normal adnexae, no masses, normal and No adnexal tenderness Neuro General: patient oriented x3 Assessment & Plan Assessment & Plan (1) Class 1 obesity without serious comorbidity with body mass index (BMI) of 34.0 to 34.9 in adult: Code(s): E66.9 - Obesity, unspecified; Z68.34 - Body mass index [BMI] 34.0-34.9, adult (2) Lichen sclerosus: Comment: 11/12/23-approximating labia minora more consistent with chronic moisture from panty liner use and other causes, does not appear consistent with lichen sclerosis at this particular moment but that maybe underlying. For now needs to stop using panty liners and expose vulva to air. Code(s): L90.0 - Lichen sclerosus et atrophicus (3) Diabetes mellitus: Code(s): E11.9 - Type 2 diabetes mellitus without complications Qualifiers: Diabetes mellitus type: type 2 Diabetes mellitus intermediate insulin use: without intermediate use Diabetes mellitus complication status: with hyperglycemia Qualified Code(s): E11.65 - Type 2 diabetes mellitus with hyperglycemia (4) Dermatitis associated with moisture: Code(s): L30.8 - Other specified dermatitis Plan -----Discussed in this visit the following: healthy balanced diet, regular and consistent exercise, getting recommended health screens, doing the best she can for her particular health concerns, kegel exercises, pap smear screening and followup recommendations, mammography screening and SBE, normal changes in cycles in her life stage--- . Discussed that she appears to be much better from her urethral/urinary tract episode when she was on the antibiotic for a tooth infection and it probably covered a bladder infection or urethritis from intercourse. In terms of her heavily moisture exposed labia minora the patient needs very much to stop using panty liners and allow her vulva to heal with exposure to air the skin is excoriated from complete moisture and needs to heal I am prescribing Monistat cream for her to use for future purposes but I actually r ecommend that she allow air to her vulva at this present time and not even used the cream at all currently discussed the importance of allowing vulva to be healthy especially with diabetes and that if she is scratched and caused as more serious infection it could be serious. If she ever does have any other recurring issues with urinary tract symptoms or otherwise she should also contact her primary. Medications: New miconazole nitrate 2% (Miconazole-7) Use when necessary for yeast infection when airing area does not help. 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
== END 2023-11-13 12:50 | disposition home or self-care (01) ==
LOC: HO.HWSM 11:20
PROVIDERS: PCP Internal Medicine; Visit Provider Advanced Practice Midwife
DX: Z01.419 Encounter for gynecological examination (general) (routine) without abnormal findings (principal); L30.8 Other specified dermatitis; E66.9 Obesity, unspecified; Z68.34 Body mass index [BMI] 34.0-34.9, adult; L90.0 Lichen sclerosus et atrophicus; E11.65 Type 2 diabetes mellitus with hyperglycemia
CPT/HCPCS: 99396

== ENCOUNTER 2023-11-13 11:19 | Outpatient (REF) | payer OTHER, SELFPAY ==
[2023-11-14 06:14] LABS: CT PCR NOT DETECTED (Not Detect.); NG PCR NOT DETECTED (Not Detect.)
[2023-11-14 15:43] LABS: BV Int Neg Control Negative (Negative); BV Int Pos Control Positive (Positive)
== END 2023-11-13 11:20 | disposition home or self-care (01) ==
LOC: HO.LNP 11:19
PROVIDERS: PCP Internal Medicine; Visit Provider Advanced Practice Midwife
DX: Z01.419 Encounter for gynecological examination (general) (routine) without abnormal findings (principal); E66.9 Obesity, unspecified; L90.0 Lichen sclerosus et atrophicus; E11.65 Type 2 diabetes mellitus with hyperglycemia; L30.8 Other specified dermatitis; Z20.2 Contact with and (suspected) exposure to infections with a predominantly sexual mode of transmission; Z68.34 Body mass index [BMI] 34.0-34.9, adult; Z79.899 Other long term (current) drug therapy
CPT/HCPCS: 0353U; 87480; 87510; 87660

== ENCOUNTER 2023-12-03 12:28 | Outpatient (AMB) | payer OTHER, SELFPAY ==
[2023-12-03 12:36] VITALS: BMI 31.5
--- NOTE | 2023-12-03 12:36 | A.OFFVIS_ITS ---
Intake Vital Signs 12/03/23 12:36 Height 5 ft 2 in Weight 172 lb BMI 31.5 Intake Visit Reasons: Pre Op RT Thumb trigger release 12/12/23 AR Intake Note: Barbara 53 yr old female presents today for her pro-op visit for her right thumb trigger release schedule for 12/12/23. Allergies apple [APPLES] Allergy (Intermediate, Verified 12/03/23 12:45) TONGUE SWELLS AND TURNS PURPLE shellfish derived Allergy (Intermediate, Verified 12/03/23 12:45) LOBSTER- UNKNOWN coconut [COCONUT] Allergy (Mild, Verified 12/03/23 12:45) NAUSEA AND STOMACH SWELLS HPI Pre Op RT Thumb trigger release 12/12/23 AR HPI Details Barbara is a 53 year old right hand dominant Filipino speaking woman who returns to discuss treatment for her right trigger thumb. She complains of painful locking and catching of her right thumb. She says this feels similar to her left thumb did prior to her trigger release. She continues to have numbness in the left middle, ring, and small fingers. Symptoms intermittent, but daily, worse at night. At her last appointment a NCS was ordered but this has not yet been completed. She has a hx of: left trigger thumb release, DOS: 08/24/21, left carpal tunnel release, DOS: 12/14/21, and right carpal tunnel release, DOS: 11/26/22 all with good results [facility] Medical History (Updated 11/13/23 @ 12:58 by Beena Giang CNM) Lorrie infection of genital region Physical exam Right foot pain Myocardial infarction Chest pain Screen for sexually transmitted diseases Hx of abnormal cervical Pap smear Encounter for gynecological examination with Papanicolaou smear of cervix Costovertebral angle tenderness Anterior knee pain Headache Memory loss Chest tightness Upper respiratory symptom Numbness and tingling in both hands Severe major depression without psychotic features Diabetes mellitus Skin lesion Genital labial ulcer At high risk for breast cancer Lichen sclerosus SOB (shortness of breath) on exertion Mixed hyperlipidemia Urge urinary incontinence Chest pain Constipation Tiredness Leg numbness Migraines GERD (gastroesophageal reflux disease) Essential hypertension Depression with anxiety Iron deficiency anemia Pernicious anemia CAD (coronary artery disease) Surgical History Hx of colonoscopy History of esophagogastroduodenoscopy (EGD) History of carpal tunnel surgery History of carpal tunnel surgery of left wrist Stented coronary artery History of surgery History of skin cancer History of hysteroscopy History of tubal ligation Family History Father Hypertension Mother Diabetes Stroke Sister Bone cancer Son Christine syndrome Daughter No problems noted. Brother No problems noted. Brother No problems noted. 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: right hand Cognitive needs: No Hearing needs: No Vision needs: Yes Female Reproductive History Menstrual Age of Menarche: 8 Physical Exam Vital Signs: BMI result Body Mass Index 31.5 Const General: no acute distress and alert Orientation/consciousness: patient oriented x3 Neuro General: patient oriented x3 Extrem Other: Evaluation of Right Upper Extremity: The patient is alert, oriented, and in no acute distress Neuro: Median, Ulnar, Radial nerves motor and sensory intact and sensation is normal to the tips of all digits of the right hand Normal sensation to the thumb and index finger of the left hand Numbness in the middle, ring, and small fingers of the left hand Vascular: Cap refill brisk ROM: She can make a fist and extend all her digits Visible and palpable locking and catching of the thumb Tender over the a1 ishan of the thumb Psych Appearance: grossly normal Affect: normal affect Attitude: cooperative Assessment & Plan Assessment & Plan (1) Carpal tunnel syndrome of left wrist: Code(s): G56.02 - Carpal tunnel syndrome, left upper limb (2) Carpal tunnel syndrome of right wrist: Code(s): G56.01 - Carpal tunnel syndrome, right upper limb (3) Trigger thumb, right thumb: Code(s): M65.311 - Trigger thumb, right thumb (4) Numbness and tingling in left hand: Code(s): R20.0 - Anesthesia of skin; R20.2 - Paresthesia of skin Plan Assessment & Plan: 1. Right trigger thumb I educated her about this condition I discussed operative and non-operative treatment options The patient would like to proceed with surgery The risks and benefits of operative treatment were discussed with the patient and the patient wishes to proceed with surgery. These risks include, but are not limited to risk of damage to blood vessels, nerves, tendons, infection, recurrence, incomplete relief of preoperative symptoms, persistent pain, possible need for further surgery and the risks associated with regional blocks and anesthesia. The plan is to take the patient to the operating room sometime on 12/12/23 for the following procedures: 1. Right trigger thumb release, under local All of the preoperative paperwork including the consent was filled out today. All the patient's questions were answered. She denies Diabetes, blood thinners, asthma, heart, lung, kidney issues 2. Left hand numbness In the middle, ring, and small fingers I ordered a new NCS to assess for ulnar neuropathy She will follow up when completed for review 3. Right Carpal tunnel syndrome, S/P release DOS: 11/26/22 With good resolution of her symptoms 4. Left Carpal Tunnel syndrome, S/P release DOS 12/14/21 With good resolution of her symptoms 5. Left trigger thumb, S/P release DOS: 08/24/21 Resolved Scribed for Amina Tidwell MD by Michael Rubin, medical biller/coder, on 12/03/23 at 12:55 PM, EST. Orders: Orders NE nerve conduction velocity Today R20.0 - Anesthesia of skin, R20.2 - Paresthesia of skin Coding Level of Care Code Est Pt Level 4 (22013) Diagnoses Carpal tunnel syndrome of left wrist G56.02 Carpal tunnel syndrome of right wrist G56.01 Trigger thumb, right thumb M65.311 Numbness and tingling in left hand R20.0; R20.2
== END 2023-12-03 13:02 | disposition home or self-care (01) ==
PROVIDERS: PCP Internal Medicine; Visit Provider Orthopaedic Surgery
DX: M65.311 Trigger thumb, right thumb (principal)
CPT/HCPCS: 99024

== ENCOUNTER → 2023-12-03 12:28 | Outpatient (BNVA) | payer OTHER, SELFPAY | PROVIDERS: PCP Internal Medicine; Visit Provider Orthopaedic Surgery | DX: G56.02 Carpal tunnel syndrome, left upper limb (principal); G56.01 Carpal tunnel syndrome, right upper limb; M65.311 Trigger thumb, right thumb; R20.0 Anesthesia of skin; R20.2 Paresthesia of skin | CPT/HCPCS: 99212 ==

== ENCOUNTER 2023-12-06 09:50 | Outpatient (AMB) | payer OTHER, SELFPAY ==
--- NOTE | 2023-12-06 09:55 | MHC.OFFVIS ---
Intake Vital Signs 12/06/23 09:57 Height 5 ft 1 in Weight 167 lb BMI 31.6 BP 103/68 Blood Pressure Location Lt brachial Position Sitting Pulse 90 Intake Visit Reasons: 6 month follow up Intake Note: Patient follow up for acid reflex. Patient cc: acid reflex with burning sensation and constipation, denies any other GI issues for today. Ball Holder Required: No Accompanied by: Self / Same As Patient Allergies apple [APPLES] Allergy (Intermediate, Verified 12/06/23 09:55) TONGUE SWELLS AND TURNS PURPLE shellfish derived Allergy (Intermediate, Verified 12/06/23 09:55) LOBSTER- UNKNOWN coconut [COCONUT] Allergy (Mild, Verified 12/06/23 09:55) NAUSEA AND STOMACH SWELLS HPI 6 month follow up HPI Details LAST VISIT GERD (gastroesophageal reflux disease) Continue pantoprazole every morning half an hour before breakfast. I will add sucralfate at bedtime. Patient was encouraged to avoid dietary triggers and late night snacking. Staying upright for minimum 3 hours after meals discussed with patient. Hiatal hernia Patient reports epigastric discomfort especially at nighttime when lying down. I will send her for barium swallow. Patient might need to be referred to general surgery Constipation Patient reports that after colonoscopy she became more constipated. Patient was encouraged to take MiraLax in the morning and Senokot at bedtime. Patient was also encouraged to increase fluid intake and activity to promote better bowel motility Diverticulosis Moderate diverticulosis found on colonoscopy. Patient was encouraged to take probiotic [id number]. Patient will take MiraLax and Senokot to help her move her bowels better. Discussed with her high-fiber diet. Status post colonoscopy Patient denies any ill effects from the prep, anesthesia or procedure itself. Diverticulosis and hemorrhoids found on colonoscopy. No polyps. Colorectal screening will be repeated in 10 years, sooner if clinically necessary. Patient will see me in 6 months, sooner on as needed basis. Patient is agreeable to this plan and verbalizes understanding of instructions. She was given the opportunity to ask questions and all questions answered. ? Thank you for allowing me to participate in her care Plan Orders Orders [place] barium swallow 06/07/23 K21.9, K44.9 Medications New sucralfate 10 mL PO BEDTIME 400 mL 3RF K21.9 sennosides (Natural Senna Laxative) 17.2 mg (2 x 8.6 mg) PO BEDTIME 60 tabs 3RF constipation K59.00 TODAY'S VISIT Patient is here today for follow-up and to discuss barium swallow results. Patient reports that she is taking pantoprazole in the morning and her symptoms are suppressed for most of the day, however she continues to have epigastric burning at night time. Patient is taking sucralfate every night at bedtime and reports no improvement. Patient continues to be constipated specially now after she was put on Ozempic back in September. Patient was given script for lactulose to take daily for constipation, however she continues to be constipated. Patient reports dyspepsia, without dysphagia or odynophagia. Barium swallow results discussed with patient. IMPRESSION: 1. 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 2. Esophageal dysmotility, moderate. 3. Gastroesophageal reflux. 4. Small type I hiatal hernia. Patient denies melena, hematochezia, unintentional weight loss or ribbon like stools. [facility] Medical History (Updated 11/13/23 @ 12:58 by Beena Giang CNM) Lorrie infection of genital region Physical exam Right foot pain Myocardial infarction Chest pain Screen for sexually transmitted diseases Hx of abnormal cervical Pap smear Encounter for gynecological examination with Papanicolaou smear of cervix Costovertebral angle tenderness Anterior knee pain Headache Memory loss Chest tightness Upper respiratory symptom Numbness and tingling in both hands Severe major depression without psychotic features Diabetes mellitus Skin lesion Genital labial ulcer At high risk for breast cancer Lichen sclerosus SOB (shortness of breath) on exertion Mixed hyperlipidemia Urge urinary incontinence Chest pain Constipation Tiredness Leg numbness Migraines GERD (gastroesophageal reflux disease) Essential hypertension Depression with anxiety Iron deficiency anemia Pernicious anemia CAD (coronary artery disease) Surgical History Hx of colonoscopy History of esophagogastroduodenoscopy (EGD) History of carpal tunnel surgery History of carpal tunnel surgery of left wrist Stented coronary artery History of surgery History of skin cancer History of hysteroscopy History of tubal ligation Family History Father Hypertension Mother Diabetes Stroke Sister Bone cancer Son Christine syndrome Daughter No problems noted. Brother No problems noted. Brother No problems noted. Sister Breast cancer Social History Household Members: Children Housing: Apartment Are you a primary direct care professional to a significant other at home: No Do you presently have visiting nurse or other home services: No Alcohol intake: never Patient Tobacco Use Status: Former Tobacco user Tobacco use type: Cigarette e-Cigarette/Vaping Use: Never Used Second Hand Smoke Exposure: No service: No Current occupational status: unemployed Current occupation: right hand Cognitive needs: No Hearing needs: No Vision needs: Yes Female Reproductive History Menstrual Age of Menarche: 8 Review of Systems Const Denies weight gain and Denies weight loss ENT Reports no additional complaints, Denies dysphagia and Denies odynophagia Card Reports no additional complaints Resp Reports no additional complaints GI Denies abdominal pain, Denies belching, Denies melena, Denies bloating, Reports constipation, Denies dysphagia, Denies excessive flatus, Denies dyspepsia, Reports heartburn, Denies diarrhea, Denies loose stools, Denies nausea, Denies odynophagia and Denies vomiting Reports no additional complaints Musc Reports no additional complaints Neuro Reports no additional complaints Psych Reports no additional complaints Endo Reports no additional complaints Physical Exam Const General: healthy appearing, no acute distress and well developed Nutritional Appearance: obese Orientation/consciousness: patient oriented x3 Resp Effort & Inspection: normal respiratory effort, able to speak in complete sentences, no tracheal deviation and symmetric chest movement Auscultation: clear to auscultation bilaterally Cardio Rate: regular rate GI Inspection: Yes normal to inspection, No distended and Yes obesity Palpation (GI): Soft to palpation, not firm, nontender and No hepatosplenomegaly present Auscultation: normal bowel sounds General: Yes no CVA tenderness Back/Spine/Pelvis Back: no CVA tenderness Skin General skin exam: elasticity normal, turgor normal and dry skin Neuro General: patient oriented x3 Psych Appearance: grossly normal Mental Status: mental status grossly normal Results Reviewed Results Reviewed: BARIUM SWALLOW 08/27/2023 IMPRESSION: 1. 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 2. Esophageal dysmotility, moderate. 3. Gastroesophageal reflux. 4. Small type I hiatal hernia. Assessment & Plan Assessment & Plan (1) GERD (gastroesophageal reflux disease): Code(s): K21.9 - Gastro-esophageal reflux disease without esophagitis Qualifiers: Esophagitis presence: esophagitis presence not specified Qualified Code(s): K21.9 - Gastro-esophageal reflux disease without esophagitis (2) Constipation: Code(s): K59.00 - Constipation, unspecified Qualifiers: Constipation type: slow transit constipation Qualified Code(s): K59.01 - Slow transit constipation (3) Hiatal hernia: Code(s): K44.9 - Diaphragmatic hernia without obstruction or gangrene (4) Diverticulosis: Code(s): K57.90 - Diverticulosis of intestine, part unspecified, without perforation or abscess without bleeding Plan Stop pantoprazole and start Nexium every morning half an hour before breakfast. Stop sucralfate and start famotidine. Discussed with patient avoiding dietary triggers and late night snacking. Patient will stop taking lactulose, will get PA for Trulance. If patient will have no success taking Trulance I will give her script for Linzess. I will see patient in 6 weeks, sooner on as needed basis. Patient is agreeable to this plan and verbalizes understanding of instructions. She was given the opportunity to ask questions and all questions answered. Thank you for allowing me to participate in her care Medications: New famotidine 40 mg PO BEDTIME 30 tabs 3RF K21.9 - Gastro-esophageal reflux disease without esophagitis esomeprazole magnesium (Nexium) 40 mg PO DAILY 30 caps 5RF K21.9 - Gastro-esophageal reflux disease without esophagitis plecanatide (Trulance) 3 mg PO DAILY 30 tabs 3RF K59.09 - Other constipation Discontinued pantoprazole Discontinued Reason: Doctor's Order 40 mg PO DAILY 30 tabs 2RF lactulose Discontinued Reason: Doctor's Order 10 grams (15 mL) PO BEDTIME 30 days PRN 450 mL 2RF constipation sucralfate Discontinued Reason: Doctor's Order 10 mL PO BEDTIME 400 mL 3RF K21.9 - Gastro-esophageal reflux disease without esophagitis Coding Level of Care Code Est Pt Level 3 (77011) Diagnoses Gastroesophageal reflux disease, unspecified whether esophagitis present K21.9 Esophagitis presence: esophagitis presence not specified Slow transit constipation K59.01 Constipation type: slow transit constipation Hiatal hernia K44.9 Diverticulosis K57.90 Time Spent (min) 30 Comment 20 minutes spent with patient and additional 10 minutes spent reviewing her records
[2023-12-06 09:57] VITALS: BP 103/68; PULSE 90; BMI 31.6
== END 2023-12-06 10:50 | disposition home or self-care (01) ==
PROVIDERS: PCP Internal Medicine; Visit Provider Nurse Practitioner Family
DX: K21.9 Gastro-esophageal reflux disease without esophagitis (principal); K59.01 Slow transit constipation; K44.9 Diaphragmatic hernia without obstruction or gangrene; K57.90 Diverticulosis of intestine, part unspecified, without perforation or abscess without bleeding
CPT/HCPCS: 99213

== ENCOUNTER → 2023-12-06 09:50 | Outpatient (BNVA) | payer OTHER, SELFPAY | PROVIDERS: PCP Internal Medicine; Visit Provider Nurse Practitioner Family | DX: K21.9 Gastro-esophageal reflux disease without esophagitis (principal); K59.01 Slow transit constipation; K44.9 Diaphragmatic hernia without obstruction or gangrene; K57.90 Diverticulosis of intestine, part unspecified, without perforation or abscess without bleeding | CPT/HCPCS: 99212 ==

== ENCOUNTER → 2023-12-10 07:52 | Outpatient (REF) | payer OTHER, SELFPAY ==
--- NOTE | ~2023-12-10 | NM_ITS ---
Lexiscan Myocardial perfusion study Indication: Coronary artery disease, assess for ischemia Technique: The patient was brought in for a Lexiscan perfusion study on 12/10/2023 and was injected 0.4 mg of Lexiscan intravenously. Within a minute of this injection 25 mCi of sestamibi was given intravenously. Images were obtained using the SPECT gamma camera interlaced with the gating device. Images were obtained in supine position. Resting perfusion study was performed on 12/11/2023. Patient was administered 25 mCi of sestamibi intravenously at rest. Images were then obtained in supine position. Images were processed with the software and compared side to side in short axis, horizontal long axis and vertical long axis views. Total DLP 134mGy-cm. Findings: Raw acquisition reviewed. The stress perfusion study showed no significant perfusion abnormality. Both uncorrected as well as CT attenuation corrected images were reviewed. The gated study shows low normal LV systolic function with calculated LVEF of 50%. LV cavity is normal in size. The gated study shows normal wall thickening and contraction of segments. Resting study shows no significant perfusion abnormality. Gating at rest reveals normal wall motion with ejection fraction at 56%. The findings are consistent with no clear reversible or fixed perfusion abnormality. NM/NM cardiolite stress test Impression: 1. Myocardial perfusion imaging study shows probably normal myocardial perfusion. 2. Gated LVEF is 50% during stress and 56% during rest. 3. Transient ischemic dilatation not present. EKG component of the test reported separately.
--- NOTE | 2023-12-10 11:38 | CA_ITS ---
Acquisition Time: 2023-12-10 08:02:13 Total Exercise Time: 00:05:34 Test Indications: CP Medications: SEE H Protocol: ELIZABETH Max HR: 121 BPM 72% of Pred: 166 BPM Max BP: 122/058 mmHG Max Work Load: 7.0 METS Exercise stress test exercise 5 min 34 sec of Elizabeth protocol achieving 71% with request to stop due to moderate SOB, no chest discomfort, without arrhythmias, with normotensive response to exercise, with nondiagnoisitic EKGs/without EKG changes at achieved workload. Test changed to pharmacological stress test. Breathing returned to baseline. Pharmacological stress test with Lexiscan injection while sitting and kicking her legs, without anginal symptoms, without arrhythmias, with normotensive response to Lexiscan, with downsloping/Twave inversion leads 2, 3, aVF, V5-V6. Aminoiphylline 754mgf IVP given to reverse Lexiscan. Nuclear images pending. Test reviewed with Dr. Anderson. Referred By: Deshawn Aaron Overread By: Tea Llanos
== END ==
LOC: HO.CARD 07:52
PROVIDERS: PCP Internal Medicine; Visit Provider Internal Medicine Cardiovascular Disease
DX: R07.9 Chest pain, unspecified (principal); I25.118 Atherosclerotic heart disease of native coronary artery with other forms of angina pectoris
CPT/HCPCS: 78452; 93017; A9500; J0280; J2785

== ENCOUNTER → 2023-12-10 11:38 | Outpatient (BNV) | payer OTHER, SELFPAY | PROVIDERS: PCP Internal Medicine; Visit Provider Nurse Practitioner | DX: I25.10 Atherosclerotic heart disease of native coronary artery without angina pectoris (principal) | CPT/HCPCS: 78452; 93016; 93018 ==

== ENCOUNTER 2023-12-12 08:07 | Day surgery (SDC) | payer OTHER, SELFPAY ==
[2023-12-12 08:22] VITALS: BP 106/76; PULSE 89; RESP 18; TEMP 36.4; O2SAT 98
[2023-12-12 08:40] VITALS: BMI 32.1
--- NOTE | 2023-12-12 09:38 | MHC.SHP ---
Pre-Procedural Eval Section A - 24 Hr Update-Section A only Date of Service: 12/12/23 The patient is an INPATIENT: No Changes since office visit: No Cold of Flu in the past 2 weeks, No New Medical Problems, No Changes in Medication and No Patient answered all questions The patient has been examined within 24 hours of the surgical procedure. The History & Physical has been completed within 30 days and I have reviewed it.: Yes Section B - Complete if H&P > 30 days Chief Complaint: Trigger thumb, right thumb Allergies: Allergies Allergy/AdvReac Type Severity Reaction Status Date / Time apple [APPLES] Allergy Intermediate TONGUE Verified 12/06/23 09:55 SWELLS AND TURNS PURPLE shellfish derived Allergy Intermediate LOBSTER- Verified 12/06/23 09:55 UNKNOWN coconut [COCONUT] Allergy Mild NAUSEA AND Verified 12/06/23 09:55 STOMACH SWELLS Plan I have reviewed the history and physical and performed a pertinent physical examination on my patient. No changes have occurred unless specified. Time Spent With Patient Time: Total time managing care of this patient today ____ minutes.
--- NOTE | 2023-12-12 09:39 | W.PM.OPN ---
Operative Note Operative Note Date of Service: 12/12/23 Narrative: Operative Note Preop diagnosis: 1. Right thumb Trigger finger Postop diagnosis: 1. Right thumb Trigger finger Procedure: 1. Right thumb A1 ishan release Surgeon: Amina Tidwell MD Anesthesia: local block using 1% lidocaine with epinephrine Findings: No locking or catching after A1 ishan release EBL: Less than 5 mL Tourniquet time: None Specimens: None Complications: None Disposition: Brought to recovery room in stable condition Plan: Follow-up for 10-14 days for wound check and suture removal Indications: The patient is 53 years old, with a right thumb trigger finger that has been unresponsive to nonoperative management. The risks and benefits of operative treatment including but not limited to risk of damage to blood vessels, nerves, tendons, infection, persistent pain, persistent symptoms, recurrence or possible need for additional surgery were discussed with the patient and the patient wishes to proceed with surgery. Procedure: Once consent was obtained a local block was performed in the preop area using a combination of 1% lidocaine with epinephrine. The patient was then brought back to the operating suite and placed on the operative table in supine position. The right upper extremity was prepped and draped in a standard surgical fashion. Once assured that we had a good block, a 1.5 cm oblique incision was made centered over the A1 ishan of the [ ] . The incision was made through the skin to the subcutaneous tissues using a #15 blade. Careful dissection was made down to the level of the A1 ishan using tenotomy scissors, with care being taken to protect the nearby neurovascular structures. A longitudinal incision was made in the A1 ishan 1st using a #15 blade, then using tenotomy scissors under direct visualization. The A1 ishan was noted to be thickened. Following our A1 ishan release, we no longer saw any locking or catching of the digit with flexion and extension. Once satisfied with our A1 ishan release the wound was copiously irrigated with normal saline and hemostasis was obtained with a brief period of local pressure. The skin edges were reapproximated with some 5.0 nylon suture material and a sterile dressing was applied. The patient appears to have tolerated the procedure well and with no complications. All digits were well vascularized at the conclusion of the case.
[2023-12-12 10:16] VITALS: BP 108/68; PULSE 85; RESP 16; O2SAT 96
== END 2023-12-12 10:25 | disposition home or self-care (01) ==
PROVIDERS: PCP Internal Medicine; Visit Provider Orthopaedic Surgery
PROC: (CPT 26055; principal; 2023-12-12 09:30)
DX: M65.311 Trigger thumb, right thumb (principal); R20.0 Anesthesia of skin; R20.2 Paresthesia of skin; I25.10 Atherosclerotic heart disease of native coronary artery without angina pectoris; I10 Essential (primary) hypertension; Z95.5 Presence of coronary angioplasty implant and graft; D50.9 Iron deficiency anemia, unspecified; D51.0 Vitamin B12 deficiency anemia due to intrinsic factor deficiency; E78.5 Hyperlipidemia, unspecified; F41.8 Other specified anxiety disorders; Z98.890 Other specified postprocedural states; Z87.891 Personal history of nicotine dependence
CPT/HCPCS: 26055; J0171; J2795

== ENCOUNTER → 2023-12-12 08:07 | Outpatient (BNV) | payer OTHER, SELFPAY | PROVIDERS: PCP Internal Medicine; Visit Provider Orthopaedic Surgery | DX: M65.311 Trigger thumb, right thumb (principal) | CPT/HCPCS: 26055 ==

== ENCOUNTER 2023-12-18 14:35 | Outpatient (REF) | payer OTHER, SELFPAY ==
--- NOTE | 2023-12-18 14:39 | EMG_ITS ---
Chief complaint: Tingling on 3rd and 4th digits, left History of left Carpal Tunnel Syndrome surgery 2022. Reviewed past EMG done by Dr. Moreas, 2020. Reason for referral: Evaluate for ulnar neuropathy Referred by: Dr. Tidwell Procedure done: Left upper extremity NCS/EMG Precautions and/or limitations: None The limb temperature was monitored continuously and remained between 32-36 degrees C during the performance of the NCS. Nerve Conduction Studies Anti Sensory Summary Table ?Stim Site NR Onset (ms) Norm Onset (ms) Peak (ms) Norm Peak (ms) O-P Amp (?V) Norm O-P Amp Site1 Site2 Delta-0 (ms) Dist (cm) Iker (m/s) Norm Iker (m/s) Left Median Anti Sensory (2nd Digit) Wrist ? 2.6 3.5 <3.6 12.8 >10 Wrist 2nd Digit 2.6 14.0 54 Left Radial Anti Sensory (Thumb) Forearm ? 2.0 2.4 <3.1 1.6 Forearm Thumb 2.0 0.0 Left Ulnar Anti Sensory (5th Digit) Wrist ? 2.3 3.3 <3.7 30.6 >15.0 Wrist 5th Digit 2.3 14.0 61 Motor Summary Table ?Stim Site NR Onset (ms) Norm Onset (ms) O-P Amp (mV) Norm O-P Amp iAmp (mV) Amp (1st) (%) Site1 Site2 Delta-0 (ms) Dist (cm) Iker (m/s) Norm Iker (m/s) Left Median Motor (Abd Poll Brev) Wrist ? 3.8 <3.9 11.6 >4.5 14.3 100.0 Elbow Wrist 3.2 16.5 52 >45 Elbow ? 7.0 11.4 14.0 98.3 Left Ulnar Motor (Abd Dig Minimi) Wrist ? 2.8 <3.0 7.1 >5 10.2 100.0 B Elbow Wrist 2.9 16.5 57 >45 B Elbow ? 5.7 7.9 11.3 111.3 A Elbow B Elbow 1.5 10.0 67 >45 A Elbow ? 7.2 7.4 10.2 104.2 EMG ?Side Muscle Nerve Root Ins Act Fibs Psw Amp Dur Poly Recrt Int Pat Comment Left 1stDorInt Ulnar C8-T1 Nml Nml Nml Nml Nml 0 Nml Complete Left FlexCarRad Median C6-7 Nml Nml Nml Nml Nml 0 Nml Complete Left Biceps Musculocut C5-6 Nml Nml Nml Nml Nml 0 Nml Complete Left Triceps Radial C6-7-8 Nml Nml Nml Nml Nml 0 Nml Complete Left Deltoid Axillary C5-6 Nml Nml Nml Nml Nml 0 Nml Complete FINDINGS: All motor and sensory nerves tested showed normal latencies, amplitudes and conduction velocities. Concentric needle EMG was performed in selected muscles of the left upper extremity. Study did not reveal signs of electric abnormalities as shown in the table below. IMPRESSION: 1. This is a normal study. 2. There is no electrodiagnostic evidence for median neuropathy, ulnar neuropathy, brachial plexopathy, or cervical radiculopathy. Thank you for your kind referral. Joelle Raya MD, JESSICA Board Certified, [place] [employer] and [employer] (ABPMR) Board Certified, [place] Board [employer] Electro[employer]ostic [employer] (ABEM) [place] [id number] [facility]
== END 2023-12-18 14:36 | disposition home or self-care (01) ==
LOC: HO.NEURO 14:35
PROVIDERS: PCP Internal Medicine; Visit Provider Orthopaedic Surgery
DX: R20.0 Anesthesia of skin (principal); R20.2 Paresthesia of skin
CPT/HCPCS: 95886; 95909

== ENCOUNTER → 2023-12-18 14:39 | Outpatient (BNV) | payer OTHER, SELFPAY | PROVIDERS: PCP Internal Medicine; Visit Provider Physical Medicine & Rehabilitation | DX: M79.645 Pain in left finger(s) (principal); R20.2 Paresthesia of skin | CPT/HCPCS: 95886; 95909 ==

== ENCOUNTER 2023-12-25 11:57 | Outpatient (AMB) | payer OTHER, SELFPAY ==
--- NOTE | 2023-12-25 12:20 | A.OFFVIS_ITS ---
Intake Vital Signs 12/25/23 12:21 Height 5 ft 1 in Weight 170 lb BMI 32.1 Intake Visit Reasons: PO-Rt Thumb Trigger 12/12/23 AR Intake Note: Barbara 53 yr old female presents today for her PO visit for her right Thumb Trigger release from 12/12/23 AR. States locking has gone away and is doing well. States she has tenderness by her incision. Sutures removed and patient had some puss drainage. Allergies apple [APPLES] Allergy (Intermediate, Verified 12/25/23 12:22) TONGUE SWELLS AND TURNS PURPLE shellfish derived Allergy (Intermediate, Verified 12/25/23 12:22) LOBSTER- UNKNOWN coconut [COCONUT] Allergy (Mild, Verified 12/25/23 12:22) NAUSEA AND STOMACH SWELLS HPI PO-Rt Thumb Trigger 12/12/23 AR HPI Details Barbara is a 53 year old right hand dominant Diabetic American speaking woman who returns S/P right trigger thumb release, DOS: 12/12/23. She says she is doing well and no longer has any locking or catching. She has some tenderness about her incision site but says this is tolerable. She says she has an infection and some pus drained when her sutures were removed. She says she had some pain increase ~3 days ago. She continues to have numbness in the left middle, ring, and small fingers. Symptoms intermittent, but daily, worse at night. At her last appointment a NCS was ordered and was completed on 12/18/23, no report yet. She has a hx of: left trigger thumb release, DOS: 08/24/21, left carpal tunnel release, DOS: 12/14/21, and right carpal tunnel release, DOS: 11/26/22 all with good results FOR[facility]LY [facility], [facility] Medical History (Updated 12/25/23 @ 12:37 by Michael Rubin) Lorrie infection of genital region Physical exam Right foot pain Myocardial infarction Chest pain Screen for sexually transmitted diseases Hx of abnormal cervical Pap smear Encounter for gynecological examination with Papanicolaou smear of cervix Costovertebral angle tenderness Anterior knee pain Headache Memory loss Chest tightness Upper respiratory symptom Numbness and tingling in both hands Severe major depression without psychotic features Diabetes mellitus Skin lesion Genital labial ulcer At high risk for breast cancer Lichen sclerosus SOB (shortness of breath) on exertion Mixed hyperlipidemia Urge urinary incontinence Chest pain Constipation Tiredness Leg numbness Migraines GERD (gastroesophageal reflux disease) Essential hypertension Depression with anxiety Iron deficiency anemia Pernicious anemia CAD (coronary artery disease) Surgical History Hx of colonoscopy History of esophagogastroduodenoscopy (EGD) History of carpal tunnel surgery History of carpal tunnel surgery of left wrist Stented coronary artery History of surgery History of skin cancer History of hysteroscopy History of tubal ligation Family History Father Hypertension Mother Diabetes Stroke Sister Bone cancer Son Christine syndrome Daughter No problems noted. Brother No problems noted. Brother No problems noted. Sister Breast cancer Social History Household Members: Children Housing: Apartment Are you a primary primary health care nurse to a significant other at home: No Do you presently have visiting nurse or other home services: No Alcohol intake: never Patient Tobacco Use Status: Former Tobacco user Tobacco use type: Cigarette e-Cigarette/Vaping Use: Never Used Second Hand Smoke Exposure: No service: No Current occupational status: unemployed Current occupation: right hand Cognitive needs: No Hearing needs: No Vision needs: Yes Female Reproductive History Menstrual Age of Menarche: 8 Review of Systems Const All systems reviewed & are unremarkable except as noted in HPI and below Physical Exam Vital Signs: BMI result Body Mass Index 32.1 Const General: no acute distress and alert Orientation/consciousness: patient oriented x3 Neuro General: patient oriented x3 Extrem Other: The patient was alert oriented and in no acute distress The incision is healing well. Sutures removed and Steri-Strips applied She had some watery discharge from her incision when her sutures were removed. She had more clear fluid coming from her suture site Mild erythema about the thumb incision site, no tenderness were distally over t he flexor tendon sheath. She can make a fist and extend all her digits Good active thumb ROM No locking or catching Sensation is intact to the tips of all digits of the right hand Normal sensation to the thumb and index finger of the left hand Numbness in the middle, ring, and small fingers of the left hand Cap refill is brisk Psych Appearance: grossly normal Affect: normal affect Attitude: cooperative Assessment & Plan Assessment & Plan (1) Carpal tunnel syndrome of left wrist: Code(s): G56.02 - Carpal tunnel syndrome, left upper limb (2) Carpal tunnel syndrome of right wrist: Code(s): G56.01 - Carpal tunnel syndrome, right upper limb (3) Trigger thumb, right thumb: Code(s): M65.311 - Trigger thumb, right thumb (4) Numbness and tingling in left hand: Code(s): R20.0 - Anesthesia of skin; R20.2 - Paresthesia of skin (5) Infection involving suture with abscess: Code(s): T81.41XA - Infection following a procedure, superficial incisional surgical site, initial encounter Plan Assessment & Plan: 1. Right trigger thumb, S/P release DOS: 12/12/23 The patient appears to be doing well post-operatively, though she did have a watery drainage from 1 of the suture sites, and some mild erythema at the incision site. I educated her about the post-operative course I explained the signs and symptoms of infection, if the patient develops any new or worsening erythema, drainage, pain, or warmth they should contact the clinic or attend the ED. I ordered a 7 day course of Augmentin as a precaution for what appears to be an early suture abscess. She does have diabetes. She will wash her hands with soap and water daily. I discussed activity modifications, she is to lift nothing heavier than a cellphone for the next two weeks She will perform gentle ROM exercises at home She should avoid any underwater activities for the next 5 days She will follow up next week, with a PA, for a wound check 2. Left hand numbness In the middle, ring, and small fingers She has completed her scheduled NCS on 12/18/23 She will need to follow up at the next available appointment for review 3. Right Carpal tunnel syndrome, S/P release DOS: 11/26/22 With good resolution of her symptoms 4. Left Carpal Tunnel syndrome, S/P release DOS 12/14/21 With good resolution of her symptoms 5. Left trigger thumb, S/P release DOS: 08/24/21 Resolved Scribed for Amina Tidwell MD by Michael Rubin, medical office supervisor, on 12/25/23 at 12:35 PM, EST. Medications: New amoxicillin-pot clavulanate 875-125 mg 1 tab PO Q12H 14 tabs 0RF Coding Level of Care Code Global (22396) Diagnoses Carpal tunnel syndrome of left wrist G56.02 Carpal tunnel syndrome of right wrist G56.01 Trigger thumb, right thumb M65.311 Numbness and tingling in left hand R20.0; R20.2 Infection involving suture with abscess T81.41XA
[2023-12-25 12:21] VITALS: BMI 32.1
== END 2023-12-25 12:36 | disposition home or self-care (01) ==
PROVIDERS: PCP Internal Medicine; Visit Provider Orthopaedic Surgery
DX: M65.311 Trigger thumb, right thumb (principal); T81.41XA Infection following a procedure, superficial incisional surgical site, initial encounter
CPT/HCPCS: 99024

== ENCOUNTER → 2023-12-25 11:57 | Outpatient (BNVA) | payer OTHER, SELFPAY | PROVIDERS: PCP Internal Medicine; Visit Provider Orthopaedic Surgery | DX: Z47.89 Encounter for other orthopedic aftercare (principal); T81.41XA Infection following a procedure, superficial incisional surgical site, initial encounter; R20.0 Anesthesia of skin; R20.2 Paresthesia of skin; G56.01 Carpal tunnel syndrome, right upper limb; Z98.890 Other specified postprocedural states | CPT/HCPCS: 99212 ==

== ENCOUNTER 2024-01-01 10:38 | Outpatient (AMB) | payer OTHER, SELFPAY ==
--- NOTE | 2024-01-01 10:53 | A.OFFVIS_ITS ---
Intake Intake Visit Reasons: PO-Rt Thumb Trigger 12/12/23 AR-wound check Intake Note: Barbara is a 53 year old right hand dominant female presents today for her PO visit for her right Thumb Trigger release from 12/12/23 AR. Patient reports no pain or discomfort. Allergies apple [APPLES] Allergy (Intermediate, Verified 01/01/24 10:54) TONGUE SWELLS AND TURNS PURPLE shellfish derived Allergy (Intermediate, Verified 01/01/24 10:54) LOBSTER- UNKNOWN coconut [COCONUT] Allergy (Mild, Verified 01/01/24 10:54) NAUSEA AND STOMACH SWELLS HPI PO-Rt Thumb Trigger 12/12/23 AR-wound check HPI Details 53-year-old right hand dominant female arnaldo andrade presents in the office today for a wound check; 3 weeks status post right thumb A1 ishan release, which was performed on 12/12/[address] Tidwell. Patient was last seen in the office on 12/25/[address] Tidwell. At that time the patient had watery drainage from the suture site with mild erythema at the incision site. She was prescribed Augmentin. She was instructed to wash hands daily with soap and water, but to avoid underwater activities for 5 additional days. As well as activity modifications like lift nothing heavier than a cellphone for the next two weeks. As well as working on gentle ROM exercises at home. While in the office today the patient reports no pain or discomfort. Patient would like to discuss results of the EMG for the left upper extremity, Patient has a significant medical history of diabetes mellitus. FORMERLY [facility], [facility] Medical History (Updated 12/25/23 @ 12:37 by Michael Rubin) Lorrie infection of genital region Physical exam Right foot pain Myocardial infarction Chest pain Screen for sexually transmitted diseases Hx of abnormal cervical Pap smear Encounter for gynecological examination with Papanicolaou smear of cervix Costovertebral angle tenderness Anterior knee pain Headache Memory loss Chest tightness Upper respiratory symptom Numbness and tingling in both hands Severe major depression without psychotic features Diabetes mellitus Skin lesion Genital labial ulcer At high risk for breast cancer Lichen sclerosus SOB (shortness of breath) on exertion Mixed hyperlipidemia Urge urinary incontinence Chest pain Constipation Tiredness Leg numbness Migraines GERD (gastroesophageal reflux disease) Essential hypertension Depression with anxiety Iron deficiency anemia Pernicious anemia CAD (coronary artery disease) Surgical History Hx of colonoscopy History of esophagogastroduodenoscopy (EGD) History of carpal tunnel surgery History of carpal tunnel surgery of left wrist Stented coronary artery History of surgery History of skin cancer History of hysteroscopy History of tubal ligation Family History Father Hypertension Mother Diabetes Stroke Sister Bone cancer Son Christine syndrome Daughter No problems noted. Brother No problems noted. Brother No problems noted. Sister Breast cancer Social History Household Members: Children Housing: Apartment Are you a primary career development specialist to a significant other at home: No Do you presently have visiting nurse or other home services: No Alcohol intake: never Patient Tobacco Use Status: Former Tobacco user Tobacco use type: Cigarette e-Cigarette/Vaping Use: Never Used Second Hand Smoke Exposure: No service: No Current occupational status: unemployed Current occupation: right hand Cognitive needs: No Hearing needs: No Vision needs: Yes Female Reproductive History Menstrual Age of Menarche: 8 Review of Systems Const All systems reviewed & are unremarkable except as noted in HPI and below Physical Exam Const General: cooperative, healthy appearing and no acute distress Resp Effort & Inspection: normal respiratory effort and able to speak in complete sentences Cardio Rate: regular rate Peripheral pulses: Peripheral pulses 2+ throughout GI Palpation (GI): Soft to palpation Skin Lesions: no lesions Rashes: no rashes Extrem Other: Right hand: Incision site at the A1 ishan and right thumb on the palmar aspect of the hand is clean, dry, and intact. There are some small areas of dry skin. No open wounds. No drainage. No signs of infection. Full motion. NVI. Assessment & Plan Assessment & Plan (1) Carpal tunnel syndrome of left wrist: Code(s): G56.02 - Carpal tunnel syndrome, left upper limb (2) Carpal tunnel syndrome of right wrist: Code(s): G56.01 - Carpal tunnel syndrome, right upper limb (3) Trigger thumb, right thumb: Code(s): M65.311 - Trigger thumb, right thumb (4) Numbness and tingling in left hand: Code(s): R20.0 - Anesthesia of skin; R20.2 - Paresthesia of skin (5) Infection involving suture with abscess: Code(s): T81.41XA - Infection following a procedure, superficial incisional surgical site, initial encounter Plan Ms. Hagan is a 53-year-old right hand dominant female who presents in the office today for a wound check; 3 weeks status post right thumb A1 ishan release, which was performed on 12/12/[address] Tidwell. Patient was last seen in the office on 12/25/[address] Tidwell. At that time the patient had watery drainage from the suture site with mild erythema at the incision site. She was prescribed Augmentin. She was instructed to wash hands daily with soap and water, but to avoid underwater activities for 5 additional days. As well as activity modifications like lift nothing heavier than a cellphone for the next two weeks. As well as working on gentle ROM exercises at home. While in the office today the patient reports no pain or discomfort. Patient has a significant medical history of diabetes mellitus. Patient has two more doses of Augmentin that she will complete. She was educated on signs of infection, which are as follows, but not limited to, erythema, edema, drainage, or warmth. If she is to experience any of these symptoms, she must contact the office immediately or present to the ED. Follow-up will be PRN, or sooner if needed. Left upper extremity: Patient will be referred to Pain Management for further evaluation and treatment. Follow-up with Orthopedics will be PRN, or sooner if needed. EMG of the left upper extremity, obtained on 12/18/2023, revealed: 1. This is a normal study. 2. There is no electrodiagnostic evidence for median neuropathy, ulnar neuropathy, brachial plexopathy, or cervical radiculopathy. Patient Instructions: Scribed by Bibi Chandra director medical economics, for Emilee Ambrose PA-C on 12/31/2023 at 10:42 am, EST. Coding Level of Care Code Global (81247) Diagnoses Carpal tunnel syndrome of left wrist G56.02 Carpal tunnel syndrome of right wrist G56.01 Trigger thumb, right thumb M65.311 Numbness and tingling in left hand R20.0; R20.2 Infection involving suture with abscess T81.41XA
== END 2024-01-01 11:18 | disposition home or self-care (01) ==
PROVIDERS: PCP Internal Medicine; Visit Provider Physician Assistant
DX: G56.03 Carpal tunnel syndrome, bilateral upper limbs (principal); M65.311 Trigger thumb, right thumb; R20.0 Anesthesia of skin; R20.2 Paresthesia of skin; T81.41XA Infection following a procedure, superficial incisional surgical site, initial encounter
CPT/HCPCS: 99024

== ENCOUNTER → 2024-01-01 10:38 | Outpatient (BNVA) | payer OTHER, SELFPAY | PROVIDERS: PCP Internal Medicine; Visit Provider Physician Assistant | DX: G56.03 Carpal tunnel syndrome, bilateral upper limbs (principal); M65.311 Trigger thumb, right thumb; T81.41XA Infection following a procedure, superficial incisional surgical site, initial encounter; R20.0 Anesthesia of skin; R20.2 Paresthesia of skin | CPT/HCPCS: 99212 ==

== ENCOUNTER 2024-01-17 09:11 | Outpatient (AMB) | payer OTHER, SELFPAY ==
--- NOTE | 2024-01-17 09:16 | A.OFFVIS_ITS ---
Vital Signs 01/17/24 09:21 Height 5 ft 1 in Weight 172 lb BMI 32.5 BP 112/72 Blood Pressure Location Lt brachial Position Sitting Pulse 87 Intake Visit Reasons: 6 week follow up Intake Note: Pt last seen 12/06/23 presents today for 6 wk follow up. 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 Stop sucralfate and start famotidine. Discussed with patient avoiding dietary triggers and late night snacking. Patient will stop taking lactulose, will get PA for Trulance. If patient will have no success taking Trulance I will give her script for Linzess. I will see patient in 6 weeks, sooner on as needed basis. Patient is agreeable to this plan and verbalizes understanding of instructions. She was given the opportunity to ask questions and all questions answered. ? Thank you for allowing me to participate in her care Medications New famotidine 40 mg PO BEDTIME 30 tabs 3RF K21.9 esomeprazole magnesium (Nexium) 40 mg PO DAILY 30 caps 5RF K21.9 plecanatide (Trulance) 3 mg PO DAILY 30 tabs 3RF K59.09 Discontinued pantoprazole Discontinued Reason: Doctor's Order 40 mg PO DAILY 30 tabs 2RF lactulose Discontinued Reason: Doctor's Order 10 grams (15 mL) PO BEDTIME 30 days PRN 450 mL 2RF constipation sucralfate Discontinued Reason: Doctor's Order 10 mL PO BEDTIME 400 mL 3RF K21.9 TODAY'S VISIT Patient is here today for follow-up. Patient reports that she continues to have epigastric discomfort and dyspepsia. Patient states that she is taking Nexium every morning and famotidine at bedtime. Patient states that she started taking Ozempic while back and not sure if her symptoms are related to that. Patient denies any nausea or vomiting. Reports that she is moving her bowels well now that she is taking Trulance. Patient denies any melena, hematochezia, unintentional weight loss or like stools. Patient denies any dysphagia or odynophagia. Occasional postprandial abdominal bloating depending on what she eats. [facility] Medical History (Updated 01/17/24 @ 09:59 by Riya Rhodes MD) Lorrie infection of genital region Physical exam Right foot pain Myocardial infarction Chest pain Screen for sexually transmitted diseases Hx of abnormal cervical Pap smear Encounter for gynecological examination with Papanicolaou smear of cervix Costovertebral angle tenderness Anterior knee pain Headache Memory loss Chest tightness Upper respiratory symptom Numbness and tingling in both hands Severe major depression without psychotic features Diabetes mellitus Skin lesion Genital labial ulcer At high risk for breast cancer Lichen sclerosus SOB (shortness of breath) on exertion Mixed hyperlipidemia Urge urinary incontinence Chest pain Constipation Tiredness Leg numbness Migraines GERD (gastroesophageal reflux disease) Essential hypertension Depression with anxiety Iron deficiency anemia Pernicious anemia CAD (coronary artery disease) Surgical History Hx of colonoscopy History of esophagogastroduodenoscopy (EGD) History of carpal tunnel surgery History of carpal tunnel surgery of left wrist Stented coronary artery History of surgery History of skin cancer History of hysteroscopy History of tubal ligation Family History Father Hypertension Mother Diabetes Stroke Sister Bone cancer Son Christine syndrome Daughter No problems noted. Brother No problems noted. Brother No problems noted. Sister Breast cancer Social History Household Members: Children Housing: Apartment Are you a primary childbirth and infant care teacher to a significant other at home: No Do you presently have visiting nurse or other home services: No Alcohol intake: never Patient Tobacco Use Status: Former Tobacco user Tobacco use type: Cigarette e-Cigarette/Vaping Use: Never Used Second Hand Smoke Exposure: No service: No Current occupational status: unemployed Current occupation: right hand Cognitive needs: No Hearing needs: No Vision needs: Yes Female Reproductive History Menstrual Age of Menarche: 8 Review of Systems Const Denies weight gain and Denies weight loss ENT Reports no additional complaints, Denies dysphagia and Denies odynophagia Card Reports no additional complaints Resp Reports no additional complaints GI Denies abdominal pain, Denies belching, Denies melena, Denies bloating, Denies change in bowel habits, Denies dysphagia, Denies excessive flatus, Denies dyspepsia, Reports heartburn, Denies diarrhea, Denies loose stools, Reports nausea, Denies odynophagia and Denies vomiting Reports no additional complaints Musc Reports no additional complaints Neuro Reports no additional complaints Psych Reports no additional complaints Endo Reports no additional complaints Physical Exam Vital Signs: Last Vital Signs Pulse 87 01/17/24 09:21 BP 112/72 01/17/24 09:21 BMI result Body Mass Index 32.5 Const General: healthy appearing and no acute distress Nutritional Appearance: obese Orientation/consciousness: patient oriented x3 Resp Effort & Inspection: normal respiratory effort, able to speak in complete sentences, no tracheal deviation and symmetric chest movement Auscultation: clear to auscultation bilaterally Cardio Rate: regular rate GI Inspection: Yes normal to inspection, No distended and Yes obesity Palpation (GI): Soft to palpation, not firm, nontender and No hepatosplenomegaly present Auscultation: normal bowel sounds General: Yes no CVA tenderness Back/Spine/Pelvis Back: no CVA tenderness Skin General skin exam: elasticity normal, turgor normal and dry skin Neuro General: patient oriented x3 Psych Appearance: grossly normal Mental Status: mental status grossly normal Assessment & Plan Assessment & Plan (1) GERD (gastroesophageal reflux disease): Code(s): K21.9 - Gastro-esophageal reflux disease without esophagitis Category: Medical Qualifiers: Esophagitis presence: esophagitis presence not specified Qualified Code(s): K21.9 - Gastro-esophageal reflux disease without esophagitis (2) Constipation: Code(s): K59.00 - Constipation, unspecified Category: Medical Qualifiers: Constipation type: slow transit constipation Qualified Code(s): K59.01 - Slow transit constipation (3) Hiatal hernia: Code(s): K44.9 - Diaphragmatic hernia without obstruction or gangrene (4) Diverticulosis: Code(s): K57.90 - Diverticulosis of intestine, part unspecified, without perforation or abscess without bleeding Plan Patient will continue taking Nexium in the morning half an hour before breakfast. Continue taking famotidine at bedtime. Discussed with patient the importance of avoiding dietary triggers and late night snacking. Staying upright for minimum 3 hours after meals discussed with patient. Patient will observe for symptoms. Possibly that her symptoms are related to Ozempic. Will check liver panel and lipase. I will see patient in 6 months, sooner on as needed basis. Patient is agreeable to this plan and verbalizes understanding of instructions. She was given the opportunity to ask questions and all questions answered. Thank you for allowing me to participate in her care Orders: Orders Liver Panel 01/17/24 R74.01 - Elevation of levels of liver transaminase levels Lipase 01/17/24 R10.9 - Unspecified abdominal pain Coding Level of Care Code Est Pt Level 3 (81448) Diagnoses Gastroesophageal reflux disease, unspecified whether esophagitis present K21.9 Esophagitis presence: esophagitis presence not specified Slow transit constipation K59.01 Constipation type: slow transit constipation Hiatal hernia K44.9 Diverticulosis K57.90 Time Spent (min) 30 Comment 20 minutes spent with patient and additional 10 minutes spent reviewing
[2024-01-17 09:21] VITALS: BP 112/72; PULSE 87; BMI 32.5
== END 2024-01-17 09:41 | disposition home or self-care (01) ==
PROVIDERS: PCP Internal Medicine; Visit Provider Nurse Practitioner Family
DX: K21.9 Gastro-esophageal reflux disease without esophagitis (principal); K59.01 Slow transit constipation; K44.9 Diaphragmatic hernia without obstruction or gangrene; K57.90 Diverticulosis of intestine, part unspecified, without perforation or abscess without bleeding
CPT/HCPCS: 99213

== ENCOUNTER → 2024-01-17 09:11 | Outpatient (BNVA) | payer OTHER, SELFPAY | PROVIDERS: PCP Internal Medicine; Visit Provider Nurse Practitioner Family | DX: K21.9 Gastro-esophageal reflux disease without esophagitis (principal); K59.01 Slow transit constipation; K44.9 Diaphragmatic hernia without obstruction or gangrene; K57.90 Diverticulosis of intestine, part unspecified, without perforation or abscess without bleeding; Z79.899 Other long term (current) drug therapy | CPT/HCPCS: 99212 ==

== ENCOUNTER 2024-02-17 16:15 | Outpatient (AMB) | payer OTHER, SELFPAY ==
[2024-02-17 16:27] VITALS: BP 112/70; BMI 31.1
--- NOTE | 2024-02-17 16:27 | A.OFFPC_ITS ---
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 Dry Cleaning Required: No Accompanied by: Self / Same As Patient Allergies apple [APPLES] Allergy (Intermediate, Verified 02/17/24 16:41) TONGUE SWELLS AND TURNS PURPLE shellfish derived Allergy (Intermediate, Verified 02/17/24 16:41) LOBSTER- UNKNOWN coconut [COCONUT] Allergy (Mild, Verified 02/17/24 16:41) NAUSEA AND STOMACH SWELLS Medication List - Last Reconciled 02/17/24 by Julieth De León MD albuterol sulfate 0.63 mg (3 mL) inhalation QID PRN albuterol sulfate 90 mcg/actuation 1 inh inhalation QID PRN amitriptyline 25 mg PO BEDTIME amlodipine 5 mg PO DAILY ascorbic acid (vitamin C) (Vitamin C) 500 mg PO BID aspirin 81 mg PO DAILY 90 days atorvastatin 80 mg PO DAILY blood pressure monitor As directed blood sugar diagnostic (FreeStyle Test strips) Use 1 test strips once a day blood-glucose meter (FreeStyle Lite Meter kit) As directed bupropion HCl XL 150 mg PO QAM buspirone 5 mg PO DAILY disposable gloves (Biobrane Gloves Medium) Use prn esomeprazole magnesium (Nexium) 40 mg PO DAILY ezetimibe 10 mg PO DAILY famotidine 40 mg PO BEDTIME ferrous sulfate (Iron (ferrous sulfate)) 325 mg PO BID fluoxetine 40 mg PO DAILY fluoxetine 20 mg PO DAILY [handheld shower As directed] hearing aid accessory As directed icosapent ethyl (Vascepa) 2 grams PO BID [incontinence pads As directed] lancets (FreeStyle Lancets) Use 1 lancet once a day lorazepam 0.5 mg PO BID mecobalamin (vitamin B12) 10,000 mcg IM DAILY melatonin-lemon balm leaf extr 10-1 mg 10 tabs PO DAILY metoprolol tartrate 50 mg PO BID metronidazole 0.75%(37.5mg/5gram) 1 appful vaginal BEDTIME 5 days miconazole nitrate 2% (Miconazole-7) 1 appful vaginal BEDTIME 7 days nebulizers (Aeroneb Go Nebulizer) As directed nitroglycerin 0.4 mg sublingual Q5M PRN 30 days ondansetron 4 mg PO Q8H PRN plecanatide (Trulance) 3 mg PO DAILY semaglutide (Ozempic) 0.5 mg (0.736 mL) subcut QWEEK 90 days Shower Chair As directed topiramate 50 mg PO BID [wipes As directed] Tobacco use date assessed: 10/15/23 Dental Screening Dental Screen Date: 10/15/23 HPI HPI Comments History of Present Illness Details This is a 54-year-old female with diabetes mellitus type 2, hypertension, mixed hyperlipidemia and mild major depression that comes today for follow-up her conditions. A1c within goal. Blood pressure stable. LDL within goal. Mild major depression has been well controlled with fluoxetine and she does follow-up with Behavioral Health. No chest pain or shortness on breath. [facility] Medical History Lorrie infection of genital region Physical exam Right foot pain Myocardial infarction Chest pain Screen for sexually transmitted diseases Hx of abnormal cervical Pap smear Encounter for gynecological examination with Papanicolaou smear of cervix Costovertebral angle tenderness Anterior knee pain Headache Memory loss Chest tightness Upper respiratory symptom Numbness and tingling in both hands Severe major depression without psychotic features Diabetes mellitus Skin lesion Genital labial ulcer At high risk for breast cancer Lichen sclerosus SOB (shortness of breath) on exertion Mixed hyperlipidemia Urge urinary incontinence Chest pain Constipation Tiredness Leg numbness Migraines GERD (gastroesophageal reflux disease) Essential hypertension Depression with anxiety Iron deficiency anemia Pernicious anemia CAD (coronary artery disease) Surgical History Hx of colonoscopy History of esophagogastroduodenoscopy (EGD) History of carpal tunnel surgery History of carpal tunnel surgery of left wrist Stented coronary artery History of surgery History of skin cancer History of hysteroscopy History of tubal ligation Family History Father Hypertension Mother Diabetes Stroke Sister Bone cancer Son Christine syndrome Daughter No problems noted. Brother No problems noted. Brother No problems noted. Sister Breast cancer Social History Household Members: Children Housing: Apartment Are you a primary caregivers homecare to a significant other at home: No Do you presently have visiting nurse or other home services: No Alcohol intake: never Patient Tobacco Use Status: Former Tobacco user Tobacco use type: Cigarette e-Cigarette/Vaping Use: Never Used Second Hand Smoke Exposure: No service: No Current occupational status: unemployed Current occupation: right hand Cognitive needs: No Hearing needs: No Vision needs: Yes Female Reproductive History Menstrual Age of Menarche: 8 Questionnaire Thrive Questionnaire Date Thrive assessed: 10/15/23 ROXY-7 AMB Questionnaire ROXY-7 Date ROXY - 7 assessed: 10/15/23 Source: Developed by Drs. Josh Frederick, Shannen Peck, El Guerrero and colleagues, with an educational lilliam from [employer]. Review of Systems Const All systems reviewed & are unremarkable except as noted in HPI and below Card Denies chest pain at rest, Denies chest pain with activity, Denies edema, Denies irregular heart rhythm, Denies claudication, Denies dyspnea, Denies dyspnea on exertion, Denies orthopnea, Denies paroxysmal nocturnal dyspnea and Denies slow heart rate Resp Denies cough, Denies dyspnea and Denies dyspnea on exertion Physical exam (Primary Care) Vital Signs: Last Vital Signs BP 112/70 02/17/24 16:27 BMI result Body Mass Index 31.1 BMI Assessment/Plan discussion: High BMI High, discussed plan: lifestyle, weight reduction, dietary and physical activity Tobacco/Smoking Status: Tobacco use Status Tobacco use date assessed 10/15/23 02/17/24 16:32 Patient Tobacco Use Status Former Tobacco user 02/17/24 16:32 Tobacco use type Cigarette 02/17/24 16:32 e-Cigarette/Vaping Use Never Used 02/17/24 16:32 Thrive Assessment: Date of Thrive Assessment Date Thrive assessed 10/15/23 02/17/24 16:32 Resp Effort & Inspection: normal respiratory effort Auscultation: clear to auscultation bilaterally Cardio Jugular venous distension: no JVD Rate: regular rate Rhythm: regular rhythm Heart sounds: S1 normal heart sound present and S2 normal heart sound present Extrem General: Yes full ROM Results AMB Hemoglobin A1c AMB Hemoglobin A1c 6.1 % Last Edit by STEVE Turcios on 02/17/24 16:3 3 Results Reviewed Results Reviewed: Laboratory Last Values Hgb A1c (Clinic) 6.1 % (4.0-6.0) H 02/17/24 16:23 Assessment and Plan Assessment & Plan (1) Mild major depression: Code(s): F32.0 - Major depressive disorder, single episode, mild Plan: Continue fluoxetine. Follow-up with psychiatry. (2) Diabetes mellitus: Code(s): E11.9 - Type 2 diabetes mellitus without complications Qualifiers: Diabetes mellitus type: type 2 Diabetes mellitus rat exterminator insulin use: without rat exterminator use Diabetes mellitus complication status: with hyperglycemia Qualified Code(s): E11.65 - Type 2 diabetes mellitus with hyperglycemia Plan: Increase Ozempic. A1c goal is equal or less than 7%. (3) Mixed hyperlipidemia: Code(s): E78.2 - Mixed hyperlipidemia Plan: Continue statins and Zetia. LDL goal is less than 70. (4) GERD (gastroesophageal reflux disease): Code(s): K21.9 - Gastro-esophageal reflux disease without esophagitis Qualifiers: Esophagitis presence: esophagitis presence not specified Qualified Code(s): K21.9 - Gastro-esophageal reflux disease without esophagitis Plan: Continue famotidine. Follow-up with Gastroenterology. (5) Essential hypertension: Code(s): I10 - Essential (primary) hypertension Plan: Continue amlodipine. Blood pressure goal is equal or less than 130/80. Orders: Orders AMB Hemoglobin A1c Today E11.65 - Type 2 diabetes mellitus with hyperglycemia Lipid Panel 4 Months E78.5 - Hyperlipidemia, unspecified Microalbumin, Random (w Creat) 4 Months E11.9 - Type 2 diabetes mellitus without complications Comprehensive Met. Panel 4 Months E11.65 - Type 2 diabetes mellitus with hyperglycemia Medications: New semaglutide (Ozempic) 1 mg (0.75 mL) subcut QWEEK 3 mL 4RF 4 weeks E11.65 - Type 2 diabetes mellitus with hyperglycemia Refilled nitroglycerin 0.4 mg sublingual Q5M PRN 30 tabs 3RF Chest Pain 30 days I25.10 - Atherosclerotic heart disease of [place] coronary artery without angina pectoris Discontinued semaglutide (Ozempic) Discontinued Reason: Patient Completed Course 0.5 mg (0.736 mL) subcut QWEEK 90 days 9.568 mL 1RF E11.9 - Type 2 diabetes mellitus without complications Coding Level of Care Code Est Pt Level 4 (17487) Complex EM visit Add On G2211 Diagnoses Mild major depression F32.0 Type 2 diabetes mellitus with hyperglycemia, without long-term current use of insulin E11.65 Diabetes mellitus type: type 2 Diabetes mellitus [facility] insulin use: without rat exterminator use Diabetes mellitus complication status: with hyperglycemia Mixed hyperlipidemia E78.2 Gastroesophageal reflux disease, unspecified whether esophagitis present K21.9 Esophagitis presence: esophagitis presence not specified Essential hypertension I10 Time Spent (min) 24
== END 2024-02-17 16:52 | disposition home or self-care (01) ==
PROVIDERS: PCP Internal Medicine; Visit Provider Internal Medicine
DX: F32.0 Major depressive disorder, single episode, mild (principal); E11.65 Type 2 diabetes mellitus with hyperglycemia; E78.2 Mixed hyperlipidemia; K21.9 Gastro-esophageal reflux disease without esophagitis; I10 Essential (primary) hypertension
CPT/HCPCS: 83036; 99214; G2211

== ENCOUNTER 2024-02-26 09:15 | Outpatient (REF) | payer OTHER, SELFPAY ==
--- NOTE | ~2024-02-26 | MR_ITS ---
EXAMINATION: MR BREAST WITHOUT AND WITH CONTRAST, BILATERAL CLINICAL INFORMATION: High risk screening. Family history of breast cancer. COMPARISON: MRI 09/06/2022, 06/20/2021 TECHNIQUE: Imaging was performed with a dedicated breast coil. Prior to the administration of contrast, bilateral axial T1 and bilateral axial T2 weighted sequences were obtained. After the uneventful administration of?8 mL of Gadavist, dynamic contrast-enhanced VIBRANT series through the breasts in the axial plane were performed. Subtracted images were performed and reviewed. A delayed sagittal sequence through both breasts was acquired. Additionally, CAD post-processing, including maximum intensity projections, 3-D reconstructions and kinetic analysis, were performed an independent workstation and reviewed by the interpreting radiologist is a portion of this exam. FINDINGS: The patient's fibroglandular tissue demonstrates moderate background enhancement. LEFT BREAST: A few scattered foci of enhancement. No suspicious masslike or non-masslike enhancement. No abnormal skin thickening or nipple retraction. No abnormal architectural distortion. Review of the T2 weighted images demonstrates no fibrocystic changes or dilated ducts. Review of kinetic images reveals no additional findings. RIGHT BREAST: A few scattered foci of enhancement. No suspicious masslike or non-masslike enhancement. No abnormal skin thickening or nipple retraction. No abnormal architectural distortion. Review of the T2 weighted images demonstrates no fibrocystic changes or dilated ducts. Review of kinetic images reveals no additional findings. There is no suspicious internal mammary chain or axillary adenopathy. Limited views of the chest and abdomen are unremarkable. MR/MR breast BI wo/w con IMPRESSION: No MR specific evidence of malignancy. ASSESSMENT: LEFT BREAST: BI-RADS 1-Negative RIGHT BREAST: BI-RADS 1-Negative RECOMMENDATIONS: Clinical follow-up. Continued annual mammographic surveillance. Further breast MRI as risk factors dictate.
[2024-02-26] MEDS: gadobutroL 10 ML VIAL IVPUSH (11:19)
== END 2024-02-26 09:16 | disposition home or self-care (01) ==
LOC: HO.MRI 09:15
PROVIDERS: PCP Internal Medicine; Visit Provider Internal Medicine Medical Oncology
DX: Z12.39 Encounter for other screening for malignant neoplasm of breast (principal); Z91.89 Other specified personal risk factors, not elsewhere classified
CPT/HCPCS: 77049; A9585

== ENCOUNTER 2024-04-23 10:13 | Outpatient (REF) | payer OTHER, SELFPAY ==
--- NOTE | ~2024-04-23 | MM_ITS ---
EXAMINATION: MM SCREENING DIGITAL BREAST TOMOSYNTHESIS, BILATERAL CLINICAL INFORMATION: Screening. Asymptomatic. COMPARISON: Mammography: This study is compared with prior exams dating back to 2019. TECHNIQUE: Digital breast tomosynthesis is performed in both the craniocaudal and mediolateral oblique views along with computer-aided detection (CAD). Synthesized 2D images are generated from the tomosynthesis. FINDINGS: There are scattered areas of fibroglandular density (ACR BI-RADS breast composition Category b). There are no significant masses, abnormal calcifications, or other abnormalities. MM/MM tomosynthesis screening BI IMPRESSION: No mammographic evidence of malignancy. ASSESSMENT: BI-RADS BI-RADS 1 - Negative RECOMMENDATION: Routine annual mammography screening. 1 year F/U This examination should not preclude the clinical evaluation of a suspicious palpable abnormality. This patient's information was entered into a reminder system with a target due date for their next mammogram. Electronically signed by: Jennifer Cavazos MD 05/21/2024 11:31 AM EDT
== END 2024-04-23 10:14 | disposition home or self-care (01) ==
LOC: HO.MAMMO 10:13
PROVIDERS: PCP Internal Medicine; Visit Provider Internal Medicine
DX: Z12.31 Encounter for screening mammogram for malignant neoplasm of breast (principal)
CPT/HCPCS: 77063; 77067

== ENCOUNTER → 2024-04-23 10:30 | Outpatient (BNV) | payer OTHER, SELFPAY | PROVIDERS: PCP Internal Medicine; Visit Provider Radiology Diagnostic Radiology | DX: Z12.31 Encounter for screening mammogram for malignant neoplasm of breast (principal) | CPT/HCPCS: 77063; 77067 ==

== ENCOUNTER 2024-07-20 09:24 | Outpatient (AMB) | payer OTHER, SELFPAY ==
--- NOTE | 2024-07-20 09:29 | A.OFFPC_ITS ---
Vital Signs 07/20/24 09:31 Height 5 ft 2 in Weight 163 lb BMI 29.8 BP 112/78 Blood Pressure Location Lt brachial Position Sitting Intake Visit Reasons: annual exam Intake Note: patient here for an annual physical exam [employer] Travel Counselor Required: No Accompanied by: Self / Same As Patient Allergies apple [APPLES] Allergy (Intermediate, Verified 07/20/24 09:50) TONGUE SWELLS AND TURNS PURPLE shellfish derived Allergy (Intermediate, Verified 07/20/24 09:50) LOBSTER- UNKNOWN coconut [COCONUT] Allergy (Mild, Verified 07/20/24 09:50) NAUSEA AND STOMACH SWELLS Medication List - Last Reconciled 07/20/24 by Julieth De León MD albuterol sulfate 0.63 mg (3 mL) inhalation QID PRN albuterol sulfate 90 mcg/actuation 1 inh inhalation QID PRN amitriptyline 25 mg PO BEDTIME amlodipine 5 mg PO DAILY ascorbic acid (vitamin C) (Vitamin C) 500 mg PO BID aspirin 81 mg PO DAILY 90 days atorvastatin 80 mg PO DAILY blood pressure monitor As directed blood sugar diagnostic (FreeStyle Test strips) Use 1 test strips once a day blood-glucose meter (FreeStyle Lite Meter kit) As directed bupropion HCl XL 150 mg PO QAM buspirone 5 mg PO DAILY disposable gloves (Biobrane Gloves Medium) Use prn esomeprazole magnesium 40 mg PO DAILY ezetimibe 10 mg PO DAILY famotidine 40 mg PO BEDTIME ferrous sulfate (Iron (ferrous sulfate)) 325 mg PO BID fluoxetine 40 mg PO DAILY fluoxetine 20 mg PO DAILY [handheld shower As directed] hearing aid accessory As directed icosapent ethyl (Vascepa) 2 grams PO BID [incontinence pads As directed] lancets (FreeStyle Lancets) Use 1 lancet once a day lorazepam 0.5 mg PO BID mecobalamin (vitamin B12) 10,000 mcg IM DAILY melatonin-lemon balm leaf extr 10-1 mg 10 tabs PO DAILY metoprolol tartrate 50 mg PO BID metronidazole 0.75%(37.5mg/5gram) 1 appful vaginal BEDTIME 5 days miconazole nitrate 2% (Miconazole-7) 1 appful vaginal BEDTIME 7 days nebulizers (Aeroneb Go Nebulizer) As directed nitroglycerin 0.4 mg sublingual Q5M PRN 30 days ondansetron 4 mg PO Q8H PRN plecanatide (Trulance) 3 mg PO DAILY semaglutide (Ozempic) 1 mg (0.75 mL) subcut QWEEK 4 weeks Shower Chair As directed topiramate 50 mg PO BID [wipes As directed] Tobacco use date assessed: 10/15/23 Dental Screening Dental Screen Date: 07/20/24 Did you have a dental visit in the last 12 months?: Yes Did you have a dental problem in the last 6 months where you did not have access to dental care?: No Was dental information given to patient?: Patient has dentist HPI HPI Comments History of Present Illness Details This is a 54-year-old female with mild major depression and diabetes mellitus type 2 that comes for her physical exam. Depression is follow by Psychiatry. A1c within goal. Last diabetic eye exam was 2-3 months ago. Mammogram done 2023. Last menses was over 2 years ago and I will order a DEXA scan. Colonoscopy done 2022 showed hemorrhoids and diverticulosis only but no polyps. Pap smear done 2022 was normal and negative for HPV. Complains of left knee pain and would like referral for ortho. [facility] Medical History (Updated 07/20/24 @ 10:09 by Julieth De León MD) Lorrie infection of genital region Physical exam Right foot pain Myocardial infarction Chest pain Screen for sexually transmitted diseases Hx of abnormal cervical Pap smear Encounter for gynecological examination with Papanicolaou smear of cervix Costovertebral angle tenderness Anterior knee pain Headache Memory loss Chest tightness Upper respiratory symptom Numbness and tingling in both hands Severe major depression without psychotic features Diabetes mellitus Skin lesion Genital labial ulcer At high risk for breast cancer Lichen sclerosus SOB (shortness of breath) on exertion Mixed hyperlipidemia Urge urinary incontinence Chest pain Constipation Tiredness Leg numbness Migraines GERD (gastroesophageal reflux disease) Essential hypertension Depression with anxiety Iron deficiency anemia Pernicious anemia CAD (coronary artery disease) Surgical History Hx of colonoscopy History of esophagogastroduodenoscopy (EGD) History of carpal tunnel surgery History of carpal tunnel surgery of left wrist Stented coronary artery History of surgery History of skin cancer History of hysteroscopy History of tubal ligation Family History Father Hypertension Mother Diabetes Stroke Sister Bone cancer Son Christine syndrome Daughter No problems noted. Brother No problems noted. Brother No problems noted. Sister Breast cancer Social History (Updated 07/20/24 @ 10:04 by Julieth De León MD) Household Members: Children Housing: Apartment Are you a primary acute care nursing assistant to a significant other at home: No Do you presently have visiting nurse or other home services: No Alcohol intake: current Alcohol intake frequency: holidays/special occasions only Alcohol type: wine Patient Tobacco Use Status: Former Tobacco user Tobacco use type: Cigarette e-Cigarette/Vaping Use: Never Used Second Hand Smoke Exposure: No service: No Current occupational status: unemployed Current occupation: right hand Cognitive needs: No Hearing needs: No Vision needs: Yes Female Reproductive History Menstrual Age of Menarche: 8 Questionnaire PHQ-9 Over the last 2 weeks, how often have you been bothered by any of the following problems? 1. Little interest or pleasure in doing things: several days 2. Feeling down, depressed, or hopeless: more than half the days 3. Trouble falling or staying asleep, or sleeping too much: nearly every day 4. Feeling tired or having little energy: nearly every day 5. Poor appetite or overeating: nearly every day 6. Feeling bad about yourself - or that you are a failure or have let yourself or your family down: more than half the days 7. Trouble concentrating on things, such as reading the newspaper or watching television: nearly every day 8. Moving or speaking so slowly that other people could have noticed. Or the opposite - being so fidgety or restless that you have been moving around a lot more than usual: several days 9. Thoughts that you would be better off or of hurting yourself in some way: several days Total score: 19 Depression Screening Interpretation: Positive (no suicidal thoughts) Depression Screening Follow-up: Existing condition, In treatment, Community Mental Health Worker F/U and Follow-up Visit Requested Depression Screening Done: Yes 78460 - PHQ-9 Billing: Yes Source: Developed by Drs. oJsh Frederick, Shannen Peck, El Guerrero and colleagues, with an educational lilliam from [employer]. Thrive Questionnaire Date Thrive assessed: 10/15/23 I am a: Patient What is your living situation today?: I have a steady place to live Within the past 12 months, did the food you bought not last and you didn't have the money to get more?: Often true Within the past 12 months, did you worry whether your food would run out before you got money to buy more?: I choose not to answer this question Do you have trouble paying for medicines?: No Do you have trouble getting transportation to medical appointments?: Yes Do you have trouble paying your heating and electricity bill?: No Do you have trouble taking care of your child, family member or friend?: Yes Do you have trouble with day-to-day activities such as bathing, preparing meals, shopping, managing finances, etc.?: Yes Are you currently unemployed and looking for a job?: Yes Are you interested in more education?: No Please select the resources that you would like help with: None Currently or been in a relationship where the following occur: I choose not to answer THRIVE Score: 2 AUDIT C Alcohol Use Questionnaire (AUDIT-C) 1. How often do you have a drink containing alcohol?: Monthly or less 2. How many drinks containing alcohol do you have on a typical day when you are drinking?: 1 or 2 3. How often do you have six or more drinks on one occasion?: Never Total Score: 1 ROXY-7 AMB Questionnaire ROXY-7 Date ROXY - 7 assessed: 10/15/23 Feeling nervous, anxious, or on edge: 2 = More than half the days Not being able to stop or control worryin = Nearly every day Worrying too much about different things: 3 = Nearly every day Trouble relaxin = Nearly every day Being so restless that it is hard to sit still: 3 = Nearly every day Becoming easily annoyed or irritable: 2 = More than half the days Feeling afraid as if something awful might happen: 3 = Nearly every day Total ROXY-7 score (0-4 normal; 5-9 mild; 10-14 moderate; 15-21 severe): 19 Source: Developed by Drs. Josh Frederick, Shannen Peck, El Guerrero and colleagues, with an educational lilliam from [employer]. ROXY-7 Assessment Billing ROXY-7 Assessment Tool: ROXY-7 Assessment 29228 Review of Systems Const All systems reviewed & are unremarkable except as noted in HPI and below Card Denies chest pain at rest, Denies chest pain with activity, Denies edema, Denies irregular heart rhythm, Denies claudication, Denies dyspnea, Denies dyspnea on exertion, Denies orthopnea, Denies paroxysmal nocturnal dyspnea and Denies slow heart rate Resp Denies cough, Denies dyspnea and Denies dyspnea on exertion GI Denies abdominal pain, Denies change in bowel habits, Denies excessive flatus, Denies nausea and Denies vomiting Musc Reports arthralgias Neuro Denies lack of coordination Physical exam (Primary Care) Vital Signs: Last Vital Signs BP 112/78 07/20/24 09:31 BMI result Body Mass Index 29.8 BMI Assessment/Plan discussion: High BMI High, discussed plan: lifestyle, weight reduction, dietary and physical activity Tobacco/Smoking Status: Tobacco use Status Tobacco use date assessed 10/15/23 07/20/24 09:30 Patient Tobacco Use Status Former Tobacco user 07/20/24 09:30 Tobacco use type Cigarette 07/20/24 09:30 e-Cigarette/Vaping Use Never Used 07/20/24 09:30 PHQ-9: PHQ-9 Score PHQ-9: Total score 19 07/20/24 09:53 Depression Screening Interpretation: Positive (no suicidal thoughts) Depression Screening Follow-up: Existing condition, In treatment, Community Mental Health Worker F/U and Follow-up Visit Requested Thrive Assessment: Date of Thrive Assessment Date Thrive assessed 10/15/23 07/20/24 09:30 Currently or been in a relationship where the following occur: I choose not to answer HENID Head: Yes normal to inspection, Yes normocephalic and Yes atraumatic Ears: external ears normal Eyes General: appearance normal, both eyes and all related structures Eyelids: Yes eyelids normal Conjunctivae: conjunctivae normal Neck Neck: Yes normal visual inspection and Yes supple Resp Effort & Inspection: normal respiratory effort Auscultation: clear to auscultation bilaterally Cardio Jugular venous distension: no JVD Rate: regular rate Rhythm: regular rhythm Heart sounds: S1 normal heart sound present and S2 normal heart sound present GI Inspection: Yes normal to inspection Palpation (GI): Soft to palpation and nontender Auscultation: normal bowel sounds Skin General skin exam: no rashes or lesions noted Neuro General: no focal motor deficits Extrem General: Yes full ROM Psych Appearance: grossly normal Office Procedures Flu Questionnaire Does the patient have a severe egg allergy?: No Results AMB Hemoglobin A1c AMB Hemoglobin A1c 5.5 % Last Edit by STEVE Turcios on 07/20/24 09:3 9 Immunizations Fluarix Triv [id number] (PF) 45 mcg (15 mcg x 3)/0.5 mL IM syringe Performing Provider: Julieth De León MD Performing [facility] [place] [facility] Documented (not given) by: STEVE Turcios on 07/20/24 09:35 Reason Not Given: Patient Refused Results Reviewed Results Reviewed: Laboratory Last Values Hgb A1c (Clinic) 5.5 % (4.0-6.0) 07/20/24 09:28 Coding Level of Care Code Est Pt Level 3 (85184) Est Pt Prev Care 40-64y(99969) Diagnoses Physical exam Z00.00 Type 2 diabetes mellitus with hyperglycemia, without long-term current use of insulin E11.65 Diabetes mellitus complication status: with hyperglycemia Diabetes mellitus senior living insulin use: without senior living use Diabetes mellitus type: type 2 Mild major depression F32.0 Chronic pain of left knee M25.562; G89.29 Chronicity: chronic Additional Codes ROXY-7 Assessment Billing - ROXY-7 Assessment Tool: ROXY-7 Assessment 22714 ([id number]) Time Spent (min) 35 Assessment & Plan Assessment & Plan (1) Physical exam: Code(s): Z00.00 - Encounter for general adult medical examination without abnormal findings Category: Medical Plan: Repeat in a year. (2) Diabetes mellitus: Code(s): E11.9 - Type 2 diabetes mellitus without complications Category: Medical Qualifiers: Diabetes mellitus complication status: with hyperglycemia Diabetes mellitus senior living insulin use: without senior living use Diabetes mellitus type: type 2 Qualified Code(s): E11.65 - Type 2 diabetes mellitus with hyperglycemia Plan: Continue Ozempic. A1c goal is equal or less than 7%. (3) Mild major depression: Code(s): F32.0 - Major depressive disorder, single episode, mild Category: Medical Plan: Continue SSRIs. Follow-up with psychiatry. (4) Left knee pain: Code(s): M25.562 - Pain in left knee Category: Medical Qualifiers: Chronicity: chronic Qualified Code(s): M25.562 - Pain in left knee; G89.29 - Other chronic pain Plan: Referred to Ortho. Orders: Orders XR DEXA axial skeleton Today Z78.0 - Asymptomatic menopausal state Vitamin B12 and Folate Today E53.8 - Deficiency of other specified B group vitamins Microalbumin, Random (w Creat) Today R80.9 - Proteinuria, unspecified IRON PROFILE Today D64.9 - Anemia, unspecified Comprehensive [place]. Panel Fast Today Z00.00 - Encounter for general adult medical examination without abnormal findings Influenza [id number] Immunization Today Z23 - Encounter for immunization AMB Hemoglobin A1c Today E11.65 - Type 2 diabetes mellitus with hyperglycemia Vitamin D 25-OH Total Today E55.9 - Vitamin D deficiency, unspecified Lipid Panel Today E78.5 - Hyperlipidemia, unspecified Complete Blood Count Auto Diff Today D64.9 - Anemia, unspecified Referrals Orthopedics Referral M25.562 - Pain in left knee
[2024-07-20 09:31] VITALS: BP 112/78; BMI 29.8
== END 2024-07-20 10:03 | disposition home or self-care (01) ==
LOC: HO.HMCH 09:25
PROVIDERS: PCP Internal Medicine; Visit Provider Internal Medicine
DX: Z00.00 Encounter for general adult medical examination without abnormal findings (principal); E11.65 Type 2 diabetes mellitus with hyperglycemia; F32.0 Major depressive disorder, single episode, mild; M25.562 Pain in left knee; G89.29 Other chronic pain; Z23 Encounter for immunization

== ENCOUNTER → 2024-07-20 09:24 | Outpatient (BNVA) | payer OTHER, SELFPAY | PROVIDERS: PCP Internal Medicine; Visit Provider Internal Medicine | DX: K21.9 Gastro-esophageal reflux disease without esophagitis (principal); K59.01 Slow transit constipation; K44.9 Diaphragmatic hernia without obstruction or gangrene; K57.90 Diverticulosis of intestine, part unspecified, without perforation or abscess without bleeding; R13.12 Dysphagia, oropharyngeal phase; Z00.01 Encounter for general adult medical examination with abnormal findings; E11.65 Type 2 diabetes mellitus with hyperglycemia; F32.0 Major depressive disorder, single episode, mild; M25.562 Pain in left knee; G89.29 Other chronic pain | CPT/HCPCS: 83036; 96127; 99212; 99396 ==

== ENCOUNTER 2024-07-20 10:09 | Outpatient (AMB) | payer OTHER, SELFPAY ==
[2024-07-20 10:11] VITALS: BMI 29.8
--- NOTE | 2024-07-20 10:11 | A.OFFVIS_ITS ---
Vital Signs 07/20/24 10:11 Height 5 ft 2 in Weight 163 lb BMI 29.8 Comment Pt just saw PCP this morning and had vitals done. Intake Visit Reasons: 6 month follow up Intake Note: Relevant Flags or Indicators ? Requires Manager Spanish? N Barbara presents in office today for a scheduled 6 mos FUV. CC; No recent diagnostics, or med orders placed. ?Pt has active lab orders that are not fulfilled. Relevant GI Sx as reported per pt? Dysphagia ? Fecal abnormalities o?? Constipation - Pt does report having some mild melena/hematochezia with repeated episodes. Pt also reporting being SOB which she believes could be related to reflux. ? Hx of any recent surgeries? None Manager Spanish Required: No Allergies apple [APPLES] Allergy (Intermediate, Verified 07/20/24 10:13) TONGUE SWELLS AND TURNS PURPLE shellfish derived Allergy (Intermediate, Verified 07/20/24 10:13) LOBSTER- UNKNOWN coconut [COCONUT] Allergy (Mild, Verified 07/20/24 10:13) NAUSEA AND STOMACH SWELLS HPI HPI 6 month follow up: Details: LAST VISIT: GERD (gastroesophageal reflux disease) Constipation Hiatal hernia Diverticulosis Plan Patient will continue taking Nexium in the morning half an hour before breakf ast. Continue taking famotidine at bedtime. Discussed with patient the importance of avoiding dietary triggers and late night snacking. Staying upright for minimum 3 hours after meals discussed with patient. Patient will observe for symptoms. Possibly that her symptoms are related to Ozempic. Will check liver panel and lipase. I will see patient in 6 months, sooner on as needed basis. Patient is agreeable to this plan and verbalizes understanding of instructions. She was given the opportunity to ask questions and all questions answered. ? Thank you for allowing me to participate in her care Orders Orders Liver Panel 01/17/24 R74.01 Lipase 01/17/24 R10.9 TODAY'S VISIT: Patient is here today for follow-up. Patient reports that she has been doing better since last visit. She is on Ozempic and is doing well. Total weight loss over 20 lb. Her A1c is 5.5% today. Patient no longer is feeling nauseous. Denies any epigastric pain or discomfort. Good appetite, able to tolerate most of the food without any issues, however patient does admit that she has trouble swallowing solid food. Patient had her molars extracted and is unable her to chew her food very well that she noticed lately. Patient denies any choking episodes. Patient denies dyspepsia or odynophagia. Denies melena, hematochezia. Patient is taking Trulance daily, however she reports constipation. Sometimes no BM for 3-4 days. [facility] Medical History Lorrie infection of genital region Physical exam Right foot pain Myocardial infarction Chest pain Screen for sexually transmitted diseases Hx of abnormal cervical Pap smear Encounter for gynecological examination with Papanicolaou smear of cervix Costovertebral angle tenderness Anterior knee pain Headache Memory loss Chest tightness Upper respiratory symptom Numbness and tingling in both hands Severe major depression without psychotic features Diabetes mellitus Skin lesion Genital labial ulcer At high risk for breast cancer Lichen sclerosus SOB (shortness of breath) on exertion Mixed hyperlipidemia Urge urinary incontinence Chest pain Constipation Tiredness Leg numbness Migraines GERD (gastroesophageal reflux disease) Essential hypertension Depression with anxiety Iron deficiency anemia Pernicious anemia CAD (coronary artery disease) Surgical History Hx of colonoscopy History of esophagogastroduodenoscopy (EGD) History of carpal tunnel surgery History of carpal tunnel surgery of left wrist Stented coronary artery History of surgery History of skin cancer History of hysteroscopy History of tubal ligation Family History Father Hypertension Mother Diabetes Stroke Sister Bone cancer Son Christine syndrome Daughter No problems noted. Brother No problems noted. Brother No problems noted. Sister Breast cancer Social History Household Members: Children Housing: Apartment Are you a primary care management coordinator to a significant other at home: No Do you presently have visiting nurse or other home services: No Alcohol intake: current Alcohol intake frequency: holidays/special occasions only Alcohol type: wine Patient Tobacco Use Status: Former Tobacco user Tobacco use type: Cigarette e-Cigarette/Vaping Use: Never Used Second Hand Smoke Exposure: No service: No Current occupational status: unemployed Current occupation: right hand Cognitive needs: No Hearing needs: No Vision needs: Yes Female Reproductive History Menstrual Age of Menarche: 8 Review of Systems Const Denies weight gain and Denies weight loss ENT Reports no additional complaints, Reports dysphagia (With solid food) and Denies odynophagia Card Reports no additional complaints Resp Reports no additional complaints GI Denies abdominal pain, Denies belching, Denies melena, Denies bloating, Denies change in bowel habits, Reports dysphagia (With solid food), Denies excessive flatus, Denies dyspepsia, Denies heartburn, Denies diarrhea, Denies loose stools, Denies nausea, Denies odynophagia and Denies vomiting Reports no additional complaints Musc Reports no additional complaints Neuro Reports no additional complaints Psych Reports no additional complaints Endo Reports no additional complaints Physical Exam Vital Signs: BMI result Body Mass Index 29.8 Const General: healthy appearing and no acute distress Nutritional Appearance: obese Orientation/consciousness: patient oriented x3 Resp Effort & Inspection: normal respiratory effort, able to speak in complete sentences, no tracheal deviation and symmetric chest movement Auscultation: clear to auscultation bilaterally Cardio Rate: regular rate GI Inspection: Yes normal to inspection, No distended and Yes obesity Palpation (GI): Soft to palpation, not firm, nontender and No hepatosplenomegaly present Auscultation: normal bowel sounds General: Yes no CVA tenderness Back/Spine/Pelvis Back: no CVA tenderness Skin General skin exam: elasticity normal, turgor normal and dry skin Neuro General: patient oriented x3 Psych Appearance: grossly normal Mental Status: mental status grossly normal Results AMB Hemoglobin A1c AMB Hemoglobin A1c 5.5 % Last Edit by STEVE Turcios on 07/20/24 09:3 9 Assessment & Plan Assessment & Plan (1) GERD (gastroesophageal reflux disease): Code(s): K21.9 - Gastro-esophageal reflux disease without esophagitis Category: Medical Qualifiers: Esophagitis presence: esophagitis presence not specified Qualified Code(s): K21.9 - Gastro-esophageal reflux disease without esophagitis (2) Constipation: Code(s): K59.00 - Constipation, unspecified Category: Medical Qualifiers: Constipation type: slow transit constipation Qualified Code(s): K59.01 - Slow transit constipation (3) Hiatal hernia: Code(s): K44.9 - Diaphragmatic hernia without obstruction or gangrene (4) Diverticulosis: Code(s): K57.90 - Diverticulosis of intestine, part unspecified, without perforation or abscess without bleeding (5) Dysphagia: Code(s): R13.10 - Dysphagia, unspecified Qualifiers: Dysphagia type: oropharyngeal phase Qualified Code(s): R13.12 - Dysphagia, oropharyngeal phase Plan Continue avoiding dietary triggers and late night snacking. Continue Nexium in the morning and famotidine on as needed basis at bedtime. Patient reports that she has been doing much better with Ozempic. Trial of Trulance, ineffective. Will stop and start patient on Linzess. Message sent to RN to start PA process. Patient will call our office if she will continue to have trouble moving her bowels. Increase fluid intake and activity to promote better bowel motility. Follow-up in 6 months, sooner on as needed basis. She is agreeable to this plan and verbalizes understanding of instructions. She was given the opportunity to ask questions and all questions answered. Thank you for allowing me to participate in her care Medications: New linaclotide (Linzess) 145 mcg PO DAILY 30 caps 2RF linaclotide (Linzess) 145 mcg PO DAILY 30 caps 2RF Discontinued plecanatide (Trulance) Discontinued Reason: Doctor's Order 3 mg PO DAILY 30 tabs 3RF K59.09 - Other constipation Coding Level of Care Code Est Pt Level 3 (32540) Diagnoses Gastroesophageal reflux disease, unspecified whether esophagitis present K21.9 Esophagitis presence: esophagitis presence not specified Slow transit constipation K59.01 Constipation type: slow transit constipation Hiatal hernia K44.9 Diverticulosis K57.90 Oropharyngeal dysphagia R13.12 Dysphagia type: oropharyngeal phase Time Spent (min) 25 Comment 15 minutes spent with patient and additional 10 minutes spent reviewing her records
== END 2024-07-20 10:48 | disposition home or self-care (01) ==
LOC: HO.HGI 10:10
PROVIDERS: PCP Internal Medicine; Visit Provider Nurse Practitioner Family
DX: K21.9 Gastro-esophageal reflux disease without esophagitis (principal); K59.01 Slow transit constipation; K44.9 Diaphragmatic hernia without obstruction or gangrene; K57.90 Diverticulosis of intestine, part unspecified, without perforation or abscess without bleeding; R13.12 Dysphagia, oropharyngeal phase
CPT/HCPCS: 99213

== ENCOUNTER 2024-08-24 10:57 | Outpatient (AMB) | payer OTHER, SELFPAY ==
--- NOTE | 2024-08-24 11:27 | A.OFFVIS_ITS ---
Intake Visit Reasons: OV- Left knee pain Intake Note: Barbara is a 54 year old female who presents today for a follow up of her left anterior knee pain. Last injection was administered on 05/04/2022. Patient reports that this injection was helpful, but she has had a different injection previously that was more helpful. Allergies apple [APPLES] Allergy (Intermediate, Verified 08/24/24 11:30) TONGUE SWELLS AND TURNS PURPLE shellfish derived Allergy (Intermediate, Verified 08/24/24 11:30) LOBSTER- UNKNOWN coconut [COCONUT] Allergy (Mild, Verified 08/24/24 11:30) NAUSEA AND STOMACH SWELLS HPI HPI OV- Left knee pain: Details: Barbara is a 54 year old female who presents today for a follow up of her left anterior knee pain. Last injection was administered on 05/04/2022. Patient reports that this injection was helpful, but she has had a different injection previously that was more helpful. I in fact I believe I performed a genicular nerve block/ablation on her several years ago. She found that very helpful. She continues to describe anterior knee pain with stairs and when standing from a seated position. [facility] Medical History Lorrie infection of genital region Physical exam Right foot pain Myocardial infarction Chest pain Screen for sexually transmitted diseases Hx of abnormal cervical Pap smear Encounter for gynecological examination with Papanicolaou smear of cervix Costovertebral angle tenderness Anterior knee pain Headache Memory loss Chest tightness Upper respiratory symptom Numbness and tingling in both hands Severe major depression without psychotic features Diabetes mellitus Skin lesion Genital labial ulcer At high risk for breast cancer Lichen sclerosus SOB (shortness of breath) on exertion Mixed hyperlipidemia Urge urinary incontinence Chest pain Constipation Tiredness Leg numbness Migraines GERD (gastroesophageal reflux disease) Essential hypertension Depression with anxiety Iron deficiency anemia Pernicious anemia CAD (coronary artery disease) Surgical History Hx of colonoscopy History of esophagogastroduodenoscopy (EGD) History of carpal tunnel surgery History of carpal tunnel surgery of left wrist Stented coronary artery History of surgery History of skin cancer History of hysteroscopy History of tubal ligation Family History Father Hypertension Mother Diabetes Stroke Sister Bone cancer Son Christine syndrome Daughter No problems noted. Brother No problems noted. Brother No problems noted. Sister Breast cancer Social History Household Members: Children Housing: Apartment Are you a primary critical care cns to a significant other at home: No Do you presently have visiting nurse or other home services: No Alcohol intake: current Alcohol intake frequency: holidays/special occasions only Alcohol type: wine Patient Tobacco Use Status: Former Tobacco user Tobacco use type: Cigarette e-Cigarette/Vaping Use: Never Used Second Hand Smoke Exposure: No service: No Current occupational status: unemployed Current occupation: right hand Cognitive needs: No Hearing needs: No Vision needs: Yes Female Reproductive History Menstrual Age of Menarche: 8 Physical Exam Extrem Other: Full range of motion and normal gait mechanics. Retropatellar tenderness to palpation with no effusion. Assessment & Plan Assessment & Plan (1) Patellofemoral arthritis of left knee: Code(s): M17.12 - Unilateral primary osteoarthritis, left knee Category: Medical Plan: Patellofemoral OA left knee. Her pain is mild to moderate at worst and she has had benefit from genicular nerve ablation in the past. She is on Ozempic with well-controlled diabetes and I think a steroid injection is overkill. I discussed this with her. She agrees. A referral was made to pain management. They have not been doing genicular nerve ablation is much but I hope they reconsider. She can return for steroid injections if she so desires but, apart from that, no intervention currently needed. Coding Level of Care Code Est Pt Level 3 (33739) Diagnoses Patellofemoral arthritis of left knee M17.12
== END 2024-08-24 11:58 | disposition home or self-care (01) ==
PROVIDERS: PCP Internal Medicine; Visit Provider Orthopaedic Surgery
DX: M17.12 Unilateral primary osteoarthritis, left knee (principal)
CPT/HCPCS: 99213

== ENCOUNTER → 2024-08-24 10:57 | Outpatient (BNVA) | payer OTHER, SELFPAY | PROVIDERS: PCP Internal Medicine; Visit Provider Orthopaedic Surgery | DX: M17.12 Unilateral primary osteoarthritis, left knee (principal) | CPT/HCPCS: 99212 ==

== ENCOUNTER 2024-09-01 10:56 | Outpatient (REF) | payer OTHER, SELFPAY ==
--- NOTE | ~2024-09-01 | MM_ITS ---
EXAMINATION: BONE DENSITOMETRY CLINICAL INDICATION: Asymptomatic menopausal state. COMPARISON: This is the patient's baseline examination. TECHNIQUE: Using a [employer] DXA System (software version: 13.1) manufactured by [employer], dual-energy x-ray absorptiometry was performed of the lumbar spine and left hip. The images are of good technical quality. Summary results are attached. FINDINGS: LEFT FEMUR, NECK: BMD 0.967 g/cm2, Z-score 0.4, T-score -0.5, normal. LEFT FEMUR, TOTAL: BMD 1.087 g/cm2, Z-score 1.2, T-score 0.6, normal. AP SPINE L1-L4: BMD 1.086 g/cm2, Z-score -0.1, T-score -0.8, normal. IDENTIFIED RISK FACTORS: Early menopause, secondary osteoporosis, height loss, hysterectomy, bilateral oophorectomy. HISTORY OF FRACTURE: None listed. MEDICATIONS: Calcium supplements or multivitamin, vitamin D. MM/XR DEXA axial skeleton IMPRESSION: 1. DIAGNOSIS: Normal bone density based on the lowest T-score value of -0.8 in the lumbar spine applying World Health Organization criteria. 2. 10-YEAR FRACTURE RISK PREDICTION, FRAX: According to the guidelines, FRAX calculation should only be performed on patients in the osteopenia bone density category. Therefore, FRAX was not performed on this patient. 3. Treatment Recommendations: NOF guidelines recommend consideration for treatment in postmenopausal women and men age 50 and older presenting with the following: -A hip or vertebral (clinical or morphometric) fracture. -T-score less than or equal to -2.5 at the femoral neck or spine after appropriate evaluation to exclude secondary causes. -Low bone mass at the hip or spine and a 10-year fracture probability by FRAX of greater than or equal to 3% for hip fracture or greater than or equal to 20% for major osteoporotic fracture based on the [place] adapted WHO algorithm. 4. Other Recommendations: All treatment decisions require clinical judgment and consideration of individual patient factors, including patient preferences, comorbidities, previous drug use, risk factors not captured in the FRAX model (e.g. frailty, falls, vitamin D deficiency, increased bone turnover, interval significant decline in bone density) and possible under or overestimation of fracture risk by FRAX. FUTURE SCAN RECOMMENDATION: People with diagnosed cases of osteoporosis or at high risk for fracture should have regular bone mineral density tests. For patients eligible for Medicare, routine testing is allowed once every 2 years. The testing frequency can be increased to one year for patients who have rapidly progressing disease, those who are receiving or discontinuing medical therapy to restore bone mass, or have additional risk factors. Electronically signed by: Brooks Ayala MD 09/02/2024 01:55 PM MATTHEW
== END 2024-09-01 10:57 | disposition home or self-care (01) ==
LOC: HO.MAMMO 10:56
PROVIDERS: PCP Internal Medicine; Visit Provider Internal Medicine
DX: Z13.820 Encounter for screening for osteoporosis (principal); Z78.0 Asymptomatic menopausal state
CPT/HCPCS: 77080

== ENCOUNTER 2024-09-03 09:20 | Outpatient (AMB) | payer OTHER, SELFPAY ==
--- NOTE | 2024-09-03 09:23 | MHC.OFFVIS ---
Vital Signs 09/03/24 09:28 Height 5 ft 2 in Weight 159 lb 6 oz BMI 29.1 BP 116/65 Blood Pressure Location Rt brachial Position Sitting Pulse 85 Pulse Source Pulse Oximeter Pulse Oximetry (%) 100 Oxygen Delivery Method Room Air Intake Visit Reasons: Unilateral primary osteoarthritis, left knee Intake Note: Pain today 6/10 Circulation Manager Required: No Accompanied by: Self / Same As Patient Allergies apple [APPLES] Allergy (Intermediate, Verified 09/03/24 09:29) TONGUE SWELLS AND TURNS PURPLE shellfish derived Allergy (Intermediate, Verified 09/03/24 09:29) LOBSTER- UNKNOWN coconut [COCONUT] Allergy (Mild, Verified 09/03/24 09:29) NAUSEA AND STOMACH SWELLS HPI Comments Details: Barbara is a very pleasant 54-year-old female who presents to the office today for evaluation and management of her chronic left knee pain She has been suffering with this pain for approximately 5 years. States it started after she fell and landed on the knee. Pain is worse with walking and with bending the knee. Denies history of surgery to the knee. Pain today is rated as 6/10, constant throughout the day. Worse with weather changes, ambulation and palpation Three years ago she underwent left genicular RFA. This provided 100% pain relief for 1.5 years. Pain then slowly returned and is progressively getting worse. No improvement with PT, home exercise program, knee brace, Tylenol, ibuprofen, injections In terms of muscle damage condition is described as sore, heavy, tugging, pulling, wrenching, tiring, exhausting Pain is negatively impacting patient's enjoyment of life, general activity, sleep, ability to perform activities of daily living, ability to function normally inability care for herself Denies implantable devices, pacemaker or defibrillator Denies current use of anticoagulants [facility] Medical History Lorrie infection of genital region Physical exam Right foot pain Myocardial infarction Chest pain Screen for sexually transmitted diseases Hx of abnormal cervical Pap smear Encounter for gynecological examination with Papanicolaou smear of cervix Costovertebral angle tenderness Anterior knee pain Headache Memory loss Chest tightness Upper respiratory symptom Numbness and tingling in both hands Severe major depression without psychotic features Diabetes mellitus Skin lesion Genital labial ulcer At high risk for breast cancer Lichen sclerosus SOB (shortness of breath) on exertion Mixed hyperlipidemia Urge urinary incontinence Chest pain Constipation Tiredness Leg numbness Migraines GERD (gastroesophageal reflux disease) Essential hypertension Depression with anxiety Iron deficiency anemia Pernicious anemia CAD (coronary artery disease) Surgical History Hx of colonoscopy History of esophagogastroduodenoscopy (EGD) History of carpal tunnel surgery History of carpal tunnel surgery of left wrist Stented coronary artery History of surgery History of skin cancer History of hysteroscopy History of tubal ligation Family History Father Hypertension Mother Diabetes Stroke Sister Bone cancer Son Chirstine syndrome Daughter No problems noted. Brother No problems noted. Brother No problems noted. Sister Breast cancer Social History Household Members: Children Housing: Apartment Are you a primary eye care professional to a significant other at home: No Do you presently have visiting nurse or other home services: No Alcohol intake: current Alcohol intake frequency: holidays/special occasions only Alcohol type: wine Patient Tobacco Use Status: Former Tobacco user Tobacco use type: Cigarette e-Cigarette/Vaping Use: Never Used Second Hand Smoke Exposure: No service: No Current occupational status: unemployed Current occupation: right hand Cognitive needs: No Hearing needs: No Vision needs: Yes Female Reproductive History Menstrual Age of Menarche: 8 Review of Systems Const All systems reviewed & are unremarkable except as noted in HPI and below Physical Exam Vital Signs: Last Vital Signs Pulse 85 09/03/24 09:28 BP 116/65 09/03/24 09:28 Pulse Ox 100 09/03/24 09:28 Oxygen Delivery Method Room Air 09/03/24 09:28 BMI result Body Mass Index 29.1 General: awake, alert, oriented. Answers questions appropriately. Fully engaged in examination. Skin: warm, dry, intact HEENT: Normocephalic. Hearing intact. Cardiac: External chest normal in appearance. Respiratory: No cough, audible wheezing or stridor. Abdomen: without gross distension. MS: No obvious swelling or deformities. Left knee: Decreased range of motion. Tenderness to palpation lateral and medial joint line. Positive crepitus. Neurological: Oriented to person, place, time and situation. Thought process intact. No gait abnormalities appreciated. Psychiatric: Appropriate mood and affect. Good judgment and insight. Assessment & Plan Assessment & Plan (1) Left knee pain: Code(s): M25.562 - Pain in left knee Category: Medical Qualifiers: Chronicity: chronic Qualified Code(s): M25.562 - Pain in left knee; G89.29 - Other chronic pain Plan Barbara is a very pleasant 54-year-old female who presented to the office today for evaluation and management of her chronic left knee pain Patient has exhausted conservative therapy including PT, home exercise program, brace, Tylenol, Motrin, cortisone and gel injections all without improvement of her symptoms. Three years ago underwent left genicular RFA, she had 100% pain relief for 1.5 years. She would like to repeat this procedure. X-ray ordered for evaluation Discussed options for treatment including diagnostic interventional testing, epidural steroid injections, peripheral nerve stimulation with Sprint, RFA and more permanent neuromodulation. Will schedule for fluoroscopy guided left genicular RFA with sedation. All questions and concerns have been answered and patient agrees with the plan. Follow up after procedure, sooner if needed. Orders: Orders XR knee LT 4V Today G89.29 - Other chronic pain, M25.562 - Pain in left knee Coding Level of Care Code New Pt Level 4 (30160) Complex EM visit Add On G2211 Diagnoses Chronic pain of left knee M25.562; G89.29 Chronicity: chronic
[2024-09-03 09:28] VITALS: BP 116/65; PULSE 85; O2SAT 100; BMI 29.1
== END 2024-09-03 09:39 | disposition home or self-care (01) ==
PROVIDERS: PCP Internal Medicine; Visit Provider Registered Nurse Emergency
DX: M25.562 Pain in left knee (principal); G89.29 Other chronic pain
CPT/HCPCS: 99204; G2211

== ENCOUNTER → 2024-09-03 09:20 | Outpatient (BNVA) | payer OTHER, SELFPAY | PROVIDERS: PCP Internal Medicine; Visit Provider Registered Nurse Emergency | DX: M25.562 Pain in left knee (principal); G89.29 Other chronic pain; Z91.81 History of falling | CPT/HCPCS: 99202 ==

== ENCOUNTER 2024-09-29 09:34 | Outpatient (AMB) | payer OTHER, SELFPAY ==
[2024-09-29 09:36] VITALS: BMI 29.1
--- NOTE | 2024-09-29 09:36 | MHC.OFFVIS ---
Vital Signs 09/29/24 09:36 Height 5 ft 2 in Weight 159 lb BMI 29.1 Intake Visit Reasons: Newprob-left wrist/thumb bone Intake Note: Barbara 54 yr old right hand dominant female presents today for a new problem visit for her left wrist. She is S/P Left trigger thumb release DOS: 08/24/21, left hand CTR 12/04/2021 and rt hand CTR 11/26/22. States she has a lump on her left wrist. States she noticed this about 4 month and has increased in size. She has pain with grabbing, lifting, pushing and applying pressure. Also states the numbness and tingling in her left small, ring and middle finger has increased. No new injury. Allergies apple [APPLES] Allergy (Intermediate, Verified 09/29/24 09:39) TONGUE SWELLS AND TURNS PURPLE shellfish derived Allergy (Intermediate, Verified 09/29/24 09:39) LOBSTER- UNKNOWN coconut [COCONUT] Allergy (Mild, Verified 09/29/24 09:39) NAUSEA AND STOMACH SWELLS HPI HPI Newprob-left wrist/thumb bone: Details: The patient is a 54-year-old [id number] diabetic Wallisian-speaking woman whose chief complaint today is of a new left volar wrist ganglion that is been present for about 4 months. It is not painful. She also notes that she still gets numbness and tingling in the left small ring and middle fingers. She says it is occasional and a few times a week. [facility] Medical History Lorrie infection of genital region Physical exam Right foot pain Myocardial infarction Chest pain Screen for sexually transmitted diseases Hx of abnormal cervical Pap smear Encounter for gynecological examination with Papanicolaou smear of cervix Costovertebral angle tenderness Anterior knee pain Headache Memory loss Chest tightness Upper respiratory symptom Numbness and tingling in both hands Severe major depression without psychotic features Diabetes mellitus Skin lesion Genital labial ulcer At high risk for breast cancer Lichen sclerosus SOB (shortness of breath) on exertion Mixed hyperlipidemia Urge urinary incontinence Chest pain Constipation Tiredness Leg numbness Migraines GERD (gastroesophageal reflux disease) Essential hypertension Depression with anxiety Iron deficiency anemia Pernicious anemia CAD (coronary artery disease) Surgical History Hx of colonoscopy History of esophagogastroduodenoscopy (EGD) History of carpal tunnel surgery History of carpal tunnel surgery of left wrist Stented coronary artery History of surgery History of skin cancer History of hysteroscopy History of tubal ligation Family History Father Hypertension Mother Diabetes Stroke Sister Bone cancer Son Christine syndrome Daughter No problems noted. Brother No problems noted. Brother No problems noted. Sister Breast cancer Social History Household Members: Children Housing: Apartment Are you a primary career technical education teacher to a significant other at home: No Do you presently have visiting nurse or other home services: No Alcohol intake: current Alcohol intake frequency: holidays/special occasions only Alcohol type: wine Patient Tobacco Use Status: Former Tobacco user Tobacco use type: Cigarette e-Cigarette/Vaping Use: Never Used Second Hand Smoke Exposure: No service: No Current occupational status: unemployed Current occupation: right hand Cognitive needs: No Hearing needs: No Vision needs: Yes Female Reproductive History Menstrual Age of Menarche: 8 Physical Exam Vital Signs: BMI result Body Mass Index 29.1 Extrem Other: The patient was alert oriented and in no acute distress. She has a left volar wrist ganglion measuring about 6-8 mm in diameter in the volar radial aspect of her left wrist. It is fluid filled but soft and compressible. It is just radial to the FCR tendon and about 1-1/2-2 cm proximal to the distal wrist crease. Normal sensation to the tips of all digits today. She can make a fist and extend all of her digits. No locking or catching. Left upper extremity Nerve conduction study with Dr. Warren, 12/18/2023: 1. This is a normal study 2. There is no electrodiagnostic evidence for median neuropathy, ulnar neuropathy, brachial plexopathy or cervical radiculopathy Assessment & Plan Assessment & Plan (1) Ganglion cyst of volar aspect of left wrist: Code(s): M67.432 - Ganglion, left wrist Category: Medical (2) Numbness and tingling in left hand: Code(s): R20.0 - Anesthesia of skin; R20.2 - Paresthesia of skin Category: Medical Plan Assessment and plan: 1. Left volar wrist ganglion This is a new complaint and present for about 4 months. 2. Left hand numbness In the middle ring and small fingers Intermittent and occasional, a few times a week Nerve conduction study negative, 12/18/2023 I educated the patient about these conditions We discussed operative and non operative treatment options including possible operative excision of the ganglion. As she is only has a ganglion for about 4 months, and that is not very bothersome we are going to proceed with non operative management at this time. She understands that if the numbness and tingling increases to just about daily, that we might reconsider possible operative intervention in the form of a cubital tunnel release. However at this time I am recommending non operative management for her left hand numbness. 3. Right Carpal tunnel syndrome, S/P release DOS: 11/26/22 With good resolution of her symptoms 4. Left Carpal Tunnel syndrome, S/P release DOS 12/14/21 With good resolution of her symptoms 5. Left trigger thumb, S/P release DOS: 08/24/21 Resolved 6. Right trigger thumb status post release Date of surgery 12/12/2023 Resolved Coding Level of Care Code Est Pt Level 4 (95500) Diagnoses Ganglion cyst of volar aspect of left wrist M67.432 Numbness and tingling in left hand R20.0; R20.2
== END 2024-09-29 10:22 | disposition home or self-care (01) ==
PROVIDERS: PCP Internal Medicine; Visit Provider Orthopaedic Surgery
DX: M67.432 Ganglion, left wrist (principal); R20.0 Anesthesia of skin; R20.2 Paresthesia of skin
CPT/HCPCS: 99214

== ENCOUNTER → 2024-09-29 09:34 | Outpatient (BNVA) | payer OTHER, SELFPAY | PROVIDERS: PCP Internal Medicine; Visit Provider Orthopaedic Surgery | DX: M67.432 Ganglion, left wrist (principal); R20.0 Anesthesia of skin; R20.2 Paresthesia of skin | CPT/HCPCS: 99212 ==

== ENCOUNTER 2024-10-30 10:35 | Outpatient (REF) | payer OTHER, SELFPAY ==
[2024-10-30 11:02] LABS: MANUAL DIFF FLAG NO
[2024-10-30 11:28] LABS: Basophils Percent Auto 0.7 % (0-2); Eosinophils Absolute Auto 0.3 X10*3/uL (0.0-0.4); Eosinophils Percent Auto 5.2 % (0-4); Hemoglobin 13.1 g/dl (12.0-16.0); Imm Gran Abs Auto 0.01 X10*3/uL (0.00-0.03); Imm Gran Pct Auto 0.2 % (0.0-0.4); Lymphocytes Percent Auto 36.9 % (20-40); Mean Corpuscular Hemoglobin 27.2 pg (27.0-33.0); Mean Corpuscular Volume 85.1 fL (80.0-98.0); Mean Platelet Volume 9.3 fL (9.4-12.3); Monocytes Absolute Auto 0.4 X10*3/uL (0.1-1.2); Monocytes Percent Auto 7.2 % (2-11); Neutrophils Absolute Auto 2.7 x10*3/uL (2.0-8.3); Neutrophils Percent Auto 49.8 % (45-73); Platelet Count 261 X10*3/uL (160-400); Red Blood Count 4.82 X10*6/uL (4.20-5.50); Red Cell Distribution Width 14.1 % (11.0-16.0); White Blood Count 5.4 X10*3/uL (4.8-10.8)
[2024-10-30 11:58] LABS: Cholesterol 144 mg/dL (<200); HDL Cholesterol 46 mg/dL (>40); LDL Cholesterol Calculated 52 mg/dL (<100); Triglycerides 234 mg/dL (<150)
[2024-10-30 12:06] LABS: Alanine Aminotransferase 46 U/L (0-31); Albumin Level 4.1 g/dL (3.5-5.0); Alkaline Phosphatase 121 U/L (39-117); Anion Gap 10 (12-20); Aspartate Amino Transferase 37 U/L (5-31); Bilirubin Direct 0.1 mg/dL (0.0-0.5); Bilirubin Total 0.4 mg/dL (0.0-1.0); Blood Urea Nitrogen 13 mg/dL (9-16); Calcium 9.2 mg/dL (8.4-10.2); Carbon Dioxide 25 mmol/L (22-29); Chloride 109 mmol/L (96-108); Cholesterol 142 mg/dL (<200); Estimated Glomerular Filt Rate > 60; Glucose Fasting 96 mg/dL (60-99); Glucose Random 96 mg/dL (60-115); HDL Cholesterol 46 mg/dL (>40); Iron 57 mcg/dL (30-160); LDL Cholesterol Calculated 50 mg/dL (<100); Lipase 29 U/L (8-78); Percent Iron Saturation 20 % (15-50); Potassium 4.1 mmol/L (3.3-5.1); Sodium 140 mmol/L (135-145); Total Iron Binding Capacity 280 mcg/dL (228-428); Total Protein 8.1 g/dL (6.5-8.0); Triglycerides 233 mg/dL (<150); Unsaturated Iron Binding 223 ug/dL
[2024-10-30 12:12] LABS: Vitamin D 25-OH Total 28.9 ng/mL (>30)
[2024-10-30 12:26] LABS: Folate 13.7 ng/mL (> or = 4.0); Vitamin B12 826 pg/mL (200-900)
[2024-10-30 12:35] LABS: Creatinine Urine 202.48 mg/dL; Microalbum/Creatinine Ratio Ur 9.3 ug/mg cr (<30)
== END 2024-10-30 10:36 | disposition home or self-care (01) ==
LOC: HO.LAB 10:35
PROVIDERS: Nurse Practitioner Family; Absent Provider Internal Medicine Cardiovascular Disease; PCP Internal Medicine; Visit Provider Internal Medicine
DX: Z00.00 Encounter for general adult medical examination without abnormal findings (principal); R74.01 Elevation of levels of liver transaminase levels; R10.9 Unspecified abdominal pain; E78.5 Hyperlipidemia, unspecified; E11.65 Type 2 diabetes mellitus with hyperglycemia; D64.9 Anemia, unspecified; E53.8 Deficiency of other specified B group vitamins; E55.9 Vitamin D deficiency, unspecified; I25.10 Atherosclerotic heart disease of native coronary artery without angina pectoris; I25.118 Atherosclerotic heart disease of native coronary artery with other forms of angina pectoris
CPT/HCPCS: 36415; 80053; 80061; 80076; 82043; 82248; 82306; 82570; 82607; 82746; 83540; 83690; 85025

== ENCOUNTER 2024-11-05 09:32 | Outpatient (AMB) | payer OTHER, SELFPAY ==
[2024-11-05 09:43] VITALS: BP 100/70; PULSE 81; BMI 29.4
--- NOTE | 2024-11-05 09:43 | MHC.OFFVIS ---
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 Accompanied by: Self / Same As Patient Allergies apple [APPLES] Allergy (Intermediate, Verified 09/29/24 09:39) TONGUE SWELLS AND TURNS PURPLE shellfish derived Allergy (Intermediate, Verified 09/29/24 09:39) LOBSTER- UNKNOWN coconut [COCONUT] Allergy (Mild, Verified 09/29/24 09:39) NAUSEA AND STOMACH SWELLS Medication List - Last Reconciled 11/05/24 by Deshawn Aaron MD albuterol sulfate 0.63 mg (3 mL) inhalation QID PRN albuterol sulfate 90 mcg/actuation 1 inh inhalation QID PRN amitriptyline 50 mg PO BEDTIME amlodipine 5 mg PO DAILY ascorbic acid (vitamin C) (Vitamin C) 500 mg PO BID aspirin 81 mg PO DAILY 90 days atorvastatin 80 mg PO DAILY blood pressure monitor As directed blood sugar diagnostic (FreeStyle Test strips) Use 1 test strips once a day blood-glucose meter (FreeStyle Lite Meter kit) As directed bupropion HCl XL 150 mg PO QAM buspirone 5 mg PO DAILY disposable gloves (Biobrane Gloves Medium) Use prn esomeprazole magnesium 40 mg PO DAILY ezetimibe 10 mg PO DAILY famotidine 40 mg PO BEDTIME ferrous sulfate (Iron (ferrous sulfate)) 325 mg PO BID fluoxetine 40 mg PO DAILY fluoxetine 20 mg PO DAILY [handheld shower As directed] hearing aid accessory As directed [incontinence pads As directed] lancets (FreeStyle Lancets) Use 1 lancet once a day linaclotide (Linzess) 145 mcg PO DAILY lorazepam 0.5 mg PO BID mecobalamin (vitamin B12) 10,000 mcg IM DAILY melatonin-lemon balm leaf extr 10-1 mg 10 tabs PO DAILY metoprolol tartrate 50 mg PO BID nebulizers (Aeroneb Go Nebulizer) As directed nitroglycerin 0.4 mg sublingual Q5M PRN 30 days semaglutide (Ozempic) 1 mg (0.75 mL) subcut QWEEK 4 weeks Shower Chair As directed topiramate 50 mg PO BID [wipes As directed] HPI Comments Details: Barbara comes for follow-up. She has overall been doing well. She denies any exertional symptoms of shortness of breath or symptoms of chest pain. However she notices intermittent episodes of shortness of breath mostly at rest where she was to take deep breath in. She denies any orthopnea, PND, leg edema. She has has been taking all her medications. Denies any smoking. Her most recent lipid panel suggest elevated triglycerides. She has been taking all her medications. She was also been losing weight on Ozempic. She was also eating well and says she avoids fatty foods. She denies any symptoms of palpitations, lightheadedness, syncope. She had a myocardial perfusion imaging last year which was within normal limits [facility] Medical History Lorrie infection of genital region Physical exam Right foot pain Myocardial infarction Chest pain Screen for sexually transmitted diseases Hx of abnormal cervical Pap smear Encounter for gynecological examination with Papanicolaou smear of cervix Costovertebral angle tenderness Anterior knee pain Headache Memory loss Chest tightness Upper respiratory symptom Numbness and tingling in both hands Severe major depression without psychotic features Diabetes mellitus Skin lesion Genital labial ulcer At high risk for breast cancer Lichen sclerosus SOB (shortness of breath) on exertion Mixed hyperlipidemia Urge urinary incontinence Chest pain Constipation Tiredness Leg numbness Migraines GERD (gastroesophageal reflux disease) Essential hypertension Depression with anxiety Iron deficiency anemia Pernicious anemia CAD (coronary artery disease) Surgical History Hx of colonoscopy History of esophagogastroduodenoscopy (EGD) History of carpal tunnel surgery History of carpal tunnel surgery of left wrist Stented coronary artery History of surgery History of skin cancer History of hysteroscopy History of tubal ligation Family History Father Hypertension Mother Diabetes Stroke Sister Bone cancer Son Christine syndrome Daughter No problems noted. Brother No problems noted. Brother No problems noted. Sister Breast cancer Social History Household Members: Children Housing: Apartment Are you a primary career development coordinator/teacher to a significant other at home: No Do you presently have visiting nurse or other home services: No Alcohol intake: current Alcohol intake frequency: holidays/special occasions only Alcohol type: wine Patient Tobacco Use Status: Former Tobacco user Tobacco use type: Cigarette e-Cigarette/Vaping Use: Never Used Second Hand Smoke Exposure: No service: No Current occupational status: unemployed Current occupation: right hand Cognitive needs: No Hearing needs: No Vision needs: Yes Female Reproductive History Menstrual Age of Menarche: 8 Review of Systems Const Denies chills, Denies fatigue, Denies fever(s), Denies weight gain and Denies weight loss ENT Denies dizziness Card Reports chest pain, Denies leg edema, Denies lightheadedness, Denies palpitations, Reports dyspnea on exertion, Denies orthopnea and Denies other Resp Denies cough and Reports dyspnea on exertion GI Denies hematochezia and Denies change in stool character Musc Denies abnormal gait, Denies muscle weakness, Denies numbness, Denies radiating pain into limb and Denies tingling Neuro Denies abnormal gait, Denies dizziness, Denies numbness and Denies tingling Endo Denies fatigue and Denies palpitations Physical Exam Vital Signs: Last Vital Signs Pulse 81 11/05/24 09:43 BP 100/70 11/05/24 09:43 BMI result Body Mass Index 29.4 Const General: cooperative, comfortable, no acute distress, alert and awake Nutritional Appearance: overweight Orientation/consciousness: patient oriented x3 Limitations: no limitations Neck Neck: Yes trachea midline, Yes supple and Yes no JVD Resp Effort & Inspection: normal respiratory effort Auscultation: clear to auscultation bilaterally Cardio Jugular venous distension: no JVD Palpation: normal PMI Rate: regular rate Rhythm: regular rhythm Heart sounds: S1 normal heart sound present and S2 normal heart sound present GI Inspection: Yes obesity Auscultation: normal bowel sounds Skin General skin exam: no rashes or lesions noted Neuro General: patient oriented x3 and no focal motor deficits Extrem General: Yes no clubbing, cyanosis or edema Psych Appearance: grossly normal Office Procedures EKG Details: EKG shows normal sinus rhythm with low-voltage QRS with nonspecific ST T wave changes [id number], Complete Assessment & Plan Assessment & Plan (1) SOB (shortness of breath): Code(s): R06.02 - Shortness of breath Category: Medical Plan: Shortness of breath in this middle-aged woman who currently does not have any significant obesity. Does not have any exertional symptoms of myocardial ischemia is less likely. Will obtain echocardiogram to evaluate LV structure and function and evaluate for valvular abnormality which is less likely. Also possibility of underlying lung disease given her prior history of smoking and exposure to passive smoking as a child. Will obtain a PFT for the same. (2) CAD (coronary artery disease): Code(s): I25.10 - Atherosclerotic heart disease of [place] coronary artery without angina pectoris Category: Medical Qualifiers: Coronary Disease-Associated Artery/Lesion type: [place] artery [place] vs. transplanted heart: [place] heart Associated angina: with stable angina Qualified Code(s): I25.118 - Atherosclerotic heart disease of [place] coronary artery with other forms of angina pectoris Plan: CAD with premature atherosclerosis with prior circumflex stenting. Myocardial perfusion imaging last year was within normal limits. Continue lifelong aspirin therapy. Continue aggressive risk factor modification including aggressive blood pressure control, see below. Aggressive lipid modification she was significant mixed hyperlipidemia currently on triple therapy. Will add fenofibrate to her regimen and target goal triglycerides less than 180 mg/dL. Follow-up lipid panel in 3 months time. Encouraged to continue to participate in aggressive lifestyle modification aggressive diabetes management. Goal hemoglobin A1c less than 7%. She was doing well from exertional perspective. Advised to call me with any new exertional symptoms. (3) Essential hypertension: Code(s): I10 - Essential (primary) hypertension Category: Medical Plan: Hypertension which is currently well optimized advised to monitor blood pressure at home maintain a log. Goal blood pressure less than 130/84. Low-salt diet was discussed. Stress mitigation strategies were discussed. Continue maintain activity level as tolerated. Will follow up in the clinic in 1 year's time, sooner p.r.n.. Thank you for allowing me to partake in his care Orders: Orders Lipid Panel 3 Months I25.10 - Atherosclerotic heart disease of [place] coronary artery without angina pectoris, I25.118 - Atherosclerotic heart disease of [place] coronary artery with other forms of angina pectoris PFT pulmonary function test Today R06.02 - Shortness of breath CA echo transthoracic complete Today R06.02 - Shortness of breath Medications: New fenofibrate 150 mg PO DAILY 30 caps 5RF Coding Level of Care Code Est Pt Level 4 (50046) Complex EM visit Add On G2211 Diagnoses SOB (shortness of breath) R06.02 Coronary artery disease of [place] artery of [place] heart with stable angina pectoris I25.118 Coronary Disease-Associated Artery/Lesion type: [place] artery [place] vs. transplanted heart: [place] heart Associated angina: with stable angina Essential hypertension I10 CPT Codes EKG - CPT: 46998-[id number], Complete ([id number])
== END 2024-11-05 10:13 | disposition home or self-care (01) ==
PROVIDERS: PCP Internal Medicine; Visit Provider Internal Medicine Cardiovascular Disease
DX: R06.02 Shortness of breath (principal); I25.118 Atherosclerotic heart disease of native coronary artery with other forms of angina pectoris; I10 Essential (primary) hypertension
CPT/HCPCS: 93010; 99214; G2211

== ENCOUNTER → 2024-11-05 09:32 | Outpatient (BNVA) | payer OTHER, SELFPAY | PROVIDERS: PCP Internal Medicine; Visit Provider Internal Medicine Cardiovascular Disease | DX: I25.118 Atherosclerotic heart disease of native coronary artery with other forms of angina pectoris (principal); I10 Essential (primary) hypertension; R06.02 Shortness of breath; R94.31 Abnormal electrocardiogram [ECG] [EKG] | CPT/HCPCS: 93005; 99212 ==

== ENCOUNTER 2024-11-16 11:06 | Outpatient (AMB) | payer OTHER, SELFPAY ==
--- NOTE | 2024-11-16 11:10 | A.OFFVIS_ITS ---
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 Present ([place]) Accompanied by: Self / Same As Patient Allergies apple [APPLES] Allergy (Intermediate, Verified 11/16/24 11:23) TONGUE SWELLS AND TURNS PURPLE shellfish derived Allergy (Intermediate, Verified 11/16/24 11:23) LOBSTER- UNKNOWN coconut [COCONUT] Allergy (Mild, Verified 11/16/24 11:23) NAUSEA AND STOMACH SWELLS Medication List - Last Reconciled 11/16/24 by Beena Giang CNM albuterol sulfate 0.63 mg (3 mL) inhalation QID PRN albuterol sulfate 90 mcg/actuation 1 inh inhalation QID PRN amitriptyline 50 mg PO BEDTIME amlodipine 5 mg PO DAILY ascorbic acid (vitamin C) (Vitamin C) 500 mg PO BID aspirin 81 mg PO DAILY 90 days atorvastatin 80 mg PO DAILY blood pressure monitor As directed blood sugar diagnostic (FreeStyle Test strips) Use 1 test strips once a day blood-glucose meter (PathSourceStyle Lite Meter kit) As directed bupropion HCl XL 150 mg PO QAM buspirone 5 mg PO DAILY disposable gloves (Biobrane Gloves Medium) Use prn esomeprazole magnesium 40 mg PO DAILY ezetimibe 10 mg PO DAILY famotidine 40 mg PO BEDTIME fenofibrate 150 mg PO DAILY ferrous sulfate (Iron (ferrous sulfate)) 325 mg PO BID fluoxetine 40 mg PO DAILY fluoxetine 20 mg PO DAILY [handheld shower As directed] hearing aid accessory As directed [incontinence pads As directed] lancets (FreeStyle Lancets) Use 1 lancet once a day linaclotide (Linzess) 145 mcg PO DAILY lorazepam 0.5 mg PO BID mecobalamin (vitamin B12) 10,000 mcg IM DAILY melatonin-lemon balm leaf extr 10-1 mg 10 tabs PO DAILY metoprolol tartrate 50 mg PO BID nebulizers (Aeroneb Go Nebulizer) As directed nitroglycerin 0.4 mg sublingual Q5M PRN 30 days semaglutide (Ozempic) 1 mg (0.75 mL) subcut QWEEK 4 weeks Shower Chair As directed topiramate 50 mg PO BID [wipes As directed] Is last menstrual period known: No Post menopausal: Yes Patient : No HPI HPI 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 She has been seeing all of her other doctors she had endometrial ablation some years ago so she does not get periods. She has a boyfriend who lives in [place] taking care of his parents but they get together every 6 months she has absolutely no concerns about STDs and trust him and has no concerns. She often has vaginal itching and recurrence of yeast infection but she is not having any right now. She says her health is very good she lost about 30 lb she was put on Ozempic for her diabetes and it also helped her to lose weight and she feels much better. She gets regular checkups for other issues including her heart she has had 3 different cardiac events requiring stents. She just saw Dr. Aaron a couple of weeks ago and will be getting a echocardiogram and some other test coming up to check on things. She says her blood sugars lately have been really good around 100. Her last Pap smear was negative she is not due for another Pap today. [facility] Medical History (Updated 11/16/24 @ 11:56 by Beena Giang CNM) At high risk for breast cancer Lorrie infection of genital region Physical exam Right foot pain Myocardial infarction Chest pain Screen for sexually transmitted diseases Hx of abnormal cervical Pap smear Encounter for gynecological examination with Papanicolaou smear of cervix Costovertebral angle tenderness Anterior knee pain Headache Memory loss Chest tightness Upper respiratory symptom Numbness and tingling in both hands Severe major depression without psychotic features Diabetes mellitus Skin lesion Genital labial ulcer Lichen sclerosus SOB (shortness of breath) on exertion Mixed hyperlipidemia Urge urinary incontinence Chest pain Constipation Tiredness Leg numbness Migraines GERD (gastroesophageal reflux disease) Essential hypertension Depression with anxiety Iron deficiency anemia Pernicious anemia CAD (coronary artery disease) Surgical History Hx of colonoscopy History of esophagogastroduodenoscopy (EGD) History of carpal tunnel surgery History of carpal tunnel surgery of left wrist Stented coronary artery History of surgery History of skin cancer History of hysteroscopy History of tubal ligation Family History Father Hypertension Mother Diabetes Stroke Sister Bone cancer Son Christine syndrome Daughter No problems noted. Brother No problems noted. Brother No problems noted. Sister Breast cancer Social History Household Members: Children Housing: Apartment Are you a primary vehicle care specialist to a significant other at home: No Do you presently have visiting nurse or other home services: No Alcohol intake: current Alcohol intake frequency: holidays/special occasions only Alcohol type: wine Patient Tobacco Use Status: Former Tobacco user Tobacco use type: Cigarette e-Cigarette/Vaping Use: Never Used Second Hand Smoke Exposure: No service: No Current occupational status: unemployed Current occupation: right hand Cognitive needs: No Hearing needs: No Vision needs: Yes Female Reproductive History Menstrual Age of Menarche: 8 Total pregnancies: 5 Full term: 4 Ab spontaneous: 1 Date of last pap smear: 09/26/22 (negative hpv, negative pap smear) Date of Mammogram: 04/23/24 (bi rad 1) Date of last Bone Density Screenin09/01/24 Physical Exam Vital Signs: Last Vital Signs BP 104/72 11/16/24 11:17 BMI result Body Mass Index 29.4 Const General: healthy appearing, comfortable, no acute distress, well developed and alert Nutritional Appearance: average body habitus Orientation/consciousness: patient oriented x3 Limitations: no limitations HEENT Head: Yes normocephalic Neck Neck: Yes normal visual inspection Chest Chest palpation & inspection: normal inspection of the chest Breast/axilla inspection: normal inspection of the breasts and normal inspection of the axillae Breast/axilla palpation: normal palpation of the breasts and normal palpation of the axillae Resp Effort & Inspection: normal respiratory effort GI Inspection: Yes normal to inspection, No Abdominal wall edema and No distended Palpation (GI): Soft to palpation and nontender Other: Normal external exam vagina is moist pink healthy appearing mucosa cervix multiparous pink smooth mobile nontender with normal-appearing scant mucus no evidence of vaginal atrophy at all. Uterus midposition mobile nontender not enlarged fair tone with Kegel. Adnexa not enlarged. General: Yes bladder normal to palpation External Female Exam: normal external appearance and normal appearance of the urethra Speculum Exam - Vagina: normal appearance of the vagina, normal palpation and normal vaginal discharge Speculum Exam - Cervix: normal appearance of the cervix, normal palpation and nontender Bimanual exam- vagina & uterus: normal bimanual exam, normal palpation, uterine size normal, bladder normal to palpation, consistency normal, normal palpation, uterine mobility normal, uterine shape normal, No Cervical tenderness present, non-tender and no cervical motion tenderness Bimanual Exam- Adnexa, other: normal adnexae, no masses, normal and No adnexal tenderness Neuro General: patient oriented x3 Results Reviewed Results Reviewed: Name: Mandy HaganBarbara Age/Sex: 52/F Attending: Beena Giang CNM : 1970 Submitted by: Beena Giang CNM Copies to: Julieth Mojica MD MR #: [id number] Status: DEP REF Collected: 09/26/22 Location: [facility] Received: 09/26/22 Interpretation Satisfactory for evaluation. Negative for intraepithelial lesion or malignancy. HPV mRNA E6/E7: NOT DETECTED This assay detects E6/E7 viral messenger RNA (mRNA) from 14 high-risk HPV types (16, 18, 31, 33, 35, 39, 45, 51, 52, 56, 58, 59, 66, 68) HPV testing performed by [email or web address], [place], [place]. See reference laboratory portion of the EMR for entire report. Clinical Information LMP: No menses Previous PAP test: 03/01/20, WNL Material Received ThinPrep-Cervical Copies To Beena Giang CNM [address] [place] [address] [address]. [address] [place] [address] Julieth Mojica MD [address] [place] [address] [address] [place] [address] Electronically Signed By: Barby Guthrie 10/06/22 1526 The Pap Test is a screening procedure with the inherent possibility of both false negative and false positive results. Results should be interpreted in the context of historic and current clinical findings. Reliability of the Pap Test is enhanced by performing the test on a regular repetitive basis. Patient: Barbara Murillo Age/Sex: 52/F MR#: [id number] Page 1 of 1 Assessment & Plan Assessment & Plan (1) Diabetes mellitus: Code(s): E11.9 - Type 2 diabetes mellitus without complications Category: Medical Qualifiers: Diabetes mellitus type: type 2 Diabetes mellitus prison insulin use: without prison use Diabetes mellitus complication status: with hyperglycemia Qualified Code(s): E11.65 - Type 2 diabetes mellitus with hyperglycemia (2) CAD (coronary artery disease): Code(s): I25.10 - Atherosclerotic heart disease of [place] coronary artery without angina pectoris Category: Medical Qualifiers: Coronary Disease-Associated Artery/Lesion type: [place] artery [place] vs. transplanted heart: [place] heart Associated angina: with stable angina Qualified Code(s): I25.118 - Atherosclerotic heart disease of [place] coronary artery with other forms of angina pectoris (3) Class 1 obesity without serious comorbidity with body mass index (BMI) of 34.0 to 34.9 in adult: Code(s): E66.9 - Obesity, unspecified; Z68.34 - Body mass index [BMI] 34.0-34.9, adult Category: Medical (4) S/P cardiac cath: Comment: 04/06/21 LM normal, LAD mild irreg, stent mid patent, LCx mild irreg, stent mid patent, RCA mild irreg, Stent R PDA prox patent Code(s): Z98.890 - Other specified postprocedural states Category: Surgical (5) Lorrie infection of genital region: Comment: gets occasionally, rxing refill of antifungal for prn use Code(s): B37.49 - Other urogenital candidiasis Category: Medical (6) Well woman exam with routine gynecological exam: Code(s): Z01.419 - Encounter for gynecological examination (general) (routine) without abnormal findings Category: Medical (7) At high risk for breast cancer: Code(s): Z91.89 - Other specified personal risk factors, not elsewhere classified Category: Medical (8) Perimenopause: Code(s): N95.1 - Menopausal and female climacteric states Category: Medical Plan -----Discussed in this visit the following: healthy balanced diet, regular and consistent exercise, getting recommended health screens, doing the best she can for her particular health concerns, kegel exercises, pap smear screening and followup recommendations, mammography screening and SBE, normal changes in cycles in her life stage--- . Says she is up-to-date on her mammogram having just had 1 a few months ago. She is seeing all her other doctors for other issues she feels like she is doing well She is very happy about how she is feeling with the Ozempic and her blood sugars and the weight loss as well. She is feeling good about her health right now she has no concerns about STDs and declines testing She does get occasional recurrence of yeast infections with vaginal itching. The Monistat works well for her. I am sending more refills to her pharmacy. Discussed that there is also a pill that can be used for yeast infections but it may interact with some cardiac conditions and medications. Discussed that if she had a yeast infection not being relieved by the cream she could discuss this with her primary care provider who could also order if it were appropriate. I sent refills for the Monistat that she can use p.r.n.. Reviewed that she is in the hannah menopausal range and while she has not been getting periods that maybe due to the endometrial ablation. However she is not experiencing the vaginal dryness and vaginal atrophy that is often seen in the postmenopausal years so she probably has some level of her own hormones working for her at this stage. 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 transplanted heart: [place] heart Associated angina: with stable angina Class 1 obesity without serious comorbidity with body mass index (BMI) of 34.0 to 34.9 in adult E66.9; Z68.34 S/P cardiac cath Z98.890 Lorrie infection of genital region B37.49 Well woman exam with routine gynecological exam Z01.419 At high risk for breast cancer Z91.89 Perimenopause N95.1
[2024-11-16 11:17] VITALS: BP 104/72; BMI 29.4
== END 2024-11-16 13:33 | disposition home or self-care (01) ==
LOC: HO.HWS 11:06
PROVIDERS: PCP Internal Medicine; Visit Provider Advanced Practice Midwife
DX: Z01.419 Encounter for gynecological examination (general) (routine) without abnormal findings (principal); N95.1 Menopausal and female climacteric states; E66.9 Obesity, unspecified; Z68.34 Body mass index [BMI] 34.0-34.9, adult
CPT/HCPCS: 99396; 99459

== ENCOUNTER → 2024-11-16 11:06 | Outpatient (BNVA) | payer OTHER, SELFPAY | PROVIDERS: PCP Internal Medicine; Visit Provider Advanced Practice Midwife | DX: Z01.419 Encounter for gynecological examination (general) (routine) without abnormal findings (principal); N95.1 Menopausal and female climacteric states; B37.49 Other urogenital candidiasis; E11.65 Type 2 diabetes mellitus with hyperglycemia; I25.118 Atherosclerotic heart disease of native coronary artery with other forms of angina pectoris; I10 Essential (primary) hypertension; E66.9 Obesity, unspecified; Z68.29 Body mass index [BMI] 29.0-29.9, adult; Z87.891 Personal history of nicotine dependence; Z91.89 Other specified personal risk factors, not elsewhere classified; Z98.890 Other specified postprocedural states; Z95.1 Presence of aortocoronary bypass graft | CPT/HCPCS: 99396; 99459 ==

== ENCOUNTER 2024-11-26 10:43 | Outpatient (AMB) | payer OTHER, SELFPAY ==
--- NOTE | 2024-11-26 10:52 | MHC.PC.OV ---
Vital Signs 11/26/24 10:55 Height 5 ft 2 in Weight 161 lb BMI 29.4 BP 110/76 Blood Pressure Location Lt brachial Position Sitting Intake Visit Reasons: dm Intake Note: Patient here for a follow up DM Disease Case Manager Rn Required: Yes Disease Case Manager Rn Language: Retention Manager Name: Julieth De León MD Information Interpreted: non-clinical & clinical Accompanied by: Self / Same As Patient Allergies apple [APPLES] Allergy (Intermediate, Verified 11/26/24 11:06) TONGUE SWELLS AND TURNS PURPLE shellfish derived Allergy (Intermediate, Verified 11/26/24 11:06) LOBSTER- UNKNOWN coconut [COCONUT] Allergy (Mild, Verified 11/26/24 11:06) NAUSEA AND STOMACH SWELLS Medication List - Last Reconciled 11/26/24 by Julieth De León MD albuterol sulfate 0.63 mg (3 mL) inhalation QID PRN albuterol sulfate 90 mcg/actuation 1 inh inhalation QID PRN amitriptyline 50 mg PO BEDTIME amlodipine 5 mg PO DAILY ascorbic acid (vitamin C) (Vitamin C) 500 mg PO BID aspirin 81 mg PO DAILY 90 days atorvastatin 80 mg PO DAILY blood pressure monitor As directed blood sugar diagnostic (FreeStyle Test strips) Use 1 test strips once a day blood-glucose meter (SynAgileStyle Lite Meter kit) As directed bupropion HCl XL 150 mg PO QAM buspirone 5 mg PO DAILY disposable gloves (Biobrane Gloves Medium) Use prn esomeprazole magnesium 40 mg PO DAILY ezetimibe 10 mg PO DAILY famotidine 40 mg PO BEDTIME fenofibrate 150 mg PO DAILY ferrous sulfate (Iron (ferrous sulfate)) 325 mg PO BID fluoxetine 40 mg PO DAILY fluoxetine 20 mg PO DAILY [handheld shower As directed] hearing aid accessory As directed [incontinence pads As directed] lancets (FreeStyle Lancets) Use 1 lancet once a day linaclotide (Linzess) 145 mcg PO DAILY lorazepam 0.5 mg PO BID mecobalamin (vitamin B12) 10,000 mcg IM DAILY melatonin-lemon balm leaf extr 10-1 mg 10 tabs PO DAILY metoprolol tartrate 50 mg PO BID miconazole nitrate 2% (Miconazole-7) 1 appful vaginal BEDTIME 7 days nebulizers (Aeroneb Go Nebulizer) As directed nitroglycerin 0.4 mg sublingual Q5M PRN 30 days semaglutide (Ozempic) 1 mg (0.75 mL) subcut QWEEK 4 weeks Shower Chair As directed topiramate 50 mg PO BID [wipes As directed] Tobacco use date assessed: 11/26/24 Dental Screening Dental Screen Date: 11/26/24 Did you have a dental visit in the last 12 months?: Yes Did you have a dental problem in the last 6 months where you did not have access to dental care?: No Was dental information given to patient?: Patient has dentist HPI HPI Comments History of Present Illness Details The patient is a 54-year-old female presenting for follow-up on diabetes management and hyperlipidemia. Recently, her diabetes has been well managed, with an A1c level of 5.5%. Hypertension is adequately controlled with consistent medication adherence reflected in stable blood pressure readings. However, dyslipidemia is persistently elevated, with recent triglyceride levels at 254 mg/dL while maintaining LDL at 52 mg/dL, despite active management with fenofibrate. Depression is presently controlled with ongoing psychiatric treatment, and a PHQ-9 score indicates moderate levels of depression. Allergies to specific foods create dietary restrictions. The patient has minimal alcohol consumption and has quit smoking. [facility] Medical History At high risk for breast cancer Lorrie infection of genital region Physical exam Right foot pain Myocardial infarction Chest pain Screen for sexually transmitted diseases Hx of abnormal cervical Pap smear Encounter for gynecological examination with Papanicolaou smear of cervix Costovertebral angle tenderness Anterior knee pain Headache Memory loss Chest tightness Upper respiratory symptom Numbness and tingling in both hands Severe major depression without psychotic features Diabetes mellitus Skin lesion Genital labial ulcer Lichen sclerosus SOB (shortness of breath) on exertion Mixed hyperlipidemia Urge urinary incontinence Chest pain Constipation Tiredness Leg numbness Migraines GERD (gastroesophageal reflux disease) Essential hypertension Depression with anxiety Iron deficiency anemia Pernicious anemia CAD (coronary artery disease) Surgical History Hx of colonoscopy History of esophagogastroduodenoscopy (EGD) History of carpal tunnel surgery History of carpal tunnel surgery of left wrist Stented coronary artery History of surgery History of skin cancer History of hysteroscopy History of tubal ligation Family History Father Hypertension Mother Diabetes Stroke Sister Bone cancer Son Christine syndrome Daughter No problems noted. Brother No problems noted. Brother No problems noted. Sister Breast cancer Social History Household Members: Children Housing: Apartment Are you a primary adult care provider to a significant other at home: No Do you presently have visiting nurse or other home services: No Alcohol intake: current Alcohol intake frequency: holidays/special occasions only Alcohol type: wine Patient Tobacco Use Status: Former Tobacco user Tobacco use type: Cigarette e-Cigarette/Vaping Use: Never Used Second Hand Smoke Exposure: No service: No Current occupational status: unemployed Current occupation: right hand Cognitive needs: No Hearing needs: No Vision needs: Yes Female Reproductive History Menstrual Age of Menarche: 8 Questionnaire PHQ-9 Over the last 2 weeks, how often have you been bothered by any of the following problems? 1. Little interest or pleasure in doing things: more than half the days 2. Feeling down, depressed, or hopeless: more than half the days 3. Trouble falling or staying asleep, or sleeping too much: nearly every day 4. Feeling tired or having little energy: nearly every day 5. Poor appetite or overeating: several days 6. Feeling bad about yourself - or that you are a failure or have let yourself or your family down: several days 7. Trouble concentrating on things, such as reading the newspaper or watching television: several days 8. Moving or speaking so slowly that other people could have noticed. Or the opposite - being so fidgety or restless that you have been moving around a lot more than usual: not at all 9. Thoughts that you would be better off or of hurting yourself in some way: not at all Total score: 13 Depression Screening Interpretation: Positive Depression Screening Follow-up: Existing condition, In treatment, Community Mental Health Worker F/U and Follow-up Visit Requested Depression Screening Done: Yes 47299 - PHQ-9 Billing: Yes Source: Developed by Drs. Josh Frederick, Shannen Peck, El Guerrero and colleagues, with an educational lilliam from [employer]. Thrive Questionnaire Date Thrive assessed: 11/26/24 I am a: Patient What is your living situation today?: I have a steady place to live Within the past 12 months, did the food you bought not last and you didn't have the money to get more?: Often true Within the past 12 months, did you worry whether your food would run out before you got money to buy more?: I choose not to answer this question Do you have trouble paying for medicines?: No Do you have trouble getting transportation to medical appointments?: Yes Do you have trouble paying your heating and electricity bill?: No Do you have trouble taking care of your child, family member or friend?: Yes Do you have trouble with day-to-day activities such as bathing, preparing meals, shopping, managing finances, etc.?: Yes Are you currently unemployed and looking for a job?: Yes Are you interested in more education?: No Please select the resources that you would like help with: None Currently or been in a relationship where the following occur: I choose not to answer THRIVE Score: 2 AUDIT C Alcohol Use Questionnaire (AUDIT-C) 1. How often do you have a drink containing alcohol?: Never Total Score: 0 Score Reviewed/Action Taken: No ROXY-7 AMB Questionnaire ROXY-7 Date ROXY - 7 assessed: 11/26/24 Feeling nervous, anxious, or on edge: 1 = Several days Not being able to stop or control worryin = Not at all Worrying too much about different things: 3 = Nearly every day Trouble relaxin = Nearly every day Being so restless that it is hard to sit still: 0 = Not at all Becoming easily annoyed or irritable: 0 = Not at all Feeling afraid as if something awful might happen: 2 = More than half the days Total ROXY-7 score (0-4 normal; 5-9 mild; 10-14 moderate; 15-21 severe): 9 Source: Developed by Drs. Josh Frederick, Shannen Peck, El Guerrero and colleagues, with an educational lilliam from [employer]. ROXY-7 Assessment Billing ROXY-7 Assessment Tool: ROXY-7 Assessment 62982 Review of Systems Const All systems reviewed & are unremarkable except as noted in HPI and below Card Denies chest pain at rest, Denies chest pain with activity, Denies edema, Denies irregular heart rhythm, Denies claudication, Denies dyspnea, Denies dyspnea on exertion, Denies orthopnea, Denies paroxysmal nocturnal dyspnea and Denies slow heart rate Resp Denies cough, Denies dyspnea and Denies dyspnea on exertion Musc Denies atrophy, Denies deformity and Denies limited range of motion Skin/Breast Denies bleeding lesions, Denies changing lesions and Denies rash Physical exam (Primary Care) Vital Signs: Last Vital Signs BP 110/76 11/26/24 10:55 BMI result Body Mass Index 29.4 Tobacco/Smoking Status: Tobacco use Status Tobacco use date assessed 11/26/24 11/26/24 10:57 Patient Tobacco Use Status Former Tobacco user 11/26/24 10:57 Tobacco use type Cigarette 11/26/24 10:57 e-Cigarette/Vaping Use Never Used 11/26/24 10:57 PHQ-9: PHQ-9 Score PHQ-9: Total score 13 11/26/24 11:09 Depression Screening Interpretation: Positive Depression Screening Follow-up: Existing condition, In treatment, Community Mental Health Worker F/U and Follow-up Visit Requested Thrive Assessment: Date of Thrive Assessment Date Thrive assessed 11/26/24 11/26/24 10:57 Currently or been in a relationship where the following occur: I choose not to answer Resp Effort & Inspection: normal respiratory effort Auscultation: clear to auscultation bilaterally Cardio Jugular venous distension: no JVD Rate: regular rate Rhythm: regular rhythm Heart sounds: S1 normal heart sound present and S2 normal heart sound present Extrem General: Yes full ROM Results AMB Hemoglobin A1c AMB Hemoglobin A1c 5.5 % Last Edit by STEVE Turcios on 11/26/24 11:04 Results Reviewed Results Reviewed: Laboratory Last Values Hgb A1c (Clinic) 5.5 % (4.0-6.0) 11/26/24 10:49 Coding Level of Care Code Est Pt Level 4 (91609) Complex EM visit Add On G2211 Diagnoses Type 2 diabetes mellitus with hyperglycemia, without long-term current use of insulin E11.65 Diabetes mellitus type: type 2 Diabetes mellitus usp insulin use: without usp use Diabetes mellitus complication status: with hyperglycemia Essential hypertension I10 Mild major depression F32.0 Mixed hyperlipidemia E78.2 Gastroesophageal reflux disease, unspecified whether esophagitis present K21.9 Esophagitis presence: esophagitis presence not specified Slow transit constipation K59.01 Constipation type: slow transit constipation Additional Codes ROXY-7 Assessment Billing - ROXY-7 Assessment Tool: ROXY-7 Assessment 27501 ([id number]) PHQ-9 - 70879 - PHQ-9 Billing: Yes ([id number]) Time Spent (min) 24 Assessment & Plan Assessment & Plan (1) Diabetes mellitus: Code(s): E11.9 - Type 2 diabetes mellitus without complications Category: Medical Qualifiers: Diabetes mellitus type: type 2 Diabetes mellitus continuous churn buttermaker insulin use: without usp use Diabetes mellitus complication status: with hyperglycemia Qualified Code(s): E11.65 - Type 2 diabetes mellitus with hyperglycemia (2) Essential hypertension: Code(s): I10 - Essential (primary) hypertension Category: Medical (3) Mild major depression: Code(s): F32.0 - Major depressive disorder, single episode, mild Category: Medical (4) Mixed hyperlipidemia: Code(s): E78.2 - Mixed hyperlipidemia Category: Medical (5) GERD (gastroesophageal reflux disease): Code(s): K21.9 - Gastro-esophageal reflux disease without esophagitis Category: Medical Qualifiers: Esophagitis presence: esophagitis presence not specified Qualified Code(s): K21.9 - Gastro-esophageal reflux disease without esophagitis (6) Constipation: Code(s): K59.00 - Constipation, unspecified Category: Medical Qualifiers: Constipation type: slow transit constipation Qualified Code(s): K59.01 - Slow transit constipation Plan I will maintain the patient on her current medication protocols, refilling Ozempic to manage diabetes effectively and fenofibrate for lipid control. Continuous psychiatric care reinforces depression management, supported by current Fluoxetine dosing. Scheduled echocardiogram and pending mammogram will assess further conditions. Monitoring includes repeating labs in four months for comprehensive follow-up. Patient was informed and verbally consented to the use of an ambient scribe for clinic note documentation during this visit. During the consultation, we reviewed the significance of her recent laboratory values and the rationale behind continuing her current treatment plan. I emphasized the importance of maintaining her current medication regimen for managing diabetes, hypertension, and hyperlipidemia while being mindful of her dietary and lifestyle practices. We discussed the benefits of Ozempic in maintaining glycemic control and the need for a balanced diet emphasizing fiber. The necessity of an echocardiogram was surpassed by discussing potential cardiac issues. Moreover, the benefits and risks of current psychiatric medications were acknowledged, underscoring the need for ongoing mental health monitoring. Orders: Orders AMB Hemoglobin A1c Today E11.65 - Type 2 diabetes mellitus with hyperglycemia Microalbumin, Random (w Creat) 4 Months R80.9 - Proteinuria, unspecified Comprehensive [place]. Panel Fast 4 Months E11.65 - Type 2 diabetes mellitus with hyperglycemia Lipid Panel 4 Months E78.5 - Hyperlipidemia, unspecified Vitamin D 25-OH Total 4 Months E55.9 - Vitamin D deficiency, unspecified Medications: Refilled semaglutide (Ozempic) 1 mg (0.75 mL) subcut QWEEK 3 mL 4RF 4 weeks E11.65 - Type 2 diabetes mellitus with hyperglycemia Patient Instructions: - Take all medications as prescribed, including Ozempic and fenofibrate. - Incorporate more dietary fiber into meals. - Maintain regular follow-up with psychiatry for depression management. - Expect echocardiogram on December 11. - Schedule mammogram as recommended. - Repeat laboratory tests in four months. - Minimize rare alcohol consumption.
[2024-11-26 10:55] VITALS: BP 110/76; BMI 29.4
== END 2024-11-26 11:16 | disposition home or self-care (01) ==
LOC: HO.HMCH 10:44
PROVIDERS: PCP Internal Medicine; Visit Provider Internal Medicine
DX: E11.65 Type 2 diabetes mellitus with hyperglycemia (principal); I10 Essential (primary) hypertension; F32.0 Major depressive disorder, single episode, mild; E78.2 Mixed hyperlipidemia; K21.9 Gastro-esophageal reflux disease without esophagitis; K59.01 Slow transit constipation

== ENCOUNTER → 2024-11-26 10:43 | Outpatient (BNVA) | payer OTHER, SELFPAY | PROVIDERS: PCP Internal Medicine; Visit Provider Internal Medicine | DX: E11.65 Type 2 diabetes mellitus with hyperglycemia (principal); E78.2 Mixed hyperlipidemia; K21.9 Gastro-esophageal reflux disease without esophagitis; I10 Essential (primary) hypertension; F32.0 Major depressive disorder, single episode, mild; K59.01 Slow transit constipation | CPT/HCPCS: 83036; 96127; 99212 ==

== ENCOUNTER → 2024-12-11 07:43 | Outpatient (REF) | payer OTHER, SELFPAY ==
--- NOTE | 2024-12-11 07:46 | CA_ITS ---
Transthoracic Echocardiogram Patient (Last, First, Middle): Barbara Murillo, Gender: Female Date of : 1970 Age: 54 Procedure Date: 12/11/2024 Procedure Type: Transthoracic Echocardiogram Location: OP Height: 157.48 cm Weight: 73.03 kg BSA: 1.74 m2 Heart Rate: 92 bpm BP: 92 / 66 mmHg Assistant Professor Of Biochemistry: TO Referring MD: Deshawn Aaron MD Special Education Inclusion Teacher: Deshawn Aaron MD Symptoms: R06.02 - Shortness of breath Study Quality: Adequate w contrast ECG Rhythm: Sinus Conclusions: - 1. Mildly reduced LV ejection fraction 45-50% with noted regional wall motion abnormality suggestive of underlying coronary artery disease with grade 1 diastolic dysfunction 2. Cardiac valvular Dopplers within normal limits 3. No gross pericardial effusion Findings Procedure Information Contrast agent, definity, is being given per protocol without apparent complications. Left Ventricle Normal left ventricular cavity size. There is normal left ventricular wall thickness. The left ventricular systolic function is mildly decreased. The visually estimated ejection fraction is between 45-50%. Spectral Doppler is indicative of an impaired relaxation filling pattern. E/E prime ratio is <8, consistent with normal filling pressures. Evidence suggests grade I (mild) diastolic dysfunction. Wall Motion Rest Echo Findings The inferolateral wall and mid inferoseptal segment are hypokinetic. The basal inferior, mid inferior, apical septum, and basal inferoseptal segments are akinetic. All other scored wall segments showed normal motion. Right Ventricle Normal right ventricular cavity size and systolic function. Atria The left atrium is normal in size. There is no evidence of interatrial shunt. The right atrium is normal in size. Aortic Valve Normal aortic valve structure and function. There is no aortic valve stenosis. There is no aortic valve regurgitation. Mitral Valve Likely normal mitral valve structure and function. There is trace mitral valve regurgitation. There is no mitral valve stenosis. Pulmonic Valve The pulmonic valve was not well visualized. Tricuspid Valve Likely normal tricuspid valve structure and function. Tricuspid regurgitation envelope is inadequate for calculation of right ventricular systolic pressure. Great Vessels All visible segments of the aorta are normal in size. The pulmonary artery was not well visualized. There is no dilatation of the ascending aorta measuring 3.00 cm. Venous The inferior vena cava is normal in size and collapses greater than 50% with inspiration. Pericardium/Pleural There is no evidence of pericardial effusion. Prior Study Comparison Changes noted compared to prior study dated: 02/20/2021. mildly reduced LV ejection fraction Measurements 2D Linear Measurements IVSd: 0.70 0.6-0.9/0.6-1.0 cm LVIDd: 4.75 3.9-5.3/4.2-5.9 cm LVIDd Index: 2.73 2.4-3.2/2.2-3.1 cm/m2 LVIDs: 3.56 2.0-3.6 cm LVPWd: 0.68 0.7-1.1 cm LA Diam: 3.30 2.7-3.8/3.0-4.0 cm LAIDs Index: 1.90 1.5-2.3 cm/m2 LV Mass: 127.28 67-162/88-224 g LV Mass Index: 73.15 43-95/49-115 g/m2 LVOT Diam: 2.10 3.0+(-)1.3 cm 2D Systolic Function EF 4C: 46.40 >55% EF 2C: 46.90 >55% EF BiP: 48.30 >55% Mitral Valve MV Pk E: 0.48 MV PK A: 0.70 MV Decel Time: 123.00 E/A: 0.70 E'Lateral: 7.18 E'Medial: 4.46 E/E' Med: 10.90 E/E' Lat: 6.70 PHT: 36.00 MVA PHT: 6.11 Decel [place]: 3.93 Aortic Valve AoV Pk Iker: 1.43 AoV Mn Iker: 1.00 AoV VTI: 0.24 AoV Pk Grad: 8.00 Aov Mn Grad: 4.00 MELANI Cont.VTI: 2.33 LVOT LVOT Pk Iker: 0.94 LVOT Mn Iker: 0.67 LVOT VTI: 0.16 LVOT Pk Grad: 4.00 LVOT Mn Grad: 2.00 LVOT Diam: 2.10 LVOT Area: 3.46 Diastolic Function MV Pk E: 0.48 MV Pk A: 0.70 E/A: 0.70 E'Medial: 4.46 E/E' Med: 10.90 E' Laterial: 7.18 E/E' Lat: 6.70 Right Ventricle TAPSE (mm): 18.70 TVS' Iker: 8.92 Tricuspid Valve RA Press: 3.00 Great Vessels Aorta Sinus of Valsalva: 2.60 2.0-3.5 cm Ao Asc: 3.00 2.1-3.4 cm Updated in Other Vendor System with Status of Final Deshawn Aaron MD electronically signed on 12/12/2024 12:39:38 PM with status of Final
== END ==
LOC: HO.CARD 07:43
PROVIDERS: PCP Internal Medicine; Visit Provider Internal Medicine Cardiovascular Disease
DX: R06.02 Shortness of breath (principal)
CPT/HCPCS: 93306; Q9957

== ENCOUNTER → 2024-12-11 07:46 | Outpatient (BNV) | payer OTHER, SELFPAY | PROVIDERS: PCP Internal Medicine; Visit Provider Internal Medicine Cardiovascular Disease | DX: I34.0 Nonrheumatic mitral (valve) insufficiency (principal); I36.1 Nonrheumatic tricuspid (valve) insufficiency | CPT/HCPCS: 93306 ==

== ENCOUNTER 2024-12-12 18:50 | Emergency (ER) | payer OTHER, SELFPAY ==
[2024-12-12] VITALS (10 sets, daily range): BP systolic 86–124; BP diastolic 42–82; PULSE 105–133; RESP 12–22; TEMP 37.2–38.8; O2SAT 92–97; BMI 31.7
--- NOTE | ~2024-12-12 | XR_ITS ---
CLINICAL HISTORY: dyspnea 1 view chest x-ray Comparison: CR/SR - XR CHEST 2V - 04/20/22 13:49 EDT Findings: No consolidation or effusion. Normal size heart. No acute fracture. IMPRESSION: 1. No acute findings. This document has been electronically signed by: Trina Mak MD on 12/12/2024 20:57:21
--- NOTE | 2024-12-12 19:06 | ECG_ITS ---
Test Reason : dyspnea Blood Pressure : */* mmHG Vent. Rate : 111 BPM Atrial Rate : 111 BPM P-R Int : 130 ms QRS Dur : 94 ms QT Int : 294 ms P-R-T Axes : 38 -39 55 degrees QTcB Int : 399 ms Sinus tachycardia Left axis deviation Possible Anterior infarct , age undetermined Abnormal ECG When compared with ECG of 22-Apr-2023 23:23, Nonspecific T wave abnormality now evident in Lateral leads Referred By: Gillian Browne Electronically Signed By: JULITO IBRAHIM MD
[2024-12-12 19:14] LABS: MANUAL DIFF FLAG NO
[2024-12-12 19:16] LABS: Basophils Percent Auto 0.2 % (0-2); Eosinophils Percent Auto 0.2 % (0-4); Hematocrit 43.2 % (37.0-47.0); Hemoglobin 13.9 g/dl (12.0-16.0); Lymphocytes Percent Auto 22.7 % (20-40); Mean Corpuscular HGB Conc 32.2 g/dl (31.0-35.0); Mean Corpuscular Hemoglobin 27.3 pg (27.0-33.0); Mean Corpuscular Volume 84.9 fL (80.0-98.0); Mean Platelet Volume 9.5 fL (9.4-12.3); Monocytes Absolute Auto 0.4 X10*3/uL (0.1-1.2); Monocytes Percent Auto 9.1 % (2-11); Neutrophils Absolute Auto 3.1 x10*3/uL (2.0-8.3); Neutrophils Percent Auto 67.8 % (45-73); Platelet Count 238 X10*3/uL (160-400); Red Blood Count 5.09 X10*6/uL (4.20-5.50); Red Cell Distribution Width 14.3 % (11.0-16.0); White Blood Count 4.5 X10*3/uL (4.8-10.8)
--- NOTE | 2024-12-12 19:16 | PC.NURSE ---
MD reed made aware of vitals @5728
[2024-12-12] MEDS: methylPREDNISolone Sod Succ 125 MG/2 ML VIAL 60 MG IVPUSH (19:18)
[2024-12-12] MEDS: Acetaminophen 1,000 MG/100 ML PIGGYBACK 400 MG IV (19:18)
[2024-12-12] MEDS: Lactated Ringers 1,000 ML 999 ML IV ×3 (19:19→21:10)
[2024-12-12] MEDS: cefTRIAXone sodium 2 GM VIAL IVPUSH (19:28)
[2024-12-12 19:34] LABS: Lactic Acid 1.1 mmol/L (0.5-2.0)
[2024-12-12] MEDS: Albuterol Sulfate 7.5 MG, Albuterol Sulfate (0.083%) 2.5 MG 10 MG INHALE (19:35)
[2024-12-12 19:41] LABS: Alanine Aminotransferase 51 U/L (0-31); Albumin Level 4.3 g/dL (3.5-5.0); Alkaline Phosphatase 94 U/L (39-117); Anion Gap 11 (12-20); Aspartate Amino Transferase 52 U/L (5-31); Bilirubin Total 0.4 mg/dL (0.0-1.0); Blood Urea Nitrogen 18 mg/dL (9-16); C Reactive Protein 1.87 mg/dL (< or = 0.50); Carbon Dioxide 24 mmol/L (22-29); Chloride 107 mmol/L (96-108); Creatinine Clr Calc Pharmacy 50.2; Estimated Glomerular Filt Rate 48; Glucose Random 122 mg/dL (60-115); Lipase 40 U/L (8-78); Magnesium 1.9 mg/dL (1.6-2.6); Potassium 3.7 mmol/L (3.3-5.1); Sodium 138 mmol/L (135-145); Total Protein 8.1 g/dL (6.5-8.0)
--- NOTE | 2024-12-12 19:46 | ED_ITS ---
HPI - URI/Sore Throat General Chief Complaint: Dyspnea Stated Complaint: SOB Time Seen by Provider: 12/12/24 19:05 Source: patient and old records reviewed Mode of arrival: ambulatory Limitations: no limitations History of Present Illness ED Provider: ÁLVARO OCASIO Narrative: 54 yo female with PMH of asthma, CAD s/p multiple stents, HTN, carpal tunnel R hand, depression, DM, GERD, migraines, anemia here with cough, fevers, body aches, chills, wheezing and feeling anterior sternum and rib pain. She took tylenol this AM. She doesn't feel that it is helping. She denies travel, sick contacts. She was 97% on RA. She last took tylenol this AM. She has not eaten in 3 days she has felt sick MD elicited complaint: fever, cough and rhinorrhea Onset (ago): day(s) (2) Consistency: constant Severity: moderate Description of mucous: clear Able to tolerate fluids by mouth: Yes Exacerbating factors: other (coughing, moving, touching chest, eating) Relieving factors: nothing Associated symptoms: fever, chills, headache, rhinorrhea, nasal congestion, cough, chest pain, shortness of breath and nausea Treatments prior to arrival: none Related Data Home Medications ?Medication ?Instructions ?Recorded ?Confirmed bupropion HCl 150 mg 24 hr tablet, 150 mg PO QAM 06/21/20 11/26/24 extended release fluoxetine 40 mg capsule 40 mg PO DAILY 06/21/20 11/26/24 lorazepam 0.5 mg tablet 0.5 mg PO BID 06/21/20 11/26/24 hearing aid accessory #8 ea 06/29/20 11/26/24 fluoxetine 20 mg capsule 20 mg PO DAILY 04/20/21 11/26/24 buspirone 5 mg tablet 5 mg PO DAILY 10/31/21 11/26/24 topiramate 50 mg tablet 50 mg PO BID 01/11/22 11/26/24 mecobalamin (vitamin B12) 10,000 10,000 mcg IM DAILY 04/04/22 11/26/24 mcg solution for injection melatonin 10 mg-lemon balm leaf 10 tab PO DAILY 09/26/22 11/26/24 extract 1 mg tablet amitriptyline 25 mg tablet 50 mg PO BEDTIME 02/20/25 03/13/25 Previous Rx's ?Medication ?Instructions ?Recorded blood sugar diagnostic (FreeStyle #100 ea 06/07/21 Test strips) blood-glucose meter (FreeStyle #1 ea 06/07/21 Lite Meter kit) lancets 28 gauge (FreeStyle #100 ea 06/07/21 Lancets) albuterol sulfate 0.63 mg/3 mL 0.63 mg (3 mL) inhalation QID PRN 04/20/22 solution for nebulization shortness of breath or wheezing #75 mL nebulizers (AeroneStackdriver Go Nebulizer) #1 ea 07/25/22 Shower Chair #1 ea 02/19/23 incontinence pads #240 ea 03/13/23 wipes #100 ea 03/13/23 blood pressure monitor #1 ea 04/10/23 disposable gloves (Biobrane Gloves #200 ea 04/10/23 Medium) handheld shower #1 ea 04/10/23 amlodipine 5 mg tablet 5 mg PO DAILY #90 tabs 12/25/23 ezetimibe 10 mg tablet 10 mg PO DAILY #90 tabs 12/25/23 nitroglycerin 0.4 mg sublingual 0.4 mg sublingual Q5M PRN Chest 02/17/24 tablet Pain 30 days #30 tabs albuterol sulfate 90 mcg/actuation 1 inh inhalation QID PRN shortness 05/14/24 aerosol inhaler of breath or wheezing #8.5 grams ferrous sulfate 325 mg (65 mg 325 mg PO BID #60 tabs 07/03/24 iron) tablet (Iron (ferrous sulfate)) linaclotide 145 mcg capsule 145 mcg PO DAILY #30 caps 07/20/24 (Linzess) famotidine 40 mg tablet 40 mg PO BEDTIME #30 tabs 09/04/24 ascorbic acid (vitamin C) 500 mg 500 mg PO BID #60 tabs 09/07/24 tablet (Vitamin C) aspirin 81 mg tablet,delayed 81 mg PO DAILY 90 days #90 tabs 09/30/24 release atorvastatin 80 mg tablet 80 mg PO DAILY #90 tabs 10/01/24 metoprolol tartrate 50 mg tablet 50 mg PO BID #180 tabs 10/01/24 esomeprazole magnesium 40 mg 40 mg PO DAILY #30 caps 11/05/24 capsule,delayed release fenofibrate 150 mg capsule 150 mg PO DAILY #30 caps 11/05/24 miconazole nitrate 2 % vaginal 1 appful vaginal BEDTIME 7 days 11/16/24 cream (Miconazole-7) #45 grams semaglutide 1 mg/dose (4 mg/3 mL) 1 mg (0.75 mL) subcut QWEEK 4 11/26/24 subcutaneous pen injector (Ozempic) weeks #3 mL Allergies Allergy/AdvReac Type Severity Reaction Status Date / Time apple [APPLES] Allergy Intermediate TONGUE Verified 12/12/24 19:01 SWELLS AND TURNS PURPLE shellfish derived Allergy Intermediate LOBSTER- Verified 12/12/24 19:01 UNKNOWN coconut [COCONUT] Allergy Mild NAUSEA AND Verified 12/12/24 19:01 STOMACH SWELLS Review of Systems 2 Review of Systems: Constitutional : pos Fever, pos Chills ENT/Mouth : No Hoarseness, No sore throat, No Rhinorrhea Eyes: No Redness, No Discharge, No Vision Changes Cardiovascular : pos Chest Pain, positive SOB, positive Dyspnea on Exertion, No Edema Respiratory : positive Cough, No Sputum, positive Wheezing, Gastrointestinal : pos Nausea, No Vomiting, No Diarrhea, No abdominal Pain Genitourinary : No Dysuria, No Hematuria Musculoskeletal : No joint pain, pos Myalgias Skin : No rash Neuro : No Weakness, No Numbness, No Headache Psych : No anxiety, depression All other systems reviewed and are negative PMFSH Past Medical History Attestation statement: The following information was validated with the patient. Source: old records reviewed Medical History At high risk for breast cancer Lorrie infection of genital region Physical exam Right foot pain Myocardial infarction Chest pain Screen for sexually transmitted diseases Hx of abnormal cervical Pap smear Encounter for gynecological examination with Papanicolaou smear of cervix Costovertebral angle tenderness Anterior knee pain Headache Memory loss Chest tightness Upper respiratory symptom Numbness and tingling in both hands Severe major depression without psychotic features Diabetes mellitus Skin lesion Genital labial ulcer Lichen sclerosus SOB (shortness of breath) on exertion Mixed hyperlipidemia Urge urinary incontinence Chest pain Constipation Tiredness Leg numbness Migraines GERD (gastroesophageal reflux disease) Essential hypertension Depression with anxiety Iron deficiency anemia Pernicious anemia CAD (coronary artery disease) Surgical History Hx of colonoscopy History of esophagogastroduodenoscopy (EGD) History of carpal tunnel surgery History of carpal tunnel surgery of left wrist Stented coronary artery History of surgery History of skin cancer History of hysteroscopy History of tubal ligation Family History Family History Father Hypertension Mother Diabetes Stroke Sister Bone cancer Son Christine syndrome Daughter No problems noted. Brother No problems noted. Brother No problems noted. Sister Breast cancer Social History Social History Household Members: Children Housing: Apartment Are you a primary primary care pediatrician to a significant other at home: No Do you presently have visiting nurse or other home services: No Alcohol intake: current Alcohol intake frequency: holidays/special occasions only Alcohol type: wine Patient Tobacco Use Status: Former Tobacco user Tobacco use type: Cigarette e-Cigarette/Vaping Use: Never Used Second Hand Smoke Exposure: No service: No Current occupational status: unemployed Current occupation: right hand Cognitive needs: No Hearing needs: No Vision needs: Yes Physical Exam 2 Vital Signs: Vital Signs: Last Vital Signs Temp 101.9 F H 12/12/24 18:57 Pulse 109 H 12/12/24 19:36 Resp 18 12/12/24 19:36 BP 98/42 L 12/12/24 18:57 Pulse Ox 97 12/12/24 18:57 O2 Del Method Room Air 12/12/24 18:57 BMI result Body Mass Index 31.7 Appearance: Alert. Oriented X3. No acute distress. Eyes: Pupils equal, round and reactive to light. ENT: Pharynx normal. Neck: Normal inspection. Neck supple. CVS: tachycardia heart rate and rhythm. Pulses normal. Chest wall: ttp along sternum reproduces pain Respiratory: No respiratory distress. Breath sounds very diminished throughout Abdomen: Soft and nontender. Skin: Skin warm and dry. Normal skin color. Normal skin turgor. Extremities: No lower extremity edema. No calf ttp Neuro: Oriented X 3. No motor deficit. No sensory deficit. CN2-12 intact Course Course Course Narrative: signed out to Dr. Dove pending work up Medications Administered Generic Name Dose Route Start Last Admin Trade Name Freq PRN Reason Stop Dose Admin Lactated Ringer's 1,000 mls @ 999 mls/hr 12/12/24 19:05 12/12/24 19:19 Lr IV 12/12/24 20:05 999 mls/hr .Q1H1M ONE Administration Lactated Ringer's 1,000 mls @ 999 mls/hr 12/12/24 19:15 12/12/24 19:36 Lr IV 12/12/24 20:15 999 mls/hr .Q1H1M ONE Administration Discontinued Medications Generic Name Dose Route Start Last Admin Trade Name Robinson PRN Reason Stop Dose Admin Albuterol Sulfate 7.5 mg/ 10 mg 12/12/24 19:30 12/12/24 19:35 Albuterol Sulfate 2.5 mg INHALE 12/12/24 19:31 10 mg ONCE ONE Administration Ceftriaxone Sodium 2 gm 12/12/24 19:05 12/12/24 19:28 Ceftriaxone Sodium 2 Gm Vial IVPUSH 12/12/24 19:06 2 gm ONCE ONE Administration Acetaminophen 1,000 mg in 100 mls @ 400 mls/hr 12/12/24 19:05 12/12/24 19:35 Ofirmev IV 12/12/24 19:19 Infused ONCE ONE Infusion Methylprednisolone Sodium Succinate 60 mg 12/12/24 19:05 12/12/24 19:18 Methylprednisolone Sod Succ 125 Mg/2 Ml Vial IVPUSH 12/12/24 19:06 60 mg ONCE ONE Administration Medical Decision Making Medical Decision Making [facility] Narrative: 54 yo female with PMH of asthma, CAD s/p stent, HTN, carpal tunnel R hand, depression, DM, GERD, migraines, anemia here with URI symptoms fevers, chills chest wall pain x 2 days with poor PO intake - on arrival febrile and tachycardic will obtain labs, lactic acid, blood cultures, EKG, CXR, trop x 1, IVF x 2L, neb, steroids and empiric ceftriaxone. Possible UTI, pneumonia, viral syndrome, myocarditis. Differential Diagnosis Differential Diagnoses: The differential diagnosis associated with the presentation includes pneumonia, UTI, flu, viral syndrome, COVID, chest pain is atypical but she needs EKG and troponin given CAD hx I can reproduce it touching her chest VTE seems less likely this is more infectious in nature Admission/Observation Consideration of admission/observation: Escalation of care including admission/observation considered Lab Data [facility] Lab Attestation statement: I reviewed the patient's lab results. 12/12/24 19:09 12/12/24 19:09 Labs: Lab Results 12/12/24 12/12/24 Range/Units 19:06 19:09 WBC 4.5 L (4.8-10.8) X10*3/uL RBC 5.09 (4.20-5.50) X10*6/uL Hgb 13.9 (12.0-16.0) g/dl Hct 43.2 (37.0-47.0) % MCV 84.9 (80.0-98.0) fL MCH 27.3 (27.0-33.0) pg MCHC 32.2 (31.0-35.0) g/dl RDW 14.3 (11.0-16.0) % Plt Count 238 (160-400) X10*3/uL MPV 9.5 (9.4-12.3) fL Immature Gran % (Auto) 0.0 (0.0-0.4) % Neut % (Auto) 67.8 (45-73) % Lymph % (Auto) 22.7 (20-40) % [place] % (Auto) 9.1 (2-11) % Eos % (Auto) 0.2 (0-4) % Baso % (Auto) 0.2 (0-2) % Lymph # (Auto) 1.0 L (1.2-4.9) X10*3/uL [place] # (Auto) 0.4 (0.1-1.2) X10*3/uL Eos # (Auto) 0.0 (0.0-0.4) X10*3/uL Baso # (Auto) 0.0 (0.0-0.2) X10*3/uL Abs Immat Gran (auto) 0.00 (0.00-0.03) X10*3/uL Absolute Neuts (auto) 3.1 (2.0-8.3) x10*3/uL Absolute Nucleated RBC 0.000 (0.0-0.012) X10*3/uL Nucleated RBC % (auto) 0.0 (0.0-0.2) /100WBC Hold Blue Top SEE NOTE Sodium 138 (135-145) mmol/L Potassium 3.7 (3.3-5.1) mmol/L Chloride 107 (96-108) mmol/L Carbon Dioxide 24 (22-29) mmol/L Anion Gap 11 L (12-20) BUN 18 H (9-16) mg/dL Creatinine 1.18 (0.5-1.4) mg/dL Estim Creat Clear Calc 50.2 Estimated GFR 48 Random Glucose 122 H (60-115) mg/dL Lactic Acid 1.1 (0.5-2.0) mmol/L Calcium 9.0 (8.4-10.2) mg/dL Magnesium 1.9 (1.6-2.6) mg/dL Total Bilirubin 0.4 (0.0-1.0) mg/dL AST 52 H (5-31) U/L ALT 51 H (0-31) U/L Alkaline Phosphatase 94 (39-117) U/L Troponin I High Sens 3.0 (<3.5-17.0) ng/L C-Reactive Protein 1.87 H (< or = 0.50) mg/dL Total Protein 8.1 H (6.5-8.0) g/dL Albumin 4.3 (3.5-5.0) g/dL Lipase 40 (8-78) U/L Hold Green Top See Note Independent Interpretation I performed an independent interpretation of an: EKG Interpretation: Rate: 111 Rhythm: sinus tach Julian: left Normal P waves. Normal JANINA. Normal QRS complex. ST T wave : flat t waves anterior leads, no RAHUL, poor R wave progression qTC: 399 prior studies: no acute ischemia The study has been interpreted contemporaneously by me. . Independent Historian Clinical information obtained from an independent historian. History obtained from or confirmed by: EMS External Record Review External record reviewed: Inpatient record and Outpatient record Critical Care Time Critical Care Time Critical Care Time: Yes Total Critical Care Time: 35 Attestation: sepsis protocol initiated, review of records I attest to this time spent taking care of the patient Discharge Plan Discharge Clinical Impression: Asthma with exacerbation, Acute upper respiratory infection Patient Disposition: Still a Patient Prescriptions: No Action (DME) Shower Chair Misc See Rx Instructions .Route Qty: 1 0RF Rx Instructions: As directed (DME) incontinence pads See Rx Instructions .Route .MEDSUPPLY Qty: 240 11RF Rx Instructions: As directed (DME) wipes See Rx Instructions .Route .MEDSUPPLY Qty: 100 11RF Rx Instructions: As directed [place] shower See Rx Instructions .Route .MEDSUPPLY Qty: 1 0RF Rx Instructions: As directed (DME) blood pressure monitor Kit See Rx Instructions .Route Qty: 1 0RF Rx Instructions: As directed (DME) disposable gloves [Biobrane Gloves Medium] Misc See Rx Instructions .Route Qty: 200 11RF Rx Instructions: Use prn ezetimibe 10 mg tablet 10 mg PO DAILY Qty: 90 3RF amlodipine 5 mg tablet 5 mg PO DAILY Qty: 90 3RF albuterol sulfate 90 mcg/actuation HFA aerosol inhaler 1 inh inhalation QID PRN (Reason: shortness of breath or wheezing) Qty: 8.5 0RF ferrous sulfate [Iron (ferrous sulfate)] 325 mg (65 mg iron) Tablet 325 mg PO BID Qty: 60 10RF famotidine 40 mg tablet 40 mg PO BEDTIME Qty: 30 3RF ascorbic acid (vitamin C) [Vitamin C] 500 mg Tablet 500 mg PO BID Qty: 60 10RF aspirin 81 mg tablet,delayed release (DR/EC) 81 mg PO DAILY 90 Days Qty: 90 3RF metoprolol tartrate 50 mg tablet 50 mg PO BID Qty: 180 0RF atorvastatin 80 mg tablet 80 mg PO DAILY Qty: 90 3RF esomeprazole magnesium 40 mg capsule,delayed release(DR/EC) 40 mg PO DAILY Qty: 30 3RF bupropion HCl 150 mg Tablet Extended Release 24 Hr 150 mg PO QAM fluoxetine 40 mg Capsule 40 mg PO DAILY Rx Instructions: 40mg + 20mg = 60 mg daily dose lorazepam 0.5 mg Tablet 0.5 mg PO BID albuterol sulfate 0.63 mg/3 mL solution for nebulization 0.63 mg inhalation QID PRN (Reason: shortness of breath or wheezing) Qty: 75 0RF (DME) hearing aid accessory Misc See Rx Instructions .ROUTE .MEDSUPPLY Qty: 8 Rx Instructions: As directed (DME) blood-glucose meter [FreeStyle Lite Meter] Kit See Rx Instructions .Route Qty: 1 0RF Rx Instructions: As directed (DME) lancets [FreeStyle Lancets] 28 gauge misc See Rx Instructions .Route Qty: 100 3RF Rx Instructions: Use 1 lancet once a day (DME) FreeStyle Test Strip See Rx Instructions .Route Qty: 100 3RF Rx Instructions: Use 1 test strips once a day topiramate 50 mg tablet 50 mg PO BID (DME) nebulizers [Aeroneb Go Nebulizer] Misc See Rx Instructions .Route Qty: 1 0RF Rx Instructions: As directed nitroglycerin 0.4 mg tablet, sublingual 0.4 mg SUBLINGUAL Q5M PRN (Reason: Chest Pain) 30 Days Qty: 30 3RF buspirone 5 mg tablet 5 mg PO DAILY amitriptyline 25 mg tablet 50 mg PO BEDTIME fluoxetine 20 mg capsule 20 mg PO DAILY Rx Instructions: 40mg + 20mg = 60 mg daily dose melatonin-lemon balm leaf extr 10-1 mg tablet 10 tab PO DAILY mecobalamin (vitamin B12) 10,000 mcg recon soln 10,000 mcg IM DAILY fenofibrate 150 mg capsule 150 mg PO DAILY Qty: 30 5RF miconazole nitrate [Miconazole-7] 2 % cream 1 appful vaginal BEDTIME 7 Days Qty: 45 3RF Rx Instructions: Use p.r.n. when you have symptoms of yeast infection. Linzess 145 mcg capsule 145 mcg PO DAILY Qty: 30 2RF Ozempic 1 mg/dose (4 mg/3 mL) pen injector 1 mg subcut QWEEK 28 Days Qty: 3 4RF Print Language: Sinhala
[2024-12-12 19:58] LABS: Procalcitonin 0.07 ng/mL
[2024-12-12 20:00] LABS: B Type Natriuretic Peptide < 10 pg/mL (<100)
[2024-12-12 20:09] LABS: Influenza A PCR POSITIVE (Negative); Influenza B PCR NEGATIVE (Negative); Resp Syncy Virus RNA Qual PCR NEGATIVE (Negative); SARS COV2 PCR INHOUSE NEGATIVE (Negative)
[2024-12-12] MEDS: Ketorolac Tromethamine 15 MG/ML VIAL 10 MG IVPUSH (21:09)
[2024-12-12] MEDS: Oseltamivir Phosphate 75 MG CAPSULE PO (21:09)
[2024-12-12 21:31] LABS: Appearance Urine Clear; Color Urine Yellow; Glucose Urine UA Negative (Negative); Leukocyte Esterase Urine Negative (Negative); Nitrite Urine Negative (Negative); PH 5.5 (5.0-9.0); Specific Gravity - Urine 1.015 (1.005-1.025); Urine Blood Negative (Negative); Urine Ketones Negative (Negative); Urine Protein Negative (Neg-Trace)
--- NOTE | 2024-12-12 22:38 | PC.NURSE ---
per MD gandhi give patient something to eat and drink to try and improve BP.
== END 2024-12-12 23:50 | disposition home or self-care (01) ==
PROVIDERS: Emergency Medicine; Emergency Provider Emergency Medicine; PCP Internal Medicine
DX: J06.9 Acute upper respiratory infection, unspecified (principal); J45.901 Unspecified asthma with (acute) exacerbation; R06.02 Shortness of breath; I25.10 Atherosclerotic heart disease of native coronary artery without angina pectoris; I10 Essential (primary) hypertension; R05.9 Cough, unspecified; R50.9 Fever, unspecified; R07.89 Other chest pain; R51.9 Headache, unspecified; Z03.818 Encounter for observation for suspected exposure to other biological agents ruled out; Z79.899 Other long term (current) drug therapy; Z87.891 Personal history of nicotine dependence
CPT/HCPCS: 0241U; 36415; 71045; 80053; 81003; 83605; 83690; 83735; 83880; 84145; 84484; 85025; 86140; 87040; 93005; 94640; 96361; 96365; 96375; 99284; 99285; J0131; J0696; J1885; J2919; J7120

== ENCOUNTER → 2024-12-12 19:06 | Outpatient (BNV) | payer OTHER, SELFPAY | PROVIDERS: Emergency Provider Emergency Medicine; PCP Internal Medicine; Visit Provider Internal Medicine Cardiovascular Disease | DX: R00.0 Tachycardia, unspecified (principal) | CPT/HCPCS: 93010 ==

== ENCOUNTER → 2024-12-12 20:00 | Outpatient (BNV) | payer OTHER, SELFPAY | PROVIDERS: Emergency Provider Emergency Medicine; PCP Internal Medicine; Visit Provider Nuclear Medicine | DX: R06.00 Dyspnea, unspecified (principal) | CPT/HCPCS: 71045 ==

== ENCOUNTER 2024-12-22 08:43 | Outpatient (AMB) | payer OTHER, SELFPAY ==
[2024-12-22 08:52] VITALS: BP 80/62; PULSE 90; BMI 29.9
--- NOTE | 2024-12-22 08:52 | A.OFFVIS_ITS ---
Vital Signs 12/22/24 08:52 Height 5 ft 1 in Weight 158 lb 4.67 oz BMI 29.9 BP 80/62 L Blood Pressure Location Lt brachial Position Sitting Pulse 90 Pulse Source Pulse Oximeter Intake Visit Reasons: f/up-echo/Discuss cath Telecommunication Operator Required: No Instructor Of Education: Instructor Of Education Present Allergies apple [APPLES] Allergy (Intermediate, Verified 12/22/24 08:55) TONGUE SWELLS AND TURNS PURPLE shellfish derived Allergy (Intermediate, Verified 12/22/24 08:55) LOBSTER- UNKNOWN coconut [COCONUT] Allergy (Mild, Verified 12/22/24 08:55) NAUSEA AND STOMACH SWELLS Medication List - Last Reconciled 12/22/24 by ROD Rogers albuterol sulfate 0.63 mg (3 mL) inhalation QID PRN albuterol sulfate 90 mcg/actuation 1 inh inhalation QID PRN amitriptyline 50 mg PO BEDTIME amlodipine 5 mg PO DAILY ascorbic acid (vitamin C) (Vitamin C) 500 mg PO BID aspirin 81 mg PO DAILY 90 days atorvastatin 80 mg PO DAILY blood pressure monitor As directed blood sugar diagnostic (FreeStyle Test strips) Use 1 test strips once a day blood-glucose meter (FreeStyle Lite Meter kit) As directed bupropion HCl XL 150 mg PO QAM buspirone 5 mg PO DAILY disposable gloves (Biobrane Gloves Medium) Use prn esomeprazole magnesium 40 mg PO DAILY ezetimibe 10 mg PO DAILY famotidine 40 mg PO BEDTIME fenofibrate 150 mg PO DAILY ferrous sulfate (Iron (ferrous sulfate)) 325 mg PO BID fluoxetine 40 mg PO DAILY fluoxetine 20 mg PO DAILY [handheld shower As directed] hearing aid accessory As directed [incontinence pads As directed] lancets (FreeStyle Lancets) Use 1 lancet once a day linaclotide (Linzess) 145 mcg PO DAILY lorazepam 0.5 mg PO BID mecobalamin (vitamin B12) 10,000 mcg IM DAILY melatonin-lemon balm leaf extr 10-1 mg 10 tabs PO DAILY metoprolol tartrate 50 mg PO BID miconazole nitrate 2% (Miconazole-7) 1 appful vaginal BEDTIME 7 days nebulizers (Aeroneb Go Nebulizer) As directed nitroglycerin 0.4 mg sublingual Q5M PRN 30 days semaglutide (Ozempic) 1 mg (0.75 mL) subcut QWEEK 4 weeks Shower Chair As directed topiramate 50 mg PO BID [wipes As directed] HPI HPI f/up-echo/Discuss cath: Details: Barbara is a 54-year-old female with past medical history of hypertension, hyperlipidemia, obesity, CAD with coronary stents who presents for follow-up after recent abnormal echocardiogram. Today she reports that she has been having some shortness of breath with physical exertion. She will feel tightness in her chest as well. No PND, orthopnea or edema. No heart palpitations, lightheadedness, presyncope, syncope. She has been doing only light activities. She is taking her meds as directed. Her blood pressure has been running low at home. She did have influenza last month and required IV fluids and Tamiflu. Her daughter is present. [facility] Medical History At high risk for breast cancer [place] infection of genital region Physical exam Right foot pain Myocardial infarction Chest pain Screen for sexually transmitted diseases Hx of abnormal cervical Pap smear Encounter for gynecological examination with Papanicolaou smear of cervix Costovertebral angle tenderness Anterior knee pain Headache Memory loss Chest tightness Upper respiratory symptom Numbness and tingling in both hands Severe major depression without psychotic features Diabetes mellitus Skin lesion Genital labial ulcer Lichen sclerosus SOB (shortness of breath) on exertion Mixed hyperlipidemia Urge urinary incontinence Chest pain Constipation Tiredness Leg numbness Migraines GERD (gastroesophageal reflux disease) Essential hypertension Depression with anxiety Iron deficiency anemia Pernicious anemia CAD (coronary artery disease) Surgical History Hx of colonoscopy History of esophagogastroduodenoscopy (EGD) History of carpal tunnel surgery History of carpal tunnel surgery of left wrist Stented coronary artery History of surgery History of skin cancer History of hysteroscopy History of tubal ligation Family History Father Hypertension Mother Diabetes Stroke Sister Bone cancer Son Christine syndrome Daughter No problems noted. Brother No problems noted. Brother No problems noted. Sister Breast cancer Social History Household Members: Children Housing: Apartment Are you a primary skin care therapist to a significant other at home: No Do you presently have visiting nurse or other home services: No Alcohol intake: current Alcohol intake frequency: holidays/special occasions only Alcohol type: wine Patient Tobacco Use Status: Former Tobacco user Tobacco use type: Cigarette e-Cigarette/Vaping Use: Never Used Second Hand Smoke Exposure: No service: No Current occupational status: unemployed Current occupation: right hand Cognitive needs: No Hearing needs: No Vision needs: Yes Female Reproductive History Menstrual Age of Menarche: 8 Review of Systems Const All systems reviewed & are unremarkable except as noted in HPI and below ENT Denies dizziness Card Details: chest tight Denies chest pain, Denies chest pain at rest, Denies chest pain with activity, Denies rapid heart rate, Denies pedal edema, Denies edema, Denies leg edema, Denies lightheadedness, Denies palpitations, Denies dyspnea, Reports dyspnea on exertion and Denies orthopnea Resp Denies cough, Denies dyspnea and Reports dyspnea on exertion GI Denies hematochezia and Denies change in stool character Musc Denies abnormal gait, Denies limited range of motion, Denies muscle cramps, Denies muscle weakness, Denies numbness, Denies radiating pain into limb, Denies stiffness and Denies tingling Neuro Denies abnormal gait, Denies dizziness, Denies numbness and Denies tingling Endo Denies palpitations Physical Exam Vital Signs: Last Vital Signs Pulse 90 12/22/24 08:52 BP 80/62 L 12/22/24 08:52 BMI result Body Mass Index 29.9 Const General: cooperative, healthy appearing, comfortable and no acute distress Orientation/consciousness: patient oriented x3 Neck Neck: Yes normal visual inspection and Yes no JVD Resp Effort & Inspection: normal respiratory effort Auscultation: clear to auscultation bilaterally, no rales, no rhonchi and no wheezes Cardio Rate: regular rate Rhythm: regular rhythm Heart sounds: S1 normal heart sound present, S2 normal heart sound present, no gallops, no murmurs and no rubs Neuro General: patient oriented x3 Extrem General: Yes normal to inspection, No no pedal edema and No calf tenderness Psych Appearance: grossly normal Mental Status: mental status grossly normal Speech and movement: Normal speech and movement present Assessment & Plan Assessment & Plan (1) CAD (coronary artery disease): Code(s): I25.10 - Atherosclerotic heart disease of deering coronary artery without angina pectoris Category: Medical Qualifiers: Associated angina: with stable angina Coronary Disease-Associated Artery/Lesion type: deering artery [place] vs. transplanted heart: deering heart Qualified Code(s): I25.118 - Atherosclerotic heart disease of deering coronary artery with other forms of angina pectoris Plan: History of CAD with stents to the LAD, left circumflex and right PDA. Recent reports of increased shortness of breath with exertion, chest tightness and fatigue. An echocardiogram done 12/11/2024 showed EF 45-50% with wall motion abnormality suggesting underlying coronary artery disease, grade 1 diastolic dysfunction. Echo prior to that done 2020 showed EF 50-55% with wall motion abnormality in the RCA territory. Last nuclear stress test on 12/11/2023 showed probable normal myocardial perfusion imaging. At this time with abnormal echo findings and symptoms will plan for a cardiac catheterization for further evaluation. Procedure and risks reviewed with her in detail and she is agreeable to proceed. Will plan for preprocedure lab work today. Will order cardiac catheterization question PCI. Instructed on light physical activity at this time. Continue aspirin indefinitely. Continue atorvastatin and Zetia with ideal LDL goal less than 70. Continue amlodipine and metoprolol. Cardiology follow-up 2 weeks post procedure, sooner if needed. (2) SOB (shortness of breath): Code(s): R06.02 - Shortness of breath Category: Medical Plan: As above - could be anginal equivalent (3) S/P cardiac cath: Comment: 04/06/21 LM normal, LAD mild irreg, stent mid patent, LCx mild irreg, stent mid patent, RCA mild irreg, Stent R PDA prox patent Code(s): Z98.890 - Other specified postprocedural states Category: Surgical Plan: As above (4) Essential hypertension: Code(s): I10 - Essential (primary) hypertension Category: Medical Plan: Blood pressure goal less than 130/80. Currently hypotensive. Recent influenza requiring IV fluids. At this point she feels recovered however blood pressure has been remaining low. Will have her hold amlodipine until blood pressure running with systolic greater than 110. Then instructed to restart amlodipine at 2.5 mg daily. (5) Mixed hyperlipidemia: Code(s): E78.2 - Mixed hyperlipidemia Category: Medical Plan: [place] LDL goal less than 70. Labs done today show LDL 65. Continue high-dose atorvastatin and Zetia. Plan Time spent on chart review, documentation, interview and assessment Orders: Orders Lipid Panel Today I25.10 - Atherosclerotic heart disease of deering coronary artery without angina pectoris, I25.118 - Atherosclerotic heart disease of deering coronary artery with other forms of angina pectoris Cardiac Cath LT w PCI Today I25.118 - Atherosclerotic heart disease of deering coronary artery with other forms of angina pectoris, R06.02 - Shortness of breath, Z98.890 - Other specified postprocedural states Complete Blood Count Auto Diff Today I25.118 - Atherosclerotic heart disease of deering coronary artery with other forms of angina pectoris Basic Metabolic Panel Today I25.118 - Atherosclerotic heart disease of deering coronary artery with other forms of angina pectoris Prothrombin Time INR Today I25.118 - Atherosclerotic heart disease of deering coronary artery with other forms of angina pectoris Medications: New amlodipine dose reduced 2.5 mg PO DAILY 30 tabs 4RF Discontinued amlodipine Discontinued Reason: Doctor's Order 5 mg PO DAILY 90 tabs 3RF Coding Level of Care Code Est Pt Level 4 (54917) Complex EM visit Add On G2211 Diagnoses Coronary artery disease of deering artery of deering heart with stable angina pectoris I25.118 Associated angina: with stable angina Coronary Disease-Associated Artery/Lesion type: deering artery [place] vs. transplanted heart: deering heart SOB (shortness of breath) R06.02 S/P cardiac cath Z98.890 Essential hypertension I10 Mixed hyperlipidemia E78.2
== END 2024-12-22 09:31 | disposition home or self-care (01) ==
LOC: HO.HCS 08:43
PROVIDERS: PCP Internal Medicine; Visit Provider Nurse Practitioner Family
DX: I25.118 Atherosclerotic heart disease of native coronary artery with other forms of angina pectoris (principal); R06.02 Shortness of breath; Z98.890 Other specified postprocedural states; I10 Essential (primary) hypertension; E78.2 Mixed hyperlipidemia
CPT/HCPCS: 99214; G2211

== ENCOUNTER 2024-12-22 08:43 | Outpatient (REF) | payer OTHER, SELFPAY ==
[2024-12-22 10:01] LABS: MANUAL DIFF FLAG NO
[2024-12-22 10:34] LABS: Basophils Percent Auto 0.5 % (0-2); Eosinophils Absolute Auto 0.3 X10*3/uL (0.0-0.4); Eosinophils Percent Auto 5.3 % (0-4); Hematocrit 40.2 % (37.0-47.0); Hemoglobin 12.4 g/dl (12.0-16.0); Imm Gran Abs Auto 0.04 X10*3/uL (0.00-0.03); Imm Gran Pct Auto 0.7 % (0.0-0.4); Lymphocytes Absolute Auto 2.2 X10*3/uL (1.2-4.9); Lymphocytes Percent Auto 37.9 % (20-40); Mean Corpuscular HGB Conc 30.8 g/dl (31.0-35.0); Mean Corpuscular Hemoglobin 26.6 pg (27.0-33.0); Mean Corpuscular Volume 86.3 fL (80.0-98.0); Mean Platelet Volume 9.4 fL (9.4-12.3); Monocytes Absolute Auto 0.7 X10*3/uL (0.1-1.2); Monocytes Percent Auto 12.7 % (2-11); Neutrophils Absolute Auto 2.4 x10*3/uL (2.0-8.3); Neutrophils Percent Auto 42.9 % (45-73); Platelet Count 400 X10*3/uL (160-400); Red Blood Count 4.66 X10*6/uL (4.20-5.50); Red Cell Distribution Width 13.9 % (11.0-16.0); White Blood Count 5.7 X10*3/uL (4.8-10.8)
[2024-12-22 10:45] LABS: Prothrombin Time 12.1 SEC (10.9-12.4)
[2024-12-22 11:22] LABS: Anion Gap 8 (12-20); Blood Urea Nitrogen 16 mg/dL (9-16); Calcium 9.5 mg/dL (8.4-10.2); Carbon Dioxide 25 mmol/L (22-29); Chloride 111 mmol/L (96-108); Cholesterol 144 mg/dL (<200); Estimated Glomerular Filt Rate > 60; Glucose Random 90 mg/dL (60-115); HDL Cholesterol 43 mg/dL (>40); LDL Cholesterol Calculated 65 mg/dL (<100); Potassium 4.1 mmol/L (3.3-5.1); Sodium 140 mmol/L (135-145); Triglycerides 182 mg/dL (<150)
== END 2024-12-22 08:44 | disposition home or self-care (01) ==
LOC: HO.LAB 08:43
PROVIDERS: PCP Internal Medicine; Visit Provider Nurse Practitioner Family
DX: I25.10 Atherosclerotic heart disease of native coronary artery without angina pectoris (principal); I25.118 Atherosclerotic heart disease of native coronary artery with other forms of angina pectoris; R06.02 Shortness of breath; Z98.890 Other specified postprocedural states; I10 Essential (primary) hypertension; E78.2 Mixed hyperlipidemia
CPT/HCPCS: 36415; 80048; 80061; 85025; 85610; 99212

== ENCOUNTER 2025-01-19 08:38 | Outpatient (AMB) | payer OTHER, SELFPAY ==
--- NOTE | 2025-01-19 08:39 | A.OFFVIS_ITS ---
Vital Signs 01/19/25 08:48 Height 5 ft 2 in Weight 162 lb BMI 29.6 BP 120/76 Blood Pressure Location Rt brachial Position Sitting Pulse 88 Pulse Source Pulse Oximeter Pulse Oximetry (%) 100 Oxygen Delivery Method Room Air Intake Visit Reasons: 6 months f/u Intake Note: ESTABLISHED PATIENT for mgmt of GERD, constipation CC; C.O. increased constipation over the last few weeks, typically having BM every 3-4 days. Pt also reports RLQ pain, and possible hemorrhoids (BRB per rectum). No additional sx at this time. GERD seemingly well controlled per pt. Onion Farmer Required: No Accompanied by: Self / Same As Patient Allergies apple [APPLES] Allergy (Intermediate, Verified 01/19/25 08:39) TONGUE SWELLS AND TURNS PURPLE shellfish derived Allergy (Intermediate, Verified 01/19/25 08:39) LOBSTER- UNKNOWN coconut [COCONUT] Allergy (Mild, Verified 01/19/25 08:39) NAUSEA AND STOMACH SWELLS HPI HPI 6 months f/u: Details: LAST VISIT: GERD (gastroesophageal reflux disease) Constipation Hiatal hernia Diverticulosis Dysphagia Plan Continue avoiding dietary triggers and late night snacking. Continue Nexium in the morning and famotidine on as needed basis at bedtime. Patient reports that she has been doing much better with Ozempic. Trial of Trulance, ineffective. Will stop and start patient on Linzess. Message sent to RN to start PA process. Patient will call our office if she will continue to have trouble moving her bowels. Increase fluid intake and activity to promote better bowel motility. Follow-up in 6 months, sooner on as needed basis. She is agreeable to this plan and verbalizes understanding of instructions. She was given the opportunity to ask questions and all questions answered. ? Thank you for allowing me to participate in her care Medications New linaclotide (Linzess) 145 mcg PO DAILY 30 caps 2RF linaclotide (Linzess) 145 mcg PO DAILY 30 caps 2RF Discontinued plecanatide (Trulance) Discontinued Reason: Doctor's Order 3 mg PO DAILY 30 tabs 3RF K59.09 TODAY'S VISIT: Patient is here today for follow-up. Patient reports that since last visit she has been doing better. Acid reflux is well controlled with Nexium and famotidine. Patient is taking Nexium in the morning and famotidine at bedtime. Patient is taking Ozempic and is tolerating it well. However she does report occasional epigastric and right upper quadrant pain not related to meals. She still is having trouble moving her bowels. Taking Linzess, however she feels like it is not working. Patient used to take Senokot and it was not helpful. We have not tried Dulcolax. Patient is trying to avoid dietary triggers and changing her diet. Patient denies melena, hematochezia, unintentional weight loss or ribbon like stools. Denies any dyspepsia, dysphagia or odynophagia. [facility] Medical History At high risk for breast cancer Lorrie infection of genital region Physical exam Right foot pain Myocardial infarction Chest pain Screen for sexually transmitted diseases Hx of abnormal cervical Pap smear Encounter for gynecological examination with Papanicolaou smear of cervix Costovertebral angle tenderness Anterior knee pain Headache Memory loss Chest tightness Upper respiratory symptom Numbness and tingling in both hands Severe major depression without psychotic features Diabetes mellitus Skin lesion Genital labial ulcer Lichen sclerosus SOB (shortness of breath) on exertion Mixed hyperlipidemia Urge urinary incontinence Chest pain Constipation Tiredness Leg numbness Migraines GERD (gastroesophageal reflux disease) Essential hypertension Depression with anxiety Iron deficiency anemia Pernicious anemia CAD (coronary artery disease) Surgical History Hx of colonoscopy History of esophagogastroduodenoscopy (EGD) History of carpal tunnel surgery History of carpal tunnel surgery of left wrist Stented coronary artery History of surgery History of skin cancer History of hysteroscopy History of tubal ligation Family History Father Hypertension Mother Diabetes Stroke Sister Bone cancer Son Christine syndrome Daughter No problems noted. Brother No problems noted. Brother No problems noted. Sister Breast cancer Social History Household Members: Children Housing: Apartment Are you a primary reproductive healthcare assistant to a significant other at home: No Do you presently have visiting nurse or other home services: No Alcohol intake: current Alcohol intake frequency: holidays/special occasions only Alcohol type: wine Patient Tobacco Use Status: Former Tobacco user Tobacco use type: Cigarette e-Cigarette/Vaping Use: Never Used Second Hand Smoke Exposure: No service: No Current occupational status: unemployed Current occupation: right hand Cognitive needs: No Hearing needs: No Vision needs: Yes Female Reproductive History Menstrual Age of Menarche: 8 Review of Systems Const Denies weight gain and Denies weight loss ENT Reports no additional complaints, Denies dysphagia and Denies odynophagia Card Reports no additional complaints Resp Reports no additional complaints GI Denies abdominal pain, Denies belching, Denies melena, Denies bloating, Denies change in bowel habits, Reports constipation, Denies dysphagia, Denies excessive flatus, Denies dyspepsia, Denies heartburn, Denies diarrhea, Denies loose stools, Denies nausea, Denies odynophagia and Denies vomiting Reports no additional complaints Musc Reports no additional complaints Neuro Reports no additional complaints Psych Reports no additional complaints Endo Reports no additional complaints Physical Exam Vital Signs: Last Vital Signs Pulse 88 01/19/25 08:48 BP 120/76 01/19/25 08:48 Pulse Ox 100 01/19/25 08:48 Oxygen Delivery Method Room Air 01/19/25 08:48 BMI result Body Mass Index 29.6 Const General: healthy appearing and no acute distress Nutritional Appearance: obese Orientation/consciousness: patient oriented x3 Resp Effort & Inspection: normal respiratory effort, able to speak in complete sentences, no tracheal deviation and symmetric chest movement Auscultation: clear to auscultation bilaterally Cardio Rate: regular rate GI Inspection: Yes normal to inspection, No distended and Yes obesity Palpation (GI): Soft to palpation, not firm, nontender and No hepatosplenomegaly present Auscultation: normal bowel sounds General: Yes no CVA tenderness Back/Spine/Pelvis Back: no CVA tenderness Skin General skin exam: elasticity normal, turgor normal and dry skin Neuro General: patient oriented x3 Psych Appearance: grossly normal Mental Status: mental status grossly normal Assessment & Plan Assessment & Plan (1) Diabetes mellitus: Code(s): E11.9 - Type 2 diabetes mellitus without complications Category: Medical Qualifiers: Diabetes mellitus type: type 2 Diabetes mellitus skilled nursing insulin use: without skilled nursing use Diabetes mellitus complication status: with hyperglycemia Qualified Code(s): E11.65 - Type 2 diabetes mellitus with hyperglycemia (2) Mild major depression: Code(s): F32.0 - Major depressive disorder, single episode, mild Category: Medical (3) GERD (gastroesophageal reflux disease): Code(s): K21.9 - Gastro-esophageal reflux disease without esophagitis Category: Medical Qualifiers: Esophagitis presence: esophagitis presence not specified Qualified Code(s): K21.9 - Gastro-esophageal reflux disease without esophagitis (4) Constipation: Code(s): K59.00 - Constipation, unspecified Category: Medical Qualifiers: Constipation type: slow transit constipation Qualified Code(s): K59.01 - Slow transit constipation (5) Hiatal hernia: Code(s): K44.9 - Diaphragmatic hernia without obstruction or gangrene (6) Diverticulosis: Code(s): K57.90 - Diverticulosis of intestine, part unspecified, without perforation or abscess without bleeding (7) Dysphagia: Code(s): R13.10 - Dysphagia, unspecified Qualifiers: Dysphagia type: pharyngoesophageal phase Qualified Code(s): R13.14 - Dysphagia, pharyngoesophageal phase Plan Continue Nexium and famotidine. Continue avoiding dietary triggers and late night snacking. Hold Linzess and start Dulcolax if Dulcolax does not work by itself patient can start taking Linzess in the morning and Dulcolax in the evening. Increase fluid intake and activity to promote bowel motility. Patient is also on Ozempic which could cause decrease motility. Patient will return in 6 months, sooner on as needed basis. She is agreeable to this plan and verbalizes understanding of instructions. She was given the opportunity to ask questions and all questions answered. Thank you for allowing me to participate in her care Medications: New bisacodyl (Dulcolax (bisacodyl)) 10 mg (2 x 5 mg) PO BEDTIME 180 tabs 4RF Refilled esomeprazole magnesium 40 mg PO DAILY 90 caps 3RF K21.9 - Gastro-esophageal reflux disease without esophagitis Coding Level of Care Code Est Pt Level 4 (10319) Complex EM visit Add On G2211 Diagnoses Type 2 diabetes mellitus with hyperglycemia, without long-term current use of insulin E11.65 Diabetes mellitus type: type 2 Diabetes mellitus terminologist insulin use: without terminologist use Diabetes mellitus complication status: with hyperglycemia Mild major depression F32.0 Gastroesophageal reflux disease, unspecified whether esophagitis present K21.9 Esophagitis presence: esophagitis presence not specified Slow transit constipation K59.01 Constipation type: slow transit constipation Hiatal hernia K44.9 Diverticulosis K57.90 Pharyngoesophageal dysphagia R13.14 Dysphagia type: pharyngoesophageal phase Time Spent (min) 35 Comment 25 minutes spent with patient and additional 10 minutes spent reviewing her records
[2025-01-19 08:48] VITALS: BP 120/76; PULSE 88; O2SAT 100; BMI 29.6
== END 2025-01-19 09:02 | disposition home or self-care (01) ==
LOC: HO.HGI 08:39
PROVIDERS: PCP Internal Medicine; Visit Provider Nurse Practitioner Family
DX: E11.65 Type 2 diabetes mellitus with hyperglycemia (principal); F32.0 Major depressive disorder, single episode, mild; K21.9 Gastro-esophageal reflux disease without esophagitis; K59.01 Slow transit constipation; K44.9 Diaphragmatic hernia without obstruction or gangrene; K57.90 Diverticulosis of intestine, part unspecified, without perforation or abscess without bleeding; R13.14 Dysphagia, pharyngoesophageal phase
CPT/HCPCS: 99214; G2211

== ENCOUNTER → 2025-01-19 08:38 | Outpatient (BNVA) | payer OTHER, SELFPAY | PROVIDERS: PCP Internal Medicine; Visit Provider Nurse Practitioner Family | DX: K59.01 Slow transit constipation (principal); K21.9 Gastro-esophageal reflux disease without esophagitis; K44.9 Diaphragmatic hernia without obstruction or gangrene; K57.90 Diverticulosis of intestine, part unspecified, without perforation or abscess without bleeding; E11.65 Type 2 diabetes mellitus with hyperglycemia; F32.0 Major depressive disorder, single episode, mild; R13.14 Dysphagia, pharyngoesophageal phase | CPT/HCPCS: 99212 ==

== ENCOUNTER → 2025-01-21 23:59 | Outpatient (BNV) | payer OTHER, SELFPAY | PROVIDERS: PCP Internal Medicine; Visit Provider Internal Medicine Cardiovascular Disease | DX: R93.1 Abnormal findings on diagnostic imaging of heart and coronary circulation (principal) | CPT/HCPCS: 93458; 99152 ==

== ENCOUNTER 2025-02-04 09:04 | Outpatient (AMB) | payer OTHER, SELFPAY ==
[2025-02-04 09:23] VITALS: BP 90/62; PULSE 90; BMI 30.5
--- NOTE | 2025-02-04 09:23 | MHC.OFFVIS ---
Vital Signs 02/04/25 09:23 Height 5 ft 2 in Weight 166 lb 10.711 oz BMI 30.5 BP 90/62 Blood Pressure Location Lt brachial Position Sitting Pulse 90 Pulse Source Pulse Oximeter Intake Visit Reasons: 2 wk follow up s/p cath Training Program Developer Required: No Allergies apple [APPLES] Allergy (Intermediate, Verified 02/04/25 09:25) TONGUE SWELLS AND TURNS PURPLE shellfish derived Allergy (Intermediate, Verified 02/04/25 09:25) LOBSTER- UNKNOWN coconut [COCONUT] Allergy (Mild, Verified 02/04/25 09:25) NAUSEA AND STOMACH SWELLS Medication List - Last Reconciled 02/04/25 by ROD Rogers albuterol sulfate 0.63 mg (3 mL) inhalation QID PRN albuterol sulfate 90 mcg/actuation 1 inh inhalation QID PRN amitriptyline 50 mg PO BEDTIME amlodipine 2.5 mg PO DAILY ascorbic acid (vitamin C) (Vitamin C) 500 mg PO BID aspirin 81 mg PO DAILY 90 days atorvastatin 80 mg PO DAILY bisacodyl (Dulcolax (bisacodyl)) 10 mg (2 x 5 mg) PO BEDTIME blood pressure monitor As directed blood sugar diagnostic (FreeStyle Test strips) Use 1 test strips once a day blood-glucose meter (FreeStyle Lite Meter kit) As directed bupropion HCl XL 150 mg PO QAM buspirone 5 mg PO DAILY disposable gloves (Biobrane Gloves Medium) Use prn esomeprazole magnesium 40 mg PO DAILY ezetimibe 10 mg PO DAILY famotidine 40 mg PO BEDTIME fenofibrate 150 mg PO DAILY ferrous sulfate (Iron (ferrous sulfate)) 325 mg PO BID fluoxetine 40 mg PO DAILY fluoxetine 20 mg PO DAILY [handheld shower As directed] hearing aid accessory As directed [incontinence pads As directed] lancets (FreeStyle Lancets) Use 1 lancet once a day linaclotide (Linzess) 145 mcg PO DAILY lorazepam 0.5 mg PO BID mecobalamin (vitamin B12) 10,000 mcg IM DAILY melatonin-lemon balm leaf extr 10-1 mg 10 tabs PO DAILY metoprolol tartrate 50 mg PO BID miconazole nitrate 2% (Miconazole-7) 1 appful vaginal BEDTIME 7 days nebulizers (Aeroneb Go Nebulizer) As directed nitroglycerin 0.4 mg sublingual Q5M PRN 30 days semaglutide (Ozempic) 1 mg (0.75 mL) subcut QWEEK 4 weeks Shower Chair As directed topiramate 50 mg PO BID [Wedge Pillow As directed] [wipes As directed] HPI HPI 2 wk follow up s/p cath: Details: Barbara is a 55-year-old female with past medical history of hypertension, hyperlipidemia, obesity, CAD with coronary stents who presents for follow-up after recent cardiac catheterization. Today she reports that she has been doing well since her cardiac catheterization procedure. She says she is not really bothered by the shortness of breath recently. She denies having recurrent issues with chest tightness. She will get pinching pains at times, that occur randomly. No PND, orthopnea or edema. No heart palpitations, lightheadedness, presyncope, syncope. She has been doing only light activities. She is taking her meds as directed. Her blood pressure has been running low at home. Right radial catheterization site is feeling good. [facility] Medical History At high risk for breast cancer Lorrie infection of genital region Physical exam Right foot pain Myocardial infarction Chest pain Screen for sexually transmitted diseases Hx of abnormal cervical Pap smear Encounter for gynecological examination with Papanicolaou smear of cervix Costovertebral angle tenderness Anterior knee pain Headache Memory loss Chest tightness Upper respiratory symptom Numbness and tingling in both hands Severe major depression without psychotic features Diabetes mellitus Skin lesion Genital labial ulcer Lichen sclerosus SOB (shortness of breath) on exertion Mixed hyperlipidemia Urge urinary incontinence Chest pain Constipation Tiredness Leg numbness Migraines GERD (gastroesophageal reflux disease) Essential hypertension Depression with anxiety Iron deficiency anemia Pernicious anemia CAD (coronary artery disease) Surgical History History of cardiac cath Hx of colonoscopy History of esophagogastroduodenoscopy (EGD) History of carpal tunnel surgery History of carpal tunnel surgery of left wrist Stented coronary artery History of surgery History of skin cancer History of hysteroscopy History of tubal ligation Family History Father Hypertension Mother Diabetes Stroke Sister Bone cancer Son Christine syndrome Daughter No problems noted. Brother No problems noted. Brother No problems noted. Sister Breast cancer Social History Household Members: Children Housing: Apartment Are you a primary rn medicare to a significant other at home: No Do you presently have visiting nurse or other home services: No Alcohol intake: current Alcohol intake frequency: holidays/special occasions only Alcohol type: wine Patient Tobacco Use Status: Former Tobacco user Tobacco use type: Cigarette e-Cigarette/Vaping Use: Never Used Second Hand Smoke Exposure: No service: No Current occupational status: unemployed Current occupation: right hand Cognitive needs: No Hearing needs: No Vision needs: Yes Female Reproductive History Menstrual Age of Menarche: 8 Review of Systems Const All systems reviewed & are unremarkable except as noted in HPI and below ENT Denies dizziness Card Denies chest pain, Denies chest pain at rest, Denies chest pain with activity, Denies rapid heart rate, Denies pedal edema, Denies edema, Denies leg edema, Denies lightheadedness, Denies palpitations, Denies dyspnea, Denies dyspnea on exertion and Denies orthopnea Resp Denies cough, Denies dyspnea and Denies dyspnea on exertion GI Denies hematochezia and Denies change in stool character Musc Denies abnormal gait, Denies limited range of motion, Denies muscle cramps, Denies muscle weakness, Denies numbness, Denies radiating pain into limb, Denies stiffness and Denies tingling Neuro Denies abnormal gait, Denies dizziness, Denies numbness and Denies tingling Endo Denies palpitations Physical Exam Vital Signs: Last Vital Signs Pulse 90 02/04/25 09:23 BP 90/62 02/04/25 09:23 BMI result Body Mass Index 30.5 Const General: cooperative, healthy appearing, comfortable and no acute distress Orientation/consciousness: patient oriented x3 Neck Neck: Yes normal visual inspection and Yes no JVD Resp Effort & Inspection: normal respiratory effort Auscultation: clear to auscultation bilaterally, no crackles, no rales, no rhonchi and no wheezes Cardio Rate: regular rate Rhythm: regular rhythm Heart sounds: S1 normal heart sound present, S2 normal heart sound present, no gallops, no murmurs and no rubs Neuro General: patient oriented x3 Extrem Other: right radial cath site healing well, easily palpable radial pulse General: Yes normal to inspection, No no pedal edema and No calf tenderness Psych Appearance: grossly normal Mental Status: mental status grossly normal Speech and movement: Normal speech and movement present Assessment & Plan Assessment & Plan (1) CAD (coronary artery disease): Code(s): I25.10 - Atherosclerotic heart disease of [place] coronary artery without angina pectoris Category: Medical Qualifiers: Coronary Disease-Associated Artery/Lesion type: [place] artery [place] vs. transplanted heart: [place] heart Associated angina: with stable angina Qualified Code(s): I25.118 - Atherosclerotic heart disease of [place] coronary artery with other forms of angina pectoris Plan: History of CAD with stents to the LAD, left circumflex and right PDA. On last visit had reported increased shortness of breath with exertion with chest tightness and fatigue. An echocardiogram done 12/11/2024 showed EF 45-50% with wall motion abnormality suggesting underlying coronary artery disease, grade 1 diastolic dysfunction. Echo prior to that done 2020 showed EF 50-55% with wall motion abnormality in the RCA territory. Last nuclear stress test on 12/11/2023 showed probable normal myocardial perfusion imaging. She then underwent cardiac catheterization on 10/25/2024 which did show patent stents, mid PDA 50% stenosis. Today she denies any concerning symptoms. Her right radial catheterization site is well healed. Will continue med management for stable CAD. Continue aspirin indefinitely. Continue atorvastatin and Zetia with ideal LDL goal less than 70. Continue amlodipine and metoprolol. Cardiology follow-up 6 months, sooner if needed (2) SOB (shortness of breath): Code(s): R06.02 - Shortness of breath Category: Medical Plan: Reported on last visit, thought to be anginal equivalent, now has resolved. (3) S/P cardiac cath: Comment: 04/06/21 LM normal, LAD mild irreg, stent mid patent, LCx mild irreg, stent mid patent, RCA mild irreg, Stent R PDA prox patent Code(s): Z98.890 - Other specified postprocedural states Category: Surgical Plan: As above (4) Essential hypertension: Code(s): I10 - Essential (primary) hypertension Category: Medical Plan: Blood pressure goal less than 130/80. Currently 90/62, asymptomatic. Reviewed good hydration, no med changes at this time. Continue low-dose amlodipine and metoprolol. If she has symptoms then amlodipine will be stopped. (5) Mixed hyperlipidemia: Code(s): E78.2 - Mixed hyperlipidemia Category: Medical Plan: [place] LDL goal less than 70. Labs done 01/01/2025 show LDL 65. Continue high-dose atorvastatin and Zetia. Plan Time spent on chart review, documentation, interview and assessment During the visit, I informed the patient about the findings from her recent cardiac catheterization, emphasizing the positive outcome of her stents functioning well without any new blockages. We discussed the results of the echocardiogram, noting wall motion abnormality and mildly reduced ejection fraction. We addressed her symptoms of pinching chest pain, indicating its atypical nature for cardiac events, and reassured her about the absence of severe symptoms like pressure or significant shortness of breath. I highlighted the importance of maintaining her current medication regimen and encouraged physical activity as part of lifestyle management. The patient was advised to monitor any new or worsening symptoms and to contact us if needed. A plan was made for her to have a follow-up in six months or earlier if necessary, with the next visit coordinated with a provider, Agnieszka, for continuity of care. Patient Instructions: - Report any new or worsening symptoms, especially heart-related. - Continue current medications as prescribed. - Remain physically active as discussed. - Follow up in six months, sooner if needed. - Attend the next scheduled visit with Agnieszka. Patient was informed and verbally consented to the use of an ambient scribe for clinic note documentation during this visit. Coding Level of Care Code Est Pt Level 3 (84641) Complex EM visit Add On G2211 Diagnoses Coronary artery disease of [place] artery of [place] heart with stable angina pectoris I25.118 Coronary Disease-Associated Artery/Lesion type: [place] artery [place] vs. transplanted heart: [place] heart Associated angina: with stable angina SOB (shortness of breath) R06.02 S/P cardiac cath Z98.890 Essential hypertension I10 Mixed hyperlipidemia E78.2 Time Spent (min) 24
== END 2025-02-04 09:53 | disposition home or self-care (01) ==
LOC: HO.HCS 09:04
PROVIDERS: PCP Internal Medicine; Visit Provider Nurse Practitioner Family
DX: I25.118 Atherosclerotic heart disease of native coronary artery with other forms of angina pectoris (principal); R06.02 Shortness of breath; Z98.890 Other specified postprocedural states; I10 Essential (primary) hypertension; E78.2 Mixed hyperlipidemia
CPT/HCPCS: 99213; G2211

== ENCOUNTER → 2025-02-04 09:04 | Outpatient (BNVA) | payer OTHER, SELFPAY | PROVIDERS: PCP Internal Medicine; Visit Provider Nurse Practitioner Family | DX: I25.118 Atherosclerotic heart disease of native coronary artery with other forms of angina pectoris (principal); I10 Essential (primary) hypertension; E78.2 Mixed hyperlipidemia; R06.02 Shortness of breath; Z98.890 Other specified postprocedural states | CPT/HCPCS: 99212 ==

== ENCOUNTER 2025-04-22 11:10 | Outpatient (AMB) | payer OTHER, SELFPAY ==
[2025-04-22 11:13] VITALS: BP 110/68; BMI 29.8
--- NOTE | 2025-04-22 11:13 | A.OFFPC_ITS ---
Vital Signs 04/22/25 11:13 Height 5 ft 2 in Weight 163 lb BMI 29.8 BP 110/68 Blood Pressure Location Lt brachial Position Sitting Intake Visit Reasons: dm Intake Note: Patient here for a follow up Dm Group Tester Required: No Accompanied by: Self / Same As Patient Allergies apple (APPLES) Allergy (Intermediate, Verified 04/22/25 11:21) TONGUE SWELLS AND TURNS PURPLE shellfish derived Allergy (Intermediate, Verified 04/22/25 11:21) LOBSTER- UNKNOWN coconut (COCONUT) Allergy (Mild, Verified 04/22/25 11:21) NAUSEA AND STOMACH SWELLS Medication List - Last Reconciled 04/22/25 by Julieth De León MD albuterol sulfate 0.63 mg (3 mL) inhalation QID PRN albuterol sulfate 90 mcg/actuation 1 inh inhalation QID PRN amitriptyline 50 mg PO BEDTIME amlodipine 2.5 mg PO DAILY ascorbic acid (vitamin C) (Vitamin C) 500 mg PO BID aspirin 81 mg PO DAILY 90 days atorvastatin 80 mg PO DAILY bisacodyl (Dulcolax (bisacodyl)) 10 mg (2 x 5 mg) PO BEDTIME blood pressure monitor As directed blood sugar diagnostic (FreeStyle Test strips) Use 1 test strips once a day blood-glucose meter (FreeStyle Lite Meter kit) As directed bupropion HCl XL 150 mg PO QAM buspirone 5 mg PO DAILY disposable gloves (Biobrane Gloves Medium) Use prn esomeprazole magnesium 40 mg PO DAILY ezetimibe 10 mg PO DAILY famotidine 40 mg PO BEDTIME fenofibrate 150 mg PO DAILY ferrous sulfate (Iron (ferrous sulfate)) 325 mg PO BID fluoxetine 40 mg PO DAILY fluoxetine 20 mg PO DAILY [handheld shower As directed] hearing aid accessory As directed [incontinence pads As directed] lancets (FreeStyle Lancets) Use 1 lancet once a day linaclotide (Linzess) 145 mcg PO DAILY lorazepam 0.5 mg PO BID mecobalamin (vitamin B12) 10,000 mcg IM DAILY melatonin-lemon balm leaf extr 10-1 mg 10 tabs PO DAILY metoprolol tartrate 50 mg PO BID miconazole nitrate 2% (Miconazole-7) 1 appful vaginal BEDTIME 7 days nebulizers (Aeroneb Go Nebulizer) As directed nitroglycerin 0.4 mg sublingual Q5M PRN 30 days semaglutide (Ozempic) 1 mg (0.75 mL) subcut QWEEK 4 weeks Shower Chair As directed topiramate 50 mg PO BID [Wedge Pillow As directed] [wipes As directed] Tobacco use date assessed: 11/26/24 Dental Screening Dental Screen Date: 11/26/24 HPI HPI Comments History of Present Illness Details The patient is a 55-year-old female presenting with a follow-up for her chronic conditions, primarily focusing on diabetes management. Her Hemoglobin A1c is currently at 6%, indicating good glycemic control. The patient has a history of hypertension, which is currently well-controlled. She is also managing hyperlipidemia, with previous cholesterol levels reported as satisfactory. The patient experiences depression and anxiety, for which she is on multiple medications including amitriptyline, bupropion, buspirone, and fluoxetine. She has a psychiatrist in [place] who oversees her mental health management. The patient reports gastroesophageal reflux disease, managed with esomeprazole and famotidine. She also takes iron supplements, although she has been advised to reduce the frequency due to adequate iron levels and potential constipation. The patient is on Ozempic for diabetes management, currently at a dose of 1 mg weekly, which she tolerates well except for occasional constipation. Her weight has remained stable over recent months. The patient has a history of mild cardiomyopathy, with no significant disease noted to explain her symptoms. [facility] Medical History At high risk for breast cancer [place] infection of genital region Physical exam Right foot pain Myocardial infarction Chest pain Screen for sexually transmitted diseases Hx of abnormal cervical Pap smear Encounter for gynecological examination with Papanicolaou smear of cervix Costovertebral angle tenderness Anterior knee pain Headache Memory loss Chest tightness Upper respiratory symptom Numbness and tingling in both hands Severe major depression without psychotic features Diabetes mellitus Skin lesion Genital labial ulcer Lichen sclerosus SOB (shortness of breath) on exertion Mixed hyperlipidemia Urge urinary incontinence Chest pain Constipation Tiredness Leg numbness Migraines GERD (gastroesophageal reflux disease) Essential hypertension Depression with anxiety Iron deficiency anemia Pernicious anemia CAD (coronary artery disease) Surgical History History of cardiac cath Hx of colonoscopy History of esophagogastroduodenoscopy (EGD) History of carpal tunnel surgery History of carpal tunnel surgery of left wrist Stented coronary artery History of surgery History of skin cancer History of hysteroscopy History of tubal ligation Family History Father Hypertension Mother Diabetes Stroke Sister Bone cancer Son Christine syndrome Daughter No problems noted. Brother No problems noted. Brother No problems noted. Sister Breast cancer Social History Household Members: Children Housing: Apartment Are you a primary doggy daycare activities director to a significant other at home: No Do you presently have visiting nurse or other home services: No Alcohol intake: current Alcohol intake frequency: holidays/special occasions only Alcohol type: wine Patient Tobacco Use Status: Former Tobacco user Tobacco use type: Cigarette e-Cigarette/Vaping Use: Never Used Second Hand Smoke Exposure: No service: No Current occupational status: unemployed Current occupation: right hand Cognitive needs: No Hearing needs: No Vision needs: Yes Female Reproductive History Menstrual Age of Menarche: 8 Questionnaire Thrive Questionnaire Date Thrive assessed: 11/26/24 ROXY-7 AMB Questionnaire ROXY-7 Date ROXY - 7 assessed: 11/26/24 Source: Developed by Drs. Josh Frederick, Shannen Peck, El Guerrero and colleagues, with an educational lilliam from [employer]. Review of Systems Const All systems reviewed & are unremarkable except as noted in HPI and below ENT Denies change in voice, Denies nasal discharge and Denies sinus pain Card Denies chest pain at rest, Denies chest pain with activity, Denies edema, Denies irregular heart rhythm, Denies claudication, Denies dyspnea, Denies dyspnea on exertion, Denies orthopnea, Denies paroxysmal nocturnal dyspnea and Denies slow heart rate Resp Denies cough, Denies dyspnea and Denies dyspnea on exertion GI Denies abdominal pain, Denies change in bowel habits, Denies excessive flatus, Denies nausea and Denies vomiting Denies urinary incontinence, Denies urinary hesitancy and Denies urinary urgency Musc Denies atrophy, Denies deformity and Denies limited range of motion Skin/Breast Denies bleeding lesions, Denies changing lesions and Denies rash Physical exam (Primary Care) BMI result Body Mass Index 29.8 Tobacco/Smoking Status: Tobacco use Status Tobacco use date assessed 11/26/24 12/14/24 10:00 Patient Tobacco Use Status Former Tobacco user 12/14/24 10:00 Tobacco use type Cigarette 12/14/24 10:00 e-Cigarette/Vaping Use Never Used 12/14/24 10:00 Thrive Assessment: Date of Thrive Assessment Date Thrive assessed 11/26/24 12/14/24 10:00 Resp Effort & Inspection: normal respiratory effort Auscultation: clear to auscultation bilaterally Cardio Jugular venous distension: no JVD Rate: regular rate Rhythm: regular rhythm Heart sounds: S1 normal heart sound present and S2 normal heart sound present Extrem General: Yes full ROM Results AMB Hemoglobin A1c AMB Hemoglobin A1c 6.0 % Last Edit by STEVE Turcios on 04/22/25 11:2 3 Coding Level of Care Code Est Pt Level 4 (16180) Complex EM visit Add On G2211 Diagnoses Mild major depression F32.0 Essential hypertension I10 Type 2 diabetes mellitus with hyperglycemia, without long-term current use of insulin E11.65 Diabetes mellitus complication status: with hyperglycemia Diabetes mellitus [facility] insulin use: without [facility] use Diabetes mellitus type: type 2 Gastroesophageal reflux disease, unspecified whether esophagitis present K21.9 Esophagitis presence: esophagitis presence not specified Chronic idiopathic constipation K59.04 Time Spent (min) 23 Assessment & Plan Assessment & Plan (1) Mild major depression: Code(s): F32.0 - Major depressive disorder, single episode, mild Category: Medical (2) Essential hypertension: Code(s): I10 - Essential (primary) hypertension Category: Medical (3) Diabetes mellitus: Code(s): E11.9 - Type 2 diabetes mellitus without complications Category: Medical Qualifiers: Diabetes mellitus complication status: with hyperglycemia Diabetes mellitus [facility] insulin use: without manager long term care use Diabetes mellitus type: type 2 Qualified Code(s): E11.65 - Type 2 diabetes mellitus with hyperglycemia (4) GERD (gastroesophageal reflux disease): Code(s): K21.9 - Gastro-esophageal reflux disease without esophagitis Category: Medical Qualifiers: Esophagitis presence: esophagitis presence not specified Qualified Code(s): K21.9 - Gastro-esophageal reflux disease without esophagitis (5) Chronic idiopathic constipation: Code(s): K59.04 - Chronic idiopathic constipation Category: Medical Plan The patient will continue with her current diabetes management plan, including the use of Ozempic at 1 mg weekly, as it is well-tolerated and effective in maintaining her A1c at 6%. She is advised to monitor her blood pressure regularly to ensure continued control of her hypertension. For hyperlipidemia, the patient will maintain her current regimen, including atorvastatin and fenofibrate, given her satisfactory cholesterol levels. Her mental health management will continue under the supervision of her psychiatrist in [place], with no changes to her current medications for depression and anxiety. The patient is advised to adjust her iron supplementation to every other day to prevent constipation, which is also a potential side effect of Ozempic. She should continue her current medications for gastroesophageal reflux disease and monitor for any changes in symptoms. Follow-up labs are scheduled for July to reassess her overall health status, including cholesterol levels and other relevant parameters. Patient was informed and verbally consented to the use of an ambient scribe for clinic note documentation during this visit. Orders: Orders AMB Hemoglobin A1c Today E11.65 - Type 2 diabetes mellitus with hyperglycemia Complete Blood Count Auto Diff 3 Months D64.9 - Anemia, unspecified IRON PROFILE 3 Months D64.9 - Anemia, unspecified Lipid Panel 3 Months E78.5 - Hyperlipidemia, unspecified Microalbumin, Random (w Creat) 3 Months R80.9 - Proteinuria, unspecified Vitamin D 25-OH Total 3 Months E55.9 - Vitamin D deficiency, unspecified Vitamin B12 and Folate 3 Months E53.8 - Deficiency of other specified B group vitamins Comprehensive [place]. Panel Fast 3 Months E11.65 - Type 2 diabetes mellitus with hyperglycemia Medications: Refilled semaglutide (Ozempic) 1 mg (0.75 mL) subcut QWEEK 3 mL 4RF 4 weeks E11.65 - Type 2 diabetes mellitus with hyperglycemia
== END 2025-04-22 11:40 | disposition home or self-care (01) ==
LOC: HO.HMCH 11:11
PROVIDERS: PCP Internal Medicine; Visit Provider Internal Medicine
DX: F32.0 Major depressive disorder, single episode, mild (principal); I10 Essential (primary) hypertension; E11.65 Type 2 diabetes mellitus with hyperglycemia; K21.9 Gastro-esophageal reflux disease without esophagitis; K59.04 Chronic idiopathic constipation

== ENCOUNTER → 2025-04-22 11:10 | Outpatient (BNVA) | payer OTHER, SELFPAY | PROVIDERS: PCP Internal Medicine; Visit Provider Internal Medicine | DX: E11.65 Type 2 diabetes mellitus with hyperglycemia (principal); I10 Essential (primary) hypertension; E78.5 Hyperlipidemia, unspecified; F32.A Depression, unspecified; F41.9 Anxiety disorder, unspecified; K21.9 Gastro-esophageal reflux disease without esophagitis; I42.9 Cardiomyopathy, unspecified; F32.0 Major depressive disorder, single episode, mild; K59.04 Chronic idiopathic constipation; D64.9 Anemia, unspecified; R80.9 Proteinuria, unspecified; E55.9 Vitamin D deficiency, unspecified; E53.8 Deficiency of other specified B group vitamins; Z79.899 Other long term (current) drug therapy | CPT/HCPCS: 83036; 99212 ==

== ENCOUNTER 2025-04-29 10:33 | Outpatient (REF) | payer OTHER, SELFPAY ==
--- NOTE | ~2025-04-29 | MM_ITS ---
EXAMINATION: MM SCREENING DIGITAL BREAST TOMOSYNTHESIS, BILATERAL CLINICAL INFORMATION: Screening. Asymptomatic. COMPARISON: Mammography: Comparison is made with available priors TECHNIQUE: Digital breast mammography with tomosynthesis is performed in both the craniocaudal and mediolateral oblique views along with computer-aided detection (CAD). FINDINGS: There are scattered areas of fibroglandular density (ACR BI-RADS breast composition Category b). There are no significant masses, abnormal calcifications, or other abnormalities. MM/MM tomosynthesis screening BI IMPRESSION: No mammographic evidence of malignancy. ASSESSMENT: BI-RADS BI-RADS 1 - Negative RECOMMENDATION: Routine annual mammography screening. 1 year F/U This examination should not preclude the clinical evaluation of a suspicious palpable abnormality. This patient's information was entered into a reminder system with a target due date for their next mammogram. Electronically signed by: Rea Medina DO 05/04/2025 12:14 PM EDT
== END 2025-04-29 10:34 | disposition home or self-care (01) ==
LOC: HO.MAMMO 10:33
PROVIDERS: PCP Internal Medicine; Visit Provider Internal Medicine
DX: Z12.31 Encounter for screening mammogram for malignant neoplasm of breast (principal)
CPT/HCPCS: 77063; 77067

== ENCOUNTER → 2025-04-29 10:45 | Outpatient (BNV) | payer OTHER, SELFPAY | PROVIDERS: PCP Internal Medicine; Visit Provider Internal Medicine | DX: Z12.31 Encounter for screening mammogram for malignant neoplasm of breast (principal) | CPT/HCPCS: 77063; 77067 ==

== ENCOUNTER 2025-05-13 10:25 | Outpatient (AMB) | payer OTHER, SELFPAY ==
--- NOTE | 2025-05-13 10:28 | A.OFFVIS_ITS ---
Vital Signs 05/13/25 10:28 Height 5 ft 2 in Intake Visit Reasons: 6 Months Allergies apple (APPLES) Allergy (Intermediate, Verified 05/13/25 10:41) TONGUE SWELLS AND TURNS PURPLE shellfish derived Allergy (Intermediate, Verified 05/13/25 10:41) LOBSTER- UNKNOWN coconut (COCONUT) Allergy (Mild, Verified 05/13/25 10:41) NAUSEA AND STOMACH SWELLS Medication List - Last Reconciled 05/13/25 by Marian Osorio, VALERIO albuterol sulfate 0.63 mg (3 mL) inhalation QID PRN albuterol sulfate 90 mcg/actuation 1 inh inhalation QID PRN amitriptyline 50 mg PO BEDTIME amlodipine 2.5 mg PO DAILY ascorbic acid (vitamin C) (Vitamin C) 500 mg PO BID aspirin 81 mg PO DAILY 90 days atorvastatin 80 mg PO DAILY bisacodyl (Dulcolax (bisacodyl)) 10 mg (2 x 5 mg) PO BEDTIME blood pressure monitor As directed blood sugar diagnostic (FreeStyle Test strips) Use 1 test strips once a day blood-glucose meter (FreeStyle Lite Meter kit) As directed bupropion HCl XL 150 mg PO QAM buspirone 5 mg PO DAILY disposable gloves (Biobrane Gloves Medium) Use prn esomeprazole magnesium 40 mg PO DAILY ezetimibe 10 mg PO DAILY famotidine 40 mg PO BEDTIME fenofibrate 150 mg PO DAILY ferrous sulfate (Iron (ferrous sulfate)) 325 mg PO BID fluoxetine 40 mg PO DAILY fluoxetine 20 mg PO DAILY [handheld shower As directed] hearing aid accessory As directed [incontinence pads As directed] lancets (FreeStyle Lancets) Use 1 lancet once a day linaclotide (Linzess) 145 mcg PO DAILY lorazepam 0.5 mg PO BID mecobalamin (vitamin B12) 10,000 mcg IM DAILY melatonin-lemon balm leaf extr 10-1 mg 10 tabs PO DAILY metoprolol tartrate 50 mg PO BID miconazole nitrate 2% (Miconazole-7) 1 appful vaginal BEDTIME 7 days nebulizers (Aeroneb Go Nebulizer) As directed nitroglycerin 0.4 mg sublingual Q5M PRN 30 days semaglutide (Ozempic) 1 mg (0.75 mL) subcut QWEEK 4 weeks Shower Chair As directed topiramate 50 mg PO BID [Wedge Pillow As directed] [wipes As directed] HPI Comments Details: She was concerned about memory. She was feeling more forgetful over the last few months, having to concentrate more and taking longer to recall information. She forgot where she parked her car when she went grocery shopping recently. She has not gotten lost driving. Sleep was not so good, having nightmares. Mood was so- so, and she was under some stress. She was working with therapist and psychiatrist. Migraines were happening about 3x/month. Triggers included change in weather and rainy weather. Headache was usually left frontal, throbbing-type with photophobia, sonophobia, and occasionally nausea.?Has left ear hearing loss, unchanged. Some ringing in left ear that comes and goes. Stress test in 11/2023 was okay. No further lower GI bleed. Her headaches are much better. Short term memory problems starting in summer that has been stable. She is concerned about dementia because of family history of AD in [facility] and maternal aunt. She is on multiple medications for depression, hypertension, coronary artery disease, and hyperlipidemia. [facility] Medical History At high risk for breast cancer Lorrie infection of genital region Physical exam Right foot pain Myocardial infarction Chest pain Screen for sexually transmitted diseases Hx of abnormal cervical Pap smear Encounter for gynecological examination with Papanicolaou smear of cervix Costovertebral angle tenderness Anterior knee pain Headache Memory loss Chest tightness Upper respiratory symptom Numbness and tingling in both hands Severe major depression without psychotic features Diabetes mellitus Skin lesion Genital labial ulcer Lichen sclerosus SOB (shortness of breath) on exertion Mixed hyperlipidemia Urge urinary incontinence Chest pain Constipation Tiredness Leg numbness Migraines GERD (gastroesophageal reflux disease) Essential hypertension Depression with anxiety Iron deficiency anemia Pernicious anemia CAD (coronary artery disease) Surgical History History of cardiac cath Hx of colonoscopy History of esophagogastroduodenoscopy (EGD) History of carpal tunnel surgery History of carpal tunnel surgery of left wrist Stented coronary artery History of surgery History of skin cancer History of hysteroscopy History of tubal ligation Family History Father Hypertension Mother Diabetes Stroke Sister Bone cancer Son Christine syndrome Daughter No problems noted. Brother No problems noted. Brother No problems noted. Sister Breast cancer Social History Household Members: Children Housing: Apartment Are you a primary hemodialysis patient care specialist to a significant other at home: No Do you presently have visiting nurse or other home services: No Alcohol intake: current Alcohol intake frequency: holidays/special occasions only Alcohol type: wine Patient Tobacco Use Status: Former Tobacco user Tobacco use type: Cigarette e-Cigarette/Vaping Use: Never Used Second Hand Smoke Exposure: No service: No Current occupational status: unemployed Current occupation: right hand Cognitive needs: No Hearing needs: No Vision needs: Yes Female Reproductive History Menstrual Age of Menarche: 8 Review of Systems Const Denies chills, Denies daytime sleepiness, Reports difficulty sleeping, Denies fatigue, Denies fever(s), Denies frequent falls, Reports headache(s), Denies increased appetite, Denies poor appetite, Denies snoring, Denies weakness, Denies weight gain and Denies weight loss Eyes Denies loss of vision ENT Denies vertigo, Denies dizziness, Reports headache(s) and Reports neck pain Card Denies chest pain at rest, Denies chest pain with activity, Denies syncope, Denies leg edema, Denies palpitations, Denies dyspnea and Denies dyspnea on exertion Resp Denies cough, Denies dyspnea, Denies dyspnea on exertion and Denies snoring GI Denies abdominal pain, Denies constipation, Denies heartburn, Denies diarrhea and Denies nausea Denies urinary frequency, Denies urinary incontinence and Denies urinary urgency Musc Denies abnormal gait, Reports back pain, Reports myalgias, Reports arthralgias, Reports neck pain, Denies numbness and Denies tingling Neuro Denies abnormal gait, Denies vertigo, Denies dizziness, Denies syncope, Denies frequent falls, Reports headache(s), Denies lack of coordination, Denies loss of vision, Reports memory loss, Denies numbness, Denies Other visual disturbances, Denies restless legs, Denies seizure-like activity, Denies tingling, Denies paresthesias, Denies tremor(s) and Denies weakness Psych Reports anxiety, Reports depression, Denies auditory hallucinations, Reports memory loss and Denies visual hallucinations Endo Denies fatigue and Denies palpitations Physical Exam Const Other: General Appearance:? normal, in no acute distress. Heart:? S1, S2 normal, no murmurs. Lungs:? clear anteriorly and posteriorly. Musculoskeletal:? normal. Extremities:? no edema. Psych:? alert, as below. Neuro Other: Abnormal Neurological Findings:?MMSE 26/30 Mental Status: alert, as below. Cranial Nerves: Pupils are equal, round, and reactive to light. External ocular muscles are intact. Visual montero are full, no ptosis. Face is symmetrical, no facial weakness or droop. Facial sensations are normal. Tongue protrudes in midline. Palate elevates symmetrically. Shoulder shrugging is normal Motor Examination: Normal muscle tone, bulk and strength. No atrophy or fasciculations. No drift of the extended upper extremities. DTR 2+. Plantars are flexor. Sensory Exam: Normal light touch, temperature, pinprick, vibration, and joint- position sensations. Rhomberg sign is absent. Coordination: No ataxia. No titubation. Gait Exam: Within normal limits. Cerebellar Signs: [id number] and nyjp-[id number]-qtlm is normal. No dysdiadochokinesia. Extrapyramidal System: No tremor, rigidity with normal facial expressions. No bradykinesia. No bradyphrenia. Normal arm swing and posture. No propulsion or retropulsion. Speech: Normal. MMSE Level of Consciousness: Alert. Orientation: Knows correct year, month, date, day and season. Knows correct city, county and state. Knows correct location and floor. Registration: Able to register 3 objects. Attention: Serial 7's performed accurately to 86. Recall: Able to recall 2 out of 3 objects. Language: Normal spontaneous speech, fluency, repetition, naming, comprehension, reading, and writing. Total Score: 26/30. Results Reviewed Results Reviewed: 04/18/22 EEG- minimal abnormality with rare sharp slow for 1 sec 04/20/22 CT brain normal. Assessment & Plan Assessment & Plan (1) Migraines: Code(s): G43.909 - Migraine, unspecified, not intractable, without status migrainosus Category: Medical Qualifiers: Migraine type: unspecified Status migrainosus presence: without status migrainosus Intractability: not intractable Qualified Code(s): G43.909 - Migraine, unspecified, not intractable, without status migrainosus Plan: Continue topiramate 50mg 1 tablet twice a day. (2) Tension headache: Code(s): G44.209 - Tension-type headache, unspecified, not intractable Category: Medical Plan: Continue amitriptyline 50mg 1 tablet at bedtime. (3) MCI (mild cognitive impairment): Code(s): G31.84 - Mild cognitive impairment of uncertain or unknown etiology Category: Medical Plan: Stay physically and socially active. Continue to work with therapist and psychiatrist. Coding Level of Care Code Est Pt Level 4 (83081) Diagnoses Migraine without status migrainosus, not intractable, unspecified migraine type G43.909 Migraine type: unspecified Status migrainosus presence: without status migrainosus Intractability: not intractable Tension headache G44.209 MCI (mild cognitive impairment) G31.84
== END 2025-05-13 10:57 | disposition home or self-care (01) ==
LOC: HO.HSM 10:26
PROVIDERS: PCP Internal Medicine; Referring Provider Internal Medicine; Visit Provider Registered Nurse
DX: G43.909 Migraine, unspecified, not intractable, without status migrainosus (principal); G44.209 Tension-type headache, unspecified, not intractable; G31.84 Mild cognitive impairment of uncertain or unknown etiology
CPT/HCPCS: 99214

== ENCOUNTER → 2025-05-13 10:25 | Outpatient (BNVA) | payer OTHER, SELFPAY | PROVIDERS: PCP Internal Medicine; Referring Provider Internal Medicine; Visit Provider Registered Nurse | DX: G43.909 Migraine, unspecified, not intractable, without status migrainosus (principal); G44.209 Tension-type headache, unspecified, not intractable; G31.84 Mild cognitive impairment of uncertain or unknown etiology | CPT/HCPCS: 99212 ==

== ENCOUNTER 2025-07-19 08:59 | Outpatient (AMB) | payer OTHER, SELFPAY ==
[2025-07-19 09:02] VITALS: BP 100/66; PULSE 86; O2SAT 99; BMI 30.5
--- NOTE | 2025-07-19 09:02 | A.OFFVIS_ITS ---
Vital Signs 07/19/25 09:02 Height 5 ft 2 in Weight 167 lb BMI 30.5 BP 100/66 Blood Pressure Location Rt brachial Position Sitting Pulse 86 Pulse Source Pulse Oximeter Pulse Oximetry (%) 99 Oxygen Delivery Method Room Air Intake Visit Reasons: 6 mo f/u Intake Note: ESTABLISHED PATIENT for mgmt of GERD, constipation CC; C.O. constipation w/ BRB per rectum persistence despite her current therapies. Pt confirms she is still taking the 145 mcg Linzess but is not noticing any significant changes. Electrical Instrumentation Technician Required: No Accompanied by: Self / Same As Patient Allergies apple (APPLES) Allergy (Intermediate, Verified 07/19/25 09:02) TONGUE SWELLS AND TURNS PURPLE shellfish derived Allergy (Intermediate, Verified 07/19/25 09:02) LOBSTER- UNKNOWN coconut (COCONUT) Allergy (Mild, Verified 07/19/25 09:02) NAUSEA AND STOMACH SWELLS HPI HPI 6 mo f/u: Details: LAST VISIT Diabetes mellitus Mild major depression GERD (gastroesophageal reflux disease) Constipation Hiatal hernia Diverticulosis Dysphagia Plan Continue Nexium and famotidine. Continue avoiding dietary triggers and late night snacking. Hold Linzess and start Dulcolax if Dulcolax does not work by itself patient can start taking Linzess in the morning and Dulcolax in the evening. Increase fluid intake and activity to promote bowel motility. Patient is also on Ozempic which could cause decrease motility. Patient will return in 6 months, sooner on as needed basis. She is agreeable to this plan and verbalizes understanding of instructions. She was given the opportunity to ask questions and all questions answered. ? Thank you for allowing me to participate in her care New bisacodyl (Dulcolax (bisacodyl)) 10 mg (2 x 5 mg) PO BEDTIME 180 tabs 4RF Refilled esomeprazole magnesium 40 mg PO DAILY 90 caps 3RF K21.9 TODAY'S VISIT Patient is here today for follow-up. Patient reports that acid reflux has been suppressed with Nexium. Patient is taking famotidine at bedtime. Patient denies dyspepsia, dysphagia or odynophagia. Patient reports continues to be constipated. Patient is taking Linzess in the morning and Dulcolax at night time and continues to be constipated. No BM for 3-4 days. Patient admits to straining in order to have a bowel movement. Occasional blood when constipated. Otherwise patient denies melena, unintentional weight loss or ribbon like stools. Patient denies any abdominal pain or discomfort. Denies any mucus in her stools. Denies any nausea or vomiting. Patient reports to have a good appetite. Patient is still taking Ozempic [facility] Medical History At high risk for breast cancer Lorrie infection of genital region Physical exam Right foot pain Myocardial infarction Chest pain Screen for sexually transmitted diseases Hx of abnormal cervical Pap smear Encounter for gynecological examination with Papanicolaou smear of cervix Costovertebral angle tenderness Anterior knee pain Headache Memory loss Chest tightness Upper respiratory symptom Numbness and tingling in both hands Severe major depression without psychotic features Diabetes mellitus Skin lesion Genital labial ulcer Lichen sclerosus SOB (shortness of breath) on exertion Mixed hyperlipidemia Urge urinary incontinence Chest pain Constipation Tiredness Leg numbness Migraines GERD (gastroesophageal reflux disease) Essential hypertension Depression with anxiety Iron deficiency anemia Pernicious anemia CAD (coronary artery disease) Surgical History History of cardiac cath Hx of colonoscopy History of esophagogastroduodenoscopy (EGD) History of carpal tunnel surgery History of carpal tunnel surgery of left wrist Stented coronary artery History of surgery History of skin cancer History of hysteroscopy History of tubal ligation Family History Father Hypertension Mother Diabetes Stroke Sister Bone cancer Son Christine syndrome Daughter No problems noted. Brother No problems noted. Brother No problems noted. Sister Breast cancer Social History Household Members: Children Housing: Apartment Are you a primary acute care assistant to a significant other at home: No Do you presently have visiting nurse or other home services: No Alcohol intake: current Alcohol intake frequency: holidays/special occasions only Alcohol type: wine Patient Tobacco Use Status: Former Tobacco user Tobacco use type: Cigarette e-Cigarette/Vaping Use: Never Used Second Hand Smoke Exposure: No service: No Current occupational status: unemployed Current occupation: right hand Cognitive needs: No Hearing needs: No Vision needs: Yes Female Reproductive History Menstrual Age of Menarche: 8 Review of Systems Const Denies weight gain and Denies weight loss ENT Reports no additional complaints, Denies dysphagia and Denies odynophagia Card Reports no additional complaints Resp Reports no additional complaints GI Denies abdominal pain, Denies belching, Denies melena, Reports bloating, Reports hematochezia, Denies change in bowel habits, Reports constipation, Denies dysphagia, Denies excessive flatus, Denies dyspepsia, Reports heartburn (O ccasional), Denies diarrhea, Denies loose stools, Denies nausea, Denies odynophagia and Denies vomiting Reports no additional complaints Musc Reports no additional complaints Neuro Reports no additional complaints Psych Reports no additional complaints Endo Reports no additional complaints Physical Exam Vital Signs: BMI result Body Mass Index 30.5 Const General: healthy appearing and no acute distress Nutritional Appearance: obese Orientation/consciousness: patient oriented x3 Resp Effort & Inspection: normal respiratory effort, able to speak in complete sentences, no tracheal deviation and symmetric chest movement Auscultation: clear to auscultation bilaterally Cardio Rate: regular rate GI Inspection: Yes normal to inspection, No distended and Yes obesity Palpation (GI): Soft to palpation, not firm, nontender and No hepatosplenomegaly present Auscultation: normal bowel sounds General: Yes no CVA tenderness Back/Spine/Pelvis Back: no CVA tenderness Skin General skin exam: elasticity normal, turgor normal and dry skin Neuro General: patient oriented x3 Psych Appearance: grossly normal Mental Status: mental status grossly normal Assessment & Plan Assessment & Plan (1) GERD (gastroesophageal reflux disease): Code(s): K21.9 - Gastro-esophageal reflux disease without esophagitis Category: Medical Qualifiers: Esophagitis presence: esophagitis presence not specified Qualified Code(s): K21.9 - Gastro-esophageal reflux disease without esophagitis (2) Constipation: Code(s): K59.00 - Constipation, unspecified Category: Medical Qualifiers: Constipation type: slow transit constipation Qualified Code(s): K59.01 - Slow transit constipation (3) Abdominal bloating: Code(s): R14.0 - Abdominal distension (gaseous) (4) Rectal bleed: Code(s): K62.5 - Hemorrhage of anus and rectum Plan Patient continue taking meds in the morning and famotidine at bedtime as needed. Discussed with patient avoiding dietary triggers in the next month. Staying upright for minimal 3 hours after meals discussed with patient. Patient will start taking Motegrity. Linzess and Dulcolax has not helped. Patient was taking other [id number]-[id number] laxatives. Patient is taking Ozempic and Motegrity might be the only medication that will work for her at this point. Patient will follow-up in the office in 4 months. Patient will call us to let us know if the medication is not working. Patient is agreeable to current plan of care and verbalizes understanding of instructions. She was given the opportunity to ask questions and all questions answered. Thank you for allowing me to participate in her care Medications: New hydrocortisone 2.5% (Proctosol HC) 1 appl CO BID-QID PRN 30 grams 2RF hemorrhoids K64.9 - Unspecified hemorrhoids prucalopride (Motegrity) 2 mg PO DAILY 30 tabs 2RF K59.04 - Chronic idiopathic constipation Discontinued linaclotide (Linzess) Discontinued Reason: Doctor's Order 145 mcg PO DAILY 30 caps 2RF Coding Level of Care Code Est Pt Level 4 (85985) Complex EM visit Add On G2211 Diagnoses Gastroesophageal reflux disease, unspecified whether esophagitis present K21.9 Esophagitis presence: esophagitis presence not specified Slow transit constipation K59.01 Constipation type: slow transit constipation Abdominal bloating R14.0 Rectal bleed K62.5 Time Spent (min) 35 Comment 25 minutes spent with patient and additional 10 minutes spent reviewing her records
== END 2025-07-19 09:22 | disposition home or self-care (01) ==
LOC: HO.HGI 09:00
PROVIDERS: PCP Internal Medicine; Visit Provider Nurse Practitioner Family
DX: K21.9 Gastro-esophageal reflux disease without esophagitis (principal); K59.01 Slow transit constipation; R14.0 Abdominal distension (gaseous); K62.5 Hemorrhage of anus and rectum
CPT/HCPCS: 99214; G2211

== ENCOUNTER → 2025-07-19 08:59 | Outpatient (BNVA) | payer OTHER, SELFPAY | PROVIDERS: PCP Internal Medicine; Visit Provider Nurse Practitioner Family | DX: K21.9 Gastro-esophageal reflux disease without esophagitis (principal); K59.01 Slow transit constipation; R14.0 Abdominal distension (gaseous); K62.5 Hemorrhage of anus and rectum | CPT/HCPCS: 99212 ==

== ENCOUNTER 2025-07-22 09:29 | Outpatient (AMB) | payer OTHER, SELFPAY ==
--- NOTE | 2025-07-22 09:33 | MHC.PC.OV ---
Vital Signs 07/22/25 09:34 Height 5 ft 2 in Weight 166 lb 2 oz BMI 30.4 BP 118/66 Blood Pressure Location Lt brachial Position Sitting Pulse 87 Pulse Source Pulse Oximeter Temp 97.0 F Temp Source Temporal Artery Scan Pulse Oximetry (%) 98 Oxygen Delivery Method Room Air Intake Visit Reasons: Annual exam- A1C Needed. Lead Burner Required: No Accompanied by: Self / Same As Patient Allergies apple (APPLES) Allergy (Intermediate, Verified 07/22/25 09:59) TONGUE SWELLS AND TURNS PURPLE shellfish derived Allergy (Intermediate, Verified 07/22/25 09:59) LOBSTER- UNKNOWN coconut (COCONUT) Allergy (Mild, Verified 07/22/25 09:59) NAUSEA AND STOMACH SWELLS Medication List - Last Reconciled 07/22/25 by Julieth De León MD albuterol sulfate 0.63 mg (3 mL) inhalation QID PRN albuterol sulfate 90 mcg/actuation 1 inh inhalation QID PRN amitriptyline 50 mg PO BEDTIME amlodipine 2.5 mg PO DAILY ascorbic acid (vitamin C) (Vitamin C) 500 mg PO BID aspirin 81 mg PO DAILY 90 days atorvastatin 80 mg PO DAILY bisacodyl (Dulcolax (bisacodyl)) 10 mg (2 x 5 mg) PO BEDTIME blood pressure monitor As directed blood sugar diagnostic (FreeStyle Test strips) Use 1 test strips once a day blood-glucose meter (FreeStyle Lite Meter kit) As directed bupropion HCl XL 150 mg PO QAM buspirone 5 mg PO DAILY disposable gloves (Biobrane Gloves Medium) Use prn esomeprazole magnesium 40 mg PO DAILY ezetimibe 10 mg PO DAILY famotidine 40 mg PO BEDTIME fenofibrate 150 mg PO DAILY ferrous sulfate (Iron (ferrous sulfate)) 325 mg PO BID fluoxetine 40 mg PO DAILY fluoxetine 20 mg PO DAILY [handheld shower As directed] hearing aid accessory As directed hydrocortisone 2.5% (Proctosol HC) 1 appl PA BID-QID PRN [incontinence pads As directed] lancets (FreeStyle Lancets) Use 1 lancet once a day lorazepam 0.5 mg PO BID mecobalamin (vitamin B12) 10,000 mcg IM DAILY melatonin-lemon balm leaf extr 10-1 mg 10 tabs PO DAILY metoprolol tartrate 50 mg PO BID miconazole nitrate 2% (Miconazole-7) 1 appful vaginal BEDTIME 7 days nebulizers (Aeroneb Go Nebulizer) As directed nitroglycerin 0.4 mg sublingual Q5M PRN 30 days prucalopride (Motegrity) 2 mg PO DAILY semaglutide (Ozempic) 1 mg (0.75 mL) subcut QWEEK 4 weeks Shower Chair As directed topiramate 50 mg PO BID 90 days [Wedge Pillow As directed] [wipes As directed] Tobacco use date assessed: 07/22/25 Dental Screening Dental Screen Date: 07/22/25 Did you have a dental visit in the last 12 months?: Yes Did you have a dental problem in the last 6 months where you did not have access to dental care?: No Was dental information given to patient?: Patient has dentist HPI HPI Comments History of Present Illness Details The patient is a 55-year-old female presenting for an annual physical exam. Her last A1c was 5.8, her blood pressure is at goal, and her LDL was at goal in December. The patient has a history of coronary artery disease and underwent stent placement in 2015 which was repeated in 2018. She has a past surgical history of cardiac catheterization. The patient reports a history of depression with anxiety and follows with psychiatry. A PHQ-9 score was noted to be 13. Past surgical history is significant for carpal tunnel release on the left hand in 2021 and the right hand in 2022, skin cancer excision from the thigh, hysteroscopy, and tubal ligation. She has also had a prior colonoscopy and endoscopy. The patient follows with dermatology. Her current medications include an albuterol inhaler, amitriptyline 50 mg, amlodipine 2.5 mg, vitamin C, aspirin, atorvastatin 80 mg for cholesterol, bupropion, buspirone, a medication for triglycerides, iron taken twice a day, lorazepam, vitamin B12, melatonin, metoprolol, PRN nitroglycerin, and Motegrity. She also uses a medication for migraine prophylaxis. She has known allergies to shellfish and cocoa. For health maintenance, a mammogram was completed, and a bone densitometry scan in 2023 was normal. Her last tetanus vaccine was in 2004 and is currently due. Pap smear done 2022 was normal. Colonoscopy done 2022 was normal. [facility] Medical History At high risk for breast cancer Lorrie infection of genital region Physical exam Right foot pain Myocardial infarction Chest pain Screen for sexually transmitted diseases Hx of abnormal cervical Pap smear Encounter for gynecological examination with Papanicolaou smear of cervix Costovertebral angle tenderness Anterior knee pain Headache Memory loss Chest tightness Upper respiratory symptom Numbness and tingling in both hands Severe major depression without psychotic features Diabetes mellitus Skin lesion Genital labial ulcer Lichen sclerosus SOB (shortness of breath) on exertion Mixed hyperlipidemia Urge urinary incontinence Chest pain Constipation Tiredness Leg numbness Migraines GERD (gastroesophageal reflux disease) Essential hypertension Depression with anxiety Iron deficiency anemia Pernicious anemia CAD (coronary artery disease) Surgical History History of cardiac cath Hx of colonoscopy History of esophagogastroduodenoscopy (EGD) History of carpal tunnel surgery History of carpal tunnel surgery of left wrist Stented coronary artery History of surgery History of skin cancer History of hysteroscopy History of tubal ligation Family History Father Hypertension Mother Diabetes Stroke Sister Bone cancer Son Christine syndrome Daughter No problems noted. Brother No problems noted. Brother No problems noted. Sister Breast cancer Social History Household Members: Children Housing: Apartment Are you a primary healthcare educator to a significant other at home: No Do you presently have visiting nurse or other home services: No Alcohol intake: current Alcohol intake frequency: holidays/special occasions only Alcohol type: wine Patient Tobacco Use Status: Former Tobacco user Tobacco use type: Cigarette e-Cigarette/Vaping Use: Never Used Second Hand Smoke Exposure: No service: No Current occupational status: unemployed Current occupation: right hand Cognitive needs: No Hearing needs: No Vision needs: Yes Female Reproductive History Menstrual Age of Menarche: 8 Questionnaire PHQ-9 Over the last 2 weeks, how often have you been bothered by any of the following problems? 1. Little interest or pleasure in doing things: more than half the days 2. Feeling down, depressed, or hopeless: more than half the days 3. Trouble falling or staying asleep, or sleeping too much: nearly every day 4. Feeling tired or having little energy: nearly every day 5. Poor appetite or overeating: several days 6. Feeling bad about yourself - or that you are a failure or have let yourself or your family down: several days 7. Trouble concentrating on things, such as reading the newspaper or watching television: several days 8. Moving or speaking so slowly that other people could have noticed. Or the opposite - being so fidgety or restless that you have been moving around a lot more than usual: not at all 9. Thoughts that you would be better off or of hurting yourself in some way: not at all Total score: 13 Depression Screening Interpretation: Positive Depression Screening Follow-up: Existing condition, In treatment, Community Mental Health Worker F/U and Follow-up Visit Requested Depression Screening Done: Yes 90899 - PHQ-9 Billing: Yes Source: Developed by Drs. Josh Frederick, Shannen Peck, El Guerrero and colleagues, with an educational lilliam from [employer] Thrive Questionnaire Date Thrive assessed: 11/26/24 I am a: Patient What is your living situation today?: I have a steady place to live Within the past 12 months, did the food you bought not last and you didn't have the money to get more?: Often true Within the past 12 months, did you worry whether your food would run out before you got money to buy more?: I choose not to answer this question Do you have trouble paying for medicines?: No Do you have trouble getting transportation to medical appointments?: Yes Do you have trouble paying your heating and electricity bill?: No Do you have trouble taking care of your child, family member or friend?: Yes Do you have trouble with day-to-day activities such as bathing, preparing meals, shopping, managing finances, etc.?: Yes Are you currently unemployed and looking for a job?: Yes Are you interested in more education?: No Please select the resources that you would like help with: None Currently or been in a relationship where the following occur: I choose not to answer THRIVE Score: 2 AUDIT C Alcohol Use Questionnaire (AUDIT-C) 1. How often do you have a drink containing alcohol?: Never 3. How often do you have six or more drinks on one occasion?: Never Total Score: 0 Score Reviewed/Action Taken: No ROXY-7 AMB Questionnaire ROXY-7 Date ROXY - 7 assessed: 11/26/24 Feeling nervous, anxious, or on edge: 1 = Several days Not being able to stop or control worryin = Not at all Worrying too much about different things: 3 = Nearly every day Trouble relaxin = Nearly every day Being so restless that it is hard to sit still: 0 = Not at all Becoming easily annoyed or irritable: 0 = Not at all Feeling afraid as if something awful might happen: 2 = More than half the days Total ROXY-7 score (0-4 normal; 5-9 mild; 10-14 moderate; 15-21 severe): 9 Source: Developed by Drs. Josh Frederick, Shannen Peck, El Guerrero and colleagues, with an educational lilliam from [employer] ROXY-7 Assessment Billing ROXY-7 Assessment Tool: ROXY-7 Assessment 08398 Review of Systems Const All systems reviewed & are unremarkable except as noted in HPI and below Card Denies chest pain at rest, Denies chest pain with activity, Denies edema, Denies irregular heart rhythm, Denies claudication, Denies dyspnea, Denies dyspnea on exertion, Denies orthopnea, Denies paroxysmal nocturnal dyspnea and Denies slow heart rate Resp Denies cough, Denies dyspnea and Denies dyspnea on exertion Physical exam (Primary Care) Vital Signs: Last Vital Signs Temp 97.0 F 07/22/25 09:34 Pulse 87 07/22/25 09:34 BP 118/66 07/22/25 09:34 Pulse Ox 98 07/22/25 09:34 Oxygen Delivery Method Room Air 07/22/25 09:34 BMI result Body Mass Index 30.4 BMI Assessment/Plan discussion: High BMI High, discussed plan: lifestyle, weight reduction, dietary and physical activity Tobacco/Smoking Status: Tobacco use Status Tobacco use date assessed 07/22/25 07/22/25 09:50 Patient Tobacco Use Status Former Tobacco user 07/22/25 09:50 Tobacco use type Cigarette 07/22/25 09:50 e-Cigarette/Vaping Use Never Used 07/22/25 09:50 PHQ-9: PHQ-9 Score PHQ-9: Total score 13 07/22/25 10:23 Depression Screening Interpretation: Positive Depression Screening Follow-up: Existing condition, In treatment, Community Mental Health Worker F/U and Follow-up Visit Requested Thrive Assessment: Date of Thrive Assessment Date Thrive assessed 11/26/24 07/22/25 09:50 Currently or been in a relationship where the following occur: I choose not to answer HENMT Head: Yes normal to inspection, Yes normocephalic and Yes atraumatic Ears: external ears normal Eyes General: appearance normal, both eyes and all related structures Eyelids: Yes eyelids normal Conjunctivae: conjunctivae normal Neck Neck: Yes normal visual inspection and Yes supple Resp Effort & Inspection: normal respiratory effort Auscultation: clear to auscultation bilaterally Cardio Jugular venous distension: no JVD Rate: regular rate Rhythm: regular rhythm Heart sounds: S1 normal heart sound present and S2 normal heart sound present GI Inspection: Yes normal to inspection Palpation (GI): Soft to palpation and nontender Auscultation: normal bowel sounds Skin General skin exam: no rashes or lesions noted Neuro General: no focal motor deficits Extrem General: Yes full ROM Psych Appearance: grossly normal Results AMB Hemoglobin A1c AMB Hemoglobin A1c 5.8 % Last Edit by Lenora Garcia CMA on 07/22/25 09:51 Immunizations Boostrix Tdap 2.5 Lf unit-8 mcg-5 Lf/0.5 mL intramuscular syringe Performing Provider: Julieth De León MD [facility] Administered by: Kathleen Reed RN on 07/22/25 10:21 Dose Route Admin Location Dispensed Lot Number Expiration Date [facility] Marketing Operations Assistant 0.5 mL IM Left Deltoid 0.5 mL [id number] 12/11/27 [id number] [employer] Total Dispensed Waste 0.5 mL 0 % VIS Given Date VIS Provided VIS Publication Date 07/22/25 Single Vaccine 21 Eligibility Eligibility Date Funding Source Not [facility] Eligible 07/22/25 Private Results Reviewed Results Reviewed: Laboratory Last Values Hgb A1c (Clinic) 5.8 % (4.0-6.0) 07/22/25 09:50 Coding Level of Care Code Est Pt Prev Care 40-64y(73607) Diagnoses Physical exam Z00.00 Type 2 diabetes mellitus with hyperglycemia, without long-term current use of insulin E11.65 Diabetes mellitus type: type 2 Diabetes mellitus buttermaker continuous churn insulin use: without buttermaker continuous churn use Diabetes mellitus complication status: with hyperglycemia Mild major depression F32.0 Additional Codes ROXY-7 Assessment Billing - ROXY-7 Assessment Tool: ROXY-7 Assessment 50075 ([id number]) PHQ-9 - 47562 - PHQ-9 Billing: Yes ([id number]) Time Spent (min) 30 Assessment & Plan Assessment & Plan (1) Physical exam: Code(s): Z00.00 - Encounter for general adult medical examination without abnormal findings Category: Medical (2) Diabetes mellitus: Code(s): E11.9 - Type 2 diabetes mellitus without complications Category: Medical Qualifiers: Diabetes mellitus type: type 2 Diabetes mellitus buttermaker continuous churn insulin use: without buttermaker continuous churn use Diabetes mellitus complication status: with hyperglycemia Qualified Code(s): E11.65 - Type 2 diabetes mellitus with hyperglycemia (3) Mild major depression: Code(s): F32.0 - Major depressive disorder, single episode, mild Category: Medical Plan Plan 1. Physical exam Do mammogram next year. Do diabetic eye exam yearly. Next colonoscopy 2032. 2. Depression With Anxiety The patient has a history of depression with anxiety, with a PHQ-9 score of 13. She will continue her current medications, including bupropion, buspirone, and amitriptyline, and maintain follow-up with her psychiatrist. 3. Diabetes mellitus Continue same medications. A1c goal is equal or less than 7%. Orders: Orders TDaP Immunization Today Z23 - Encounter for immunization AMB Hemoglobin A1c Today Z13.9 - Encounter for screening, unspecified Medications: Refilled [wipes] As directed 100 ea 11RF N39.41 - Urge incontinence Discontinued fenofibrate Discontinued Reason: Patient Completed Course 150 mg PO DAILY 30 caps 5RF
[2025-07-22 09:34] VITALS: BP 118/66; PULSE 87; TEMP 36.1; O2SAT 98; BMI 30.4
== END 2025-07-22 10:24 | disposition home or self-care (01) ==
LOC: HO.HMCH 09:30
PROVIDERS: PCP Internal Medicine; Visit Provider Internal Medicine
DX: Z00.00 Encounter for general adult medical examination without abnormal findings (principal); E11.65 Type 2 diabetes mellitus with hyperglycemia; F32.0 Major depressive disorder, single episode, mild; Z23 Encounter for immunization; Z13.9 Encounter for screening, unspecified

== ENCOUNTER → 2025-07-22 09:29 | Outpatient (BNVA) | payer OTHER, SELFPAY | PROVIDERS: PCP Internal Medicine; Visit Provider Internal Medicine | DX: Z00.00 Encounter for general adult medical examination without abnormal findings (principal); I25.10 Atherosclerotic heart disease of native coronary artery without angina pectoris; F41.9 Anxiety disorder, unspecified; E11.65 Type 2 diabetes mellitus with hyperglycemia; F32.0 Major depressive disorder, single episode, mild; Z23 Encounter for immunization; Z79.899 Other long term (current) drug therapy; N39.41 Urge incontinence | CPT/HCPCS: 83036; 90471; 90715; 96127; 99396 ==

== ENCOUNTER 2025-07-30 09:49 | Outpatient (AMB) | payer OTHER, SELFPAY ==
--- NOTE | 2025-07-30 10:08 | A.OFFVIS_ITS ---
Vital Signs 07/30/25 10:10 Height 5 ft 2 in Weight 164 lb 14.492 oz BMI 30.2 BP 114/64 Blood Pressure Location Lt brachial Position Sitting Pulse 88 Pulse Source Pulse Oximeter Intake Visit Reasons: 6m follow up Intake Note: 6 mth f/up Bottom Sander Required: No Accompanied by: Self / Same As Patient Allergies apple (APPLES) Allergy (Intermediate, Verified 07/22/25 09:59) TONGUE SWELLS AND TURNS PURPLE shellfish derived Allergy (Intermediate, Verified 07/22/25 09:59) LOBSTER- UNKNOWN coconut (COCONUT) Allergy (Mild, Verified 07/22/25 09:59) NAUSEA AND STOMACH SWELLS Medication List - Last Reconciled 07/30/25 by ROD Rogers albuterol sulfate 0.63 mg (3 mL) inhalation QID PRN albuterol sulfate 90 mcg/actuation 1 inh inhalation QID PRN amitriptyline 50 mg PO BEDTIME amlodipine 2.5 mg PO DAILY ascorbic acid (vitamin C) (Vitamin C) 500 mg PO BID aspirin 81 mg PO DAILY 90 days atorvastatin 80 mg PO DAILY bisacodyl (Dulcolax (bisacodyl)) 10 mg (2 x 5 mg) PO BEDTIME blood pressure monitor As directed blood sugar diagnostic (FreeStyle Test strips) Use 1 test strips once a day blood-glucose meter (FreeStyle Lite Meter kit) As directed bupropion HCl XL 150 mg PO QAM buspirone 5 mg PO DAILY disposable gloves (Biobrane Gloves Medium) Use prn esomeprazole magnesium 40 mg PO DAILY ezetimibe 10 mg PO DAILY famotidine 40 mg PO BEDTIME ferrous sulfate (Iron (ferrous sulfate)) 325 mg PO BID fluoxetine 40 mg PO DAILY fluoxetine 20 mg PO DAILY [handheld shower As directed] hearing aid accessory As directed hydrocortisone 2.5% (Proctosol HC) 1 appl UT BID-QID PRN [incontinence pads As directed] lancets (FreeStyle Lancets) Use 1 lancet once a day lorazepam 0.5 mg PO BID mecobalamin (vitamin B12) 10,000 mcg IM DAILY melatonin-lemon balm leaf extr 10-1 mg 10 tabs PO DAILY metoprolol tartrate 50 mg PO BID miconazole nitrate 2% (Miconazole-7) 1 appful vaginal BEDTIME 7 days nebulizers (Aeroneb Go Nebulizer) As directed nitroglycerin 0.4 mg sublingual Q5M PRN 30 days prucalopride (Motegrity) 2 mg PO DAILY semaglutide (Ozempic) 1 mg (0.75 mL) subcut QWEEK 4 weeks Shower Chair As directed topiramate 50 mg PO BID 90 days [Wedge Pillow As directed] [wipes As directed] HPI HPI 6m follow up: Details: The patient is a 55-year-old female presenting with coronary artery disease. She has a history of coronary artery disease with stenting of the LAD, LCX, and PDA. The last cardiac catheterization showed patent stents and 50% stenosis in the mid PDA. Hypertension and hyperlipidemia are managed with medication. Blood pressure is 114/64 mmHg, and LDL is 65 mg/dL on atorvastatin. Echocardiogram showed EF 45-50%, regional wall motion abnormality, and grade 1 diastolic dysfunction. Reports no chest discomfort with exertion, dyspnea, palpitations, dizziness, or syncope. Medications include amlodipine, aspirin, atorvastatin, ezetimibe, amlodipine and metoprolol. Adheres to medication regimen. [facility] Medical History At high risk for breast cancer [place] infection of genital region Physical exam Right foot pain Myocardial infarction Chest pain Screen for sexually transmitted diseases Hx of abnormal cervical Pap smear Encounter for gynecological examination with Papanicolaou smear of cervix Costovertebral angle tenderness Anterior knee pain Headache Memory loss Chest tightness Upper respiratory symptom Numbness and tingling in both hands Severe major depression without psychotic features Diabetes mellitus Skin lesion Genital labial ulcer Lichen sclerosus SOB (shortness of breath) on exertion Mixed hyperlipidemia Urge urinary incontinence Chest pain Constipation Tiredness Leg numbness Migraines GERD (gastroesophageal reflux disease) Essential hypertension Depression with anxiety Iron deficiency anemia Pernicious anemia CAD (coronary artery disease) Surgical History History of cardiac cath Hx of colonoscopy History of esophagogastroduodenoscopy (EGD) History of carpal tunnel surgery History of carpal tunnel surgery of left wrist Stented coronary artery History of surgery History of skin cancer History of hysteroscopy History of tubal ligation Family History Father Hypertension Mother Diabetes Stroke Sister Bone cancer Son Christine syndrome Daughter No problems noted. Brother No problems noted. Brother No problems noted. Sister Breast cancer Social History Household Members: Children Housing: Apartment Are you a primary progressive care unit registered nurse to a significant other at home: No Do you presently have visiting nurse or other home services: No Alcohol intake: current Alcohol intake frequency: holidays/special occasions only Alcohol type: wine Patient Tobacco Use Status: Former Tobacco user Tobacco use type: Cigarette e-Cigarette/Vaping Use: Never Used Second Hand Smoke Exposure: No service: No Current occupational status: unemployed Current occupation: right hand Cognitive needs: No Hearing needs: No Vision needs: Yes Female Reproductive History Menstrual Age of Menarche: 8 Review of Systems Const All systems reviewed & are unremarkable except as noted in HPI and below Denies chills, Denies fatigue, Denies fever(s), Denies frequent falls, Denies weakness, Denies weight gain and Denies weight loss ENT Denies dizziness Card Denies chest pain, Denies chest pain at rest, Denies chest pain with activity, Denies leg edema, Denies lightheadedness, Denies palpitations, Denies dyspnea and Denies dyspnea on exertion Resp Denies cough, Denies dyspnea and Denies dyspnea on exertion GI Denies hematochezia Musc Denies abnormal gait, Denies muscle weakness, Denies numbness, Denies radiating pain into limb and Denies tingling Neuro Denies abnormal gait, Denies dizziness, Denies frequent falls, Denies numbness, Denies tingling and Denies weakness Endo Denies fatigue and Denies palpitations Physical Exam Vital Signs: Last Vital Signs Pulse 88 07/30/25 10:10 BP 114/64 07/30/25 10:10 BMI result Body Mass Index 30.2 Const General: cooperative, healthy appearing, comfortable and no acute distress Orientation/consciousness: patient oriented x3 Neck Neck: Yes normal visual inspection Resp Effort & Inspection: normal respiratory effort Auscultation: clear to auscultation bilaterally, no rales, no rhonchi and no wheezes Cardio Rate: regular rate Rhythm: regular rhythm Heart sounds: S1 normal heart sound present, S2 normal heart sound present, no gallops, no murmurs and no rubs Skin General skin exam: no rashes or lesions noted Neuro General: patient oriented x3 Extrem General: Yes normal to inspection, No no pedal edema and No calf tenderness Psych Appearance: grossly normal Mental Status: mental status grossly normal Speech and movement: Normal speech and movement present Assessment & Plan Assessment & Plan (1) CAD (coronary artery disease): Code(s): I25.10 - Atherosclerotic heart disease of [place] coronary artery without angina pectoris Category: Medical Qualifiers: Coronary Disease-Associated Artery/Lesion type: [place] artery [place] vs. transplanted heart: [place] heart Associated angina: with stable angina Qualified Code(s): I25.118 - Atherosclerotic heart disease of [place] coronary artery with other forms of angina pectoris Plan: History of CAD with stents to the LAD, left circumflex and right PDA. Last echocardiogram done 12/11/2024 showed EF 45-50% with wall motion abnormality suggesting underlying coronary artery disease, grade 1 diastolic dysfunction. Echo prior to that done 2020 showed EF 50-55% with wall motion abnormality in the RCA territory. Cardiac catheterization on 10/25/2024 which did show patent stents, mid PDA 50% stenosis. Currently no anginal symptoms. Continue med management for stable CAD. Continue aspirin indefinitely. Continue atorvastatin and Zetia with ideal LDL goal less than 70. Continue amlodipine and metoprolol for good blood pressure and heart rate control. Cardiology follow-up 6 months, sooner if needed (2) S/P cardiac cath: Comment: 04/06/21 LM normal, LAD mild irreg, stent mid patent, LCx mild irreg, stent mid patent, RCA mild irreg, Stent R PDA prox patent Code(s): Z98.890 - Other specified postprocedural states Category: Surgical Plan: As above (3) Essential hypertension: Code(s): I10 - Essential (primary) hypertension Category: Medical Plan: Blood pressure goal less than 130/80. Currently 114/64. Continue low-dose amlodipine and metoprolol. (4) Mixed hyperlipidemia: Code(s): E78.2 - Mixed hyperlipidemia Category: Medical Plan: [place] LDL goal less than 70. Labs done 01/01/2025 show LDL 65. Continue high- dose atorvastatin and Zetia. Plan I discussed with the patient the importance of monitoring for any new symptoms such as exertional chest pain or dyspnea. We agreed to continue the current medication regimen and to follow up in six months unless symptoms worsen. Patient Instructions: - Continue taking all prescribed medications as directed. - Monitor for any new symptoms such as chest pain or shortness of breath and report them immediately. - Follow up in six months or sooner if symptoms worsen. Patient was informed and verbally consented to the use of an ambient scribe for clinic note documentation during this visit. Visit time spent on chart review, interview, assessment, orders, documentation. Coding Level of Care Code Est Pt Level 4 (95790) Diagnoses Coronary artery disease of [place] artery of [place] heart with stable angina pectoris I25.118 Coronary Disease-Associated Artery/Lesion type: [place] artery [place] vs. transplanted heart: [place] heart Associated angina: with stable angina S/P cardiac cath Z98.890 Essential hypertension I10 Mixed hyperlipidemia E78.2 Time Spent (min) 28
[2025-07-30 10:10] VITALS: BP 114/64; PULSE 88; BMI 30.2
== END 2025-07-30 10:27 | disposition home or self-care (01) ==
LOC: HO.HCS 09:50
PROVIDERS: PCP Internal Medicine; Visit Provider Nurse Practitioner Family
DX: I25.118 Atherosclerotic heart disease of native coronary artery with other forms of angina pectoris (principal); Z98.890 Other specified postprocedural states; I10 Essential (primary) hypertension; E78.2 Mixed hyperlipidemia
CPT/HCPCS: 99214

== ENCOUNTER → 2025-07-30 09:49 | Outpatient (BNVA) | payer OTHER, SELFPAY | PROVIDERS: PCP Internal Medicine; Visit Provider Nurse Practitioner Family | DX: I25.118 Atherosclerotic heart disease of native coronary artery with other forms of angina pectoris (principal); I10 Essential (primary) hypertension; E78.2 Mixed hyperlipidemia | CPT/HCPCS: 99212 ==